=== PATIENT | male | born 1965 | race Caucasian/White ===

== ENCOUNTER 2019-03-25 10:58 | Emergency (ER) | payer OTHER, SELFPAY ==
[2019-03-25 10:59] VITALS: BP 132/91; PULSE 72; RESP 16; TEMP 36.3; O2SAT 97; BMI 28.3
--- NOTE | 2019-03-25 11:13 | EKG12_ITS ---
Test Reason : CP Blood Pressure : / mmHG Vent. Rate : 062 BPM Atrial Rate : 062 BPM P-R Int : 128 ms QRS Dur : 088 ms QT Int : 404 ms P-R-T Axes : 042 021 048 degrees QTc Int : 410 ms Normal sinus rhythm Normal ECG Confirmed by MICAELA MONTIEL ([id number]), department editor SANJUANITA PARK ([id number]) on 03/28/2019 11:18:20 AM Referred By: BB Confirmed By:MICAELA MONTIEL
--- NOTE | 2019-03-25 11:13 | RAD_ITS ---
STUDY: X-RAY CHEST REASON FOR EXAM: Male, 53 years old. Chest pain. TECHNIQUE: Single AP portable view of the chest. COMPARISON: Comparison is made with prior examination dated July 17, 2016. FINDINGS: EKG electrodes are seen. Hyperinflation. The lungs are clear. There is no demonstrated pleural abnormality. Normal size heart. Normal mediastinum and alka. Normal visualized pulmonary arteries. Normal visualized aortic arch and descending thoracic aorta. There are degenerative changes of the visualized thoracic spine. Normal visualized ribs, clavicles, and shoulders. There is no demonstrated abnormality of the visualized soft tissue structures of the upper abdomen. RAD/Chest 1 View (Portable) IMPRESSION: Hyperinflation. No acute abnormality is seen. Electronically Signed: Kota Ross, at 11:35 EST , Service support ,
--- NOTE | 2019-03-25 11:14 | ED.DCSUM_ITS ---
- ER Visit Summary Date of Service: 03/25/19 Chief Complaint: Chest pain History of Present Illness: The patient is a 53 M with chest pain. Symptoms started so rarely and intermittently for months but have been more consistent over the past 2 days and worse today. The pain radiates from his chest to his l eft arm. He says his pain is currently a 1 out of 10. History of a treadmill stress test years ago. Nothing recently. No history of coronary disease. He does not take blood thinners or aspirin. No history of aortic disease or PE. He has a family history of coronary disease. His mom at age 51. His sisters had coronary disease in their 50s. He is a former smoker. Physical Examination: Afebrile and vital signs are unremarkable. Alert and oriented. No acute distress. Heart regular. Lungs clear. Abdomen soft. Extremities nontender with no edema. Pulses strong and equal. Skin appears normal. Cranial nerves grossly intact. Normal strength and sensation. Test Results: EKG shows sinus rhythm at a rate of 62. No sign of ischemia or infarction pattern. Labs and chest x-ray pending. Emergency Department Course and Treatment: Patient was monitored. Treated with aspirin while awaiting results. On reevaluation, no further symptoms. Chest x-ray shows chronic findings. Nothing acute. Labs normal. Patient has a heart score of 3. He would like to try outpatient follow-up. I advised he will still need outpatient testing including a stress test. He does not want to be admitted. We will perform the delta troponin and he will follow- up with his doctor. Call today for an acute appointment and outpatient testing. He voiced understanding and agreement. I also advised him that if his pain worsens, if he has new symptoms, or if he is unable to follow-up, he should return to the ED. Treatment Plan: As above Disposition: Discharge pending normal delta troponin Impression: 1. Chest pain This note was generated with [employer] dictation software. It may contain incorrect words, spelling, and punctuation that were not noted in review of the chart prior to signing ED Disposition - Plan for ED Patient: Referrals: Ferny Swanson MD [STAFF PHYSICIAN] -
[2019-03-25] MEDS: Aspirin 81 MG TAB.CHEW 324 MG PO (11:19)
[2019-03-25 11:25] LABS: Absolute Lymphocyte Count 1.58 X10^3/uL (0.83-4.51); Absolute Neutrophil Count 4.1 X10^3/uL (2.0-7.7); Basophil# 0.03 X10^3/uL; Basophil% 0.5 % (0-1); Eosinophil# 0.27 X10^3/uL; Eosinophils% 4.2 % (0-5); Hematocrit 43.7 % (40-54); Hemoglobin 14.5 g/dL (13.0-16.5); Lymphocyte # 1.58 X10^3/ul (4.0); Lymphocyte % 24.7 % (19-41); Mean Corp Hgb Conc 33.2 g/dL (32-36); Mean Corpuscular Hgb 28.6 pg (27.0-32.0); Mean Corpuscular Volume 86.2 fL (80-94); Mean Platelet Vol. 9.9 fl (6.2-12.0); Monocyte# 0.45 X10^3/uL; NRBC Flagged by Analyzer 0 % (0-5); Neutrophil # 4.05 X10^3/uL (2.7-7.7); Neutrophil % 63.4 % (47-70); Platelet Count 316 K/mm3 (150-450); RBC Distribution Width SD 40.3 fl (35.1-43.9); Red Blood Count 5.07 M/mm3 (4.6-6.2); White Blood Count 6.4 K/mm3 (4.4-11.0)
[2019-03-25 11:38] LABS: Anion Gap 6 (5-15); BUN 13 mg/dL (7-18); Calcium,Total 9.1 mg/dL (8.5-10.1); Chloride 106 mmol/L (98-107); Creatinine, Serum 0.68 mg/dL (0.70-1.30); EST Glomerular Filtration Rate 128 mL/min (>60); Est Glom Filt Rate - Afr Amer 155 mL/min (>60); Estimated Creatinine Clearance 134.72 ml/min; Glucose 95 mg/dL (74-106); Potassium 3.9 mmol/L (3.5-5.1); Sodium Level 139 mmol/L (136-145)
--- NOTE | 2019-03-25 11:52 | ED.DEP ---
ED Disposition - Plan for ED Patient: Instructions: CHEST PAIN, Uncertain Cause Referrals: Deepak Davidson [Primary Care Provider] -
[2019-03-25 13:00] VITALS: BP 129/85; PULSE 64; RESP 20; O2SAT 95
[2019-03-25 15:08] VITALS: BP 116/82; PULSE 60; RESP 20; O2SAT 96
== END 2019-03-25 15:17 | disposition home or self-care (01) ==
LOC: ED 11:21
PROVIDERS: Emergency Provider Emergency Medicine; Family Provider Family Medicine
DX: R07.9 Chest pain, unspecified (principal); Z87.891 Personal history of nicotine dependence; Z82.49 Family history of ischemic heart disease and other diseases of the circulatory system
CPT/HCPCS: 36415; 71045; 80048; 84484; 85025; 93005; 99285; A4216

== ENCOUNTER → 2019-04-04 10:48 | Outpatient (CLI) | payer OTHER, SELFPAY ==
[2019-03-25 10:59] VITALS: BMI 28.3
--- NOTE | 2019-04-04 10:52 | ECHOD_ITS ---
Reason For Study: CHEST PAIN/CAD Procedure This was a 2D Doppler, Color Flow transthoracic echocardiogram. Exam performed in department. Left Ventricle Normal LV size. Left ventricular systolic function is normal. The estimated ejection fraction is 55 %. No regional wall motion abnormalities noted. Right Ventricle Normal RV size. Normal systolic function. Atria Normal left atrium. Normal right atrium. Mitral Valve Normal mitral valve. Tricuspid Valve Normal tricuspid valve. Mild tricuspid valve insufficiency. Aortic Valve Normal aortic valve. Trisinus/trileaflet aortic valve. Pulmonic Valve Normal pulmonic valve. Great Vessels Normal aortic root. The pulmonary artery is normal size. Normal inferior vena cava. Pericardium/Pleural No pericardial effusion. MMode/2D Measurements & Calculations LVIDd: 5.1 cm IVSd: 1.0 cm Ao root diam: 3.6 cm LVIDs: 3.7 cm LVPWd: 1.0 cm RVDd: 3.6 cm FS: 28.4 % LAV(MOD-bp): 46.1 ml LA A4 area: 16.1 cm2 LA dimension(2D): 3.3 cm LAV(MOD-bp) Indexed: 21.4 ml/m2 LAV(MOD-sp2): 47.8 ml LAV(MOD-sp4): 43.2 ml RA A4 area: 16.7 cm2 Time Measurements MV dec time: 0.28 sec Doppler Measurements & Calculations MV E max jan: 54.7 cm/sec Lat Peak E' Jan: 6.5 cm/sec Med Peak E' Jan: 6.0 cm/sec MV A max jan: 66.3 cm/sec E/E' lat: 8.4 E/E' med: 9.1 MV E/A: 0.82 Ao V2 max: 81.7 cm/sec LV V1 max: 68.6 cm/sec PA V2 max: 112.8 cm/sec Ao max P.7 mmHg LV V1 max P.9 mmHg TR max jan: 202.7 cm/sec TR max P.4 mmHg Interpretation Summary Normal LV size. Left ventricular systolic function is normal. The estimated ejection fraction is 55 %. Mild tricuspid valve insufficiency. Structurally normal valves. Ordering Physician: Catalino Farias Referring Physician: Deepak Davidson Performed By: Ya Mazariegos RDCS, RVT
--- NOTE | 2019-04-04 15:47 | STRESSREP ---
Stress Test Report Exercise stress test. 53-year-old male with a history of atypical chest pain. Stress protocol: Resting EKG demonstrates sinus rhythm with a rate of 63 bpm normal intervals are noted resting blood pressures 114/82 mmHg. The patient exercised according to regular [employer] protocol for total duration of 9 minutes. The maximum heart rate attained was 150 bpm which was 90% of maximum predicted heart rate the maximum workload was 10.1 metabolic equivalents. The patient maintained sinus rhythm throughout the recording. At rest there were no ST or T wave changes noted suggest ischemia peak exercise upsloping ST changes only were noted with no meet the criteria for ischemia. No clinical angina was noted. The resting blood pressure was 114/82 with a peak blood pressure 182/84 mmHg rate pressure product was 27,300. The test was terminated due to the target heart rate being achieved and dyspnea. Conclusion: Exercise stress test with no EKG criteria for ischemia at a high workload. Excellent functional capacity. No arrhythmias noted.
== END ==
PROVIDERS: Family Provider Family Medicine; Referring Provider Family Medicine; Visit Provider Family Medicine
DX: I25.10 Atherosclerotic heart disease of native coronary artery without angina pectoris (principal); R07.89 Other chest pain; Z87.891 Personal history of nicotine dependence; Z82.49 Family history of ischemic heart disease and other diseases of the circulatory system
CPT/HCPCS: 93017; 93306

== ENCOUNTER → 2019-11-06 18:00 | Outpatient (CLI) | payer OTHER, SELFPAY | PROVIDERS: Visit Provider Family Medicine | DX: Z03.818 Encounter for observation for suspected exposure to other biological agents ruled out (principal) | CPT/HCPCS: 87635; G2023; U0003 ==

== ENCOUNTER 2020-08-30 01:45 | Emergency (ER) | payer OTHER, SELFPAY ==
[2020-08-30 01:45] VITALS: BP 133/88; PULSE 60; RESP 16; TEMP 36.7; O2SAT 97; BMI 25.9
--- NOTE | 2020-08-30 02:21 | RAD_ITS ---
STUDY: X-RAY - RIGHT SHOULDER REASON FOR EXAM: Male, 54 years old. Injury/Pain TECHNIQUE: 4 view(s) of the shoulder. COMPARISON: None. FINDINGS: There is mild degenerative arthrosis of the glenohumeral articulation. Normal acromioclavicular joint. Normal acromion. Normal humeral head and visualized proximal humerus. The soft tissue structures are unremarkable. There is no demonstrated fracture. Normal visualized pulmonary apex. 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 Otherwise normal x-ray examination of the shoulder. Electronically Signed: Lisa Baker MD at 2:49 EDT , Service support ,
--- NOTE | 2020-08-30 02:22 | ED.VISSUMM ---
- ER Visit Summary Date of Service: 08/30/20 Chief Complaint: Right shoulder pain History of Present Illness: The patient is a 54 M who presents with right shoulder pain that has been off and on for the past year but became worse today. Patient states it suddenly became worse today. Patient describes the pain as throbbing and stabbing. Patient states pain is worse with movement. Patient states pain is somewhat better with rest. Patient states he was unable to sleep tonight due to the pain. Patient denies any paresthesias or weakness. Patient denies any specific trauma or injury. Patient states he uses his right shoulder a lot at work. Physical Examination: Vital signs are stable. Patient is afebrile. Patient is in no acute distress. Musculoskeletal exam reveals tenderness over the right shoulder. There is no edema or ecchymosis. There is no bony crepitance or step-off. Range of motion was limited in all motions of the right shoulder secondary to pain. Strength is 5/5 bilateral in the radial, median, and ulnar areas. Sensation was intact to light touch in the radial, median, ulnar, and axillary areas. There is no deformity noted. Radial pulses are equal bilaterally. Test Results: X-rays of the right shoulder were obtained. There are 5 views. On my interpretation, there is no acute fracture. There is no dislocation. There is no soft tissue swelling. There are some mild degenerative changes of the glenohumeral joint. Radiologist also interpreted the x-rays and agrees. Emergency Department Course and Treatment: Patient was given a dose of [place] here. Patient was advised of his findings. Patient was instructed to use ice to the area. Patient was given a prescription for Mobic. Patient was instructed to follow-up with his primary care physician in 5 to 7 days. Patient understood and was agreeable with the plan. All questions were answered. Disposition: Discharge home Impression: 1. Right shoulder strain This note was generated with [employer] dictation software. It may contain incorrect words, spelling, and punctuation that were not noted in review of the chart prior to signing ED Disposition - Plan for ED Patient: Disposition: Home or Assisted Living Diagnosis: Right shoulder strain Instructions: ED Shoulder Pain, Uncertain Cause Prescriptions: Meloxicam [Mobic] 15 mg PO DAILY #10 tablet Prescription Printed Referrals: Deepak Davidson [Primary Care Provider] - 5-7 Days
[2020-08-30] MEDS: HYDROcodone Bitartrate/Apap 5/325 Tablet PO (02:26)
[2020-08-30 03:44] VITALS: RESP 14
== END 2020-08-30 03:44 | disposition home or self-care (01) ==
PROVIDERS: Emergency Provider Emergency Medicine
DX: S46.911A Strain of unspecified muscle, fascia and tendon at shoulder and upper arm level, right arm, initial encounter (principal); X58.XXXA Exposure to other specified factors, initial encounter; Z87.891 Personal history of nicotine dependence
CPT/HCPCS: 73030; 99282

== ENCOUNTER 2023-12-25 10:33 | Emergency (ER) | payer OTHER, SELFPAY ==
[2023-12-25 10:33] VITALS: BP 130/74; PULSE 70; RESP 16; TEMP 36.7; O2SAT 97; BMI 25.7
[2023-12-25 10:35] VITALS: BP 130/74; PULSE 70; RESP 16; TEMP 36.7; O2SAT 98
[2023-12-25 11:09] LABS: Absolute Lymphocyte Count 1.65 X10^3/uL (0.83-4.51); Absolute Neutrophil Count 6.1 X10^3/uL (2.0-7.7); Basophil# 0.05 X10^3/uL; Basophil% 0.6 % (0-1); Eosinophil# 0.43 X10^3/uL; Eosinophils% 4.9 % (0-5); Hematocrit 43.1 % (40-54); Hemoglobin 14.3 g/dL (13.0-16.5); Lymphocyte # 1.65 X10^3/ul (0.83-4.51); Mean Corp Hgb Conc 33.2 g/dL (32-36); Mean Corpuscular Hgb 29.4 pg (27.0-32.0); Mean Corpuscular Volume 88.7 fL (80-94); Monocyte# 0.48 X10^3/uL; Monocyte% 5.5 % (0-10); NRBC Flagged by Analyzer 0 % (0-5); Neutrophil # 6.06 X10^3/uL (2.7-7.7); Neutrophil % 69.8 % (47-70); Platelet Count 296 K/mm3 (150-450); RBC Distribution Width CV 13.1 % (11.6-14.6); RBC Distribution Width SD 42.3 fl (35.1-43.9); Red Blood Count 4.86 M/mm3 (4.6-6.2); White Blood Count 8.7 K/mm3 (4.4-11.0)
--- NOTE | 2023-12-25 11:10 | CT_ITS ---
STUDY: CT ABDOMEN AND PELVIS WITH CONTRAST REASON FOR EXAM: Male, 58 years old. RLQ pain RADIATION DOSAGE (If Supplied By Facility): CTDIvol = ( 11.3 ) mGy, DLP = ( 775.23 ) mGycm TECHNIQUE: Transaxial images were obtained from the dome of the diaphragm to the symphysis pubis without oral contrast. IV 100mL Isovue-300 was administered. Sagittal and coronal images were reconstructed. Individualized dose optimization techniques were used for this CT. COMPARISON: Comparison is made with prior study dated December 24, 2013. FINDINGS: The visualized lung bases are unremarkable. The visualized portions of the heart are within normal limits. Normal liver. Normal gallbladder and extrahepatic biliary system. Normal spleen. Normal pancreas. Normal bilateral adrenal glands. Normal right kidney. Stable left renal cysts. Diffuse gastric wall thickening. Clinical correlation recommended. Normal small intestine. Normal colon. The appendix is visualized and appears normal. There is scattered atherosclerotic calcification of the abdominal aorta, without a demonstrated aneurysm. Normal inferior vena cava. Normal retroperitoneum. Normal urinary bladder. Moderate-sized left inguinal hernia containing nondilated bowel loops. There is thickening of the scrotum on the left side. Small right inguinal hernia containing fat. There are mild degenerative changes of the visualized lumbar spine. CT/Abdomen/Pelvis W IV Cont ONLY IMPRESSION: Bilateral inguinal hernias containing fat and small bowel loops more prominent on the left side. No ureteral obstruction is seen. Electronically Signed: Kota Ross MD at 12:11 EDT ,
--- NOTE | 2023-12-25 11:12 | ED.VIS.GI ---
HPI HPI - GI History of Present Illness Chief Complaint: Abd Pain Informant: patient Narrative Narrative: Waxing waning right lower quadrant abdominal pain for 2 weeks. No nausea or vomiting. Normal bowel movements. Bilateral inguinal hernia repair years ago. No fevers or chills. Intermittent sharp sensations side. 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 He went to express care he was sent here for evaluation. He ate a hamburger at 10 AM. Denies any urinary symptoms. Prior similar symptoms: No PFSH PFSH Home Medications ?Medication ?Instructions ?Recorded ?Last Taken ?Type meloxicam 15 mg tablet 15 mg PO DAILY #10 tabs 08/30/20 Unknown Rx Allergy/AdvReac Type Severity Reaction Status Date / Time No Known Allergies Allergy Verified 12/25/23 10:35 Social History Smoking Status: Former smoker ROS ROS ED Constitutional Constitutional ED: Denies chills, fever(s) or sweats Eyes Eyes: Denies change in vision ENT ENT ED: Denies dysphagia or sore throat Cardiovascular Cardiovascular: Denies chest pain, leg edema, palpitations or racing heartbeat Respiratory/Chest Respiratory/Chest: Denies cough, dyspnea or dyspnea on exertion Gastrointestinal Gastrointestinal: Reports abdominal pain; Denies diarrhea, nausea or vomiting Genitourinary Genitourinary ED: Denies dysuria, hematuria or urinary frequency Musculoskeletal Musculoskeletal: Denies back pain, extremity pain or neck pain Integumentary Denies rash or wounds Neurologic Neurologic: Denies headache(s), paresthesias or weakness EXAM Physical Exam Const Vital Signs: 12/25/23 10:33 12/25/23 10:35 12/25/23 12:00 Temperature 98.1 F 98.1 F 98 F Temperature Source Temporal Temporal Temporal Pulse Rate 70 70 66 Respiratory Rate 16 16 17 Blood Pressure 130/74 H 130/74 H 111/76 Blood Pressure Mean 92 92 87 Pulse Ox 97 98 98 Oxygen Delivery Method Room Air Room Air Room Air 12/25/23 12:30 12/25/23 13:22 Temperature 97.7 F L Temperature Source Pulse Rate 66 68 Respiratory Rate 17 18 Blood Pressure 111/74 125/76 H Blood Pressure Mean 85 92 Pulse Ox 98 98 Oxygen Delivery Method Positive well nourished and well developed General Appearance ED: well developed and NAD HEENT Reports moist mucous membranes normocephalic and atraumatic Eyes EOMs intact bilaterally and conjunctivae normal General Eye ED: Yes normal appearance of both eyes Neck no lymphadenopathy and supple General: Negative for tenderness Chest Wall Chest: Negative for tenderness Resp normal respiratory effort and normal air movement Effort and Inspection: symmetric chest movement; Negative for respiratory distress Cardio regular rate, regular rhythm and no murmurs Peripheral Pulses: pulses 2+ throughout GI normal to inspection, nondistended, normoactive bowel sounds GI Narrative: Tender deep palpation right lower quadrant there is no guarding or rebound. Negative Rovsing's. Negative Schmitz's. Palpation: Negative for guarding or rebound tenderness present Back/Spine no CVA tenderness and no thoracic nor lumbar tenderness Extremity normal to inspection General Extremety ED: Negative for edema or tenderness General Extremity: Negative for edema Neuro oriented x3 and no sensory deficits noted Sensorium / Orientation: awake and alert Skin no rashes or lesions noted and no wounds MDM MDM MDM Narrative Medical decision making narrative: Interventions / MDM: Differential diagnosis: Hernia Diagnosis considered but do not suspect: Appendicitis however normal CT, kidney stones however normal CT. My EKG interpretation: N/A Imaging independently reviewed and interpreted by myself: CT abdomen pelvis IV contrast: Normal appendix. Bilateral inguinal hernias. Right side fat-containing. Left side with bowels, no obstruction. External documents reviewed: N/A Test considered but not ordered:N/A ED course: Patient declines any pain medicines. Labs urine ordered. Will start fluids. Right lower quadrant pain on exam. CT abdomen pelvis IV contrast ordered for further evaluation. 1315: Symptoms stable no progression of symptoms. Labs are normal. CT fat-containing right inguinal hernia. Left inguinal hernia containing bowels in the scrotum. Nonobstructing. Discussed with patient likely the fact inguinal hernia is causing symptoms currently. He is in no distress. He states he had surgery by Dr. Hudson years ago on the left side. Discussed following up with him for surgical discussion. Discussed strict return precautions if severe pain specially left side with vomiting and abdominal distention. All questions were answered. Re-evaluation: stable Disposition discussed with patient/family/significant other: Patient Case discussed with consulting clinician: N/A This note was generated with [email or web address] dictation software. It may contain incorrect words, spelling, and punctuation that were not noted in checking the note before signing. Lab Data Attestation: I reviewed the patient's lab results. Labs: Laboratory Results - last 24 hr 12/25/23 12/25/23 11:04 11:16 WBC 8.7 RBC 4.86 Hgb 14.3 Hct 43.1 MCV 88.7 MCH 29.4 MCHC 33.2 RDW Std Deviation 42.3 RDW Coeff of [place] 13.1 Plt Count 296 MPV 10.0 Immature Gran % (Auto) 0.200 Neut % (Auto) 69.8 Lymph % (Auto) 19.0 [place] % (Auto) 5.5 Eos % (Auto) 4.9 Baso % (Auto) 0.6 Absolute Neuts (auto) 6.1 Absolute Lymphs (auto) 1.65 Nucleated RBC % 0 Sodium 139 Potassium 4.0 Chloride 107 Carbon Dioxide 28.0 Anion Gap 4 L BUN 12 Creatinine 0.75 Estim Creat Clear Calc 114.96 Est GFR (MDRD) Af Amer 136 Est GFR (MDRD) Non-Af 113 BUN/Creatinine Ratio 16.0 Glucose 104 Calcium 9.2 Total Bilirubin 0.30 AST 17 ALT 24 Alkaline Phosphatase 137 H Total Protein 7.2 Albumin 3.5 Globulin 3.7 Albumin/Globulin Ratio 0.9 Urine Color Yellow Urine Clarity Clear Urine pH 6.5 Ur Specific [place] 1.015 Urine Protein Negative Urine Glucose (UA) Normal Urine Ketones Negative Urine Occult Blood Negative Urine Nitrite Negative Urine Bilirubin Negative Urine Urobilinogen Normal Ur Leukocyte Esterase Negative Urine RBC 0-5 SEEN Urine WBC 0-5 SEEN Ur Squamous Epith Cells 0-5 SEEN Urine Bacteria 0 SEEN Urine Mucus 0 SEEN Radiography Diagnostic Testing: Clinical Impression(s) from Imaging Studies Abdomen/Pelvis CT 12/25/23 11:10 IMPRESSION: Bilateral inguinal hernias containing fat and small bowel loops more prominent on the left side. No ureteral obstruction is seen. Electronically Signed: Kota Ross MD at 12:11 EDT , Discharge Plan Triage Chief Complaint: Abd Pain ED Provider: Dominic Roche Dx/Rx/DC Orders Clinical Impression: Inguinal hernia recurrent bilateral, Abdominal pain Instructions: What Is a Hernia?, How a Hernia Develops Prescriptions: No Action meloxicam 15 MG tablet 15 mg PO DAILY Qty: 10 0RF Stand Alone Forms: ED Work / School Excuse Primary Care Provider: Deepak Davidson Referrals: Jfee Hudson MD [Non-Staff] - 1 Week Deepak Davidson [[facility]] - Activity Restrictions/Additional Instructions: CT scan with small right fat-containing inguinal hernia. Left side hernia with bowels in the scrotum there is no obstruction of this area. Your symptoms are from the right side hernia. Tylenol or Motrin as needed. Follow-up with Dr. Hudson for discussion of management plan. If you develop worsening pain symptoms with vomiting, return to the ED for reevaluation. Print Language: Belgian Disposition Disposition: Home, Self Care Discharge Date/Time: 12/25/23 13:26
[2023-12-25] MEDS: 0.9% Normal Saline (1000mL) 1,000 ML 125 ML IV (11:16)
[2023-12-25 11:20] LABS: Bacteria 0 SEEN /hpf (None Seen); Mucous, Urine 0 SEEN /hpf (<or=2+)
[2023-12-25 11:22] LABS: Color, Urine Yellow (Yellow); Glucose, Dipstick Normal (Normal); Ketone-Dipstick Negative (Negative); Leukocyte Esterase-Dipstick Negative /ul (Negative); Nitrite-Dipstick Negative (Negative); Occult Blood-Urine Negative /ul (Negative); Protein-Dipstick Negative (Negative); Specific Gravity, Urine 1.015 (1.002-1.030); Urine Bilirubin Dipstick Negative (Negative); Urine Clarity Clear (Clear); Urine Urobilinogen Normal (Normal); Urine pH 6.5 (5.0 - 8.0)
[2023-12-25 11:27] LABS: ALB/GLOB Ratio 0.9 RATIO (0.9-2.4); AST(SGOT) 17 U/L (15-37); Alanine Aminotransfer ALT/SGPT 24 U/L (16-61); Albumin, Serum 3.5 g/dL (3.2-5.0); Alkaline Phosphatase 137 U/L (45-117); Anion Gap 4 (5-15); BUN 12 mg/dL (7-18); Calcium,Total 9.2 mg/dL (8.5-10.1); Chloride 107 mmol/L (98-107); Creatinine, Serum 0.75 mg/dL (0.70-1.30); EST Glomerular Filtration Rate 113 mL/min (>60); Est Glom Filt Rate - Afr Amer 136 mL/min (>60); Estimated Creatinine Clearance 114.96 ml/min; Globulin 3.7 g/dL (2.2-4.2); Glucose 104 mg/dL (74-106); Protein, Total 7.2 g/dL (6.4-8.2); Sodium Level 139 mmol/L (136-145)
[2023-12-25 11:34] LABS: Red Blood Cells-Urine 0-5 SEEN /hpf (0-5); Squamous Epithelial Cells - UA 0-5 SEEN /hpf (0-5); White Blood Cells 0-5 SEEN /hpf (0-5)
[2023-12-25 12:00] VITALS: BP 111/76; PULSE 66; RESP 17; TEMP 36.6; O2SAT 98
[2023-12-25 12:30] VITALS: BP 111/74; PULSE 66; RESP 17; O2SAT 98
[2023-12-25 13:22] VITALS: BP 125/76; PULSE 68; RESP 18; TEMP 36.5; O2SAT 98
== END 2023-12-25 13:26 | disposition home or self-care (01) ==
PROVIDERS: Emergency Provider Emergency Medicine; PCP Family Medicine; Visit Provider Emergency Medicine
DX: K40.21 Bilateral inguinal hernia, without obstruction or gangrene, recurrent (principal); R10.31 Right lower quadrant pain; Z87.891 Personal history of nicotine dependence
CPT/HCPCS: 74177; 80053; 81001; 85025; 99282; J7030; Q9967

== ENCOUNTER 2025-01-26 00:50 | Emergency (ER) | payer OTHER, SELFPAY ==
[2025-01-26 00:52] VITALS: BP 119/70; PULSE 75; RESP 18; TEMP 36.6; O2SAT 96; BMI 17.2
--- NOTE | 2025-01-26 01:13 | CT_ITS ---
PROCEDURE: SPINE LUMBAR WITHOUT CONTRAST 01/26/2025 REASON FOR EXAM: LUMBAR RADICULOPATHY TECHNIQUE: Procedure Code: CTSPL Modality: CT Procedure: SPINE LUMBAR WITHOUT CONTRAST Coronal and Sagittal reconstruction series were provided. One or more dose reduction techniques were used (e.g., Automated exposure control, adjustment of the mA and/or kV according to patient size, use of iterative reconstruction technique COMPARISON: none RADIATION DOSE SUMMARY: CTDI Vol 14.69 mGy DLP :621.55 mGycm FINDINGS: Straightened lumbar lordosis denoting myospasm. 1st degree anterolisthesis of L4 over L5 with L4-L5 degenerative facet arthropathy Mild L5 over S1 retrolisthesis. Normal vertebral bodies height and alignment. Intact vertebral neural arches. No definite fractures could be detected. Multilevel small marginal lipping and sclerosis of the examined vertebral end plates. Multilevel reduced discs height with vacuum phenomenon. Multilevel degenerative facet arthropathy and hypertrophied ligamenta flava with calcifications. Multilevel variable degrees of diffuse disc bulges indenting the theca and inducing encroachment upon the neural exit foramina. Degenerative changes of the sacroiliac joints. No paraspinal soft tissue masses. Aortoiliac atheromatous calcifications. CT/Spine Lumbar without Contrast IMPRESSION: Straightened lumbar lordosis denoting myospasm. 1st degree anterolisthesis of L4 Mild L5 over S1 retrolisthesis. No acute fractures. Lumbar spondylosis with multilevel facet arthropathy and diffuse posterior disc bulges inducing encroachment upon the neural exit foramina. Degenerative changes of the sacroiliac joints. Reading [facility]
--- OUTSIDE RECORDS SUMMARY | 2025-01-26 01:22 | XMS RPT_ITS | CCD ---
Author Organization [facility] Care Team Providers Care Stud Sheep Farmer Name Role Phone Davidson JONES, Deepak Lr Primary Care Provider Deepak Cedeño MD Primary Care Provider Haagen FASHION BUYER.PAYAM Liliane Unavailable Suppan FASHION BUYER.RN CLINICAL APPEALS, Janel A Unavailable Suppan FASHION BUYER.RN CLINICAL APPEALS, Janel A Unavailable [phone] Suppan FASHION BUYER.PAYAM, Janel A Unavailable [phone] [facility] Primary Care Unavailable SUPPAN, JANEL A Referring Unavailable [place], Deepak Primary Care Unavailable Dominic Roche Attending Unavailable [facility] Primary Care Unavailable HIREN BAUMANN Attending Unavailable HIREN BAUMANN Admitting Unavailable [facility], DEEPAK Primary Care Unavailable SUPPAN, JANEL A Referring Unavailable [facility], DEEPAK Primary Care Unavailable MILE IZAGUIRRE Attending Unavailable SUPPAN, JANEL A Referring Unavailable [facility], DEEPAK Primary Care Unavailable ELEAZAR SILVER Attending Unavailable SUPPAN, JANEL A Referring Unavailable DIANE LINARES Attending Unavailable SUPPDHRUV, JANEL A Referring Unavailable [facility], DEEPAK Primary Care Unavailable HIREN BAUMANN Attending Unavailable [facility], DEEPAK Referring Unavailable [facility], [facility] Primary Care Unavailable [facility], DEEPAK Primary Care Unavailable SUPPAN, JANEL A Referring Unavailable DILEEP ERVIN Attending Unavailable SUPPAN, JANEL A Referring Unavailable [facility], DEEPAK Primary Care Unavailable DILEEP ERVIN Referring Unavailable [facility], DEEPAK Primary Care Unavailable SUPPDHRUV, JANEL A Attending Unavailable [facility], DEEPAK Primary Care Unavailable SUPPDHRUV, JANEL A Referring Unavailable [facility], DEE[facility]K Primary Care Unavailable HIREN BAUMANN Referring Unavailable DAVIDSONDEEPAK Cadena Primary Care Unavailable HIREN BAUMANN Attending Unavailable DEEPAK CEDEÑO Primary Care Unavailable DEEPAK CEDEÑO Referring Unavailable DEEPAK CEDEÑO Primary Care Unavailable DAVIDSON, DEEPAK Primary Care Unavailable JANEL MCGOVERN Attending Unavailable DEEPAK CEDEÑO Primary [facility] [place] Unavailable Allergies Allergy Classification Reported Allergen(s) Allergy Type Date of Onset Reaction(s) Facility (20 sources) Adhesive agent; Translations: [ADHESIVE] Propensity to adverse reactions to drug 12-09-2015 Rash [facility] Work Phone: Medications Current Medications Medication Drug Class(es) Dates Sig (Normalized) Sig (Original) mupirocin 20 mg/ml topical cream (6 sources) RNA Synthetase Inhibitor Antibacterial Start: 03-20-2024 End: 03-30-2024 mupirocin (BACTROBAN) 2 % ointment Indications: Wound cellulitis Apply to affected area three times a day for 10 days. 22 g 03/20/2024 03/30/2024 Active Start: 03-20-2024 End: 03-30-2024 mupirocin (BACTROBAN) 2 % cr eam Indications: Wound cellulitis Apply 1 application to affected area three times a day for 10 days. 15 g 03/20/2024 03/30/2024 Active predniSONE 20 mg oral tablet (1 source) Start: 01-16-2023 End: 01-21-2023 take 1 tablet by mouth once daily predniSONE (DELTASONE) 20 mg tablet Take 1 tablet by mouth once daily for 5 days. 5 tablet 0 01/16/2023 01/21/2023 Active Comment on above: Take 1 tablet by [facility] once daily for 5 days. Protein Supplement liqd (18 sources) Protein Suppleme nt liqd Take by mouth as needed. Suspended Protein Suppleme nt liqd Take by mouth as needed. Active sulfamethoxazole 800 mg / trimethoprim 160 mg oral tablet (4 sources) Dihydrofolate Reductase Inhibitor Antibacterial, Sulfonamide Antimicrobial Start: 03-20-2024 End: 03-30-2024 take 1 tablet by mouth twice daily sulfamethoxazole-trimethoprim (BACTRIM DS) 800-160 mg per tablet Indications: Wound cellulitis Take 1 tablet by mouth two times a day for 10 days. 20 tablet 03/20/2024 03/30/2024 Active terbinafine 250 mg oral tablet (9 sources) Allylamine Antifungal Start: 06-27-2024 End: 09-25-2024 take 1 tablet by mouth once daily terbinafine HCl (LAMISIL) 250 mg tablet Indications: Tinea pedis of both feet Take 1 tablet by mouth once daily. For 90 days only to treat fungal nails 90 tablet 06/27/2024 09/25/2024 Active Completed/Discontinued Medications Medication Drug Class(es) Dates Sig (Normalized) Sig (Original) acetaminophen 325 mg oral tablet (7 sources) End: 06-27-2024 take 2 tablets by mouth every six hours as needed acetaminophen (TYLENOL) 325 mg tablet Take 650 mg by mouth every 6 hours as needed. 06/27/2024 Discontinued (Discontinued by Patient) calcium chloride 0.0014 meq/ml / potassium chloride 0.004 meq/ml / sodium chloride 0.103 meq/ml / sodium lactate 0.028 meq/ml injectable solution (1 source) Start: 04-28-2024 End: 04-28-2024 take 30 mL intravenously every hour 30 mL/hr, INTRAVENOUS, CONTINUOUS, Starting on Sun04/28/24 at 1100, Until Sun04/28/24 at 1218, Preprocedure diclofenac sodium 0.01 mg/mg topical gel (3 sources) Nonsteroidal Anti-inflammatory Drug Start: 01-24-2023 End: 03-20-2024 diclofenac (VOLTAREN ARTHRITIS PAIN) 1 % topical gel Apply 2 g to affected area four times daily. 100 g 1 01/24/2023 03/20/2024 Discontinued (Course of therapy completed) Comment on above: Apply 2 g to affecte d area four times daily. diphenhydrAMINE (1 source) Histamine-1 Receptor Antagonist Start: 04-28-2024 End: 04-28-2024 12.5-50 mg, INTRAVENOUS, DIRECTED, Starting on Sun04/28/24 at 1200, Until Sun04/28/24 at 1559, DOSING DIRECTED BY PHYSICIAN FOR PROCEDURAL SEDATION ONLY, Intraprocedure 1 ml fentaNYL 0.05 mg/ml injection (1 source) Opioid Agonist Start: 04-28-2024 End: 04-28-2024 25-100 mcg, INTRAVENOUS, DIRECTED, Starting on Sun04/28/24 at 1200, Until Sun04/28/24 at 1559, DOSING DIRECTED BY PHYSICIAN FOR PROCEDURAL SEDATION ONLY, Intraprocedure ibuprofen 200 mg oral tablet (5 sources) Nonsteroidal Anti-inflammatory Drug End: 03-20-2024 take 2 tablets by mouth every six hours as needed ibuprofen (MOTRIN) 200 mg tablet Take 400 mg by mouth every 6 hours as needed for pain (for knee pain). 03/20/2024 Discontinued (Course of therapy completed) Comment on above: Take 400 mg by mouth every 6 hours as needed for pain (for knee pain). 1 ml meperidine hydrochloride 50 mg/ml injection (1 source) Opioid Agonist Start: 04-28-2024 End: 04-28-2024 12.5-100 mg, INTRAVENOUS, DIRECTED, Starting on Sun04/28/24 at 1200, Until Sun04/28/24 at 1559, DOSING DIRECTED BY PHYSICIAN FOR PROCEDURAL SEDATION ONLY, Intraprocedure 5 ml midazolam 1 mg/ml injection (1 source) Benzodiazepine Start: 04-28-2024 End: 04-28-2024 1-5 mg, INTRAVENOUS, DIRECTED, Starting on Sun04/28/24 at 1200, Until Sun04/28/24 at 1559, DOSING DIRECTED BY PHYSICIAN FOR PROCEDURAL SEDATION ONLY, Intraprocedure polyethylene glycol 3350 460138 mg / potassium chloride 2980 mg / sodium bicarbonate 6720 mg / sodium chloride 5840 mg / sodium sulfate 93858 mg powder for oral solution (9 sources) Osmotic Laxative Start: 04-21-2024 End: 06-27-2024 peg 3350-electrolytes (GAVILYTE-C) 240-22.72-6.72 -5.84 gram solution Take 4000 ml as directed. Follow written instructions from the doctor's office. 1 Each 04/21/2024 06/27/2024 Discontinued (Discontinued by Patient) Problems Active Problems Problem Classification Problem Date Documented Da te Episodic/Chronic Chronic obstructive pulmonary disease and bronchiectasis (17 sources) Centriacinar emphysema; Translations: [Centrilobular emphysema] Onset: 07-02-2024 06-27-2024 Chronic Coronary atherosclerosis and other heart disease (9 sources) Calcification of coronary artery; Translations: [Atherosclerotic heart disease of [place] coronary artery without angina pectoris] Onset: 08-20-2024 08-20-2024 Chronic Disorders of lipid metabolism (2 sources) Dyslipidemia; Translations: [Hyperlipidemia, unspecified] Onset: 03-25-2024 03-25-2024 Chronic Mycoses (1 source) Tinea pedis; Translations: [Tinea pedis] 06-27-2024 Episodic Osteoarthritis (2 sources) Osteoarthritis of joint of right wrist; Translations: [Primary osteoarthritis, right wrist] 01-24-2023 Chronic Other nervous system disorders (1 source) Numbness of hand; Translations: [Anesthesia of skin] 03-25-2024 Episodic Other nervous system disorders (1 source) Paresthesia of hand ; Translations: [Anesthesia of skin] 06-16-2024 Episodic Other non-traumatic joint disorders (2 sources) Pain of right wrist; Translations: [Pain in right wrist] 01-16-2023 Episodic Other non-traumatic joint disorders (3 sources) Swelling of upper limb; Translations: [Effusion, left wrist] 03-25-2024 Episodic Residual codes; unclassified (3 sources) Tobacco user; Translations: [Tobacco use] 06-02-2024 Episodic Skin and subcutaneous tissue infections (1 source) Wound cellulitis; Translations: [Cellulitis, unspecified] 03-20-2024 Episodic Substance-related disorders (9 sources) Nicotine dependence; Translations: [Nicotine dependence, unspecified, uncomplicated] Onset: 03-26-2019 08-20-2024 Chronic Unclassified (1 source) Post Op Onset: 10-02-2024 Past or Other Problems Problem Classification Problem Date Documented Date Episodic/Chronic Abdominal hernia (20 sources) Umbilical hernia; Translations: [Umbilical hernia without obstruction or gangrene] Onset: 09-13-2015 09-13-2015 Episodic Abdominal pain (2 sources) Right lower quadrant pain; Translations: [Right lower quadrant pain] Onset: 01-11-2024 12-25-2023 Episodic Calculus of urinary tract (20 sources) Kidney stone; Translations: [Calculus of kidney] Onset: 11-19-2015 11-19-2015 Episodic Other infections; including parasitic (20 sources) Lyme disease; Translations: [Lyme disease, unspecified] Onset: 02-03-2020 02-03-2020 Episodic Other nervous system disorders (1 source) Other acute postprocedural pain; Translations: [Acute postoperative pain] Onset: 09-03-2024 Episodic Other nervous system disorders (1 source) Anesthesia of skin; Translations: [Numbness in both hands] Onset: 03-25-2024 Episodic Other non-traumatic joint disorders (1 source) Effusion, left wrist; Translations: [Wrist swelling, left] Onset: 03-25-2024 Episodic Other screening for suspected conditions (not mental disorders or infectious disease) (20 sources) Patient encounter status; Translations: [Encounter for screening for malignant neoplasm of colon] Onset: 03-25-2024 03-25-2024 Episodic Residual codes; unclassified (20 sources) FH: premature coronary heart disease; Translations: [Family history of ischemic heart disease and other diseases of the circulatory system] Onset: 03-26-2019 03-26-2019 Episodic Residual codes; unclassified (1 source) Tobacco use; Translations: [Tobacco use current] Onset: 06-13-2024 Episodic Screening and history of mental health and substance abuse codes (20 sources) Ex-smoker; Translations: [Personal history of nicotine dependence] Onset: 03-26-2019 03-26-2019 Episodic Results Test Name Value Interpretation Reference Range Facility [facility] CECILIA MARTIN ([id number]) 1965 M Date Time Provider Department 12/11/24 RENU DILLON [facility] During your visit today, we recorded the following information about you: Renu Dillon, Research Coordinator 12/11/2024 1:54 PM Signed IRB# [id number]: Vascular events in patients undergoing same-day nonCardiac surgery - [facility]IANCE PI: Arlette Ocampo MD This is a research study note. Patient assessments recorded here should not guide either clinical care or clinical decision-making. I attempted to contact Cecilia Martin on 12/11/2024 regarding the 90 day follow-up for the VALIANCE study. I was not able reach the patient on listed number. I will NOT attempt to call the patient again. This patient is considered lost to follow up. The research period is complete. Renu Dillon Research fellow [facility] Anesthesia Research/ Emergency Medicine Research Allergies As of Date: 12/11/2024 Noted Allergy Reaction ADHESIVE 12/09/2015 2 - Rash Comments: Blistering of skin from adhesive Date Reviewed: 10/02/2024 Reviewed by: Bethany Flores OCCA - Fully Assessed Reason for Visit: Research F/U [[id number]] Prescriptions as of 12/11/2024 - Protein Supplement liqd Take by mouth as needed. Meds Comments as of 11/10/2015: No Routine Rx, otc or supplements Problem List As Of Date 12/11/2024 Noted Resolved Umbilical hernia without obstruction and withou*09/13/2015 Renal calculi [N20.0] 11/19/2015 Unilateral inguinal hernia without obstruction *11/19/2015 Nicotine dependence with current use [F17.200] 03/26/2019 Family history of premature CAD [Z82.49] 03/26/2019 Acute Lyme disease with largest skin lesion of *02/03/2020 Screening for colon cancer [Z12.11] 04/28/2024 Coronary artery calcification [I25.10] 08/20/2024 Centrilobular emphysema (HCC) [J43.2] 08/20/2024 Encounter Status:Closed by RENU DILLON on 12/11/24 [facility] 12-02-[address] [facility] Telephone ([facility]) CECILIA MARTIN ([id number]) 1965 M Date Time Provider Department 12/02/24 RENU DILLON [facility] During your visit today, we recorded the following information about you: Renu Dillon, Research Coordinator 12/02/2024 2:11 PM Signed IRB# [id number]: Vascular events in patients undergoing same-day nonCardiac surgery - [facility] PI: Arlette Ocampo MD This is a research study note. Patient assessments recorded here should not guide either clinical care or clinical decision-making. I attempted to contact Cecilia Martin on December 02, 2024 regarding the 90 day follow-up for the VALIANCE study. I was not able reach the patient on listed number. I will attempt to call the patient again at a later time. Renu Dillon, Research Fellow Outcomes Research Anesthesiology [place] Allergies As of Date: 12/02/2024 Noted Allergy Reaction ADHESIVE 12/09/2015 2 - Rash Comments: Blistering of skin from adhesive Date Reviewed: 10/02/2024 Reviewed by: Bethany Flores OCCA - Fully Assessed Reason for Visit: Research F/U [778] Prescriptions as of 12/02/2024 - Protein Supplement liqd Take by mouth as needed. Meds Comments as of 11/10/2015: No Routine Rx, otc or supplements Problem List As Of Date 12/02/2024 Noted Resolved Umbilical hernia without obstruction and withou*09/13/2015 Renal calculi [N20.0] 11/19/2015 Unilateral inguinal hernia without obstruction *11/19/2015 Nicotine dependence with current use [F17.200] 03/26/2019 Family history of premature CAD [Z82.49] 03/26/2019 Acute Lyme disease with largest skin lesion of *02/03/2020 Screening for colon cancer [Z12.11] 04/28/2024 Coronary artery calcification [I25.10] 08/20/2024 Centrilobular emphysema (HCC) [J43.2] 08/20/2024 Encounter Status:Closed by RENU DILLON on 12/02/24 [facility] CNOVon 10-02-2024 CNOV Office Visit ([facility] ) CECILIA MARTIN ([id number]) 1965 M Date Time Provider Department 10/02/24 3:20 PM HIREN BAUMANN [facility] During your visit today, we recorded the following information about you: Temperature Pulse Blood pressure Weight 97.7 degrees 78/minute 131/86 85.3 kg Height 1.829 m Hiren Baumann MD 11/17/2024 1:56 PM Signed [facility] - Follow Up Visit Assessment/Plan: Cecilia Martin is a 58 year old male s/p open left inguinal hernia repair with 7.5 x 13 cm mid-weight polypropylene Parietene mesh and robotic right inguinal hernia repair with 15 x 11 cm heavy-weight Polypropylene Prolene mesh on 09/03/2024. He presents today, 29 days postoperatively and is doing well. His pain has resolved, there is no bulging in the groin, he is having no issues with PO intake, his wounds are healing well, and he is recovering appropriately. - Follow up as needed Subjective: Feels an occasional poking pain in the left groin and only an occasional ache on the right. A little bit of numbness in the left groin. No issues with PO intake, or bowel function. Objective: AAOx3, NAD Non-labored respirations on RA Abdomen soft, non-distended, and mildly tender around the patient's lap sites. Skin glue flaking off. No erythema or induration at any of his lap incisions or left groin incision. No bulge in either groin. Hiren Baumann MD 11/17/24, 1:46 PM General Surgery [facility] Medical Decision Making: Problems: Minimal: Self-limited or minor problem Risk: Minimal: Minimal risk from testing/treatment Medical Decision Making Level: 2 - Straightforward Referring Provider: DEEPAK CEDEÑO [[id number]] Allergies As of Date: 10/02/2024 Noted Allergy Reaction ADHESIVE 12/09/2015 2 - Rash Comments: Blistering of skin from adhesive Date Reviewed: 10/02/2024 Reviewed by: Bethany Flores OCCA - Fully Assessed Reason for Visit: Post Op [174] Cmt: s/p open left inguinal hernia repair with 7.5 x 13 cm mid-weight polypropylene Parietene mesh and robotic right inguinal hernia repair with 15 x 11 cm heavy-weight Polypropylene Prolene mesh on 09/03/2024. Primary Visit Diagnosis:Status post bilateral inguinal hernia repair [Z98.890, Z87.19] Prescriptions as of 11/17/2024 - Protein Supplement liqd Take by mouth as needed. Meds Comments as of 11/10/2015: No Routine Rx, otc or supplements Problem List As Of Date 10/02/2024 Noted Resolved Umbilical hernia without obstruction and withou*09/13/2015 Renal calculi [N20.0] 11/19/2015 Unilateral inguinal hernia without obstruction *11/19/2015 Nicotine dependence with current use [F17.200] 03/26/2019 Family history of premature CAD [Z82.49] 03/26/2019 Acute Lyme disease with largest skin lesion of *02/03/2020 Screening for colon cancer [Z12.11] 04/28/2024 Coronary artery calcification [I25.10] 08/20/2024 Centrilobular emphysema (HCC) [J43.2] 08/20/2024 Encounter Status:Closed by HIREN BAUMANN on 11/17/24 [facility] 09-10-[address] [facility] Telephone ([facility]) CECILIA MARTIN ([id number]) 1965 M Date Time Provider Department 09/10/24 HIREN BAUMANN [facility] During your visit today, we recorded the following information about you: Johnathon Mondragon, RN 09/10/2024 1:52 PM Signed GENERAL SURGERY CARE COORDINATION POST-OP TELEPHONE CALL Patient called for post op follow up assessment. S/p open left inguinal hernia repair w/ mesh and robotic right inguinal hernia repair with mesh 09/03 Pain: Patient reports he is feeling well. He is intermittently sore but using PRN Motrin with good relief. Diet: Tolerating PO intake; denies any nausea or vomiting Voiding: without issue Bowel Movement: having BM's since surgery Incision: healing well; denies any redness, opened areas or drainage Ambulating: without issue Medication: Denies questions or concerns about medication. Post op restrictions reviewed with patient including - activity- no heavy lifting, pushing, or pulling >15lbs for 4weeks - keep incision clean and dry. Ok to use mild antibacterial soap. - reviewed signs and symptoms to notify office including signs of infection, fever, persistent nausea/vomiting, or worsening pain Follow up: Patient verbalized understanding and denies further questions at this time. Understands to call the office with further concerns/questions. 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 For 90 days only to treat fungal nails - Protein Supplement liqd Take by mouth as needed. Meds Comments as of 11/10/2015: No Routine Rx, otc or supplements Problem List As Of Date 09/10/2024 Noted Resolved Umbilical hernia without obstruction and withou*09/13/2015 Renal calculi [N20.0] 11/19/2015 Unilateral inguinal hernia without obstruction *11/19/2015 Nicotine dependence with current use [F17.200] 03/26/2019 Family history of premature CAD [Z82.49] 03/26/2019 Acute Lyme disease with largest skin lesion of *02/03/2020 Screening for colon cancer [Z12.11] 04/28/2024 Coronary artery calcification [I25.10] 08/20/2024 Centrilobular emphysema (HCC) [J43.2] 08/20/2024 Encounter Status:Closed by JOHNATHON MONDRAGON on 09/10/24 [facility] ANES POSTPROC EVALon 025 ANES POSTPROC EVAL HNO ID: [id number] Author: HANNAH MCRAE DO Service: Anesthesiology Author Type: Anesthesiologist Type: Anesthesia Postprocedure Evaluation Filed: 09/03/2024 20:41 Note Text: POST ANESTHESIA EVALUATION NOTE : 1965 Procedure Summary Date: 09/03/24 Room / Location: [place] [address] / OR Anesthesia Start: 1510 Anesthesia Stop: 1940 Procedures: ROBOTIC INGUINAL HERNIA REPAIR (Right: Groin) HERNIORRHAPHY INGUINAL ELECTIVE ADULT REDUCIBLE (Left: Groin) Diagnosis: Bilateral inguinal hernia without obstruction or gangrene, recurrence not specified (Bilateral inguinal hernia without obstruction or gangrene, recurrence not specified [K40.20]) Surgeons: Hiren Baumann MD Responsible Provider: Jacobo Crowley MD Anesthesia Type: general ASA Status: 3 Anesthesia Type: general Airway Type: ETT Last Vitals Vitals Value Taken Time BP 89/60 09/03/242029 Temp 36.4 ?C (97.5 ?F) 09/03/241936 Pulse 68 09/03/242039 Resp 13 09/03/242039 SpO2 100 % 09/03/242039 Vitals shown include unfiled device data. Post Anesthesia Patient Status Patient Evaluation: PACU. PACU/ICU Patient Condition: stable. Anticipated Disposition: phase 2 then home. Neurological Status: sleepy but arousable. Pulmonary Status: breathing comfortably on supplemental oxygen Airway Control: returned to baseline unsupported. Cardiovascular Status: stable. Pain Management: clinically adequate Postoperative Hydration: acceptable. Intraoperative Events: no significant anesthesia events Post Operative Nausea/Vomiting Status: no significant post operative nausea or vomiting Recommendation: continue current plan of care. Anesthesia Observations No Documentation SIGNATURE: Hannah Mcrae DO PATIENT NAME: Cecilia Martin DATE: September 03, 2024 TIME: 8:41 PM CSN: [id number] [facility] ANES PRE-OPon 09-03-2024 ANES PRE-OP HNO ID: [id number] Author: MILLER CHAND MD Service: Pain Management Author Type: Anesthesiologist Type: Anesthesia Preprocedure Evaluation Filed: 09/03/2024 14:15 Note Text: ANESTHESIOLOGY DAY OF SURGERY NOTE : 1965 Procedure Information Date/Time: 09/03/24 1245 Procedures: ROBOTIC INGUINAL HERNIA REPAIR (Right: Groin) - with mesh HERNIORRHAPHY INGUINAL ELECTIVE ADULT REDUCIBLE (Left: Groin) - with mesh Location: [facility] OR10 / [facility] Surgeons: Hiren Baumann MD Estimated body mass index is 25.5 kg/m? as calculated from the following: Height as of 08/13/24: 182.9 cm (6'). Weight as of 08/13/24: 85.3 kg (188 lb). Most recent hematocrit and potassium results: Hematocrit 45.2 03/25/2024 Potassium 4.6 03/25/2024 Relevant Problems CARDIO (+) Coronary artery calcification -RENAL (+) Renal calculi PULMONARY (+) Centrilobular emphysema (HCC) I - PHYSICAL EVALUATION AIRWAY Patient intubated: No. Tracheostomy tube not present Mallampati: I. TM distance: >3 FB. Neck ROM: full ROM without neurological symptoms. Mouth opening: adequate. Short neck: no. Thick neck: no DENTAL Dentures, upper: complete. Additional exam findings: no II - ANESTHESIA PLAN ASA Score: 3 Anesthetic Plan: general Airway type: ETT The patient is a current smoker. NPO Status: adequate Beta Rory Monitoring Plan Monitoring plan: standard ASA. Post Procedure Analgesic Plan Postoperative analgesic plan: multimodal analgesia and parenteral or oral opioids. Informed Consent Anesthetic risks, benefits, alternatives, personnel and consent discussed: yes. Patient / Responsible Constitution Party agrees to proceed: yes Patient / Surrogate agrees to blood products: Yes Vitals Value Taken Time BP 115/70 09/03/24 1201 Pulse Resp 18 09/03/24 1201 Temp 36.4 ?C (97.5 ?F) 09/03/24 1201 SpO2 97 % 09/03/24 1201 Facility-Administered Medications as of 09/03/2024 Medication Dose Route Frequency heparin 5,000 Units injection 5,000 Units SUBCUTANEOUS Pre-Op Once lidocaine (PF) 10 mg/mL (1 %) 1-2 mg injection (XYLOCAINE) 0.1-0.2 mL INTRADERMAL PRN lactated ringers iv infusion 5-30 mL/hr INTRAVENOUS CONTINUOUS NaCl 0.9% iv flush bag 20 mL INTRAVENOUS PRN ceFAZolin iv piggyback 2 g in D5W (iso-osmotic) 100 mL (ANCEF) 2 g INTRAVENOUS Pre-Op Once acetaminophen 1,000 mg tab(s) (TYLENOL) 1,000 mg ORAL Pre-Op Once promethazine 12.5 mg tab(s) (PHENERGAN) 12.5 mg ORAL Pre-Op Once lactated ringers iv infusion 30 mL/hr INTRAVENOUS CONTINUOUS Outpatient Medications as of 09/03/2024 Medication Sig Protein Supplement liqd Take by mouth as needed. I have interviewed and examined the patient. I have reviewed the medical record and/or the pre-anesthesia evaluation, pertinent labs, and test results. This contains updated information obtained within 48 hours of Surgery/Procedure. SIGNATURE: Miller Chand MD PATIENT NAME: Cecilia Martin DATE: September 03, 2024 TIME: 2:15 PM CSN: [id number] [facility] BRIEF OP NOTon 09-03-2024 BRIEF OP NOT HNO ID: [id number] Author: KENDRA BOWER MD Service: General Surgery Author Type: Resident Type: Brief Op Note Filed: 09/03/2024 19:25 Note Text: BRIEF OPERATIVE / PROCEDURE NOTE LOG ID: [id number] SURGERY/PROCEDURE DATE: 09/03/2024 INCISION/PROCEDURE START TIME: 3:48 PM INCISION CLOSE/PROCEDURE END TIME: 7:21 PM SURGEON(S)/PROCEDURALIST(S) AND ARTIFICIAL INSEMINATOR(S): Surgeons and Role: * Hiren Baumann MD - Primary * Kendra Bower MD - Resident - Assisting No Additional Staff SURGERY/PROCEDURE(S): 1) open left inguinal hernia repair with mesh 2) robotic assisted laparoscopic right inguinal hernia repair with mesh ANESTHESIA: General FINDINGS: large indirect left inguinal hernia, small indirect right inguinal hernia ESTIMATED BLOOD LOSS: 20 mls SPECIMENS: None COMPLICATIONS: None IMPLANTS: * No implants in log * CLOSURE TECHNIQUE: Primary PRE-OP/PRE-PROCEDURE DIAGNOSIS: bilateral recurrent inguinal hernias POST-OP/POST-PROCEDURE DIAGNOSIS: Same as Preop Patient was accompanied to the next level of care by a licensed practitioner from the surgical team pending completion of this brief op note (or operative note) SIGNATURE: Kendra Bower MD PATIENT NAME: Cecilia Martin DATE: September 03, 2024 TIME: 7:24 PM [facility] CNPNon 09-03-[address] [facility] Telephone ([facility]) CECILIA MARTIN ([id number]) 1965 M Date Time Provider Department 09/03/24 HIREN BAUMANN [facility] During your visit today, we recorded the following information about you: Laxmi Ballesteros 09/03/2024 3:06 PM Signed Received FMLA/STD paperwork on 09/03/24 Pending physician signature and completion. Surgeon: Dr. Baumann Date of Surgery (if known):09/03/24 Elvia Tena OCCA 09/03/2024 3:57 PM Signed Employer Forms for Patient/Caregiver Time Off of Work Completed, signed by provider, and returned to below contact. Completed copy scanned in Web Performance Date of Surgery: 09/03/24 Estimated RTW date: 10/15/24 Employer: sent to [employer] Date sent to employer: 09/03/24 Received fax confirmation: YES YURIDIA Corona Allergies As of Date: 09/03/2024 Noted Allergy Reaction ADHESIVE 12/09/2015 2 - Rash Comments: Blistering of skin from adhesive Date Reviewed: 09/03/2024 Reviewed by: Christine Nichols RN - Fully Assessed Reason for Visit: [place] Paperwork [[id number]] Prescriptions as of 09/03/2024 - terbinafine HCl (LAMISIL) 250 mg tablet Take 1 tablet by mouth once daily. For 90 days only to treat fungal nails - Protein Supplement liqd Take by mouth as needed. Facility-Administered Medications as of 09/03/2024 - lidocaine (PF) 10 mg/mL (1 %) 1-2 mg injection (XYLOCAINE) - lactated ringers iv infusion - NaCl 0.9% iv flush bag - acetaminophen 1,000 mg tab(s) (TYLENOL) - promethazine 12.5 mg tab(s) (PHENERGAN) - lactated ringers iv infusion - dexmedeTOMIDine 400 mcg in NaCl 0.9% 100 mL (PRECEDEX) - PHENYLephrine 10 mg in NaCl 0.9% 100 mL (TJ-SYNEPHRINE) - lactated ringers iv infusion - midazolam (PF) injection (VERSED) - lidocaine (PF) 20 mg/mL (2 %) injection (XYLOCAINE) - propofol infusion (DIPRIVAN) - rocuronium injection - fentaNYL 50 mcg/mL injection (SUBLIMAZE) - dexAMETHasone sodium phosphate injection (DECADRON) Meds Comments as of 11/10/2015: No Routine Rx, otc or supplements Problem List As Of Date 09/03/2024 Noted Resolved Umbilical hernia without obstruction and withou*09/13/2015 Renal calculi [N20.0] 11/19/2015 Unilateral inguinal hernia without obstruction *11/19/2015 Nicotine dependence with current use [F17.200] 03/26/2019 Family history of premature CAD [Z82.49] 03/26/2019 Acute Lyme disease with largest skin lesion of *02/03/2020 Screening for colon cancer [Z12.11] 04/28/2024 Coronary artery calcification [I25.10] 08/20/2024 Centrilobular emphysema (HCC) [J43.2] 08/20/2024 Encounter Status:Closed by ELVIA TENA on 09/03/24 [facility] OPERATIVE NOon 09-03-2024 OPERATIVE NO HNO ID: [id number] Author: HIREN BAUMANN MD Service: General Surgery Author Type: Physician Type: Operative Report Filed: 09/03/2024 20:04 Note Text: OPERATIVE/PROCEDURE REPORT LOG ID: [id number] Surgery/Procedure Date: 09/03/2024 Incision/Procedure Start Time: 3:48 PM Incision Close/Procedure End Time: 7:21 PM Surgeon(s)/Proceduralist(s) and Trust Vault Custodian(s): Surgeons and Role: * Hiren Baumann MD - Primary * Kendra Bower MD - Resident - Assisting No Additional Staff Procedure(s): 1. Open left inguinal hernia repair with mesh 2. Robotic right inguinal hernia repair with mesh Anesthesia: General Pre-Op/Pre-Procedure Diagnosis: Recurrent left inguinal hernia Recurrent right inguinal hernia Post-Op/Post-Procedure Diagnosis: Same Operative Findings: Large recurrent left inguinal hernia, 3 cm internal ring, sliding component involving the sigmoid with recurrence lateral to the prior preperitoneal mesh Small right recurrent inguinal hernia containing fat. EMMETT repair performed. No adhesions to prior umbilical IPOM mesh or to the anterior abdominal wall but intermittent areas of dense interloop adhesions Operative Indication: Cecilia Martin is a 58 year old male who presents with a symptomatic recurrent bilateral inguinal hernias. Current symptoms include pain and bulging. He has previously undergone an open right inguinal hernia repair with mesh and laparoscopic left inguinal hernia repair with mesh. The risks, benefits, and alternatives to open inguinal hernia repair with mesh were discussed with the patient including the risk of bleeding, infection, damage to the vas deferens or spermatic vessels, nerve injury, chronic groin pain, and recurrence. All patient questions were answered to their satisfaction. Written consent was obtained and can be found under the Consent tab in Epic. Procedure Details: A preoperative safety huddle was performed answering all patient and staff questions/concerns prior to transporting the patient to the operating room. Plans for appropriate VTE and antibiotic prophylaxis were confirmed. After general endotracheal anesthesia was administered and the patient was then appropriately positioned with arms out, a pillow under the knees, a safety strap across the thigh, and padding of all pressure points. Next, the abdomen was clipped and then prepped and draped in the usual sterile fashion with chlorhexidine. Finally, a time out was performed before incision. We started with a left groin incision, dissecting through the subcutaneous tissues with electrocautery, ligating the superficial epigastric with 3-0 Vicryl ties, and dissecting down to the external oblique. Local was infiltrated beneath the external oblique to create an ilioinguinal nerve block. Next, the external oblique was divided along its oblique fibers and extended laterally, then medially through the external ring to expose the inguinal canal. We then dissected the cord free from the shelving edge of the inguinal ligament and the conjoint tendon, encircling the cord at the level of the pubis, placing a phi around the cord. Next, we next the cord structures from the hernia sac which emanated from the indirect space. The was somewhat difficult as there was a significant sliding component involving the sigmoid colon working its way laterally around the prior preperitoneal mesh. The hernia sac and colon were gently reduced and the hernia defect measured 3 cm. The ilioinguinal, iliohypogastric, and genital branch of the gen fem coursed directly through the operative field so the decision was made to perform neurectomies in order to avoid any entrapment by the mesh or scar. The nerves were dissected free from the surrounding tissues proximally and distally to the edges of the operative field. They were then ligated with 3-0 Vicryl sutures under tension and divided, allowing the proximal and distal ends to retract into the surrounding tissue and away from the operative field. The proximal cremasteric fibers were used to make a scarf around the cord structures at the level of the internal ring utilizing an 0-Vicryl figure of eight and to help contain the reduced contents for our mesh placement. After confirming hemostasis, I then brought a 7.5 x 15 cm parietene medium weight mesh onto the field and trimmed it down to 7.5 x 13 cm, and created a slit in the mesh to accommodate the cord structures. We then anchored the mesh medially to the investing fascia over the pubic tubercle with an 0-Ethibond suture before running along the shelving edge laterally to 2 cm beyond the internal ring. We then secured the superior portion to the conjoined tendon with interrupted 0-Ethibond sutures and then fashioned tails around the cord structures to recreate the internal ring again with interrupted 0-Ethibond sutures, including a stitch laterally that anchored the cephalad t (more content not included)... Normal [facility] HISTORY PHYSICALon HISTORY PHYSICAL HNO ID: [id number] Author: TAMMI DELAROSA PA-C Service: ? Author Type: Physician Trust Vault Custodian Type: H&P Filed: 08/20/2024 18:28 Note Text: HISTORY AND PHYSICAL EXAMINATION SERVICE DATE: 08/13/2024 SERVICE TIME: 6:28 PM PRIMARY CARE PHYSICIAN: Deepak Cedeño MD REASON FOR VISIT: Cecilia Martin is a 58 year old male who is scheduled for Procedure(s) with comments: ROBOTIC INGUINAL HERNIA REPAIR (Right) - with mesh HERNIORRHAPHY INGUINAL ELECTIVE ADULT REDUCIBLE (Left) - with mesh at the request of Dr. Hiren Baumann for consultation. My final recommendation will be communicated back to the requesting physician by way of shared medical record or letter. Subjective The patient has the following: ACTIVE PROBLEM LIST Umbilical Hernia Without Obstruction and Without Gangrene Renal Calculi Unilateral Inguinal Hernia Without Obstruction Or Gangrene Nicotine Dependence With Current Use Family History of Premature Cad Acute Lyme Disease With Largest Skin Lesion of 2 Inches Or More Screening for Colon Cancer Coronary Artery Calcification Centrilobular Emphysema (Hcc) COVID-19 Immunization Status Upcoming Covid-19 Vaccine () Postponed until 03/25/2025 03/25/2024 Postponed until 03/25/2025 by Andra Leung MA (Declined at this time) CHIEF COMPLAINT: Pre-Op HPI: Cecilia Martin is a 58 year old male presenting for pre-anesthesia consultation. Pt has history of hernia. Above procedure recommended to manage symptoms. Procedure scheduled on 09/03/2024 at [facility]. REVIEW OF SYSTEMS: General: No weight loss, malaise or fevers. Neurological: Negative for: headaches, multiple sclerosis, Parkinson's disease, seizures and strokes. Respiratory: Positive for: tobacco use. Negative for: asthma, COPD, current cough, dyspnea, URI < 2 weeks and obstructive sleep apnea. Cardiovascular: Positive for: CAD Negative for: AICD/PPM, anticoagulation therapy, arrhythmia, chest pain, CHF, DVT/PE, hyperlipidemia, hypertension, recent CA, murmur/valvular heart disease, open heart surgery and valve surgery. GI: Negative for: abdominal pain, dysphagia, GERD, liver disease, nausea and vomiting. : Negative for: on dialysis, dysuria, hematuria and renal failure. Endocrine: Negative for: diabetes mellitus, hyperthyroidism and hypothyroidism. Hematology: Negative for: anemia, bruises/bleeds easily, factor V Leiden, hemophilia, thrombocytopenia, von Willebrand disease and chronic anti-coagulation/platelet meds. Oncology: No history of CA metastasis, chemo within 30 days, or radiotherapy within 90 days. No history of oncological symptoms or problems. Psych: Negative for: anxiety, bipolar disorder and depression. Musculoskeletal: Negative for joint pain or swelling, back pain or muscle pain. Skin: Negative for lesions, rash and itching. PAST MEDICAL HISTORY Diagnosis Date Inguinal hernia Right inguinal, , repaired Lyme disease, acute 11/2019 erythema migrans Renal calculi Umbilical hernia Unilateral inguinal hernia without obstruction or gangrene left PAST SURGICAL HISTORY Procedure Laterality Date LAPS REPAIR HERNIA EXCEPT INCAL/INGUN REDUCIBLE 11/30/15 LAPS SURG RPR RECURRENT INGUINAL HERNIA Left 11/30/15 RPR 1ST INGUN HRNA AGE 5 YRS/> REDUCIBLE [place]? - ?right RPR 1ST INGUN HRNA AGE 5 YRS/> REDUCIBLE as child pediatric type uncertain VASECTOMY UNI/BI SPX W/POSTOP SEMEN EXAMS FAMILY HISTORY Problem Relation Age of Onset Heart Attack Mother Cancer Father he is unsure of location but was in his 80's Coronary Artery Disease Sister in her 50's Coronary Artery Disease Sister No Known Problems Maternal Grandmother No Known Problems Maternal Grandfather No Known Problems Paternal Grandmother No Known Problems Paternal Grandfather other (other) Daughter Star's syndrome No Known Problems Daughter No Known Problems Son Anesthesia Problems No Family History Social History Tobacco Use Smoking status: Every Day Current packs/day: 1.00 Average packs/day: 1 pack/day for 30.3 years (30.3 ttl pk-yrs) Types: Cigarettes Start date: 05/14/1987 Last attempt to quit: 05/14/2016 Smokeless tobacco: Never Tobacco comments: 0.5 ppd Vaping Use Vaping status: Never Used Substance Use Topics Alcohol use: Yes Comment: 3-7 beers once a week Drug use: No Prior to Admission medications as of 08/13/24 1435 Medication Sig Last Dose Taking terbinafine HCl (LAMISIL) 250 mg tablet Take 1 tablet by mouth once daily. For 90 days only to treat fungal nails Yes Protein Supplement liqd Take by mouth as needed. Yes Medication Comments documented by Alfonso Frankel on 11/10/2015 at 1430. No Routine Rx, otc or supplements ALLERGIES Allergen Reactions Adhesive Rash Blistering of skin from adhesive Objective PHYSICAL EXAM: General: alert and oriented and healthy appearance. Pertinent negatives noted - not (more content not included)... Normal [facility] EXERCISE STRESS ECG (WITHOUT IMAGING)on 07-04-2024 Stress Return To Service Inspector Report: Exercise Stress ECG (without Imaging) [facility] Date of service: 07/04/2024 10:54:23 AM Supervising physician: Kirby Lynne MD PATIENT: Name: MR. CECILIA MARTIN Age: 58 years Gender: M The supervising physician was in the department and immediately available. Final Stress ECG Report: Exercise Stress ECG (without Imaging) [facility] Date of service: 07/04/2024 10:54:23 AM Ordering physician: JANEL MCGOVERN packaging specialist: Ana Sheth Trust Vault Custodian: Cydney Bryant Interpreting physician: Catalino Payne MD Patient name: MR. CECILIA MARTIN Age: 58 years Gender: M Indication: Encounter for screening for cardiovascular disorders Stress ECG Conclusion: Conclusion: Normal Stress ECG Summary: The patient's resting heart rate was 60 bpm and blood pressure was 130/82 mmHg. The patient exercised according to the Pantera protocol. The estimated end-exercise MET level achieved using the FRIEND equation was 8.7, which is within the 50th to 75th percentile for age and sex. The estimated end-exercise MET level achieved using the previous ACSM equation was 10.7. The test was terminated due to end of protocol and the total exercise time was 9 minutes and 30 seconds. Other symptoms during the test included SOB and leg fatigue. The maximum heart rate was 155 bpm, which is 97% of the predicted heart rate for age. Peak blood pressure was 166/84 mmHg. The double product achieved was [address]. Medications: Last Used LAMISIL Resting ECG: Normal Sinus Rhythm Symptoms at rest: No symptoms Exercise Protocol: Pantera Stress Exercise Table: +-----+ +-------- + +---+---+---+--- -+----+ Stage Speed (MPH) Grade(%) Time (min) HR SYS PANCHITO RPE METS +-----+ +-------- + +---+---+---+--- -+----+ 1 1.7 10.0 3.0 91 142 86 12.0 4.2 +-----+ +-------- + +---+---+---+--- -+----+ 2 2.5 12.0 6.0 113 150 82 13.0 6.1 +-----+ +-------- + +---+---+---+--- -+----+ 3 3.4 14.0 9.0 146 160 84 13.0 8.3 +-----+ +-------- + +---+---+---+--- -+----+ +-----+ +-------- -+ +---+---+---+-- --+----+ Speed (MPH) Grade (%) Time (min) HR SYS PANCHITO RPE METS +-----+ +-------- -+ +---+---+---+-- --+----+ Final 4.2 16.0 9.50 155 166 84 14.0 8.7 +-----+ +-------- -+ +---+---+---+-- --+----+ Recovery Table: +------+ +---+---+ ---+ Stage Time (min) HR SYS PANCHITO +------+ +---+---+ ---+ 1 1.0 130 168 80 +------+ +---+---+ ---+ 2 2.0 105 140 82 +------+ +---+---+ ---+ 3 3.0 103 138 78 +------+ +---+---+ ---+ 4 5.0 98 130 78 +------+ +---+---+ ---+ Stress Observations: Resting HR: 60 bpm Peak HR: 155 bpm (97% MPHR) Resting BP: 130 / 82 mmHg Peak BP: 166 / 84 mmHg Total exercise time: 9 minutes 30 seconds METS achieved: 8.7 Chronotropic response index (CRI): 0.96 Heart rate recovery (HRR): 25 bpm Rate Pressure Product (RPP): 22543 Cottrell Treadmill Score: 9.5 Stress Exercise Observations: Reason for test termination: end of protocol, Symptoms during test: Other symptoms during the test included SOB and leg fatigue, Heart rate response: Normal CRI (>0.8 Not on B Rory) and Normal HRR (>12 or >[address]/EC), Blood pressure response: Normal BP response, ST segment and T wave changes: No ST changes, Cottrell Treadmill Score: Normal Cottrell Treadmill Score (>=5) and Arrhythmias: Unifocal PVCs and PACs Metabolic Exercise Data Variable: Observed value [Expected Range] HGI: 2.3 [>1.06 bpm/mmHg] IMPORTANT NOTE REGARDING ESTIMATED MET VALUES: Effective 02/29/2020, the reference equation for determining estimated MET values for [facility] stress tests changed. Comparison of test results before and after that date may show a change in estimated MET values for peak/max exercise despite a test duration that is similar in length. The validity of the new FRIEND equation for exercise METS is endorsed by the [place] [employer]. Kokkinos P, Makenna LA, Nicole R, Lucas J, Celestine J. New Generalized Equation for Predicting Maximal Oxygen Uptake (from the Fitness Registry and the Importance of Exercise National Database). The [place] Journal of Cardiology. 2017;120(4):688-692). Final See Link below for Image [facility] EXERCISE STRESS ECG (WITHOUT IMAGING) Stress Return To Service Inspector Report: Exercise Stress ECG (without Imaging) [facility] Date of service: 07/04/2024 10:54:23 AM Supervising physician: Kirby Lynne MD PATIENT: Name: MR. CECILIA MARTIN Age: 58 years Gender: M The supervising physician was in the department and immediately available. Final Stress ECG Report: Exercise Stress ECG (without Imaging) [facility] Date of service: 07/04/2024 10:54:23 AM Ordering physician: JANEL MCGOVERN packaging specialist: Ana Sheth Trust Vault Custodian: Cydney Bryant Interpreting physician: Catalino Payne MD Patient name: MR. CECILIA MARTIN Age: 58 years Gender: M Indication: Encounter for screening for cardiovascular disorders Stress ECG Conclusion: Conclusion: Normal Stress ECG Summary: The patient's resting heart rate was 60 bpm and blood pressure was 130/82 mmHg. The patient exercised according to the Pantera protocol. The estimated end-exercise MET level achieved using the FRIEND equation was 8.7, which is within the 50th to 75th percentile for age and sex. The estimated end-exercise MET level achieved using the previous ACSM equation was 10.7. The test was terminated due to end of protocol and the total exercise time was 9 minutes and 30 seconds. Other symptoms during the test included SOB and leg fatigue. The maximum heart rate was 155 bpm, which is 97% of the predicted heart rate for age. Peak blood pressure was 166/84 mmHg. The double product achieved was 870[address]. Medications: Last Used LAMISIL Resting ECG: Normal Sinus Rhythm Symptoms at rest: No symptoms Exercise Protocol: Pantera Stress Exercise Table: +-----+ +-------- + +---+---+---+--- -+----+ Stage Speed (MPH) Grade(%) Time (min) HR SYS PANCHITO RPE METS +-----+ +-------- + +---+---+---+--- -+----+ 1 1.7 10.0 3.0 91 142 86 12.0 4.2 +-----+ +-------- + +---+---+---+--- -+----+ 2 2.5 12.0 6.0 113 150 82 13.0 6.1 +-----+ +-------- + +---+---+---+--- -+----+ 3 3.4 14.0 9.0 146 160 84 13.0 8.3 +-----+ +-------- + +---+---+---+--- -+----+ +-----+ +-------- -+ +---+---+---+-- --+----+ Speed (MPH) Grade (%) Time (min) HR SYS PANCHITO RPE METS +-----+ +-------- -+ +---+---+---+-- --+----+ Final 4.2 16.0 9.50 155 166 84 14.0 8.7 +-----+ +-------- -+ +---+---+---+-- --+----+ Recovery Table: +------+ +---+---+ ---+ Stage Time (min) HR SYS PANCHITO +------+ +---+---+ ---+ 1 1.0 130 168 80 +------+ +---+---+ ---+ 2 2.0 105 140 82 +------+ +---+---+ ---+ 3 3.0 103 138 78 +------+ +---+---+ ---+ 4 5.0 98 130 78 +------+ +---+---+ ---+ Stress Observations: Resting HR: 60 bpm Peak HR: 155 bpm (97% MPHR) Resting BP: 130 / 82 mmHg Peak BP: 166 / 84 mmHg Total exercise time: 9 minutes 30 seconds METS achieved: 8.7 Chronotropic response index (CRI): 0.96 Heart rate recovery (HRR): 25 bpm Rate Pressure Product (RPP): 66724 Cottrell Treadmill Score: 9.5 Stress Exercise Observations: Reason for test termination: end of protocol, Symptoms during test: Other symptoms during the test included SOB and leg fatigue, Heart rate response: Normal CRI (>0.8 Not on B Rroy) and Normal HRR (>12 or >[address]/EC), Blood pressure response: Normal BP response, ST segment and T wave changes: No ST changes, Cottrell Treadmill Score: Normal Cottrell Treadmill Score (>=5) and Arrhythmias: Unifocal PVCs and PACs Metabolic Exercise Data Variable: Observed value [Expected Range] HGI: 2.3 [>1.06 bpm/mmHg] IMPORTANT NOTE REGARDING ESTIMATED MET VALUES: Effective 02/29/2020, the reference equation for determining estimated MET values for [facility] stress tests changed. Comparison of test results before and after that date may show a change in estimated MET values for peak/max exercise despite a test duration that is similar in length. The validity of the new FRIEND equation for exercise METS is endorsed by the [place] [employer]. Tracy P, Mkaenna LA, Nicole R, Lucas J, Celestine J. New Generalized Equation for Predicting Maximal Oxygen Uptake (from the Fitness Registry and the Importance of Exercise National Database). The [place] Journal of Cardiology. 2017;120(4):688-692). Final CC [employer] Image : [id number] See Link below for Image Normal [facility] 07-03-[address] [facility] Telephone ([facility]) CECILIA MARTIN ([id number]) 1965 M Date Time Provider Department 07/03/24 CYDNEY BRYANT During your visit today, we recorded the following information about you: Cydney Bryant, RIAN 07/03/2024 11:00 AM Signed Spoke with patient regarding reminder for stress test tomorrow and given instructions. Allergies As of Date: 07/03/2024 Noted Allergy Reaction ADHESIVE 12/09/2015 2 - Rash Comments: Blistering of skin from adhesive Date Reviewed: 07/02/2024 Reviewed by: Carmen Carlson RPFT - Fully Assessed Reason for Visit: Reminder Call [[id number]] Prescriptions as of 07/03/2024 - terbinafine HCl (LAMISIL) 250 mg tablet Take 1 tablet by mouth once daily. For 90 days only to treat fungal nails - Protein Supplement liqd Take by mouth as needed. Meds Comments as of 11/10/2015: No Routine Rx, otc or supplements Problem List As Of Date 07/03/2024 Noted Resolved Umbilical hernia without obstruction and withou*09/13/2015 Renal calculi [N20.0] 11/19/2015 Unilateral inguinal hernia without obstruction *11/19/2015 Ex-smoker [Z87.891] 03/26/2019 Family history of premature CAD [Z82.49] 03/26/2019 Acute Lyme disease with largest skin lesion of *02/03/2020 Screening for colon cancer [Z12.11] 04/28/2024 Encounter Status:Closed by CYDNEY BRYANT on 07/03/24 [facility] SPIROMETRY - BASELINE AND PO ST DILATORon 07-02-2024 FEF25% POST (L/S) 7.06 L/S [facility] FEF25% PRE (L/S) 7.57 L/S [facility] INF80-48% LLN (L/S) 1.5 L/S [facility] OYL49-34% POST (L/S) 2.23 L/S [facility] FHU15-08% PRE (L/S) 2 L/S [facility] PRQ73-05% PREDICTED (L/S) 3.07 L/S [facility] FEF75% LLN (L/S) 0.38 L/S [facility] FEF75% POST (L/S) 0.48 L/S [facility] FEF75% PRE (L/S0 0.5 L/S [facility] FEF75% PREDICTED (L/S) 0.94 L/S [facility] FEF75% ULN (L/S) 2.21 L/S [facility] FET POST (S) 15.65 S [facility] FET PRE (S) 15.91 S [facility] FEV1 LLN (L) 2.64 L [facility] FEV1 PRE (L) 3.72 L [facility] FEV1 PREDICTED (L) 3.56 L [facility] FEV1 ULN (L) 4.43 L [facility] FEV1/FVC LLN (%) 65 % [facility] FEV1/FVC POST (%) 71 % [facility] FEV1/FVC PRE (%) 68 % [facility] FEV1/FVC PREDICTED (%) 77 % [facility] FEV1_POST (L) 3.82 L [facility] FVC LLN (L) 3.47 L [facility] FVC POST (L) 5.4 L [facility] FVC PRE (L) 5.45 L [facility] FVC PREDICTED (L) 4.62 L [facility] FVC ULN (L) 5.78 L [facility] PEF LLN (L/S) 7.12 L/S [facility] PEF POST (L/S) 8.45 L/S [facility] PEF PRE (L/S) 9.98 L/S [facility] PEF ULN (L/S) 11.98 L/S [facility] [address] [id number] Test Date: 2024-07-02 Pat Name: CECILIA MARTIN Department: Room: Gender: M Closing Coordinator: : 1965 Requested By: Order Number: [id number] Reading MD: Pilar Limon MD Interpretive Statements Medications and Allergies were reviewed for possible drug interactions per policy. No contraindications or sensitivities were noted. Meds taken: No inhaled respiratory medications taken before testing. 2 puffs Albuterol (180 mcg) delivered by MDI via holding chamber. HR pre = 82/min, HR post = 82/min. Current ATS/ERS acceptability and repeatability standards for spirometry met. Start of test and EOFE criteria met. IMPRESSION: Spirometry is normal. Negative bronchodilator response. Electronically Signed On 07-02-2024 16:29:01 EST by Pilar Limon MD Site: WO ID: [id number] Name: CECILIA MARTIN Visit Date: 07/02/2024 Doctor: Closing Coordinator: Carmen Carlson Age: 58 Date of : 1965 Gender: Male Race: White Height: 71.65 in Weight: 183.00 lbs BSA: 2.044 Diagnosis: Centrilobular emphysema Dyspnea: Cough: Wheeze: Tobacco Use: None Medications: Comments: Medications and Allergies were reviewed for possible drug interactions per policy. No contraindications or sensitivities were noted. Meds taken: No inhaled respiratory medications taken before testing. 2 puffs Albuterol (180 mcg) delivered by MDI via holding chamber. HR pre = 82/min, HR post = 82/min. Current ATS/ERS acceptability and repeatability standards for spirometry met. Start of test and EOFE criteria met. Review Status: Not Reviewed PRE-BRONCH POST-BRONCH Pred LLN ULN Actual %Pred Actual %Chng SPIROMETRY FVC (L) 4.62 3.47 5.78 5.45 117 5.40 0 FEV1 (L) 3.56 2.64 4.43 3.72 104 3.82 2 FEV1/FVC 0.77 0.65 0.87 0.68 88 0.71 3 FEF25 (L/sec) 7.57 7.06 -6 FEF50 (L/sec) 4.69 2.56 6.81 3.33 71 4.20 26 FEF75 (L/sec) 0.94 0.38 2.21 0.50 52 0.48 -2 KIM89-50 (L/sec) 3.07 1.50 5.20 2.00 65 2.23 11 FEF Max (L/sec) 9.55 7.12 11.98 9.98 104 8.45 -15 FIVC (L) 5.07 5.14 1 FIF50 (L/sec) 4.83 5.80 20 FIF Max (L/sec) 5.29 6.22 17 Time (sec) 15.91 15.65 -1 HAJA (L) 0.11 0.12 11 Time To FEF Max (sec) 0.07 0.08 8 PULMONARY FUNCTION LAB [facility] CNOVon 06-27-2024 CNOV Office Visit (FAMPWS ) CECILIA MARTIN ([id number]) 1965 M Date Time Provider Department 06/27/24 2:20 PM [facility] During your visit today, we recorded the following information about you: Temperature Pulse Blood pressure Weight 97.8 degrees 96/minute 122/76 83.9 kg Janel Mcgovern APRN.RN CLINICAL APPEALS 06/27/2024 3:29 PM Signed This is a 58 year old male who presents today with: Patient presents with: Follow Up: Review results HISTORY OF PRESENT ILLNESS: Cecilia Martin is a 58 year old male. Patient presents with: Follow Up: Review results Follow up on CT result PAST MEDICAL HISTORY: PAST MEDICAL HISTORY Diagnosis Date Inguinal hernia Right inguinal, , repaired Lyme disease, acute 11/2019 erythema migrans Renal calculi Umbilical hernia Unilateral inguinal hernia without obstruction or gangrene left PAST SURGICAL HISTORY Procedure Laterality Date LAPS REPAIR HERNIA EXCEPT INCAL/INGUN REDUCIBLE 11/30/15 LAPS SURG RPR RECURRENT INGUINAL HERNIA Left 11/30/15 RPR 1ST INGUN HRNA AGE 5 YRS/> REDUCIBLE [place]? - ?right RPR 1ST INGUN HRNA AGE 5 YRS/> REDUCIBLE as child pediatric type uncertain VASECTOMY UNI/BI SPX W/POSTOP SEMEN EXAMS ALLERGIES Adhesive MEDICATIONS Current Outpatient Medications Medication Sig acetaminophen (TYLENOL) 325 mg tablet Take 650 mg by mouth every 6 hours as needed. Protein Supplement liqd Take by mouth as needed. peg 3350-electrolytes (GAVILYTE-C) 240-22.72-6.72 -5.84 gram solution Take 4000 ml as directed. Follow written instructions from the doctor's office. No current facility-administered medications for this visit. FAMILY HISTORY Problem Relation Age of Onset Heart Attack Mother Cancer Father he is unsure of location but was in his 80's Coronary Artery Disease Sister in her 50's Coronary Artery Disease Sister No Known Problems Maternal Grandmother No Known Problems Maternal Grandfather No Known Problems Paternal Grandmother No Known Problems Paternal Grandfather No Known Problems Son other (other) Daughter Star's syndrome No Known Problems Daughter Social History Tobacco Use Smoking status: Every Day Current packs/day: 1.00 Average packs/day: 1 pack/day for 30.1 years (30.1 ttl pk-yrs) Types: Cigarettes Start date: 05/14/1987 Last attempt to quit: 05/14/2016 Smokeless tobacco: Never Vaping Use Vaping status: Never Used Substance Use Topics Alcohol use: Yes Comment: 3-7 beers once a week Drug use: No CT scan: Coronary calcifications Mild bullous emphysema Mild thick adrenal gland- stable Denies chest pain with exertion, no GOLD C/O toenail fungus - Both great toenail with thick patch, yellow with separation from nailbed EXAM: BP 122/76 Pulse 96 Temp 36.6 ?C (97.8 ?F) (Right Tympanic) Wt 83.9 kg (185 lb) SpO2 95% BMI 25.09 kg/m? PHYSICAL EXAM: Physical Exam Vitals reviewed. Constitutional: Appearance: Normal appearance. Cardiovascular: Rate and Rhythm: Normal rate and regular rhythm. Pulses: Normal pulses. Heart sounds: Normal heart sounds. Pulmonary: Effort: Pulmonary effort is normal. Comments: Poor air exchange throughout, chest rise AND fall symmetrical Abdominal: General: Bowel sounds are normal. Palpations: Abdomen is soft. Tenderness: There is no abdominal tenderness. There is no guarding or rebound. Musculoskeletal: General: Normal range of motion. Comments: Moves all ext. Without difficulty, walks w/o assistive device Skin: General: Skin is warm and dry. Neurological: Mental Status: He is alert and oriented to person, place, and time. LABS: ASSESSMENT/PLAN: 1. Centrilobular emphysema (HCC) - ICD9: 492.8, ICD10: J43.2 (primary diagnosis) Noted on CT scan - SPIROMETRY - BASELINE AND POST DILATOR - EXERCISE STRESS ECG (WITHOUT IMAGING) - PNEUMOCOCCAL VACCINE, 20 VALENT (PREVNAR 20) 2. Abnormal findings diagnostic imaging of heart and coronary circulation - ICD9: 794.39, ICD10: R93.[address] scan - SPIROMETRY - BASELINE AND POST DILATOR - EXERCISE STRESS ECG (WITHOUT IMAGING) 3. Tinea pedis of both feet - ICD9: 110.4, ICD10: B35.3 - Treat with terbinafine tablet daily until rash resolves and then another week - TERBINAFINE HCL 250 MG TABLET 4. Encounter for immunization - ICD9: V03.89, ICD10: Z23 - PNEUMOCOCCAL VACCINE, 20 VALENT (PREVNAR 20) - ZOSTER VACCINE, RECOMBINANT (SHINGRIX) Discussed treatment plan and patient voices understanding. Patient's questions answered appropriately. Medications and potential side effects were discussed and patient voices understanding. Return to the office as scheduled or as needed for worsening/no improvement. HERIBERTO Mejia Jacqueline A, APRN.CNP 06/27/2024 2:58 PM Addendum 1) Terbinafine 250 mg daily for 90 days for toenail fungu (more content not included)... 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 Patient states he is also having numbness and tingling in his 1-3 fingers. 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 He is right hand dominant. 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 Taking no med's for the pain. X-ray done on 03/25/24 Diane Linares PA-C 06/16/2024 10:50 AM Signed Diane Linares PA-C Department of Orthopaedics Orthopaedics [address] [facility] [address] Dept: [phone] Dept June 16, 2024 CHIEF COMPLAINT: New of the Left Wrist (Last seen 11/01/20 bilateral wrist pain) Mr. Cecilia Martin is a 58 year old male who presents with swelling in his left wrist, lack of motion and numbness and tingling in the left hand. Symptoms have been bothering him for the past several years. 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 He also enjoys working out and does push-ups on a regular basis. He tells me that he has known arthritis in his wrist. The numbness and tingling in the left hand started about 1 year ago and is in the radial 3 digits, the numbness and tingling is pretty consistent. Not worse at bedtime. The patient was previously provided with a wrist brace for his arthritis but does not wear it as he cannot work in the brace. 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 He is also able to do push-ups. We discussed trying a corticosteroid injection to help with wrist pain, advised that the injections would not improve his range of motion. It certainly sounds like he has some carpal tunnel as well. We will order an EMG. We discussed potentially pursuing carpal tunnel release, he will follow-up with EMG results. EMG order will be faxed to [facility]. Will continue to monitor patient for Wrist swelling, left Numbness and tingling in left hand (primary encounter diagnosis) Osteoarthritis of left wrist, unspecified osteoarthritis type, patient to schedule visit as per follow up discussed. Mr. Cecilia Martin was advised as to contrast therapies and/or to take analgesics/anti-inflammator ies as needed and all contraindications were reviewed. OBJECTIVE: Mr. Cecilia Martin is a pleasant 58 year old in no apparent distress. Gen:There were no vitals taken for this visit. nl development, non obese, no deformities ENT: Normocephalic, normal hearing, moist mucosa CV: Pulses:Radial= 2+ and symmetric, capillary refill < 2 secs, no peripheral edema/varicosities Skin: no rash, bruising or lesions. Good turgor. Psych: cooperative and appropriate, alert and oriented x 3, good mood and affect. Musculoskeletal: Left wrist with significant amount of swelling over the dorsum, near the radiocarpal joint. No thenar atrophy noted. Area is not tender to palpation. Wrist active extension of about 25 degrees with wrist flexion to about 20 degrees. Subjective numbness in the radial 3 digits on the left. Positive Tinel's at the left wrist. Strength testing was not performed. Sensation is intact in the ulnar digits on the left hand. Imaging: IMPRESSION: Degenerative changes as described. Diesel Mechanic: [facility] Transcribe Date/Time: Mar 30 2024 7:32A Dictated by : CHINA RIVAS MD This examination was interpreted and the report reviewed and electronically signed by: CHINA RIVAS MD on Mar 30 2024 7:33AM EST Results-Findings * * *Final Report* * * DATE OF EXAM: Mar 25 2024 10:37AM WOX [id number] - XR WRIST 3V PA/LAT/OBL LT / PROCEDURE REASON: Wrist swelling, left * * * * Physician Interpretation * * * * EXAMINATION / TECHNIQUE: XR WRIST 3V PA/LAT/OBL LT HISTORY: mult. cysts on posterior side of hand and wrist for 5 years getting bigger no inj Wrist swelling, left COMPARISON: 11/01/2020. RESULT: Acute fracture or dislocation. There is severe radial scaphoid triscaphe, and mild first CMC joint osteoarthritis is prominent (more content not included)... [facility] [facility] Telephone (PULWS) CECILIA MARTIN ([id number]) 1965 M Date Time Provider Department 06/16/24 DILEEP ERVIN During your visit today, we recorded the following information about you: Dileep Ervin APRN.CNP 06/16/2024 10:28 AM Signed Left message for pt to call back regarding results. Plan to discuss LDCT Lung Screen Results LungRADS category: 2s Incidentals: moderate coronary artery calcifications Recommendations: Continue annual screening with LDCT in 12 months. follow up with PCP/cardiology Dileep Ervin APRN.CNP June 16, 2024 10:27 AM Dileep Ervin APRN.CNP 06/16/2024 11:18 AM Signed Spoke with patient and discussed findings. He is not following with a clinical radiologist regularly. he had stress test in 2019, and it was okay. He denies any exertional chest pain or activity intolerance. Last PCP visit 03/2024. A message is sent to PCP team if pt needs to return sooner to discuss further testing for coronary artery calcifications they should reach out to him. HERIBERTO Resendez Tara, LPN 06/16/2024 1:23 PM Signed Scheduled. Allergies As of Date: 06/16/2024 Noted Allergy Reaction ADHESIVE 12/09/2015 2 - Rash Comments: Blistering of skin from adhesive Date Reviewed: 06/16/2024 Reviewed by: Mile Aldridge MA - Fully Assessed Reason for Visit: Results [95] Primary Visit Diagnosis:Encounter for screening for lung cancer [Z12.2] Other Visit Diagnosis:Tobacco use current [Z72.0] Order(s):CT LUNG SCREEN WO IVCON [[id number]] Order #: [id number] FUTURE Prescriptions as of 06/16/2024 - acetaminophen (TYLENOL) 325 mg tablet Take 650 mg by mouth every 6 hours as needed. - Protein Supplement liqd Take by mouth as needed. - peg 3350-electrolytes (GAVILYTE-C) 240-22.72-6.72 -5.84 gram solution Take 4000 ml as directed. Follow written instructions from the doctor's office. Meds Comments as of 11/10/2015: No Routine Rx, otc or supplements Problem List As Of Date 06/16/2024 Noted Resolved Umbilical hernia without obstruction and withou*09/13/2015 Renal calculi [N20.0] 11/19/2015 Unilateral inguinal hernia without obstruction *11/19/2015 Ex-smoker [Z87.891] 03/26/2019 Family history of premature CAD [Z82.49] 03/26/2019 Acute Lyme disease with largest skin lesion of *02/03/2020 Screening for colon cancer [Z12.11] 04/28/2024 Encounter Status:Closed by DILEEP ERVIN on 06/16/24 Normal [facility] CT Chest for screening WO co ntraston 06-13-2024 IMPRESSION: LungRADS category: 2 LungRADS modifier: Significant other (S), coronary artery calcification, moderate LungRADS 0 reason: n/a Recommendations: Continue annual screening with LDCT in 12 months. Other actionable findings: Reference: [employer]. Lung CT Screening Reporting and Data System (Lung-RADS). Available at: http://www.acr.org/Quality- Safety/Resources/LungRADS Diesel Mechanic: OZ Transcribe Date/Time: Jun 13 2024 3:07P Dictated by : MICHELLE SPEAR MD This examination was interpreted and the report reviewed and electronically signed by: MICHELLE SPEAR MD on Jun 13 2024 3:15PM [facility] DIVISION OF RADIOLOGY * * *Final Report* * * DATE OF EXAM: Jun 13 2024 2:12PM [facility] 0562 - CT LUNG SCREEN [facility] / PROCEDURE REASON: multiple diagnoses * * * * Physician Interpretation * * * * EXAMINATION: CHEST CT WITHOUT CONTRAST (LOW-DOSE CT LUNG CANCER SCREENING PROTOCOL) CLINICAL HISTORY: Lung cancer LDCT screening ? absence of signs or symptoms of lung cancer. Nicotine dependence (cigarettes). Baseline (initial) Technique: Spiral CT acquisition of the chest from the thoracic inlet to the upper abdomen without contrast. MQ: CTLCS_6 Patient characteristics: * Vmci-ec-Lxrov: 1965; Age at exam: 58 years * Gender: Male * Lung Disease: Asymptomatic (no signs or symptoms of lung disease) * Number of Pack Years: 30 * Current smoker (=0) or Number of Years since Quit: 0 * Ordering provider and NPI: DILEEP ERVIN [id number] * Interpreting radiologist and NPI: Magui [id number] Exam acquisition parameters: * Exam Date: 06/13/2024 2:12 PM * Site: [facility] * * CT System Canal Boat Operator: Siemens * CT System Model: Sensation * Tube Current-Time (mA-sec): 25 * Peak Voltage (kV): 120V * Scan Time (sec): 11.53 * Scan Volume (z-length, cm): -30.80 * Pitch: 0.75 * Slice Thickness (mm): 1.5 * CT Dose-Length Product: 86 mGy*cm * CT Dose Index: 1.94mGy * CT Dose Reduction Method: Automated exposure control(AEC) and iterative recon COMPARISON: None RESULT: Are nodules present? Yes, 1-5 nodules Lung nodule comments: Few small (< 6 mm) nodules (e.g., RML image 161, LLL image 226) Other findings: Mild upper paraseptal and centrilobular emphysema with mild bullous changes. Scattered moderate coronary calcification. - Mild left adrenal thickening, stable from prior abdominal CT. Small left renal cyst. Spine degenerative changes. Incidental coronary calcium as automatically processed and calculated using AI: Total Coronary Calcium Score = [100+] Agatston Units Percentile Rank (age and gender matched relative to reference population): [75th-100th] percentile* [* https://www.king-nhlbi.org/ calcium/input.aspx] Localizer images: No additional findings. DIVISION OF RADIOLOGY Provider, [facility] Erica [facility] - 06/13/2024 * * *Final Report* * * DATE OF EXAM: Jun 13 2024 2:12PM [facility] 0562 - CT LUNG SCREEN [facility] / PROCEDURE REASON: multiple diagnoses * * * * Physician Interpretation * * * * EXAMINATION: CHEST CT WITHOUT CONTRAST (LOW-DOSE CT LUNG CANCER SCREENING PROTOCOL) CLINICAL HISTORY: Lung cancer LDCT screening ? absence of signs or symptoms of lung cancer. Nicotine dependence (cigarettes). Baseline (initial) Technique: Spiral CT acquisition of the chest from the thoracic inlet to the upper abdomen without contrast. MQ: CTLCS_6 Patient characteristics: * Ivqw-ng-Wyqee: 1965; Age at exam: 58 years * Gender: Male * Lung Disease: Asymptomatic (no signs or symptoms of lung disease) * Number of Pack Years: 30 * Current smoker (=0) or Number of Years since Quit: 0 * Ordering provider and NPI: DILEEP ERVIN [id number] * Interpreting radiologist and NPI: Magui [id number] Exam acquisition parameters: * Exam Date: 06/13/2024 2:12 PM * Site: [facility] * * CT System Canal Boat Operator: Siemens * CT System Model: Sensation * Tube Current-Time (mA-sec): 25 * Peak Voltage (kV): 120V * Scan Time (sec): 11.53 * Scan Volume (z-length, cm): -30.80 * Pitch: 0.75 * Slice Thickness (mm): 1.5 * CT Dose-Length Product: 86 mGy*cm * CT Dose Index: 1.94mGy * CT Dose Reduction Method: Automated exposure control(AEC) and iterative recon COMPARISON: None RESULT: Are nodules present? Yes, 1-5 nodules Lung nodule comments: Few small (< 6 mm) nodules (e.g., RML image 161, LLL image 226) Other findings: Mild upper paraseptal and centrilobular emphysema with mild bullous changes. Scattered moderate coronary calcification. - Mild left adrenal thickening, stable from prior abdominal CT. Small left renal cyst. Spine degenerative changes. Incidental coronary calcium as automatically processed and calculated using AI: Total Coronary Calcium Score = [100+] Agatston Units Percentile Rank (age and gender matched relative to reference population): [75th-100th] percentile* [* https://www.king-nhlbi.org/ calcium/input.aspx] Localizer images: No additional findings. IMPRESSION IMPRESSION: LungRADS category: 2 LungRADS modifier: Significant other (S), coronary artery calcification, moderate LungRADS 0 reason: n/a Recommendations: Continue annual screening with LDCT in 12 months. Other actionable findings: Reference: [employer]. Lung CT Screening Reporting and Data System (Lung-RADS). Available at: http://www.acr.org/Quality- Safety/Resources/LungRADS Diesel Mechanic: OZ Transcribe Date/Time: Jun 13 2024 3:07P Dictated by : MICHELLE SPEAR MD This examination was interpreted and the report reviewed and electronically signed by: MICHELLE SPEAR MD on Jun 13 2024 3:15PM EST [facility] Radiology Study observation (narrative) [facility] CT Chest for screening WO co ntrastOrdered By: [facility] Provider on 06-13-[address] [facility] [address] LUNG SCREEN WO IVCONon CT LUNG SCREEN WO IVCON * * *Final Report* * * DATE OF EXAM: Jun 13 2024 2:12PM [facility] 0562 - CT LUNG SCREEN WO IVCON / PROCEDURE REASON: multiple diagnoses * * * * Physician Interpretation * * * * EXAMINATION: CHEST CT WITHOUT CONTRAST (LOW-DOSE CT LUNG CANCER SCREENING PROTOCOL) CLINICAL HISTORY: Lung cancer LDCT screening ? absence of signs or symptoms of lung cancer. Nicotine dependence (cigarettes). Baseline (initial) Technique: Spiral CT acquisition of the chest from the thoracic inlet to the upper abdomen without contrast. MQ: CTLCS_6 Patient characteristics: * Acrn-uj-Ihjlz: 1965; Age at exam: 58 years * Gender: Male * Lung Disease: Asymptomatic (no signs or symptoms of lung disease) * Number of Pack Years: 30 * Current smoker (=0) or Number of Years since Quit: 0 * Ordering provider and NPI: DILEEP ERVIN [id number] * Interpreting radiologist and NPI: Magui [id number] Exam acquisition parameters: * Exam Date: 06/13/2024 2:12 PM * Site: [facility] * * CT System Canal Boat Operator: Siemens * CT System Model: Sensation * Tube Current-Time (mA-sec): 25 * Peak Voltage (kV): 120V * Scan Time (sec): 11.53 * Scan Volume (z-length, cm): -30.80 * Pitch: 0.75 * Slice Thickness (mm): 1.5 * CT Dose-Length Product: 86 mGy*cm * CT Dose Index: 1.94mGy * CT Dose Reduction Method: Automated exposure control(AEC) and iterative recon COMPARISON: None RESULT: Are nodules present? Yes, 1-5 nodules Lung nodule comments: Few small (< 6 mm) nodules (e.g., RML image 161, LLL image 226) Other findings: Mild upper paraseptal and centrilobular emphysema with mild bullous changes. Scattered moderate coronary calcification. - Mild left adrenal thickening, stable from prior abdominal CT. Small left renal cyst. Spine degenerative changes. Incidental coronary calcium as automatically processed and calculated using AI: Total Coronary Calcium Score = [100+] Agatston Units Percentile Rank (age and gender matched relative to reference population): [75th-100th] percentile* [* https://www.king-nhlbi.org/ calcium/input.aspx] Localizer images: No additional findings. IMPRESSION: LungRADS category: 2 LungRADS modifier: Significant other (S), coronary artery calcification, moderate LungRADS 0 reason: n/a Recommendations: Continue annual screening with LDCT in 12 months. Other actionable findings: Reference: [employer]. Lung CT Screening Reporting and Data System (Lung-RADS). Available at: http://www.acr.org/Quality- Safety/Resources/LungRADS Diesel Mechanic: OZ Transcribe Date/Time: Jun 13 2024 3:07P Dictated by : MICHELLE SPEAR MD This examination was interpreted and the report reviewed and electronically signed by: MICHELLE SPEAR MD on Jun 13 2024 3:15PM EST [id number] Normal [facility] CNOVon 06-02-2024 CNOV Office Visit (PULMWS ) CECILIA MARTIN ([id number]) 1965 M Date Time Provider Department 06/02/24 9:30 AM DILEEP ERVIN During your visit today, we recorded the following information about you: Weight 83.9 kg Dileep Ervin APRN.RN CLINICAL APPEALS 06/02/2024 10:12 AM Signed LUNG SCREENING VISIT PRIMARY CARE PHYSICIAN: Deepak Cedeño MD PULMONARY PROVIDER: none Results will be communicated via letter or electronic record if applicable. Visit Delivery: In Person Patient Visit Type: New to Screening Current or Ex-smoker? [Current Exam Type: baseline LDCT Number of Pack Years: 30 Current smoker (=0) REQUESTER: The referring provider advised the patient to have screening. HISTORY OF PRESENT ILLNESS: Cecilia Martin is a 58 year old Active smoker who presents for lung screening. Quit for 7 years. Currently smoking 1 PPD. Respiratory symptoms include: SOB: No Chest tightness: No Coughing: No Hemoptysis: No Wheezing: No Fever/Chills: No Recent Respiratory Infection: No Unintentional weight loss: No Last 6 Encounter Wt Readings: Date: Wt: 06/02/2024 83.9 kg (185 lb) 05/06/2024 83.5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 0.4 cm. No stalk is noted. The line of resection is noted. The specimen is bisected and totally submitted in one cassette. April 29, 2024 12:56 AM [place] [address] Performed By: #### 2 132-9 #### [facility] [place] [id number] [address] [place] [address] [place] CNOVon 04-07-2024 CNOV Office Visit (GABYS ) CECILIA MARTIN ([id number]) 1965 M Date Time Provider Department 04/07/24 3:30 PM MILE IZAGUIRRE During your visit today, we recorded the following information about you: Temperature Pulse Blood pressure Weight 98 degrees 75/minute 126/82 83.5 kg Height 1.829 m Denise Moran, RIAN 04/07/2024 3:24 PM Signed REVIEW OF SYSTEMS: General: The patient denies fatigue, denies weight loss, denies weight gain, denies feeling hot, and denies feelings of cold. Eyes: The patient denies glaucoma, denies eye injury/surgery, wears glasses or contacts. Ear/Nose/Throat: The patient denies allergies, denies hayfever, denies ear infections, and denies bloody noses. Cardiovascular: The patient denies chest pain, denies heart disease, denies high blood pressure,denies cardiac stent, denies prior heart attack, denies irregular heart beat, denies high cholesterol, denies poor circulation, denies heart failure, other cardiac issues, denies claudication, denies cold feet, denies peripheral arterial stent. Respiratory: The patient denies tuberculosis, denies pneumonia, denies frequent cough, denies pulmonary embolism, denies shortness of breath, and denies coughing up blood. Gastrointestinal: The patient denies difficulty swallowing, denies acid reflux, denies ulcers, denies vomiting, denies jaundice/hepatitis, denies gallbladder problems, denies black or tarry stools, denies hemorrhoids, denies bleeding from rectum, denies diverticulitis, denies constipation, denies diarrhea, denies loss of stool control, and NOTES hernias. Kidney/Bladder: The patient denies kidney stones, denies urine infections, and denies bloody urine. Skin: The patient denies a history of skin cancer, denies bleeding/changing moles, and denies a history of skin rash. Neurologic: The patient denies a history of epilepsy/convulsions, denies headaches, denies head/spinal injuries, and denies stroke/TIA. Psychiatric: The patient denies psychiatric medications, denies depression, and denies voices, denies substance abuse. Endocrine: The patient denies thyroid disorders, denies diabetes, and denies hormonal problems. Hematologic: The patient denies a history of bruising, denies bleeding, and denies anemia, denies blood clots. Infections: The patient denies a history of measles and mumps, denies rheumatic fever, and denies sexually transmitted diseases. Musculoskeletal: The patient denies back pain/injury, denies back problems, denies sciatica, denies knee/foot trouble, denies arthritis, or denies gout. When was patient's last Mammogram screening? N/A Last Colonoscopy: none RIAN Kolb, Mile Smith MD 04/08/2024 1:36 PM Signed HISTORY AND PHYSICAL Cecilia Martin 1965 REFERRING PHYSICIAN: Janel Mcgovern A* CHIEF COMPLAINT: Consult (Bilateral inguinal hernia) HPI: The patient is a 58 year old male presents with bilateral inguinal hernias. The left sided hernia is larger than the right, however, he notes more pain on the right side. CT [facility] dated 12/25/2023 - diffuse gastric wall thickening, large left inguinal hernia with bowel loops, small right inguinal hernia containing fat He has had previous laparoscopic LIH and UHR with mesh in 11/30/2015. This will be his second recurrence on the left side. He states that he had a previous RIH as a child. PAST MEDICAL HISTORY Diagnosis Date Inguinal hernia Right inguinal, , repaired Lyme disease, acute 11/2019 erythema migrans Renal calculi Umbilical hernia Unilateral inguinal hernia without obstruction or gangrene left PAST SURGICAL HISTORY Procedure Laterality Date LAPS REPAIR HERNIA EXCEPT INCAL/INGUN REDUCIBLE 11/30/15 LAPS SURG RPR RECURRENT INGUINAL HERNIA Left 11/30/15 RPR 1ST INGUN HRNA AGE 3 YRS/> REDUCIBLE [place]? - ?right RPR 1ST INGUN HRNA AGE 3 YRS/> REDUCIBLE as child pediatric type uncertain VASECTOMY UNI/BI SPX W/POSTOP SEMEN EXAMS No current outpatient medications on file. No current facility-administered medications for this visit. ALLERGIES: Adhesive PERSONAL HISTORY: Social History Tobacco Use Smoking status: Every Day Current packs/day: 1.00 Average packs/day: 1 pack/day for 20.0 years (20.0 ttl pk-yrs) Types: Cigarettes Smokeless tobacco: Never Vaping Use Vaping status: Never Used Substance Use Topics Alcohol use: Yes Comment: 3-7 beers once a week Drug use: No FAMILY HISTORY Problem Relation Age of Onset Heart Attack Mother Cancer Father he is unsure of location but was in his 80's Coronary Artery Disease Sister in her 50's Coronary Artery Disease Sister No Known Problems Maternal Grandmother No Known Problems Maternal Grandfather No Known Problems Paternal Grandmother No Known Problems Paternal Grandfather No Known Problems (more content not included)... 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 Fracture or dislocation could not be ruled out. He has an orthopedic appointment and the surgeon will review his x-ray at his appointment. Janel Rouse LPN 04/01/2024 10:07 AM Signed Patient notified. Verbalized understanding. Allergies As of Date: 03/31/2024 Noted Allergy Reaction ADHESIVE 12/09/2015 2 - Rash Comments: Blistering of skin from adhesive Date Reviewed: 03/25/2024 Reviewed by: Janel Mcgovern APRN.[facility] - Fully Assessed Meds Comments as of 11/10/2015: No Routine Rx, otc or supplements Problem List As Of Date 03/31/2024 Noted Resolved Umbilical hernia without obstruction and withou*09/13/2015 Renal calculi [N20.0] 11/19/2015 Unilateral inguinal hernia without obstruction *11/19/2015 Ex-smoker [Z87.891] 03/26/2019 Family history of premature CAD [Z82.49] 03/26/2019 Acute Lyme disease with largest skin lesion of *02/03/2020 Encounter Status:Closed by JANEL ROUSE on 04/01/24 Normal [facility] CBC W Auto Differential pane l (Bld)on 03-25-2024 Basophils (Bld) [#/Vol] 0.03 10*3/uL NINF [facility] Basophils/100 WBC (Bld) 0.3 % [facility] Differential cell count method Nom (Bld) Auto [facility] Eosinophils (Bld) [#/Vol] 0.41 10*3/uL [facility] Eosinophils/100 WBC (Bld) 4.4 % [facility] Erythrocyte distribution width (RBC) [Ratio] 13.3 % 11.5 - 15.0 % [facility] Hematocrit (Bld) [Volume fraction] 45.2 % 39.0 - 51.0 % [facility] Hemoglobin (Bld) [Mass/Vol] 14.5 g/dL 13.0 - 17.0 g/dL [facility] Immature granulocytes (Bld) [#/Vol] [facility] Immature granulocytes/100 WBC (Bld) 0.2 % [facility] Lymphocytes (Bld) [#/Vol] 1.55 10*3/uL [facility] Lymphocytes/100 WBC (Bld) 16.7 % [facility] MCH (RBC) [Entitic mass] 29.5 pg 26.0 - 34.0 pg [facility] MCHC (RBC) [Mass/Vol] 32.1 g/dL 30.5 - 36.0 g/dL [facility] MCV (RBC) [Entitic vol] 91.9 fL 80.0 - 100.0 fL [facility] Monocytes (Bld) [#/Vol] 0.68 10*3/uL [facility] Monocytes/100 WBC (Bld) 7.3 % [facility] Neutrophils (Bld) [#/Vol] 6.57 10*3/uL [facility] Neutrophils/100 WBC (Bld) 71.1 % [facility] Nucleated RBC (Bld) [#/Vol] [facility] Nucleated RBC/100 WBC (Bld) [Ratio] 0.0 % /100 WBC [facility] Platelet mean volume (Bld) [Entitic vol] 10.8 fL 9.0 - 12.7 fL [facility] Platelets (Bld) [#/Vol] 357 10*3/uL [facility] RBC (Bld) [#/Vol] 4.92 10*6/uL 4.20 - 6.0 0 m/uL [facility] WBC (Bld) [#/Vol] 9.26 10*3/uL [facility] Basophils (Bld) [#/Vol] 0.03 10*3/uL Normal <0.11 [facility] Comment on above: Order Comment: Speci men Type: BLOOD SPECIMENOrdering Facility: [facility] Address: [address] [place] [address] Performed By: #### 5 7021-8 ####[facility] [id number] [place] [address] [place] Basophils/100 WBC (Bld) 0.3 % Normal [facility] Comment on above: Order Comment: Speci men Type: BLOOD SPECIMENOrdering Facility: [facility] Address: [address] [place] [address] Performed By: #### 5 7021-8 ####[facility] [id number] [place] [address] [place] Differential cell count method Nom (Bld) Auto Normal [facility] Comment on above: Order Comment: Speci men Type: BLOOD SPECIMENOrdering Facility: [facility] Address: [address] [place] [address] Performed By: #### 5 7021-8 ####[facility]IA [id number] [place] [address] [place] Eosinophils (Bld) [#/Vol] 0.41 10*3/uL Normal <0.46 [facility] Comment on above: Order Comment: Speci men Type: BLOOD SPECIMENOrdering Facility: [facility] Address: [address] [place] [address] Performed By: #### 5 7021-8 ####[facility] [id number] [place] [address] [place] Eosinophils/100 WBC (Bld) 4.4 % Normal [facility] Comment on above: Order Comment: Speci men Type: BLOOD SPECIMENOrdering Facility: [facility] Address: [address] [place] [address] Performed By: #### 5 7021-8 ####[facility] [id number] [place] [address] [place] Erythrocyte distribution width (RBC) [Ratio] 13.3 % Normal 11.5-15.0 [facility] Comment on above: Order Comment: Speci men Type: BLOOD SPECIMENOrdering Facility: [facility] Address: [address] [place] [address] Performed By: #### 5 7021-8 ####[facility] [id number] [place] [address] [place] Hematocrit (Bld) [Volume fraction] 45.2 % Normal 39.0-51.0 [facility] Comment on above: Order Comment: Speci men Type: BLOOD SPECIMENOrdering Facility: [facility] Address: [address] [place] [address] Performed By: #### 5 7021-8 ####[facility]IA [id number] [place] [address] [place] Hemoglobin (Bld) [Mass/Vol] 14.5 g/dL Normal 13.0-17.0 [facility] Comment on above: Order Comment: Speci men Type: BLOOD SPECIMENOrdering Facility: [facility] Address: [address] [place] [address] Performed By: #### 5 7021-8 ####[facility]IA [id number] [place] [address] [place] Immature granulocytes (Bld) [#/Vol] 10*3/uL Normal <0.10 [facility] Comment on above: Order Comment: Speci men Type: BLOOD SPECIMENOrdering Facility: [facility] Address: [address] [place] [address] Performed By: #### 5 7021-8 ####[facility]IA [id number] [place] [address] [place] Immature granulocytes/100 WBC (Bld) 0.2 % Normal [facility] Comment on above: Order Comment: Speci men Type: BLOOD SPECIMENOrdering Facility: [facility] Address: [address] [place] [address] Performed By: #### 5 7021-8 ####[facility] [id number] [place] [address] [place] Lymphocytes (Bld) [#/Vol] 1.55 10*3/uL Normal 1.00-4.00 [facility] Comment on above: Order Comment: Speci men Type: BLOOD SPECIMENOrdering Facility: [facility] Address: [address] [place] [address] Performed By: #### 5 7021-8 ####[facility]CLIA [id number] [place] [address] [place] Lymphocytes/100 WBC (Bld) 16.7 % Normal [facility] Comment on above: Order Comment: Speci men Type: BLOOD SPECIMENOrdering Facility: [facility] Address: [address] [place] [address] Performed By: #### 5 7021-8 ####[facility]CLIA [id number] [place] [address] [place] MCH (RBC) [Entitic mass] 29.5 pg Normal 26.0-34.0 [facility] Comment on above: Order Comment: Speci men Type: BLOOD SPECIMENOrdering Facility: [facility] Address: [address] [place] [address] Performed By: #### 5 7021-8 ####[facility]CLIA [id number] [place] [address] [place] MCHC (RBC) [Mass/Vol] 32.1 g/dL Normal 30.5-36.0 [facility] Comment on above: Order Comment: Speci men Type: BLOOD SPECIMENOrdering Facility: [facility] Address: [address] [place] [address] Performed By: #### 5 7021-8 ####[facility]CLIA [id number] [place] [address] [place] MCV (RBC) [Entitic vol] 91.9 fL Normal 80.0-100.0 [facility] Comment on above: Order Comment: Speci men Type: BLOOD SPECIMENOrdering Facility: [facility] Address: [address] [place] [address] Performed By: #### 5 7021-8 ####[facility]CLIA [id number] [place] [address] [place] Monocytes (Bld) [#/Vol] 0.68 10*3/uL Normal <0.87 [facility] Comment on above: Order Comment: Speci men Type: BLOOD SPECIMENOrdering Facility: [facility] Address: [address] [place] [address] Performed By: #### 5 7021-8 ####[facility]IA [id number] [place] [address] [place] Monocytes/100 WBC (Bld) 7.3 % Normal [facility] Comment on above: Order Comment: Speci men Type: BLOOD SPECIMENOrdering Facility: [facility] Address: [address] [place] [address] Performed By: #### 5 7021-8 ####[facility]CLIA [id number] [place] [address] [place] Neutrophils (Bld) [#/Vol] 6.57 10*3/uL Normal 1.45-7.50 [facility] Comment on above: Order Comment: Speci men Type: BLOOD SPECIMENOrdering Facility: [facility] Address: [address] [place] [address] Performed By: #### 5 7021-8 ####[facility]CLIA [id number] [place] [address] [place] Neutrophils/100 WBC (Bld) 71.1 % Normal [facility] Comment on above: Order Comment: Speci men Type: BLOOD SPECIMENOrdering Facility: [facility] Address: [address] [place] [address] Performed By: #### 5 7021-8 ####[facility]CLIA [id number] [place] [address] [place] Nucleated RBC (Bld) [#/Vol] 10*3/uL Normal <0.01 [facility] Comment on above: Order Comment: Speci men Type: BLOOD SPECIMENOrdering Facility: [facility] Address: [address] [place] [address] Performed By: #### 5 7021-8 ####[facility] LABCLIA [id number] [place] [address] [place] Nucleated RBC/100 WBC (Bld) [Ratio] 0.0 /100 WBC Normal [facility] Comment on above: Order Comment: Speci men Type: BLOOD SPECIMENOrdering Facility: [facility] Address: [address] [place] [address] Performed By: #### 5 7021-8 ####[facility]CLIA [id number] [place] [address] [place] Platelet mean volume (Bld) [Entitic vol] 10.8 fL Normal 9.0-12.7 [facility] Comment on above: Order Comment: Speci men Type: BLOOD SPECIMENOrdering Facility: [facility] Address: [address] [place] [address] Performed By: #### 5 7021-8 ####[facility]IA [id number] [place] [address] [place] Platelets (Bld) [#/Vol] 357 10*3/uL Normal 150-400 [facility] Comment on above: Order Comment: Speci men Type: BLOOD SPECIMENOrdering Facility: [facility] Address: [address] [place] [address] Performed By: #### 5 7021-8 ####[facility] LABCLIA [id number] [place] [id number] [place] RBC (Bld) [#/Vol] 4.92 10*6/uL Normal 4.20-6.00 [facility] Comment on above: Order Comment: Speci men Type: BLOOD SPECIMENOrdering Facility: [facility] Address: [address] [place] [address] Performed By: #### 5 7021-8 ####[facility] LABCLIA [id number] [place] [address] [place] WBC (Bld) [#/Vol] 9.26 10*3/uL Normal 3.70-11.00 [facility] Comment on above: Order Comment: Speci men Type: BLOOD SPECIMENOrdering Facility: [facility] Address: [address] [place] [address] Performed By: #### 5 7021-8 ####[facility] LABIA [id number] [address] [place] CNOVon 03-25-2024 [facility] CECILIA MARTIN ([id number]) 1965 M Date Time Provider Department 03/25/24 9:00 AM JAENL MCGOVERN [facility]WS During your visit today, we recorded the following information about you: Pulse Blood pressure Weight 81/minute 136/78 83.2 kg Janel Mcgovern, FASHION BUYER.RN CLINICAL APPEALS 03/25/2024 11:29 AM Addendum Chief Reason For Appointment Patient presents with: Yearly Exam Cecilia Martin is a 58 year old male who presents for annual exam. Last office visit date: 10/04/2020 Accompanied By self only Have you had any critical events, hospital stays, ER visits, surgeries or procedures since your last visit here in our office: No Specialists/Other Healthcare Providers Seen: Patient Care Team: Deepak Cedeño MD as PCP - General (Family Medicine) Concerns today: Eric. Hernia- right hernia seen in ER when he had inguinal pain. Also left side recurrent HPI Inguinal pain on right for a month- [facility] ER. Left side is not painful but bulges out and he has to push back in. Active Problems ACTIVE PROBLEM LIST Acute Lyme Disease With Largest Skin Lesion of 2 Inches Or More - 02/03/2020 Comment: 11/17/19 Lyme screen Ab positive with confirmatory Western Blot: positive Lyme IgM, Bands: p41,p39,p23 Igg Positive Lyme IgG,Bands: p66,p45,p41,p39,p28,p23,p18 S/p doxycycline 11/12/19 for 21 days Ex-Smoker - 03/26/2019 Comment: Started age 19 up to 1 PPD and quite at age 48 Family History of Premature Cad - 03/26/2019 Comment: Mother and sisters Renal Calculi - 11/19/2015 Unilateral Inguinal Hernia Without Obstruction Or Gangrene - 11/19/2015 Umbilical Hernia Without Obstruction and Without Gangrene - 09/13/2015 ROS: REVIEW OF SYSTEMS GENERAL: A little weight loss with dietary changes, no malaise, no fevers/chills HEENT: Negative for frequent or significant headaches, + changes in hearing, but not vision. NECK: Negative for lumps, goiter, pain and significant neck swelling RESPIRATORY: Occ cough, hemoptysis, wheezing, dyspnea or shortness of breath CARDIOVASCULAR: Left side reproducible chest pain, leg swelling, orthopnea, or palpitations GI: No nausea, vomiting, or diarrhea/constipation. No hematochezia/melena. No heartburn or reflux symptoms. : No history of dysuria, frequency or incontinence MUSCULOSKELETAL: Negative for joint pain or swelling. Hands tingle AND right wrist lump swelling SKIN: Negative for lesions, rash, and itching- birthmark purplish right lateral wrist ENDOCRINE: Negative for cold or heat intolerance, polyuria, polydipsia and goiter NEURO: No history of headaches, syncope, paralysis, seizures or tremors MOOD: Negative for depression, anxiety, or suicidal ideation. Smokes 1 ppd for 32 years total PAST MEDICAL HISTORY Diagnosis Date Inguinal hernia Right inguinal, , repaired Lyme disease, acute 11/2019 erythema migrans Renal calculi Umbilical hernia Unilateral inguinal hernia without obstruction or gangrene left PAST SURGICAL HISTORY Procedure Laterality Date LAPS REPAIR HERNIA EXCEPT INCAL/INGUN REDUCIBLE 11/30/15 LAPS SURG RPR RECURRENT INGUINAL HERNIA Left 11/30/15 RPR 1ST INGUN HRNA AGE 3 YRS/> REDUCIBLE [place]? - ?right RPR 1ST INGUN HRNA AGE 3 YRS/> REDUCIBLE as child pediatric type uncertain VASECTOMY UNI/BI SPX W/POSTOP SEMEN EXAMS Medication List Current Outpatient Medications Medication Sig Dispense Refill mupirocin (BACTROBAN) 2 % cream Apply 1 application to affected area three times a day for 10 days. 15 g 0 sulfamethoxazole-trimethopr im (BACTRIM DS) 800-160 mg per tablet Take 1 tablet by mouth two times a day for 10 days. 20 tablet 0 mupirocin (BACTROBAN) 2 % ointment Apply to affected area three times a day for 10 days. 22 g 0 No current facility-administered medications for this visit. Weight Summary: Weight Change: Body mass index is 24.87 kg/m?. Last Wt 03/25/24 : 83.2 kg (183 lb 6.4 oz) 03/20/24 : 83.9 kg (184 lb 15.5 oz) 01/16/23 : 83.9 kg (185 lb) 11/01/20 : 86.2 kg (190 lb) 10/04/20 : 91.6 kg (202 lb) Physical Exam: General Appearance: well appearing, alert and oriented. Skin: no suspicious lesion, no rash, no open sores- birthmark right lateral wrist Head: normocephalic, no obvious masses, lesions, tenderness or abnormalities. Eyes: Anicteric sclera. Pupils are equally round and reactive to light. Extraocular movements are intact. No nystagmus. Fundi benign. Ears: external ears normal, canals clear, TM's clear effusions. Hearing to conversational voice intact. Nose/Sinuses: nares normal, septum midline, mucosa normal, no drainage or sinus tenderness- left bridge of nose with a blueberry sized cyst- red and drains paste. Oropharynx: lips, mucosa, and tongue normal, oropharynx normal. Neck: trachea midline, thyroid without mass or nodularity, thyroid moves no (more content not included)... Normal [facility] Comprehensive metabolic 2000 panelon 03-25-2024 Albumin [Mass/Vol] 4.3 g/dL Normal 3.9-4.9 [facility] Comment on above: Order Comment: Speci men Type: BLOOD SPECIMENOrdering Facility: [facility] Address: [address] [place] [address] Performed By: #### L IPNF, 6-3, 50298-4, 82281-0 ####[facility] LABCLIA [id number] [place] [address] [place] ALP [Catalytic activity/Vol] 156 U/L High 38-113 [facility] Comment on above: Order Comment: Speci men Type: BLOOD SPECIMENOrdering Facility: [facility] Address: [address] [place] [address] Performed By: #### L IPNF, 6-3, 07232-6, 21736-5 ####[facility] LABCLIA [id number] [place] [address] [place] ALT [Catalytic activity/Vol] 17 U/L Normal 10-54 [facility] Comment on above: Order Comment: Speci men Type: BLOOD SPECIMENOrdering Facility: [facility] Address: [address] [place] [address] Performed By: #### L IPNF, 6-3, 84119-5, 56989-3 ####[facility] LABCLIA [id number] [place] [address] [place] Anion gap [Moles/Vol] 11 mmol/L Normal 8-15 [facility] Comment on above: Order Comment: Speci men Type: BLOOD SPECIMENOrdering Facility: [facility] Address: [address], [place] [address] Performed By: #### L IPNF, 3016-3, 63687-5, 20324-8 ####[facility] LABCLIA [id number] [address] [address] [place] AST [Catalytic activity/Vol] 20 U/L Normal 14-40 [facility] Comment on above: Order Comment: Speci men Type: BLOOD SPECIMENOrdering Facility: [facility] Address: [address] [place] [address] Performed By: #### L IPNF, 6-3, 73596-9, 85969-7 ####[facility] LABCLIA [id number] [place] [address] [place] Bilirubin [Mass/Vol] 0.2 mg/dL Normal 0.2-1.3 [facility] Comment on above: Order Comment: Speci men Type: BLOOD SPECIMENOrdering Facility: [facility] Address: [address] [place] [address] Performed By: #### L IPNF, 6-3, 76036-6, 81769-6 ####[facility] LABCLIA [id number] [place] [address] [place] Calcium [Mass/Vol] 9.4 mg/dL Normal 8.5-10.2 [facility] Comment on above: Order Comment: Speci men Type: BLOOD SPECIMENOrdering Facility: [facility] Address: [address] [place] [address] Performed By: #### L IPNF, 6-3, 97664-4, 39561-0 ####[facility] LABCLIA [id number] [place] [id number] [place] Chloride [Moles/Vol] 103 mmol/L Normal 98-107 [facility] Comment on above: Order Comment: Speci men Type: BLOOD SPECIMENOrdering Facility: [facility] Address: [address] [place] [address] Performed By: #### L IPNF, 6-3, , ####[facility] LABCLIA [id number] [place] [address] [place] CO2 [Moles/Vol] 24 mmol/L Normal 22-30 [facility] Comment on above: Order Comment: Speci men Type: BLOOD SPECIMENOrdering Facility: [facility] Address: [address] [place] [address] Performed By: #### L IPNF, 6-3, , ####[facility] LABCLIA [id number] [place] [address] [place] Creatinine [Mass/Vol] 0.77 mg/dL Normal 0.73-1.22 [facility] Comment on above: Order Comment: Speci men Type: BLOOD SPECIMENOrdering Facility: [facility] Address: [address] [place] [address] Performed By: #### L IPNF, 3015-3, , ####[facility] LABCLIA [id number] [place] [address] [place] Creatinine and Glomerular filtration rate.predicted panel (S/P/Bld) 102 mL/min/1.73m??? Normal >=60 [facility] Comment on above: Order Comment: Speci men Type: BLOOD SPECIMENOrdering Facility: [facility] Address: [address] [place] [address] Result Comment: Lubna mated Glomerular Filtration Rate (eGFR) is calculated using the 2020 CKD-EPI creatinine equation. This equation utilizes serum creatinine, sex, and age as parameters. The creatinine assay has traceable calibration to isotope dilution-mass spectrometry. Refer to KDIGO guidelines for clinical interpretation. In patients with unstable renal function, e.g. those with acute kidney injury, the eGFR may not accurately reflect actual GFR. Performed By: #### L IPNF, 6-3, , 50499-5 ####[facility] LABCLIA [id number] [place] [address] [place] Glucose [Mass/Vol] 81 mg/dL Normal 74-99 [facility] Comment on above: Order Comment: Speci men Type: BLOOD SPECIMENOrdering Facility: [facility] Address: [address] [place] [address] Result Comment: The [place] Diabetes Association (ADA) provides guidance for cutoff values for fasting glucose and random glucose. The ADA defines fasting as no caloric intake for at least 8 hours. Fasting plasma glucose results between 100 to 125 mg/dL indicate increased risk for diabetes (prediabetes). Fasting plasma glucose results greater than or equal to 126 mg/dL meet the criteria for diagnosis of diabetes. In the absence of unequivocal hyperglycemia, results should be confirmed by repeat testing. In a patient with classic symptoms of hyperglycemia or hyperglycemic crisis, random plasma glucose results greater than or equal to 200 mg/dL meet the criteria for diagnosis of diabetes.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 100.0100, L500.4050 #### [facility] [address] [place], [address] Emergency Department Summary on 12-25-[address] [facility] Medical Records Department [address] [place] [address] Emergency Department Summary 12/25/23 MR#: [id number] Acct: [id number] Name: CECILIA MARTIN Rep #: [id number] : 1965 58 From: Dominic Rawls PCP: Dr. Deepak Cedeño MD Status:DEP ER Location: ED HPI HPI - GI History of Present Illness Chief Complaint: Abd Pain Informant: patient Narrative Narrative: Waxing waning right lower quadrant abdominal pain for 2 weeks. No nausea or vomiting. Normal bowel movements. Bilateral inguinal hernia repair years ago. No fevers or chills. Intermittent sharp sensations side. 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 He went to express care he was sent here for evaluation. He ate a hamburger at 10 AM. Denies any urinary symptoms. Prior similar symptoms: No PFSH PFSH Home Medications ???Medication ???Instructions ???Recorded ???Last Taken ???Type meloxicam 15 mg tablet 15 mg PO DAILY #10 tabs 08/30/20 Unknown Rx Allergy/AdvReac Type Severity Reaction Status Date / Time No Known Allergies Allergy Verified 12/25/23 10:35 Social History Smoking Status: Former smoker ROS ROS ED Constitutional Constitutional ED: Denies chills, fever(s) or sweats Eyes Eyes: Denies change in vision ENT ENT ED: Denies dysphagia or sore throat Cardiovascular Cardiovascular: Denies chest pain, leg edema, palpitations or racing heartbeat Respiratory/Chest Respiratory/Chest: Denies cough, dyspnea or dyspnea on exertion Gastrointestinal Gastrointestinal: Reports abdominal pain; Denies diarrhea, nausea or vomiting Genitourinary Genitourinary ED: Denies dysuria, hematuria or urinary frequency Musculoskeletal Musculoskeletal: Denies back pain, extremity pain or neck pain Integumentary Denies rash or wounds Neurologic Neurologic: Denies headache(s), paresthesias or weakness EXAM Physical Exam Const Vital Signs: 12/25/23 10:33 12/25/23 10:35 12/25/23 12:00 Temperature 98.1 F 98.1 F 98 F Temperature Source Temporal Temporal Temporal Pulse Rate 70 70 66 Respiratory Rate 16 16 17 Blood Pressure 130/74 H 130/74 H 111/76 Blood Pressure Mean 92 92 87 Pulse Ox 97 98 98 Oxygen Delivery Method Room Air Room Air Room Air 12/25/23 12:30 12/25/23 13:22 Temperature 97.7 F L Temperature Source Pulse Rate 66 68 Respiratory Rate 17 18 Blood Pressure 111/74 125/76 H Blood Pressure Mean 85 92 Pulse Ox 98 98 Oxygen Delivery Method Positive well nourished and well developed General Appearance ED: well developed and NAD HEENT Reports moist mucous membranes normocephalic and atraumatic Eyes EOMs intact bilaterally and conjunctivae normal General Eye ED: Yes normal appearance of both eyes Neck no lymphadenopathy and supple General: Negative for tenderness Chest Wall Chest: Negative for tenderness Resp normal respiratory effort and normal air movement Effort and Inspection: symmetric chest movement; Negative for respiratory distress Cardio regular rate, regular rhythm and no murmurs Peripheral Pulses: pulses 2+ throughout GI normal to inspection, nondistended, normoactive bowel sounds GI Narrative: Tender deep palpation right lower quadrant there is no guarding or rebound. Negative Rovsing's. Negative Schmitz's. Palpation: Negative for guarding or rebound tenderness present Back/Spine no CVA tenderness and no thoracic nor lumbar tenderness Extremity normal to inspection General Extremety ED: Negative for edema or tenderness General Extremity: Negative for edema Neuro oriented x3 and no sensory deficits noted Sensorium / Orientation: awake and alert Skin no rashes or lesions noted and no wounds MDM MDM MDM Narrative Medical decision making narrative: Interventions / MDM: Differential diagnosis: Hernia Diagnosis considered but do not suspect: Appendicitis however normal CT, kidney stones however normal CT. My EKG interpretation: N/A Imaging independently reviewed and interpreted by myself: CT abdomen pelvis IV contrast: Normal appendix. Bilateral inguinal hernias. Right side fat-containing. Left side with bowels, no obstruction. External documents reviewed: N/A Test considered but not ordered:N/A ED course: Patient declines any pain medicines. Labs urine ordered. Will start fluids. Right lower quadrant pain on exam. CT abdomen pelvis IV contrast ordered for further evaluation. 1315: Symptoms stable no progression of symptoms. Labs are normal. CT fat-containing right inguinal hernia. Left inguinal hernia containing bowels in the scrotum. Nonobstructing. Discussed with patient likely the fact inguinal hernia is causing symptoms currently. He is in no distress. He states he had pichardo (more content not included)... Normal [facility] Urinalysis, Completeon 12-24 EPI,SQUAMOUS 0-5 SEEN Normal 0-5 [facility] Comment on above: Order Comment: NEETA CTOR TO SPECIFY Performed By: #### L 400.0001 #### [facility] [address] [place], [address] RBC 0-5 SEEN Normal 0-5 [facility] Comment on above: Order Comment: NEETA CTOR TO SPECIFY Performed By: #### L 400.0001 #### [facility] [address] [place], [address] WBC 0-5 SEEN Normal 0-5 [facility] Comment on above: Order Comment: COLLE CTOR TO SPECIFY Performed By: #### L 400.0001 #### [facility] [address] [place], [address] BACTERIA 0 SEEN Normal None Seen [facility] Comment on above: Order Comment: COLLE CTOR TO SPECIFY Performed By: #### L 400.0001 #### [facility] [address] [place], [address] Mucus Ql (Urine sed) 0 SEEN Normal [facility] Comment on above: Order Comment: COLLE CTOR TO SPECIFY Performed By: #### L 400.0001 #### [facility] [address] [place], [address] XR WRIST INJURY 4V PA/LAT/OB L/SCAPH RIGHTon 01-16-2023 [facility] XR Wrist - right 4 Viewson 0 01-16-2023 IMPRESSION: No radiographic evidence of acute osseous injury. Diesel Mechanic: [facility] Transcribe Date/Time: Jan 16 2023 1:49P Dictated by : ROSANNA HAWKINS MD This examination was interpreted and the report reviewed and electronically signed by: ROSANNA HAWKINS MD on Jan 16 2023 1:50PM [facility] DIVISION OF RADIOLOGY * * *Final Report* * * DATE OF EXAM: Jan 16 2023 1:32PM WOX [id number] - XR WRIST 4V PA/LAT/OBL/SCAPH RT / PROCEDURE REASON: Right wrist pain * * * * Physician Interpretation * * * * TITLE: XR WRIST 4V PA/LAT/OBL/SCAPH RT CLINICAL INDICATION: Wrist pain TECHNIQUE: 4 view radiographic study of the right wrist COMPARISON: Radiograph dated November 01, 2020 FINDINGS: No acute fracture or dislocation identified. Moderate radiocarpal joint space narrowing. Remote healed ununited fracture of the radial styloid. DIVISION OF RADIOLOGY Provider, [facility] Erica [facility] - 01/16/2023 * * *Final Report* * * DATE OF EXAM: Jan 16 2023 1:32PM WOX 5273 - XR WRIST 4V PA/LAT/OBL/SCAPH RT / PROCEDURE REASON: Right wrist pain * * * * Physician Interpretation * * * * TITLE: XR WRIST 4V PA/LAT/OBL/SCAPH RT CLINICAL INDICATION: Wrist pain TECHNIQUE: 4 view radiographic study of the right wrist COMPARISON: Radiograph dated November 01, 2020 FINDINGS: No acute fracture or dislocation identified. Moderate radiocarpal joint space narrowing. Remote healed ununited fracture of the radial styloid. IMPRESSION IMPRESSION: No radiographic evidence of acute osseous injury. Diesel Mechanic: P[facility] Transcribe Date/Time: Jan 16 2023 1:49P Dictated by : ROSANNA HAWKINS MD This examination was interpreted and the report reviewed and electronically signed by: ROSANNA HAWKINS MD on Jan 16 2023 1:50PM EST [facility] Radiology Study observation (narrative) [facility] XR Wrist - right 4 ViewsOrde red By: [facility] Provider on 01-16-2023 [facility] Vital Signs Date Time Vital Sign Value Performing Clinician Abbii latoya 10-02-2024 15:48-0400 Body height 182.9 cm Hiren Baumann MD Work Phone: [facility] 10-02-2024 15:48-0400 Body mass index (BMI) [Ratio] 25.5 kg/m2 Hiren Baumann MD Work Phone: [facility] 10-02-2024 15:48-0400 Body temperature 97.7 [degF] Hiren Baumann MD Work Phone: [facility] 10-02-2024 15:48-0400 Body weight 85.28 kg Hiren Baumann MD Work Phone: [facility] 10-02-2024 15:48-0400 Diastolic blood pressure 86 mm[Hg] Hiren Baumann MD Work Phone: [facility] 10-02-2024 15:48-0400 Heart rate 78 /min Hiren Baumann MD Work Phone: [facility] 10-02-2024 15:48-0400 Systolic blood pressure 131 mm[Hg] Hiren Baumann MD Work Phone: [facility] 08-13-2024 14:08-0400 Body height 182.9 cm Pacc 1 Work Phone: [facility] 08-13-2024 14:08-0400 Body mass index (BMI) [Ratio] 25.5 kg/m2 Pacc 1 Work Phone: [facility] 08-13-2024 14:08-0400 Body temperature 98.1 [degF] Pacc 1 Work Phone: [facility] 08-13-2024 14:08-0400 Body weight 85.28 kg Pacc 1 Work Phone: [facility] 08-13-2024 14:08-0400 Diastolic blood pressure 84 mm[Hg] Pacc 1 Work Phone: [facility] 08-13-2024 14:08-0400 Heart rate 76 /min Pacc 1 Work Phone: [facility] 08-13-2024 14:08-0400 Respiratory rate 14 /min Pacc 1 Work Phone: [facility] 08-13-2024 14:08-0400 SaO2% (BldA) [Mass fraction] 98 % Pacc 1 Work Phone: [facility] 08-13-2024 14:08-0400 Systolic blood pressure 132 mm[Hg] Pacc 1 Work Phone: [facility] 07-02-2024 12:39-0500 Body height 182 cm Pulm Wstr Work Phone: [facility] 07-02-2024 12:39-0500 Body mass index (BMI) [Ratio] 25.06 kg/m2 Pulm Wstr Work Phone: [facility] 07-02-2024 12:39-0500 Body weight 83.01 kg Pulm Wstr Work Phone: [facility] 07-02-2024 12:39-0500 Heart rate 82 /min Pulm Wstr Work Phone: [facility] 07-02-2024 12:39-0500 Respiratory rate 16 /min Pulm Wstr Work Phone: [facility] 07-02-2024 12:39-0500 SaO2% (BldA) [Mass fraction] 98 % Pulm Wstr Work Phone: [facility] 06-27-2024 14:21-0500 Body mass index (BMI) [Ratio] 25.09 kg/m2 Janel Suppan FASHION BUYER.RN CLINICAL APPEALS Work Phone: [facility] 06-27-2024 14:21-0500 Body temperature 97.81 [degF] Janel Suppan FASHION BUYER.RN CLINICAL APPEALS Work Phone: [facility] 06-27-2024 14:21-0500 Body weight 83.92 kg Janel Suppdhruv FASHION BUYER.RN CLINICAL APPEALS Work Phone: [facility] 06-27-2024 14:21-0500 Diastolic blood pressure 76 mm[Hg] Janel Suppan FASHION BUYER.RN CLINICAL APPEALS Work Phone: [facility] 06-27-2024 14:21-0500 Heart rate 96 /min Janel Suppan FASHION BUYER.RN CLINICAL APPEALS Work Phone: [facility] 06-27-2024 14:21-0500 SaO2% (BldA) [Mass fraction] 95 % Janel Suppan FASHION BUYER.RN CLINICAL APPEALS Work Phone: [facility] 06-27-2024 14:21-0500 Systolic blood pressure 122 mm[Hg] Janel Suppan FASHION BUYER.RN CLINICAL APPEALS Work Phone: [facility] 06-02-2024 09:22-0500 Body mass index (BMI) [Ratio] 25.09 kg/m2 Dileep Ervin FASHION BUYER.RN CLINICAL APPEALS Work Phone: [facility] 06-02-2024 09:22-0500 Body weight 83.92 kg Dileep Ervin APRN.RN CLINICAL APPEALS Work Phone: [facility] 05-06-2024 09:19-0500 Body height 182.9 cm Hiren Baumann MD Work Phone: [facility] 05-06-2024 09:19-0500 Body mass index (BMI) [Ratio] 24.95 kg/m2 Hiren Baumann MD Work Phone: [facility] 05-06-2024 09:19-0500 Body temperature 97.5 [degF] Hiren Baumann MD Work Phone: [facility] 05-06-2024 09:19-0500 Body weight 83.46 kg Hiren Baumann MD Work Phone: [facility] 05-06-2024 09:19-0500 Diastolic blood pressure 82 mm[Hg] Hiren Baumann MD Work Phone: [facility] 05-06-2024 09:19-0500 Heart rate 75 /min Hiren Baumann MD Work Phone: [facility] 05-06-2024 09:19-0500 SaO2% (BldA) [Mass fraction] 99 % Hiren Baumann MD Work Phone: [facility] 05-06-2024 09:19-0500 Systolic blood pressure 127 mm[Hg] Hiren Baumann MD Work Phone: [facility] 04-28-2024 12:45-0500 Respiratory rate 18 /min Eleazar Silver MD Work Phone: [facility] 04-28-2024 12:15-0500 Diastolic blood pressure 65 mm[Hg] Eleazar Silver MD Work Phone: [facility] 04-28-2024 12:15-0500 Heart rate 72 /min Eleazar Silver MD Work Phone: [facility] 04-28-2024 12:15-0500 SaO2% (BldA) [Mass fraction] 91 % Eleazar Silver MD Work Phone: [facility] 04-28-2024 12:15-0500 Systolic blood pressure 107 mm[Hg] Eleazar Silver MD Work Phone: [facility] 04-28-2024 11:03-0500 Body mass index (BMI) [Ratio] 24.97 kg/m2 Eleazar Sliver MD Work Phone: [facility] 04-28-2024 11:03-0500 Body temperature 98.1 [degF] Eleazar Silver MD Work Phone: [facility] 04-28-2024 11:03-0500 Body weight 83.5 kg Eleazar Silver MD Work Phone: [facility] 04-07-2024 15:24-0500 Body height 182.9 cm Mile Izaguirre MD Work Phone: [facility] 04-07-2024 15:24-0500 Body mass index (BMI) [Ratio] 24.95 kg/m2 Mile Izaguirre MD Work Phone: [facility] 04-07-2024 15:24-0500 Body temperature 98.01 [degF] Mile Izaguirre MD Work Phone: [facility] 04-07-2024 15:24-0500 Body weight 83.46 kg Mile Izaguirre MD Work Phone: [facility] 04-07-2024 15:24-0500 Diastolic blood pressure 82 mm[Hg] Mile Izaguirre MD Work Phone: [facility] 04-07-2024 15:24-0500 Heart rate 75 /min Mile Izaguirre MD Work Phone: [facility] 04-07-2024 15:24-0500 SaO2% (BldA) [Mass fraction] 97 % Mile Izaguirre MD Work Phone: [facility] 04-07-2024 15:24-0500 Systolic blood pressure 126 mm[Hg] Mile Izaguirre MD Work Phone: [facility] 03-25-2024 09:07-0500 Body mass index (BMI) [Ratio] 24.87 kg/m2 Janel Mcgovern FASHION BUYER.RN CLINICAL APPEALS Work Phone: [facility] 03-25-2024 09:07-0500 Body weight 83.19 kg Janel Suppan FASHION BUYER.RN CLINICAL APPEALS Work Phone: [facility] 03-25-2024 09:07-0500 Diastolic blood pressure 78 mm[Hg] Janel Suppan FASHION BUYER.RN CLINICAL APPEALS Work Phone: [facility] 03-25-2024 09:07-0500 Heart rate 81 /min Janel Suppan FASHION BUYER.RN CLINICAL APPEALS Work Phone: [facility] 03-25-2024 09:07-0500 SaO2% (BldA) [Mass fraction] 97 % Janel Suppan FASHION BUYER.RN CLINICAL APPEALS Work Phone: [facility] 03-25-2024 09:07-0500 Systolic blood pressure 136 mm[Hg] Janel Suppan FASHION BUYER.RN CLINICAL APPEALS Work Phone: [facility] 03-20-2024 12:52-0500 Body mass index (BMI) [Ratio] 25.09 kg/m2 Dontrell Clutter PA-C Work Phone: [facility] 03-20-2024 12:52-0500 Body temperature 97.81 [degF] Dontrell Clutter PA-C Work Phone: [facility] 03-20-2024 12:52-0500 Body weight 83.9 kg Dontrell Clutter PA-C Work Phone: [facility] 03-20-2024 12:52-0500 Diastolic blood pressure 78 mm[Hg] Dontrell Clutter PA-C Work Phone: [facility] 03-20-2024 12:52-0500 Heart rate 78 /min Dontrell Clutter PA-C Work Phone: [facility] 03-20-2024 12:52-0500 Respiratory rate 18 /min Dontrell Clutter PA-C Work Phone: [facility] 03-20-2024 12:52-0500 SaO2% (BldA) [Mass fraction] 98 % Dontrell Clutter PA-Sergey Work Phone: [facility] 03-20-2024 12:52-0500 Systolic blood pressure 121 mm[Hg] Dontrell Coni FIERRO-C Work Phone: [facility] 01-16-2023 13:03-0400 Body temperature 98.29 [degF] Yuni Isaacs APRN.RN CLINICAL APPEALS Work Phone: [facility] 01-16-2023 13:03-0400 Body weight 83.92 kg Yuni Isaacs APRN.RN CLINICAL APPEALS Work Phone: [facility] 01-16-2023 13:03-0400 Diastolic blood pressure 70 mm[Hg] Yuni Isaacs APRN.RN CLINICAL APPEALS Work Phone: [facility] 01-16-2023 13:03-0400 Heart rate 78 /min Yuni Isaacs APRN.RN CLINICAL APPEALS Work Phone: [facility] 01-16-2023 13:03-0400 Respiratory rate 16 /min Yuni Isaacs APRN.RN CLINICAL APPEALS Work Phone: [facility] 01-16-2023 13:03-0400 SaO2% (BldA) [Mass fraction] 97 % Yuni Isaacs APRN.RN CLINICAL APPEALS Work Phone: [facility] 01-16-2023 13:03-0400 Systolic blood pressure 122 mm[Hg] Yuni Isaacs APRN.RN CLINICAL APPEALS Work Phone: [facility] Encounters Encounter Date Encounter Type Care Provider Facility Start: 12-11-2024 End: 12-11-2024 Telephone encounter Renu Dillon Research Coordinator [facility] Provider Adult Comment on above: Research F/U Start: 12-02-2024 End: 12-02-2024 Telephone encounter Renu Dillon Research Coordinator [facility] Provider Adult Comment on above: Research F/U Start: 10-02-2024 End: 10-02-2024 Patient encounter procedure Hiren Baumann MD Work Phone: General Surgery Comment on above: Status post bilatera l inguinal hernia repair (Primary Dx) Start: 10-02-2024 End: 10-02-2024 ambulatory HIREN BAUMANN Facility:[facility] Start: 09-10-2024 End: 09-10-2024 Telephone encounter Hiren Baumann MD Work Phone: General Surgery Comment on above: Vehicle Check In Clerk - O ther (Post surgery follow up) Start: 09-03-2024 End: 09-03-2024 ambulatory Kaya Haq Work Phone: [facility] Start: 08-13-2024 End: 08-13-2024 Admission to establishment [facility] 1 Work Phone: Pre Anesthesia Start: 08-13-2024 End: 08-13-2024 Anesthesia consultation [facility] 1 Work Phone: Pre Anesthesia Comment on above: Pre-op examination ( Primary Dx); Nicotine dependence with current use; Coronary artery calcification; Centrilobular emphysema (HCC) Start: 08-13-2024 End: 08-13-2024 Preprocedural examination done [facility] 1 Work Phone: [facility] Work Phone: Start: 08-13-2024 End: 08-13-2024 ambulatory HIREN BAUMANN Facility:[facility] Start: 08-13-2024 Encounter for other preprocedural examination DEEPAK [facility] Start: 07-04-2024 End: 09-03-2024 Follow-up encounter Janel Mcgovern APRN.RN CLINICAL APPEALS Work Phone: [facility] Start: 07-04-2024 ambulatory DEEPAK Lr [facility] Facility :[facility] Start: 07-04-2024 End: 07-04-2024 Subsequent hospital visit by physician [facility] 2 [facility] Work Phone: Cardiology Lab Comment on above: Centrilobular emphys adilene (HCC) [J43.2] Start: 07-03-2024 End: 09-02-2024 Follow-up encounter Janel Mcgovern APRN.CNP Work Phone: [facility] Start: 07-03-2024 End: 07-03-2024 Telephone encounter Cydney Bryant RN Cardiology Lab Comment on above: Reminder Call Start: 07-02-2024 End: 07-02-2024 ambulatory Pulm Lab [facility] Work Phone: PULM LAB [facility] Comment on above: Spirometry Start: 07-02-2024 End: 07-02-2024 Patient encounter procedure Pulm Lab [facility] Work Phone: [facility] Start: 06-27-2024 End: 06-27-2024 ambulatory JANEL MCGOVERN Facility:[facility] Start: 06-27-2024 End: 06-27-2024 Office outpatient visit 15 minutes Janel Mcgovern FASHION BUYER.RN CLINICAL APPEALS Work Phone: [facility] [place] Comment on above: Centrilobular emphys adilene (HCC) (Primary Dx); Abnormal findings diagnostic imaging of heart and coronary circulation; Tinea pedis of both feet; Encounter for immunization Start: 06-16-2024 End: 06-16-2024 Telephone encounter Dileep Ervin APRN.RN CLINICAL APPEALS Work Phone: Pulmonary Medicine Comment on above: Results Start: 06-16-2024 End: 06-16-2024 ambulatory DIANE LINARES Facility:[facility] Start: 06-16-2024 End: 06-16-2024 Patient encounter procedure Diane Linares PA-C Work Phone: Orthopaedics Comment on above: Numbness and tinglin g in left hand (Primary Dx); Wrist swelling, left; Osteoarthritis of left wrist, unspecified osteoarthritis type Start: 06-13-2024 End: 06-13-2024 ambulatory DILEEP ERVIN Facility:[facility] Start: 06-13-2024 End: 06-13-2024 Subsequent hospital visit by physician [facility] ([facility]) Work Phone: Cat Scan Comment on above: Encounter for screen ing for lung cancer [Z12.2] Start: 06-02-2024 End: 06-02-2024 ambulatory DILEEP ERVIN Facility:[facility] Start: 06-02-2024 End: 06-02-2024 Patient encounter procedure Dileep Ervin APRN.RN CLINICAL APPEALS Work Phone: Pulmonary Medicine Comment on above: Encounter for screen ing for lung cancer (Primary Dx); Tobacco use current Start: 05-06-2024 End: 05-06-2024 Admission to same day surgery center Nilson Escalera RN General Surgery Comment on above: Patient Education Start: 05-06-2024 End: 05-06-2024 ambulatory Nlison Escalera RN General Surgery Start: 05-06-2024 End: 05-06-2024 Patient encounter procedure Hiren Baumann MD Work Phone: General Surgery Comment on above: Bilateral recurrent inguinal hernia without obstruction or gangrene (Primary Dx) Start: 04-28-2024 End: 04-28-2024 [facility] Facility:[facility] Start: 04-28-2024 End: 04-28-2024 Subsequent hospital visit by physician Eleazar Silver MD Work Phone: Ambulatory Surgery Comment on above: Screening for colon cancer [Z12.11] Start: 04-21-2024 End: 04-21-2024 Admission to same day surgery center Eleazar Silver MD Work Phone: Ambulatory Surgery Comment on above: bowel prep Miralax Start: 04-21-2024 End: 04-21-2024 E-mail encounter from caregiver Eleazar Silver MD Work Phone: Ambulatory Surgery Start: 04-07-2024 End: 04-07-2024 [facility] Facility:[facility] Start: 04-07-2024 End: 04-07-2024 Patient encounter procedure Mile Izaguirre MD Work Phone: General Surgery Comment on above: Bilateral recurrent inguinal hernia without obstruction or gangrene Start: 03-31-2024 End: 04-01-2024 Telephone encounter Janel Mcgovern APRN.RN CLINICAL APPEALS Work Phone: Family [facility] [place] Start: 03-25-2024 End: 03-25-2024 Subsequent hospital visit by physician Josephine [facility] Work Phone: Radiology Comment on above: Wrist swelling, left [M25.432] Start: 03-25-2024 End: 03-25-2024 [facility] Start: 03-25-2024 End: 03-25-2024 Periodic preventive med est patient 40-64yrs Janel Mcgovern APRN.RN CLINICAL APPEALS Work Phone: [facility] [place] Comment on above: Dyslipidemia (Primar y Dx); Screening for colon cancer; Bilateral inguinal hernia with obstruction and without gangrene, recurrence not specified; Screening for depression; Encounter for screening examination for other mental health and behavioral disorders; Encounter for screening for lung cancer; Screening for prostate cancer; Screening for diabetes mellitus (DM); Wrist swelling, left; Numbness in both hands Start: 03-20-2024 End: 03-20-2024 [facility] Start: 03-20-2024 End: 03-20-2024 Office outpatient new 30 minutes Dontrell Walker PA-C Work Phone: [facility] Comment on above: Wound cellulitis (Pr imary Dx) Start: 12-25-2023 End: 12-25-2023 Emergency department patient visit [facility] Start: 12-25-2023 End: 12-25-2023 Patient encounter procedure Malika Del Real APRN.RN CLINICAL APPEALS Work Phone: [facility] Comment on above: Right lower quadrant abdominal pain (Primary Dx) Start: 12-25-2023 End: 12-25-2023 [facility] Start: 01-24-2023 End: 01-24-2023 Patient encounter procedure Jomar Del Angel DO Work Phone: [facility] [place] Comment on above: Primary osteoarthrit is of right wrist (Primary Dx) Start: 01-16-2023 End: 01-16-2023 Subsequent hospital visit by physician Josephine [facility] [place] Work Phone: Radiology Comment on above: Right wrist pain [M2 5.531] Start: 01-16-2023 End: 01-16-2023 Patient encounter procedure Yuni Isaacs APRN.RN CLINICAL APPEALS Work Phone: [facility] Comment on above: Right wrist pain (Pr imary Dx) Procedures Date Procedure Procedure Detail Performing Clinician Start: 07-04-2024 Cv strs tst xers&/or rx cont ecg trcg only Janel Mcgovern FASHION BUYER.RN CLINICAL APPEALS Work Phone: Start: 07-02-2024 Brncdilat rspse spmt ry pre&post-brncdilat admn Janel Mcgovern FASHION BUYER.RN CLINICAL APPEALS Work Phone: Start: 06-13-2024 CT LUNG SCREEN WO IVCON Dileepkristian Ervin FASHION BUYER.RN CLINICAL APPEALS Work Phone: Start: 04-28-2024 Colonoscopy flx dx w/collj spec when pfrmd Janel Mcgovern FASHION BUYER.RN CLINICAL APPEALS Work Phone: Start: 04-28-2024 Colonoscopy Eleazar abbott MD Work Phone: Start: 03-25-2024 Adult depression screening assessment Janel Mcgovern FASHION BUYER.RN CLINICAL APPEALS Work Phone: Start: 03-25-2024 Lipid 1996 panel - S maye or Plasma Xr [place] Work Phone: Start: 01-16-2023 Radex wrist complete minimum 3 views Yuni Isaacs APRN.RN CLINICAL APPEALS Work Phone: Start: 07-02-2017 Lipid 1996 panel - S maye or Plasma Jomar Araiza DO Work Phone: History of repair of inguinal hernia Status post bilateral inguinal hernia repair Hiren Baumann MD Work Phone: Plan of Treatment Date Care Activity Detail Author Start: 10-25-2038 RSV Vaccine (1 - 1-d ose 75+ series) RSV Vaccine (1 - 1-dose 75+ series) [facility] Start: 03-20-2034 Urine microalbumin profile DTaP,Tdap,Td Vaccine (3 - Td or Tdap) [facility] Start: 03-25-2029 Lipid panel Lipid Screening [facility] Start: 11-12-2029 Prostate specific antigen measurement Prostate Cancer Screening Discussion [facility] Start: 03-25-2027 Diabetes Screening Diabetes Screenin g [facility] Start: 05-24-2026 Urine microalbumin profile [facility] Start: 06-27-2025 Annual PCP Team Analyst Programmer nayana Disease Visit Annual PCP Team Chronic Disease Visit [facility] Start: 06-13-2025 Screening for malign ant neoplasm of lung Lung Cancer Screening [facility] Start: 05-14-2025 End: 07-16-2025 CT Chest for screening WO contrast CT LUNG SCREEN WO IVCON Radiology Routine Encounter for screening for lung cancer Tobacco use current Expected: 05/14/2025 (Approximate), Expires: 07/16/2025 [facility] Work Phone: Comment on above: Expected: 05/14/2025 (Approximate), Expires: 07/16/2025 Start: 04-28-2025 Screening for malign ant neoplasm of colon [facility] Start: 03-25-2025 Anxiety Screening Anxiety Screening [facility] Start: 03-25-2025 Covid-19 Vaccine ( season) Covid-19 Vaccine () [facility] Comment on above: Postponed from 01/12 (Declined at this time) Start: 03-25-2025 Depression Screening Depression Scre ening [facility] Start: 03-25-2025 Hepatitis B surface antibody level LDL Cholesterol [facility] Start: 03-25-2025 Pneumococcal vaccination Pneumococcal Vaccine (1 of 2 - PCV) [facility] Comment on above: Postponed from 10/25 (Declined at this time) Start: 03-25-2025 Shingrix Vaccine (1 of 2) Shingrix Vaccine (1 of 2) [facility] Comment on above: Postponed from 10/25 (Declined at this time) Start: 01-12-2025 Influenza vaccination Influenza Vacc ine (#1) [facility] Start: 01-02-2025 End: 01-02-2025 Patient encounter procedure 01/02/2025 2:40 PM EDT Office Visit [facility] [address] [place], [place] [id number] Deepak Cedeño MD [address] [place], [place] [id number] 6 month exam [facility] Comment on above: 6 month exam Start: 11-10-2024 Influenza vaccination Influenza Vacc ine (#1) [facility] Comment on above: Postponed from 01/12 (Declined at this time) Start: 10-02-2024 End: 10-02-2024 Patient encounter procedure General Surgery Comment on above: 09/03 robotic inguina l hernia Post op, s/p open LI H w/ mesh/robotic RIH repair w/ mesh 09/03 Start: 09-03-2024 End: 09-03-2024 Admission to same day surgery center [facility] Comment on above: ROBOTIC INGUINAL HER JEAN PAUL REPAIR Start: 09-03-2024 End: 09-03-2024 Laparoscopy surg rpr initial inguinal hernia [facility] Start: 09-03-2024 End: 09-03-2024 Rpr 1st ingun hrna age 3 yrs/> reducible [facility] OR Start: 09-03-2024 Subsequent hospital visit by physician [facility] Comment on above: Bilateral inguinal h ernia without obstruction or gangrene, recurrence not specified [K40.20] Start: 08-22-2024 Shingrix Vaccine (2 of 2) Shingrix Vaccine (2 of 2) [facility] Start: 07-04-2024 End: 06-27-2025 EXERCISE STRESS ECG (WITHOUT IMAGING) EXERCISE STRESS ECG (WITHOUT IMAGING) Cardiology Routine Centrilobular emphysema (HCC) Abnormal findings diagnostic imaging of heart and coronary circulation Expected: 07/04/2024, Expires: 06/27/2025 [facility] Comment on above: Expected: 07/04/2024 , Expires: 06/27/2025 Start: 07-04-2024 End: 07-04-2024 Patient encounter procedure 07/04/2024 10:00 AM EST Appointment Cardiology Lab [facility] [place] [place] [address] Centrilobular emphysema (HCC) [J43.2]; Abnormal findings diagnostic imaging of heart and coronary circulation [R93.1] Cardiology Lab Comment on above: Centrilobular emphys adilene (HCC) [J43.2]; Abnormal findings diagnostic imaging of heart and coronary circulation [R93.1] Start: 07-04-2024 Subsequent hospital visit by physician 07/04/2024 10:00 AM EST Hospital Encounter Cardiology Lab [address] [place] [address] Centrilobular emphysema (HCC) [J43.2] Cardiology Lab Comment on above: Centrilobular emphys adilene (HCC) [J43.2] Start: 07-02-2024 End: 07-02-2024 ambulatory 07/02/2024 12:30 PM EST Procedure PULM LAB [facility] [address] [place] [address] Wstr, Pulm Lab [facility] [address] [place] [address] Centrilobular emphysema (HCC) [J43.2]; Abnormal findings diagnostic imaging of heart and coronary circulation [R PULM LAB [facility] Comment on above: Centrilobular emphys adilene (HCC) [J43.2]; Abnormal findings diagnostic imaging of heart and coronary circulation [R Start: 06-27-2024 End: 06-27-2024 Patient encounter procedure 06/27/2024 2:20 PM EST Office Visit [facility] [address] [place] [address] Janel Mcgovern APRN.RN CLINICAL APPEALS [address] [place] [address] lung cancer screen [facility] Comment on above: review CT lung cance r screen Start: 06-16-2024 End: 06-16-2024 Patient encounter procedure 06/16/2024 9:30 AM EST Office Visit Orthopaedics [address] [place] [address] Diane Linares PA-C [address] [place], [place] [id number] Wrist swelling, left [M25.432] Orthopaedics Comment on above: Wrist swelling, left [M25.432] Start: 06-13-2024 End: 06-13-2024 Patient encounter procedure 06/13/2024 1:40 PM EST Appointment Cat Scan [address] [place] [address] Encounter for screening for lung cancer [Z12.2]; Tobacco use current [Z72.0] Cat Scan Comment on above: Encounter for screen ing for lung cancer [Z12.2]; Tobacco use current [Z72.0] Start: 06-02-2024 End: 06-02-2024 Patient encounter procedure 06/02/2024 9:30 AM EST Office Visit Pulmonary Medicine [address] [place] [address] Dileep Ervin APRN.RN CLINICAL APPEALS [address] [place] [address] Encounter for screening for lung cancer [Z12.2] Pulmonary Medicine Comment on above: Encounter for screen ing for lung cancer [Z12.2] Start: 05-06-2024 End: 05-06-2024 Patient encounter procedure 05/06/2024 9:20 AM EST Office Visit General Surgery [address] [place] [address] [place] [address] [place] [address] new patient [facility] previously seen by [facility] General Surgery Comment on above: new patient [facility]IH prev iously seen by [facility] Start: 04-28-2024 End: 04-28-2024 Patient encounter procedure Ambulatory Surgery Comment on above: Screening for colon cancer [Z12.11] Start: 04-07-2024 End: 04-07-2024 Patient encounter procedure General Surgery Comment on above: Bilateral inguinal h ernia with obstruction and without gangrene, recurrence not specified [K40.00] Bilateral inguinal h ernia w/ obstruction, w/o gangrene Start: 04-01-2024 End: 03-25-2025 Screening colonoscopy COLONOSCOPY SCREENING Endoscopy Routine Screening for colon cancer Expected: 04/01/2024, Expires: 03/25/2025 [facility] Work Phone: Comment on above: Expected: 04/01/2024 , Expires: 03/25/2025 Start: 03-25-2024 End: 06-24-2024 Cobalamin (Vitamin B12) [Mass/volume] in Serum or Plasma [facility] Comment on above: Expected: 03/25/2024 , Expires: 06/24/2024 Start: 03-25-2024 End: 06-24-2024 Comprehensive metabolic 2000 panel - Serum or Plasma [facility] Comment on above: Expected: 03/25/2024 , Expires: 06/24/2024 Start: 03-25-2024 End: 06-24-2024 Hemoglobin A1c in Blood [facility] Comment on above: Expected: 03/25/2024 , Expires: 06/24/2024 Start: 03-25-2024 End: 06-24-2024 LIPID PANEL, NONFASTING [facility] Comment on above: Expected: 03/25/2024 , Expires: 06/24/2024 Start: 03-25-2024 End: 06-24-2024 Magnesium [Mass/volume] in Serum or Plasma [facility] Comment on above: Expected: 03/25/2024 , Expires: 06/24/2024 Start: 03-25-2024 End: 06-24-2024 PSA/PROSTATE SPECIFIC ANTIGEN SCREENING [facility] Comment on above: Expected: 03/25/2024 , Expires: 06/24/2024 Start: 03-25-2024 End: 06-24-2024 Thyrotropin [Units/volume] in Serum or Plasma [facility] Comment on above: Expected: 03/25/2024 , Expires: 06/24/2024 Start: 03-25-2024 End: 03-25-2024 Patient encounter procedure 03/25/2024 9:00 AM EST Office Visit [facility] [address] [facility] [place] [id number] physical [facility] [place] Comment on above: physical Start: 01-13-2024 Covid-19 Vaccine () Covid-19 Vaccine () [facility] Start: 01-13-2024 Covid-19 Vaccine () Covid-19 Vaccine () [facility] Start: 01-13-2024 Influenza vaccination Influenza Vacc ine (#1) [facility] Start: 2023 RSV Vaccine (1 - 1-d ose 60+ series) RSV Vaccine (1 - 1-dose 60+ series) [facility] Start: 2023 RSV Vaccine (1 - Ris k 60-74 years 1-dose series) RSV Vaccine (1 - Risk 60-74 years 1-dose series) [facility] Start: 01-12-2023 Covid-19 Vaccine ( season) Covid-19 Vaccine ( season) [facility] Start: 01-12-2023 Influenza vaccination C [facility] Start: 11-16-2022 DIABETES SCREEN DIABETES SCREEN [facility] Start: 11-16-2022 Diabetes Screening Diabetes Screenin g [facility] Start: 07-02-2022 Lipid 1996 panel - Serum or Plasma Lipid Screening [facility] Start: 07-02-2022 Lipid panel Lipid Screening [facility] Start: 07-02-2022 LIPID SCREEN LIPID SCREEN [facility] Start: 06-19-2022 PROSTATE CANCER SCREENING DISCUSSION PROSTATE CANCER SCREENING DISCUSSION [facility] Start: 06-19-2022 Prostate specific antigen measurement Prostate Cancer Screening Discussion [facility] Start: 05-14-2022 [facility] Start: 11-18-2020 COLORECTAL CANCER SCREENING COLORECTAL CANCER SCREENING [facility] Start: 11-18-2020 FECAL OCCULT BLOOD FECAL OCCULT BLOO D [facility] Start: 11-18-2020 Screening for malign ant neoplasm of colon [facility] Start: 10-25-2013 Influenza vaccination Lung Cancer Sc reening [facility] Start: 10-25-2013 Screening for malign ant neoplasm of lung Lung Cancer Screening [facility] Start: 10-25-2013 SHINGRIX VACCINE (1 of 2) SHINGRIX VACCINE (1 of 2) [facility] Start: 10-25-2008 COLOGUARD (FIT-DNA) COLOGUARD (FIT-D NA) [facility] Start: 10-25-2008 Colonoscopy COLONOSCOPY [facility] Start: 10-25-[address] COLONOGRAPHY [facility] Start: 10-25-2008 Screening for malign ant neoplasm of colon [facility] Start: 10-25-2008 SIGMOIDOSCOPY SIGMOIDOSCOPY [facility] Start: 10-25-1993 Zoledronic acid therapy Alpha- 1 Antitrypsin Deficiency Screening [facility] Start: 10-25-1982 Pneumococcal Vaccine : 50+ (1 of 2 - PCV) Pneumococcal Vaccine: 50+ (1 of 2 - PCV) [facility] Start: 10-25-1981 Anxiety Screening Anxiety Screening [facility] Start: 10-25-1981 Depression Screening Depression Scre ening [facility] Start: 10-25-1981 HIV SCREENING HIV SCREENING [facility] Start: 10-25-1981 HIV screening HIV Screening [facility] Start: 10-25-1969 Pneumococcal vaccination [facility] Start: 04-26-1964 COVID-19 VACCINE (#1) COVID-19 VACCI NE (#1) [facility] End: 07-02-2025 CT Chest for screening WO contrast CT LUNG SCREEN WO IVCON Radiology Routine Encounter for screening for lung cancer Tobacco use current 1 Occurrences starting 06/02/2024 until 07/02/2025 [facility] Work Phone: Comment on above: 1 Occurrences starti ng 06/02/2024 until 07/02/2025 End: 06-16-2025 EMG(NEURO/NI) EMG(NEURO/NI) EMG Routine Numbness and tingling in left hand 1 Occurrences starting 06/16/2024 until 06/16/2025 [facility] Work Phone: Comment on above: 1 Occurrences starti ng 06/16/2024 until 06/16/2025 End: 07-27-2025 SPIROMETRY - BASELINE AND POST DILATOR SPIROMETRY - BASELINE AND POST DILATOR PFT Routine Centrilobular emphysema (HCC) Abnormal findings diagnostic imaging of heart and coronary circulation 1 Occurrences starting 06/27/2024 until 07/27/2025 [facility] Work Phone: Comment on above: 1 Occurrences starti ng 06/27/2024 until 07/27/2025 SURGICAL PATHOLOGY [facility] Work Phone: Comment on above: Release Upon Eliza lazo for 1 Occurrences starting 04/28/2024, 1 completed End: 04-24-2025 XR Wrist - left PA and Lateral and Oblique XR WRIST GENERAL 3V PA/LAT/OBL LEFT Radiology Routine Wrist swelling, left 1 Occurrences starting 03/25/2024 until 04/24/2025 [facility] Comment on above: 1 Occurrences starti ng 03/25/2024 until 04/24/2025 XR Wrist - left PA a nd Lateral and Oblique XR WRIST GENERAL 3V PA/LAT/OBL LEFT Radiology Routine Wrist swelling, left 03/25/2024 10:37 AM EST [facility] Immunizations Immunization Date Immunization Notes Care Provider Mario santoyo 06-27-2024 pneumococcal Conjuga te, unspecified formulation Janel Suppan FASHION BUYER.RN [employer] Work Phone: [facility] 06-27-2024 pneumococcal conjuga te (PCV20) vaccine, 20 valent (PREVNAR 20) Janel Suppan FASHION BU[employer]ER[employer] Work Phone: [facility] 06-27-2024 zoster vaccine recombinant Janel Suppan FASHION BUYER.RN [employer] Work Phone: [facility] 03-20-2024 tetanus toxoid, redu tayla diphtheria toxoid, and acellular pertussis vaccine, adsorbed Dontrell DUKESC Work Phone: [facility] 06-19-2017 influenza virus vaccine, unspecified formulation Jomar Araiza DO Work Phone: [facility] 05-24-2016 tetanus toxoid, redu tayla diphtheria toxoid, and acellular pertussis vaccine, adsorbed Yuni Isaacs FASHION BUYER.RN [employer] Work Phone: [facility] Payers Date Payer Category Payer Self-pay 2018 Private Health Insurance MMO [employer] PPO [id number] 2018 Unknown MMO MMO [employer] PPO [id number] 2018-Present [phone] [address] [place] [address] PPO [id number] 2018 Unknown [id number] Unknown [id number] Social History Date Type Detail Facility Start: 01-16-2023 Tobacco smoking status NHIS Ex-smoker [facility] Work Phone: History of tobacco use Current smoker [facility] Work Phone: Start: 05-14-1987 End: 05-14-2016 History of tobacco use Cigarette Smoker [facility] Work Phone: Start: 01-16-2023 End: 01-24-2023 Cigarettes smoked current (pack per day) - Reported 1 [facility] Work Phone: Start: 01-16-2023 End: 08-13-2024 Tobacco use and exposure Smokeless tobacco non-user [facility] Work Phone: Start: 01-16-2023 End: 10-02-2024 Alcohol intake Current drinker of alcohol (finding) [facility] Start: 02-03-2020 End: 01-24-2023 Alcohol Use Disorder Identification Test - Consumption [AUDIT-C] [facility] Work Phone: How often to you hav e a drink containing alcohol? Monthly or less [facility] Work Phone: How many standard dr inks containing alcohol do you have on a typical day? 1 or 2 [facility] Work Phone: How often do you hav e 6 or more drinks on 1 occasion? Never [facility] Work Phone: National Score (1-10 0), lower number is lower risk Not on file [facility] Start: 01-16-2023 Tobacco Comment Quit 07/29/2015 [facility] Start: 11-01-2020 Alcohol Comment 1- 3 beers once a month [facility] Start: 1965 Sex Assigned At Male [facility] Start: 01-26-2020 Gender identity Identifies as male gender (finding) [facility] Start: 01-26-2020 Sexual orientation Heterosexual (finding) [facility] Start: 01-24-2023 End: 03-20-2024 Tobacco smoking status NHIS Occasional tobacco smoker [facility] Start: 05-14-1987 End: 08-13-2024 Tobacco smoking status NHIS Smokes tobacco daily [facility] Start: 03-25-2024 Alcohol Comment 3-7 beers once a week [facility] Has the [employer], or [employer] threatened to shut off services in your home in past 12Mo No [facility] Do you belong to any clubs or organizations such as mosque groups, unions, fraternal or athletic groups, or school groups? Yes [facility] Are you now , , , , never or living with a partner? [facility] How often to you hav e a drink containing alcohol? 2-4 times a month [facility] Do you feel stress - tense, restless, nervous, or anxious, or unable to sleep at night because your mind is troubled all the time - these days [OSQ] Only a little [facility] (I/We) worried wheth er (my/our) food would run out before (I/we) got money to buy more. Never true [facility] Start: 08-13-2024 Tobacco Comment 0.5 ppd [facility] Medical Equipment Procedure Code Equipment Code Equipment Origin al Text Equipment Identifier Dates Patch Ventralex St Sepra Sorbaflex 3.2in Large [place] Polypropylene - [id number] Start: 11-30-2015 Mesh 3dmax Large Polypropylene 6.2x4.1in Surgical Lightweight Large Pore - [id number] Start: 11-30-2015 Mesh Parietene Macroporous 15x7.5cm Surgical - [id number] Start: 09-03-2024 Mesh Prolene Fla t Square 6x6in Surgical Customizable Knit Nonabsorbable - [id number] Start: 09-03-2024 Functional Status Date Assessment Result Facility 06-27-2024 Total score [AUDIT-C] 2 06/27/19 12:09 PM EST User, Bonit [facility] 06-27-2024 Within the last year , have you been humiliated or emotionally abused in other ways by your partner or ex-partner? No 06/27/2024 12:09 PM EST User, [email or web address] No [facility] 06-27-2024 Within the last year , have you been afraid of your partner or ex-partner? No 06/27/2024 12:09 PM EST User, Bonit No [facility] 06-27-2024 Within the last year , have you been raped or forced to have any kind of sexual activity by your partner or ex-partner? No 06/27/2024 12:09 PM EST User, Bonit No [facility] 06-27-2024 Within the last year , have you been kicked, hit, slapped, or otherwise physically hurt by your partner or ex-partner? No 06/27/2024 12:09 PM EST User, Bonit No [facility] 06-27-2024 How often to you hav e a drink containing alcohol? 2-4 times a month 06/27/2024 12:09 PM EST User, [email or web address] 2-4 times a month [facility] 06-27-[address] inks containing alcohol do you have on a typical day? 1 or 2 06/27/2024 12:09 PM EST User, Bonit 1 or 2 [facility] 06-27-2024 How often do you hav e 6 or more drinks on 1 occasion? Never 06/27/2024 12:09 PM EST User, [email or web address] Never [facility] 08-01-2013 Are you deaf, or do you have serious difficulty hearing No 08/01/2013 8:50 AM Ya Hein RN No [facility] 08-01-2013 Are you blind, or do you have serious difficulty seeing, even when wearing glasses No 08/01/2013 8:50 AM Ya Hein RN No [facility] 08-01-2013 Do you have serious difficulty walking or climbing stairs No 08/01/2013 8:50 AM EDT Ya Donato RN No [facility] 08-01-2013 Do you have difficul ty dressing or bathing No 08/01/2013 8:50 AM EDT Ya Donato RN No [facility] 08-01-2013 Because of a physica l, mental, or emotional condition, do you have difficulty doing errands alone such as visiting a physician's office or shopping No 08/01/2013 8:50 AM EDT Ya Donato RN No [facility] Mental Status Date Assessment Result Facility 08-01-2013 Because of a physica l, mental, or emotional condition, do you have serious difficulty concentrating, remembering, or making decisions No 08/01/2013 8:50 AM EDT Ya Donato RN No [facility] Clinical Notes 01-16-2023 to 12-11-2024 Telephone Encounter - Renu Dillon Research Coordinator - 12/11/2024 1:54 PM EDTTelephone Encounter - Renu Dillon Research Coordinator - 12/11/2024 1:54 PM EDTPatient Instructions Note Date & Type Note Facility 12-11-2024 Miscellaneous Notes IRB# [id number]: Vascular events in patients undergoing same-day nonCardiac surgery - [facility] PI: Arlette Ocampo MD This is a research study note. Patient assessments recorded here should not guide either clinical care or clinical decision-making. I attempted to contact Cecilia Martin on 12/11/2024 regarding the 90 day follow-up for the [facility] study. I was not able reach the patient on listed number. I will NOT attempt to call the patient again. This patient is considered lost to follow up. The research period is complete. Renu Dillon Research fellow [facility] Anesthesia Research/ Emergency Medicine Research documented in this encounter [facility] 12-11-2024 Telephone encounter Note IRB# [id number]: Vascular events in patients undergoing same-day nonCardiac surgery - [facility] PI: Arlette Ocampo MD This is a research study note. Patient assessments recorded here should not guide either clinical care or clinical decision-making. I attempted to contact Cecilia Martin on 12/11/2024 regarding the 90 day follow-up for the [facility] study. I was not able reach the patient on listed number. I will NOT attempt to call the patient again. This patient is considered lost to follow up. The research period is complete. Renu Dillon Research fellow [facility] Anesthesia Research/ Emergency Medicine Research [facility] 12-02-2024 Telephone encounter Note IRB# [id number]: Vascular events in patients undergoing same-day nonCardiac surgery - [facility] PI: Arlette Ocampo MD This is a research study note. Patient assessments recorded here should not guide either clinical care or clinical decision-making. I attempted to contact Cecilia Martin on December 02, 2024 regarding the 90 day follow-up for the [facility] study. I was not able reach the patient on listed number. I will attempt to call the patient again at a later time. Renu Dillon, Research Fellow [facility] Anesthesiology [place] [facility] 12-02-2024 Miscellaneous Notes IRB# [id number]: Vascular events in patients undergoing same-day nonCardiac surgery - [facility] PI: Arlette Ocampo MD This is a research study note. Patient assessments recorded here should not guide either clinical care or clinical decision-making. I attempted to contact Cecilia Kylie Martin on December 02, 2024 regarding the 90 day follow-up for the [facility] study. I was not able reach the patient on listed number. I will attempt to call the patient again at a later time. Renu Dillon, Research Fellow [facility] Anesthesiology [place] documented in this encounter [facility] 10-02-2024 History of Presen t illness Narrative [facility] - Follow Up Visit Assessment/Plan: Cecilia Martin is a 58 year old male s/p open left inguinal hernia repair with 7.5 x 13 cm mid-weight polypropylene Parietene mesh and robotic right inguinal hernia repair with 15 x 11 cm heavy-weight Polypropylene Prolene mesh on 09/03/2024. He presents today, 29 days postoperatively and is doing well. His pain has resolved, there is no bulging in the groin, he is having no issues with PO intake, his wounds are healing well, and he is recovering appropriately. - Follow up as needed Subjective: Feels an occasional poking pain in the left groin and only an occasional ache on the right. A little bit of numbness in the left groin. No issues with PO intake, or bowel function. Objective: AAOx3, NAD Non-labored respirations on RA Abdomen soft, non-distended, and mildly tender around the patient's lap sites. Skin glue flaking off. No erythema or induration at any of his lap incisions or left groin incision. No bulge in either groin. Hiren Baumann MD 11/17/24, 1:46 PM General Surgery [facility] Medical Decision Making: Problems: Minimal: Self-limited or minor problem Risk: Minimal: Minimal risk from testing/treatment Medical Decision Making Level: 2 - Straightforward documented in this encounter [facility] 10-02-2024 Note HNO ID: [id number] Author: HIREN BAUMANN MD Service: ? Author Type: Physician Type: Progress Notes Filed: 11/17/2024 13:56 Note Text: [facility] - Follow Up Visit Assessment/Plan: Cecilia Martin is a 58 year old male s/p open left inguinal hernia repair with 7.5 x 13 cm mid-weight polypropylene Parietene mesh and robotic right inguinal hernia repair with 15 x 11 cm heavy-weight Polypropylene Prolene mesh on 09/03/2024. He presents today, 29 days postoperatively and is doing well. His pain has resolved, there is no bulging in the groin, he is having no issues with PO intake, his wounds are healing well, and he is recovering appropriately. - Follow up as needed Subjective: Feels an occasional poking pain in the left groin and only an occasional ache on the right. A little bit of numbness in the left groin. No issues with PO intake, or bowel function. Objective: AAOx3, NAD Non-labored respirations on RA Abdomen soft, non-distended, and mildly tender around the patient's lap sites. Skin glue flaking off. No erythema or induration at any of his lap incisions or left groin incision. No bulge in either groin. Hiren Baumann MD 11/17/24, 1:46 PM General Surgery [facility] Medical Decision Making: Problems: Minimal: Self-limited or minor problem Risk: Minimal: Minimal risk from testing/treatment Medical Decision Making Level: 2 - Straightforward [facility] 09-10-2024 Telephone encounter Note GENERAL SURGERY CARE COORDINATION POST-OP TELEPHONE CALL Patient called for post op follow up assessment. S/p open left inguinal hernia repair w/ mesh and robotic right inguinal hernia repair with mesh 09/03 Pain: Patient reports he is feeling well. He is intermittently sore but using PRN Motrin with good relief. Diet: Tolerating PO intake; denies any nausea or vomiting Voiding: without issue Bowel Movement: having BM's since surgery Incision: healing well; denies any redness, opened areas or drainage Ambulating: without issue Medication: Denies questions or concerns about medication. Post op restrictions reviewed with patient including - activity- no heavy lifting, pushing, or pulling >15lbs for 4weeks - keep incision clean and dry. Ok to use mild antibacterial soap. - reviewed signs and symptoms to notify office including signs of infection, fever, persistent nausea/vomiting, or worsening pain Follow up: Patient verbalized understanding and denies further questions at this time. Understands to call the office with further concerns/questions. Post op appt: 10/03 with KB [facility] 09-10-2024 Miscellaneous Notes GENERAL SURGERY CARE COORDINATION POST-OP TELEPHONE CALL Patient called for post op follow up assessment. S/p open left inguinal hernia repair w/ mesh and robotic right inguinal hernia repair with mesh 09/03 Pain: Patient reports he is feeling well. He is intermittently sore but using PRN Motrin with good relief. Diet: Tolerating PO intake; denies any nausea or vomiting Voiding: without issue Bowel Movement: having BM's since surgery Incision: healing well; denies any redness, opened areas or drainage Ambulating: without issue Medication: Denies questions or concerns about medication. Post op restrictions reviewed with patient including - activity- no heavy lifting, pushing, or pulling >15lbs for 4weeks - keep incision clean and dry. Ok to use mild antibacterial soap. - reviewed signs and symptoms to notify office including signs of infection, fever, persistent nausea/vomiting, or worsening pain Follow up: Patient verbalized understanding and denies further questions at this time. Understands to call the office with further concerns/questions. Post op appt: 10/03 with KB documented in this encounter [facility] 09-03-2024 Note HNO ID: [id number] Author: MERE ANDERSON APRN.CRNA Service: Anesthesiology Author Type: Nurse Waste Reclaimer Type: Anesthesia Procedure Notes Filed: 09/03/2024 15:39 Note Text: ANESTHESIOLOGY PROCEDURE NOTE Airway General Information Procedure Start Time/Medication Administration: 09/03/2024 3:18 PM Procedure End Time: 09/03/2024 3:18 PM Patient location during procedure: OR Patient identity confirmed: arm band, care team physician and patient Staffing LEGAL SPECIALIST: Mere Anderson APRN.LEGAL SPECIALIST Performed by: LEGAL SPECIALIST Indications and Patient Condition Indications for airway management: anesthesia Preoxygenated: yes anesthesia circuit Method: asleep Difficult Mask: No Final Airway Details Final airway type: endotracheal airway Final Endotracheal Airway: ETT Cuffed: yes Successful intubation technique: direct laryngoscopy Devices used: intubating stylet Endotracheal tube insertion site: oral Blade: Saunders Blade size: #2 ETT size (mm): 7.5 Measured from: lips Measurement (cm): 23 Placement verified by: capnometry Cormack-Lehane Classification: grade I - full view of glottis Number of attempts at approach: 1 Airway not difficult Comments Atraumatic insertion, baseline dentition intact SIGNATURE: Mere Anderson APRN.CRNA PATIENT NAME: Cecilia Martin DATE: September 03, 2024 TIME: 3:39 PM CSN: [id number] [facility] 09-03-2024 Note HNO ID: [id number] Author: MILLER CHAND MD Service: Pain Management Author Type: Anesthesiologist Type: Anesthesia Procedure Notes Filed: 09/03/2024 15:30 Note Text: ANESTHESIOLOGY PROCEDURE NOTE PIV General Information Procedure Start Time/Medication Administration: 09/03/2024 3:30 PM Procedure End Time: 09/03/2024 3:30 PM Patient Location: OR Staffing Anesthesiologist: Miller Chand MD Performed by: anesthesiologist Preparation Sterility Preparation: hand hygiene performed prior to procedure, surgical cap used, mask used, skin prep agent completely dried prior to procedure Site Prep: chlorhexidine Procedure Details Indication: need for IV access Needle Size/Type: 18 gauge angiocath Orientation: Right Location: Hand Imaging Guidance Used: No SIGNATURE: Miller Chand MD PATIENT NAME: Cecilia Martin DATE: September 03, 2024 TIME: 3:30 PM CSN: [id number] [facility] 09-03-2024 Note HNO ID: [id number] Author: ?, ?, ? Service: ? Author Type: ? Type: Progress Notes Filed: 09/03/2024 13:04 Note Text: IRB# [id number]: Vascular events in patients undergoing same-day nonCardiac surgery - [facility] PI: Arlette Ocampo MD, IMANI, FASA. Co-I: Julien Rivera MD This is a research study note. Patient assessments recorded here should not guide either clinical care or clinical decision-making. I spoke with Cecilia Martin in the clinic on September 03, 2024 regarding the study IRB [id number]. All risks, benefits, and alternatives of the study were explained and reviewed with the patient. Study-related procedures were discussed. The consent form was given to the patient to read and all of the patient's study-related questions and concerns were addressed. The patient expressed understanding of the study, and agreed to participate. The patient completed the study required questionnaires including: Baseline Functional Capacity, Cottrell Activity Status Index (DASI), Quality of life questionnaire (EQ-5D-5L) and the Adapted Brief Pain Inventory-Short Form (BPI). Kaya Haq [facility] Anesthesia [facility] 09-03-2024 History of Presen t illness Narrative IRB# [id number]: Vascular events in patients undergoing same-day nonCardiac surgery - [facility] PI: Arlette Ocampo MD, IMANI, JB. Co-I: Julien Rivera MD This is a research study note. Patient assessments recorded here should not guide either clinical care or clinical decision-making. I spoke with Cecilia Martin in the clinic on September 03, 2024 regarding the study IRB [id number]. All risks, benefits, and alternatives of the study were explained and reviewed with the patient. Study-related procedures were discussed. The consent form was given to the patient to read and all of the patient's study-related questions and concerns were addressed. The patient expressed understanding of the study, and agreed to participate. The patient completed the study required questionnaires including: Baseline Functional Capacity, Cottrell Activity Status Index (DASI), Quality of life questionnaire ([id number]) and the Adapted Brief Pain Inventory-Short Form (BPI). Kaya Haq [facility] Anesthesia documented in this encounter [facility] 08-13-2024 Instructions Tammi Delarosa PA-C - 08/13/2024 2:19 PM EDT Images from the original note were not included. [facility] Pre-Anesthesia Consultation Clinic PATIENT PREOPERATIVE INSTRUCTIONS Hiren Baumann MD has scheduled you for your procedure at this surgery center: [facility]: [phone] --[id number] [address]. Please check in on the 1st floor at registration desk 6. Please read below carefully for your personalized instructions. Arrival Time for Surgery: - The Surgery Center or hospital where you are having surgery will call the afternoon before surgery (or Sunday for Sunday surgery) with a scheduled arrival time. - If you have not heard by 4 pm, please contact the surgery center above. Please be aware that emergency situations arise, which may delay or change your surgical time. If this happens, we will notify you as soon as possible and regret any inconvenience. Dietary Restrictions: - No solid food after midnight. - You may have 12 ounces of clear liquids (water, clear juices such as apple juice or gatorade, carbonated beverages, clear tea, black coffee, jello) until 2 hours before scheduled arrival at facility. - Do not drink any alcohol after midnight the night before your surgery. Medications: Unless instructed differently below, stay on all of your medications until your surgery. If you start any new medications after today's visit, please contact your surgeon. Pre-Surgery Med Instructions Medication Instructions terbinafine HCl (LAMISIL) 250 mg tablet Do not take the day of surgery Protein Supplement liqd Do not take the day of surgery If you take any medications for erectile dysfunction-Cialis (Tadalafil), Levitra, Staxyn (Vardenafil) Viagra (Sildenenafil please do not take these for 48 hours before surgery. If you start any new medications after today's visit, please contact the surgeon's office. If you are currently using a [id number] injectable or oral medication for diabetes or weight loss such as Dulaglutide (Trulicity), Exenatide (Byetta, Bydureon), Liraglutide (Victoza, Saxenda), Semaglutide (Ozempic, Wegovy, Rybelsus), or Tirzepatide (Mounjaro), the medicine should be stopped at least 7 days before surgery. These medicines can cause food to remain in your stomach for a very long time and increase the risks from surgery and anesthesia. Not stopping the medication for a long enough time may result in your surgery being rescheduled. Blood Thinning Medications: - Stop NSAIDS (Ibuprofen, Advil, Aleve, Motrin, Celebrex, Mobic, etc.) 7 days before surgery, as directed by your surgeon. - Stop Aspirin 7 days before surgery, as directed by your surgeon. - Stop ALL herbal and dietary supplements 7 days before surgery. - You may take Tylenol (Acetaminophen) or any of your pain medications that do not contain aspirin or NSAIDS as needed. Important Reminders: - If you are prescribed inhalers for breathing, continue using them. - Candy, mints, and tobacco products are NOT permitted the morning of surgery. - Hearing aids, dentures and glasses may be worn the morning of surgery. - NO jewelry, body piercings, makeup, hairpins or contacts are to be worn the day of surgery. If you develop symptoms such as a fever, cold, or flu, or have other changes to your health within TWO DAYS of scheduled surgery or the morning of surgery, please contact the surgery center above. Personal Belongings: -Please have photo ID and insurance cards. -If you do not have a copy of advance directives on file with us, please bring a copy with you on the day of surgery. - Leave ALL valuables and money at home or with family members. - Please bring high-quality footwear, such as sneakers, to the hospital for ambulating post-surgery. For Outpatient Procedures: - YOU MUST HAVE A RESPONSIBLE CIGARETTE PAPER TESTER TAKE YOU HOME. A TRACK LAYING EQUIPMENT OPERATOR OR FORGING MACHINE HAND CANNOT BE MADE A RESPONSIBLE CIGARETTE PAPER TESTER. - We recommend that a responsible person stays with you overnight to take care of you. - You cannot stay in a hotel alone after outpatient surgery. You will not be permitted to have your surgery, if you do not have someone to take care of you. If you already have an Advance Directive, please fax a copy to [phone] or email to for it to be added to your chart. If you do not have an Advance Directive, you can find the appropriate form and more information at [email or web address]. We recommend that you complete the Advance Directive form found on the website and bring it with you the day of your surgery. It can be witnessed and scanned into your chart that day. Tammi Delarosa PA-C documented in this encounter [facility] 08-13-2024 History and physical note HISTORY AND PHYSICAL EXAMINATION SERVICE DATE: 08/13/2024 SERVICE TIME: 6:28 PM PRIMARY CARE PHYSICIAN: Deepak Cedeño MD REASON FOR VISIT: Cecilia Martin is a 58 year old male who is scheduled for Procedure(s) with comments: ROBOTIC INGUINAL HERNIA REPAIR (Right) - with mesh HERNIORRHAPHY INGUINAL ELECTIVE ADULT REDUCIBLE (Left) - with mesh at the request of Dr. Hiren Baumann for consultation. My final recommendation will be communicated back to the requesting physician by way of shared medical record or letter. Subjective The patient has the following: ACTIVE PROBLEM LIST Umbilical Hernia Without Obstruction and Without Gangrene Renal Calculi Unilateral Inguinal Hernia Without Obstruction Or Gangrene Nicotine Dependence With Current Use Family History of Premature Cad Acute Lyme Disease With Largest Skin Lesion of 2 Inches Or More Screening for Colon Cancer Coronary Artery Calcification Centrilobular Emphysema (Hcc) COVID-19 Immunization Status Upcoming Covid-19 Vaccine (2023-) Postponed until 03/25/2025 03/25/2024 Postponed until 03/25/2025 by Andra Leung MA (Declined at this time) CHIEF COMPLAINT: Pre-Op HPI: Cecilia Martin is a 58 year old male presenting for pre-anesthesia consultation. Pt has history of hernia. Above procedure recommended to manage symptoms. Procedure scheduled on 09/03/2024 at [facility]. REVIEW OF SYSTEMS: General: No weight loss, malaise or fevers. Neurological: Negative for: headaches, multiple sclerosis, Parkinson's disease, seizures and strokes. Respiratory: Positive for: tobacco use. Negative for: asthma, COPD, current cough, dyspnea, URI < 2 weeks and obstructive sleep apnea. Cardiovascular: Positive for: CAD Negative for: AICD/PPM, anticoagulation therapy, arrhythmia, chest pain, CHF, DVT/PE, hyperlipidemia, hypertension, recent CA, murmur/valvular heart disease, open heart surgery and valve surgery. GI: Negative for: abdominal pain, dysphagia, GERD, liver disease, nausea and vomiting. : Negative for: on dialysis, dysuria, hematuria and renal failure. Endocrine: Negative for: diabetes mellitus, hyperthyroidism and hypothyroidism. Hematology: Negative for: anemia, bruises/bleeds easily, factor V Leiden, hemophilia, thrombocytopenia, von Willebrand disease and chronic anti-coagulation/platelet meds. Oncology: No history of CA metastasis, chemo within 30 days, or radiotherapy within 90 days. No history of oncological symptoms or problems. Psych: Negative for: anxiety, bipolar disorder and depression. Musculoskeletal: Negative for joint pain or swelling, back pain or muscle pain. Skin: Negative for lesions, rash and itching. PAST MEDICAL HISTORY Diagnosis Date Inguinal hernia Right inguinal, , repaired Lyme disease, acute 11/2019 erythema migrans Renal calculi Umbilical hernia Unilateral inguinal hernia without obstruction or gangrene left PAST SURGICAL HISTORY Procedure Laterality Date LAPS REPAIR HERNIA EXCEPT INCAL/INGUN REDUCIBLE 11/30/15 LAPS SURG RPR RECURRENT INGUINAL HERNIA Left 11/30/15 RPR 1ST INGUN HRNA AGE 5 YRS/> REDUCIBLE [facility]? - ?right RPR 1ST INGUN HRNA AGE 5 YRS/> REDUCIBLE as child pediatric type uncertain VASECTOMY UNI/BI SPX W/POSTOP SEMEN EXAMS FAMILY HISTORY Problem Relation Age of Onset Heart Attack Mother Cancer Father he is unsure of location but was in his 80's Coronary Artery Disease Sister in her 50's Coronary Artery Disease Sister No Known Problems Maternal Grandmother No Known Problems Maternal Grandfather No Known Problems Paternal Grandmother No Known Problems Paternal Grandfather other (other) Daughter Star's syndrome No Known Problems Daughter No Known Problems Son Anesthesia Problems No Family History Social History Tobacco Use Smoking status: Every Day Current packs/day: 1.00 Average packs/day: 1 pack/day for 30.3 years (30.3 ttl pk-yrs) Types: Cigarettes Start date: 05/14/1987 Last attempt to quit: 05/14/2016 Smokeless tobacco: Never Tobacco comments: 0.5 ppd Vaping Use Vaping status: Never Used Substance Use Topics Alcohol use: Yes Comment: 3-7 beers once a week Drug use: No Prior to Admission medications as of 08/13/24 1435 Medication Sig Last Dose Taking terbinafine HCl (LAMISIL) 250 mg tablet Take 1 tablet by mouth once daily. For 90 days only to treat fungal nails Yes Protein Supplement liqd Take by mouth as needed. Yes Medication Comments documented by Alfonso Frankel on 11/10/2015 at 1430. No Routine Rx, otc or supplements ALLERGIES Allergen Reactions Adhesive Rash Blistering of skin from adhesive Objective PHYSICAL EXAM: General: alert and oriented and healthy appearance. Pertinent negatives noted - not distressed. Skin: normal color, no rash or lesions. HEENT: EOM intact, pupils equal round and pupils reactive to light. Pertinent negatives noted - no carotid bruit. Cardiovascular: regular rate and rhythm, normal S1 and S2, no rub, murmurs, or gallop. Respiratory: normal breath sounds, no wheezes or crackles. No chest wall deformity or tenderness. Abdomen: bowel sounds present and soft. Pertinent negatives noted - not tender. Extremities: no deformity, no edema or tenderness, no joint swelling or clubbing. Neurological: normal cognition and motor skills. Gait normal. No weakness or sensory deficit. PAIN ASSESSMENT: VITALS: BP 132/84 Pulse 76 Temp (Src) 98.1 (Temporal) Resp 14 Ht 6' 0 (1.83m) Wt 188 lb (85.3kg) SpO2 98% BMI 25.49 kg/(m^2). Diagnostic tests reviewed for today's visit: Lab Value Units Date High Low HB 14.5 g/dL 03/25/2024 17.0 13.0 HCT 45.2 % 03/25/2024 51.0 39.0 WBC 9.26 k/uL 03/25/2024 11.00 3.70 PLT 357 k/uL 03/25/2024 400 150 NA 138 mmol/L 03/25/2024 144 136 K 4.6 mmol/L 03/25/2024 5.1 3.7 GLUC 81 mg/dL 03/25/2024 99 74 BUN 15 mg/dL 03/25/2024 24 9 CREAT 0.77 mg/dL 03/25/2024 1.22 0.73 PTSEC No results within date range. INR No results within date range. APTT No results within date range. ALT 17 U/L 03/25/2024 54 10 AST 20 U/L 03/25/2024 40 14 TBILI 0.2 mg/dL 03/25/2024 1.3 0.2 TSH 3.630 mIU/L 03/25/2024 4.200 0.270 Lab Value Units Date High Low HCGQT No results within date range. UHCG No results within date range. HCG, BODY* No results within date range. Lab Value Units Date High Low ABORHD No results within date range. ABSCREEN No results within date range. Hemoglobin A1C (%) Date Value 03/25/2024 5.1 No results found for this or any previous visit (from the past 8760 hours). No results found for this or any previous visit (from the past 83475 hours). Assessment Patient has the following medical conditions which may affect kenna-operative course: Nicotine dependence with current use Assessment: Current everyday smoker, about 0.5 pack/day. Encouraged cessation. No smoking DOS. Coronary artery calcification Assessment: Noted on [facility] CT scan in May. Pt evaluated by cardiology and completed stress test in Jun 2024. Stress test normal. Pt denies chest pain, dyspnea. Centrilobular emphysema (HCC) Assessment: Mild emphysema on imaging, denies dyspnea. No inhalers at this time. Following with pulmonary lung cancer screening team. ANESTHESIA FINDINGS: Intubation History: No history of difficult intubation. No abnormal airway history Significant Anesthesia Considerations: none Airway History: No history of difficult airway No abnormal airway history Cottrell Activity Status Index: METS: Walk indoors, such as around the house (1.75 METs) Do light work around the house, such as dusting or washing dishes (2.70 METs) Take care of self; that is eating, dressing, bathing, using the toilet (2.75 METs) Walk a block or two on level ground (2.75 METs) Do moderate work around the house, such as vacuuming, sweeping floors, or carrying in groceries (3.50 METs) Do yardwork, such as raking leaves, weeding, or pushing a power mower (4.50 METs) Climb a flight of stairs or walk up a hill (5.50 METs) DASI Score: 23.45 Patient denies any chest pain or undue shortness of breath with the above physical activity. Clinical Frailty Scale: 3. Well, with treated comorbid disease STOP-Bang Score: Snores loudly Patient over 50 years old Male patient Denies feeling tired, fatigued, or sleepy during the daytime Has not been observed to stop breathing or choking/gasping during sleep Denies having high blood pressure BMI less than or equal to 35 kg/m^2 Does not have a large neck STOP-Bang Score: 3 I - PHYSICAL EVALUATION AIRWAY Patient intubated: No. Tracheostomy tube not present Mallampati: II. TM distance: >3 FB. Neck ROM: full ROM without neurological symptoms. Mouth opening: adequate. Short neck: no. Thick neck: no Microretrognathia/Micronagthia/R ecessed Chin: No DENTAL Dental findings: teeth intact. Dentures, upper: complete. II - ANESTHESIA PLAN Anesthetic Plan: other Anesthetic plan additional comments: *PACC/TCI - anesthesia choice. Beta Rory Monitoring Plan Post Procedure Analgesic Plan Prepared for Surgery: optimally prepared for surgery. CONSULTS: Patient does not require consults for optimization at this time Planned Anesthetic: other anesthesia choice The Following Tests/Procedures Have Been Initiated: No orders of the defined types were placed in this encounter. Instructions Given to Patient: Instructions located in the after visit summary. Patient given verbal and written preop instructions and voices comprehension and compliance. SIGNATURE: Tammi Delarosa PA-C PATIENT NAME: Cecilia Martin DATE: 08/13/2024 TIME: 6:28 PM PAGER/CONTACT #: T [facility] 08-13-2024 History and physical note HISTORY AND PHYSICAL EXAMINATION SERVICE DATE: 08/13/2024 SERVICE TIME: 6:28 PM PRIMARY CARE PHYSICIAN: Deepak Cedeño MD REASON FOR VISIT: Cecilia Martin is a 58 year old male who is scheduled for Procedure(s) with comments: ROBOTIC INGUINAL HERNIA REPAIR (Right) - with mesh HERNIORRHAPHY INGUINAL ELECTIVE ADULT REDUCIBLE (Left) - with mesh at the request of Dr. Hiren Baumann for consultation. My final recommendation will be communicated back to the requesting physician by way of shared medical record or letter. Subjective The patient has the following: ACTIVE PROBLEM LIST Umbilical Hernia Without Obstruction and Without Gangrene Renal Calculi Unilateral Inguinal Hernia Without Obstruction Or Gangrene Nicotine Dependence With Current Use Family History of Premature Cad Acute Lyme Disease With Largest Skin Lesion of 2 Inches Or More Screening for Colon Cancer Coronary Artery Calcification Centrilobular Emphysema (Hcc) COVID-19 Immunization Status Upcoming Covid-19 Vaccine () Postponed until 03/25/2025 03/25/2024 Postponed until 03/25/2025 by Andra Leung MA (Declined at this time) CHIEF COMPLAINT: Pre-Op HPI: Cecilia Martin is a 58 year old male presenting for pre-anesthesia consultation. Pt has history of hernia. Above procedure recommended to manage symptoms. Procedure scheduled on 09/03/2024 at [facility]. REVIEW OF SYSTEMS: General: No weight loss, malaise or fevers. Neurological: Negative for: headaches, multiple sclerosis, Parkinson's disease, seizures and strokes. Respiratory: Positive for: tobacco use. Negative for: asthma, COPD, current cough, dyspnea, URI < 2 weeks and obstructive sleep apnea. Cardiovascular: Positive for: CAD Negative for: AICD/PPM, anticoagulation therapy, arrhythmia, chest pain, CHF, DVT/PE, hyperlipidemia, hypertension, recent CA, murmur/valvular heart disease, open heart surgery and valve surgery. GI: Negative for: abdominal pain, dysphagia, GERD, liver disease, nausea and vomiting. : Negative for: on dialysis, dysuria, hematuria and renal failure. Endocrine: Negative for: diabetes mellitus, hyperthyroidism and hypothyroidism. Hematology: Negative for: anemia, bruises/bleeds easily, factor V Leiden, hemophilia, thrombocytopenia, von Willebrand disease and chronic anti-coagulation/platelet meds. Oncology: No history of CA metastasis, chemo within 30 days, or radiotherapy within 90 days. No history of oncological symptoms or problems. Psych: Negative for: anxiety, bipolar disorder and depression. Musculoskeletal: Negative for joint pain or swelling, back pain or muscle pain. Skin: Negative for lesions, rash and itching. PAST MEDICAL HISTORY Diagnosis Date Inguinal hernia Right inguinal, , repaired Lyme disease, acute 11/2019 erythema migrans Renal calculi Umbilical hernia Unilateral inguinal hernia without obstruction or gangrene left PAST SURGICAL HISTORY Procedure Laterality Date LAPS REPAIR HERNIA EXCEPT INCAL/INGUN REDUCIBLE 11/30/15 LAPS SURG RPR RECURRENT INGUINAL HERNIA Left 11/30/15 RPR 1ST INGUN HRNA AGE 5 YRS/> REDUCIBLE [place]? - ?right RPR 1ST INGUN HRNA AGE 5 YRS/> REDUCIBLE as child pediatric type uncertain VASECTOMY UNI/BI SPX W/POSTOP SEMEN EXAMS FAMILY HISTORY Problem Relation Age of Onset Heart Attack Mother Cancer Father he is unsure of location but was in his 80's Coronary Artery Disease Sister in her 50's Coronary Artery Disease Sister No Known Problems Maternal Grandmother No Known Problems Maternal Grandfather No Known Problems Paternal Grandmother No Known Problems Paternal Grandfather other (other) Daughter Star's syndrome No Known Problems Daughter No Known Problems Son Anesthesia Problems No Family History Social History Tobacco Use Smoking status: Every Day Current packs/day: 1.00 Average packs/day: 1 pack/day for 30.3 years (30.3 ttl pk-yrs) Types: Cigarettes Start date: 05/14/1987 Last attempt to quit: 05/14/2016 Smokeless tobacco: Never Tobacco comments: 0.5 ppd Vaping Use Vaping status: Never Used Substance Use Topics Alcohol use: Yes Comment: 3-7 beers once a week Drug use: No Prior to Admission medications as of 08/13/24 1435 Medication Sig Last Dose Taking terbinafine HCl (LAMISIL) 250 mg tablet Take 1 tablet by mouth once daily. For 90 days only to treat fungal nails Yes Protein Supplement liqd Take by mouth as needed. Yes Medication Comments documented by Alfonso Frankel on 11/10/2015 at 1430. No Routine Rx, otc or supplements ALLERGIES Allergen Reactions Adhesive Rash Blistering of skin from adhesive Objective PHYSICAL EXAM: General: alert and oriented and healthy appearance. Pertinent negatives noted - not distressed. Skin: normal color, no rash or lesions. HEENT: EOM intact, pupils equal round and pupils reactive to light. Pertinent negatives noted - no carotid bruit. Cardiovascular: regular rate and rhythm, normal S1 and S2, no rub, murmurs, or gallop. Respiratory: normal breath sounds, no wheezes or crackles. No chest wall deformity or tenderness. Abdomen: bowel sounds present and soft. Pertinent negatives noted - not tender. Extremities: no deformity, no edema or tenderness, no joint swelling or clubbing. Neurological: normal cognition and motor skills. Gait normal. No weakness or sensory deficit. PAIN ASSESSMENT: VITALS: BP 132/84 Pulse 76 Temp (Src) 98.1 (Temporal) Resp 14 Ht 6' 0 (1.83m) Wt 188 lb (85.3kg) SpO2 98% BMI 25.49 kg/(m^2). Diagnostic tests reviewed for today's visit: Lab Value Units Date High Low HB 14.5 g/dL 03/25/2024 17.0 13.0 HCT 45.2 % 03/25/2024 51.0 39.0 WBC 9.26 k/uL 03/25/2024 11.00 3.70 PLT 357 k/uL 03/25/2024 400 150 NA 138 mmol/L 03/25/2024 144 136 K 4.6 mmol/L 03/25/2024 5.1 3.7 GLUC 81 mg/dL 03/25/2024 99 74 BUN 15 mg/dL 03/25/2024 24 9 CREAT 0.77 mg/dL 03/25/2024 1.22 0.73 PTSEC No results within date range. INR No results within date range. APTT No results within date range. ALT 17 U/L 03/25/2024 54 10 AST 20 U/L 03/25/2024 40 14 TBILI 0.2 mg/dL 03/25/2024 1.3 0.2 TSH 3.630 mIU/L 03/25/2024 4.200 0.270 Lab Value Units Date High Low HCGQT No results within date range. UHCG No results within date range. HCG, BODY* No results within date range. Lab Value Units Date High Low ABORHD No results within date range. ABSCREEN No results within date range. Hemoglobin A1C (%) Date Value 03/25/2024 5.1 No results found for this or any previous visit (from the past 8760 hours). No results found for this or any previous visit (from the past 10798 hours). Assessment Patient has the following medical conditions which may affect kenna-operative course: Nicotine dependence with current use Assessment: Current everyday smoker, about 0.5 pack/day. Encouraged cessation. No smoking DOS. Coronary artery calcification Assessment: Noted on [facility] CT scan in May. Pt evaluated by cardiology and completed stress test in Jun 2024. Stress test normal. Pt denies chest pain, dyspnea. Centrilobular emphysema (HCC) Assessment: Mild emphysema on imaging, denies dyspnea. No inhalers at this time. Following with pulmonary lung cancer screening team. ANESTHESIA FINDINGS: Intubation History: No history of difficult intubation. No abnormal airway history Significant Anesthesia Considerations: none Airway History: No history of difficult airway No abnormal airway history Cottrell Activity Status Index: METS: Walk indoors, such as around the house (1.75 METs) Do light work around the house, such as dusting or washing dishes (2.70 METs) Take care of self; that is eating, dressing, bathing, using the toilet (2.75 METs) Walk a block or two on level ground (2.75 METs) Do moderate work around the house, such as vacuuming, sweeping floors, or carrying in groceries (3.50 METs) Do yardwork, such as raking leaves, weeding, or pushing a power mower (4.50 METs) Climb a flight of stairs or walk up a hill (5.50 METs) DASI Score: 23.45 Patient denies any chest pain or undue shortness of breath with the above physical activity. Clinical Frailty Scale: 3. Well, with treated comorbid disease STOP-Bang Score: Snores loudly Patient over 50 years old Male patient Denies feeling tired, fatigued, or sleepy during the daytime Has not been observed to stop breathing or choking/gasping during sleep Denies having high blood pressure BMI less than or equal to 35 kg/m^2 Does not have a large neck STOP-Bang Score: 3 I - PHYSICAL EVALUATION AIRWAY Patient intubated: No. Tracheostomy tube not present Mallampati: II. TM distance: >3 FB. Neck ROM: full ROM without neurological symptoms. Mouth opening: adequate. Short neck: no. Thick neck: no Microretrognathia/Micronagthia/R ecessed Chin: No DENTAL Dental findings: teeth intact. Dentures, upper: complete. II - ANESTHESIA PLAN Anesthetic Plan: other Anesthetic plan additional comments: *PACC/TCI - anesthesia choice. Beta Rory Monitoring Plan Post Procedure Analgesic Plan Prepared for Surgery: optimally prepared for surgery. CONSULTS: Patient does not require consults for optimization at this time Planned Anesthetic: other anesthesia choice The Following Tests/Procedures Have Been Initiated: No orders of the defined types were placed in this encounter. Instructions Given to Patient: Instructions located in the after visit summary. Patient given verbal and written preop instructions and voices comprehension and compliance. SIGNATURE: Tammi Delarosa PA-C PATIENT NAME: Cecilia Martin DATE: 08/13/2024 TIME: 6:28 PM PAGER/CONTACT #: documented in this encounter [facility] 07-04-2024 Progress note Formatting of t his note might be different from the original. Stress test was okay. No EKG changes. He did a really good job on the stress. Met his heart rate goals. Normal test. [facility] 07-04-2024 Miscellaneous Notes Stress test was okay. No EKG changes. He did a really good job on the stress. Met his heart rate goals. Normal test. documented in this encounter [facility] 07-03-2024 Telephone encounter Note Spoke with patient regarding reminder for stress test tomorrow and given instructions. [facility] 07-03-2024 Miscellaneous Notes Spoke with patient regarding reminder for stress test tomorrow and given instructions. documented in this encounter [facility] 07-03-2024 Progress note Formatting of t his note might be different from the original. Please let patient know that pulmonary function test looked good. Spirometry is normal. [facility] 07-03-2024 Miscellaneous Notes Please let patient know that pulmonary function test looked good. Spirometry is normal. documented in this encounter [facility] 07-02-2024 Note HNO ID: [id number] Author: CARMEN CARLSON RPFT Service: ? Author Type: Respiratory Therapist Type: Progress Notes Filed: 07/02/2024 13:03 Note Text: PULM FUNCTION: Provider: Janel Mcgovern APRN.CNP Assisting Tech: Petcelso, Carmen, RPFT Spirometry w/BD: 1 [facility] 07-02-2024 History of Presen t illness Narrative PULM FUNCTION: Provider: Janel Mcgovern APRN.RN CLINICAL APPEALS Assisting Tech: Petush, Carmen, RPFT Spirometry w/BD: 1 documented in this encounter [facility] 06-27-2024 Instructions Janel Mcgovern APRN.CNP - 06/27/2024 2:54 PM EST 1) Terbinafine 250 mg daily for 90 days for toenail fungus 2) Pulmonary function test ordered (test for emphysema) 3) Exercise stress test ordered 4) Pneumococcal and Shingles vaccine 5) Follow up in 6 months for routine care and Shingles part 2 documented in this encounter [facility] 06-27-2024 Note HNO ID: [id number] Author: JANEL MCGOVERN APRN.CNP Service: ? Author Type: Nurse Practitioner Type: Progress Notes Filed: 06/27/2024 15:29 Note Text: This is a 58 year old male who presents today with: Patient presents with: Follow Up: Review results HISTORY OF PRESENT ILLNESS: Cecilia Martin is a 58 year old male. Patient presents with: Follow Up: Review results Follow up on CT result PAST MEDICAL HISTORY: PAST MEDICAL HISTORY Diagnosis Date Inguinal hernia Right inguinal, , repaired Lyme disease, acute 11/2019 erythema migrans Renal calculi Umbilical hernia Unilateral inguinal hernia without obstruction or gangrene left PAST SURGICAL HISTORY Procedure Laterality Date LAPS REPAIR HERNIA EXCEPT INCAL/INGUN REDUCIBLE 11/30/15 LAPS SURG RPR RECURRENT INGUINAL HERNIA Left 11/30/15 RPR 1ST INGUN HRNA AGE 5 YRS/> REDUCIBLE [place]? - ?right RPR 1ST INGUN HRNA AGE 5 YRS/> REDUCIBLE as child pediatric type uncertain VASECTOMY UNI/BI SPX W/POSTOP SEMEN EXAMS ALLERGIES Adhesive MEDICATIONS Current Outpatient Medications Medication Sig acetaminophen (TYLENOL) 325 mg tablet Take 650 mg by mouth every 6 hours as needed. Protein Supplement liqd Take by mouth as needed. peg 3350-electrolytes (GAVILYTE-C) 240-22.72-6.72 -5.84 gram solution Take 4000 ml as directed. Follow written instructions from the doctor's office. No current facility-administered medications for this visit. FAMILY HISTORY Problem Relation Age of Onset Heart Attack Mother Cancer Father he is unsure of location but was in his 80's Coronary Artery Disease Sister in her 50's Coronary Artery Disease Sister No Known Problems Maternal Grandmother No Known Problems Maternal Grandfather No Known Problems Paternal Grandmother No Known Problems Paternal Grandfather No Known Problems Son other (other) Daughter Star's syndrome No Known Problems Daughter Social History Tobacco Use Smoking status: Every Day Current packs/day: 1.00 Average packs/day: 1 pack/day for 30.1 years (30.1 ttl pk-yrs) Types: Cigarettes Start date: 05/14/1987 Last attempt to quit: 05/14/2016 Smokeless tobacco: Never Vaping Use Vaping status: Never Used Substance Use Topics Alcohol use: Yes Comment: 3-7 beers once a week Drug use: No CT scan: Coronary calcifications Mild bullous emphysema Mild thick adrenal gland- stable Denies chest pain with exertion, no GOLD C/O toenail fungus - Both great toenail with thick patch, yellow with separation from nailbed EXAM: BP 122/76 Pulse 96 Temp 36.6 ?C (97.8 ?F) (Right Tympanic) Wt 83.9 kg (185 lb) SpO2 95% BMI 25.09 kg/m? PHYSICAL EXAM: Physical Exam Vitals reviewed. Constitutional: Appearance: Normal appearance. Cardiovascular: Rate and Rhythm: Normal rate and regular rhythm. Pulses: Normal pulses. Heart sounds: Normal heart sounds. Pulmonary: Effort: Pulmonary effort is normal. Comments: Poor air exchange throughout, chest rise AND fall symmetrical Abdominal: General: Bowel sounds are normal. Palpations: Abdomen is soft. Tenderness: There is no abdominal tenderness. There is no guarding or rebound. Musculoskeletal: General: Normal range of motion. Comments: Moves all ext. Without difficulty, walks w/o assistive device Skin: General: Skin is warm and dry. Neurological: Mental Status: He is alert and oriented to person, place, and time. LABS: ASSESSMENT/PLAN: 1. Centrilobular emphysema (HCC) - ICD9: 492.8, ICD10: J43.2 (primary diagnosis) Noted on CT scan - SPIROMETRY - BASELINE AND POST DILATOR - EXERCISE STRESS ECG (WITHOUT IMAGING) - PNEUMOCOCCAL VACCINE, 20 VALENT (PREVNAR 20) 2. Abnormal findings diagnostic imaging of heart and coronary circulation - ICD9: 794.39, ICD10: R93.[address] scan - SPIROMETRY - BASELINE AND POST DILATOR - EXERCISE STRESS ECG (WITHOUT IMAGING) 3. Tinea pedis of both feet - ICD9: 110.4, ICD10: B35.3 - Treat with terbinafine tablet daily until rash resolves and then another week - TERBINAFINE HCL 250 MG TABLET 4. Encounter for immunization - ICD9: V03.89, ICD10: Z23 - PNEUMOCOCCAL VACCINE, 20 VALENT (PREVNAR 20) - ZOSTER VACCINE, RECOMBINANT (SHINGRIX) Discussed treatment plan and patient voices understanding. Patient's questions answered appropriately. Medications and potential side effects were discussed and patient voices understanding. Return to the office as scheduled or as needed for worsening/no improvement. Janel Mcgovern, FASHION BUYER.[facility] 06-27-2024 History of Presen t illness Narrative This is a 58 year old male who presents today with: Patient presents with: Follow Up: Review results HISTORY OF PRESENT ILLNESS: Cecilia Martin is a 58 year old male. Patient presents with: Follow Up: Review results Follow up on CT result PAST MEDICAL HISTORY: PAST MEDICAL HISTORY Diagnosis Date Inguinal hernia Right inguinal, , repaired Lyme disease, acute 11/2019 erythema migrans Renal calculi Umbilical hernia Unilateral inguinal hernia without obstruction or gangrene left PAST SURGICAL HISTORY Procedure Laterality Date LAPS REPAIR HERNIA EXCEPT INCAL/INGUN REDUCIBLE 11/30/15 LAPS SURG RPR RECURRENT INGUINAL HERNIA Left 11/30/15 RPR 1ST INGUN HRNA AGE 5 YRS/> REDUCIBLE [place]? - ?right RPR 1ST INGUN HRNA AGE 5 YRS/> REDUCIBLE as child pediatric type uncertain VASECTOMY UNI/BI SPX W/POSTOP SEMEN EXAMS ALLERGIES Adhesive MEDICATIONS Current Outpatient Medications Medication Sig acetaminophen (TYLENOL) 325 mg tablet Take 650 mg by mouth every 6 hours as needed. Protein Supplement liqd Take by mouth as needed. peg 3350-electrolytes (GAVILYTE-C) 240-22.72-6.72 -5.84 gram solution Take 4000 ml as directed. Follow written instructions from the doctor's office. No current facility-administered medications for this visit. FAMILY HISTORY Problem Relation Age of Onset Heart Attack Mother Cancer Father he is unsure of location but was in his 80's Coronary Artery Disease Sister in her 50's Coronary Artery Disease Sister No Known Problems Maternal Grandmother No Known Problems Maternal Grandfather No Known Problems Paternal Grandmother No Known Problems Paternal Grandfather No Known Problems Son other (other) Daughter Star's syndrome No Known Problems Daughter Social History Tobacco Use Smoking status: Every Day Current packs/day: 1.00 Average packs/day: 1 pack/day for 30.1 years (30.1 ttl pk-yrs) Types: Cigarettes Start date: 05/14/1987 Last attempt to quit: 05/14/2016 Smokeless tobacco: Never Vaping Use Vaping status: Never Used Substance Use Topics Alcohol use: Yes Comment: 3-7 beers once a week Drug use: No CT scan: Coronary calcifications Mild bullous emphysema Mild thick adrenal gland- stable Denies chest pain with exertion, no GOLD C/O toenail fungus - Both great toenail with thick patch, yellow with separation from nailbed EXAM: BP 122/76 Pulse 96 Temp 36.6 C (97.8 F) (Right Tympanic) Wt 83.9 kg (185 lb) SpO2 95% BMI 25.09 kg/m PHYSICAL EXAM: Physical Exam Vitals reviewed. Constitutional: Appearance: Normal appearance. Cardiovascular: Rate and Rhythm: Normal rate and regular rhythm. Pulses: Normal pulses. Heart sounds: Normal heart sounds. Pulmonary: Effort: Pulmonary effort is normal. Comments: Poor air exchange throughout, chest rise & fall symmetrical Abdominal: General: Bowel sounds are normal. Palpations: Abdomen is soft. Tenderness: There is no abdominal tenderness. There is no guarding or rebound. Musculoskeletal: General: Normal range of motion. Comments: Moves all ext. Without difficulty, walks w/o assistive device Skin: General: Skin is warm and dry. Neurological: Mental Status: He is alert and oriented to person, place, and time. LABS: ASSESSMENT/PLAN: 1. Centrilobular emphysema (HCC) - ICD9: 492.8, ICD10: J43.2 (primary diagnosis) Noted on CT scan - SPIROMETRY - BASELINE AND POST DILATOR - EXERCISE STRESS ECG (WITHOUT IMAGING) - PNEUMOCOCCAL VACCINE, 20 VALENT (PREVNAR 20) 2. Abnormal findings diagnostic imaging of heart and coronary circulation - ICD9: 794.39, ICD10: R93.[address] scan - SPIROMETRY - BASELINE AND POST DILATOR - EXERCISE STRESS ECG (WITHOUT IMAGING) 3. Tinea pedis of both feet - ICD9: 110.4, ICD10: B35.3 - Treat with terbinafine tablet daily until rash resolves and then another week - TERBINAFINE HCL 250 MG TABLET 4. Encounter for immunization - ICD9: V03.89, ICD10: Z23 - PNEUMOCOCCAL VACCINE, 20 VALENT (PREVNAR 20) - ZOSTER VACCINE, RECOMBINANT (SHINGRIX) Discussed treatment plan and patient voices understanding. Patient's questions answered appropriately. Medications and potential side effects were discussed and patient voices understanding. Return to the office as scheduled or as needed for worsening/no improvement. Janel Mcgovern APRN.RN CLINICAL APPEALS documented in this encounter [facility] 06-16-2024 Telephone encounter Note Scheduled. [facility] 06-16-2024 Miscellaneous Notes Scheduled. Spoke with patient and discussed findings. He is not following with a clinical radiologist regularly. he had stress test in 2019, and it was okay. He denies any exertional chest pain or activity intolerance. Last PCP visit 03/2024. A message is sent to PCP team if pt needs to return sooner to discuss further testing for coronary artery calcifications they should reach out to him. Dileep Ervin APRN.CNP Left message for pt to call back regarding results. Plan to discuss LDCT Lung Screen Results LungRADS category: 2s Incidentals: moderate coronary artery calcifications Recommendations: Continue annual screening with LDCT in 12 months. follow up with PCP/cardiology Dileep Ervin APRN.CNP June 16, 2024 10:27 AM documented in this encounter [facility] 06-16-2024 Telephone encounter Note Spoke with patient and discussed findings. He is not following with a clinical radiologist regularly. he had stress test in 2019, and it was okay. He denies any exertional chest pain or activity intolerance. Last PCP visit 03/2024. A message is sent to PCP team if pt needs to return sooner to discuss further testing for coronary artery calcifications they should reach out to him. Dileep Ervin APRN.CNP [facility] 06-16-2024 Telephone encounter Note Left message for pt to call back regarding results. Plan to discuss LDCT Lung Screen Results LungRADS category: 2s Incidentals: moderate coronary artery calcifications Recommendations: Continue annual screening with LDCT in 12 months. follow up with PCP/cardiology Dileep Ervin APRN.CNP June 16, 2024 10:27 AM [facility] 06-16-2024 Note HNO ID: [id number] Author: DIANE LINARES PA-C Service: ? Author Type: Physician [employer] Custodian Type: Progress Notes Filed: 06/16/2024 10:50 Note Text: Diane Linares PA-C Department of Orthopaedics Orthopaedics [address] [facility] [address] Dept: [phone] Dept June 16, 2024 CHIEF COMPLAINT: New of the Left Wrist (Last seen 11/01/20 bilateral wrist pain) Mr. Cecilia Martin is a 58 year old male who presents with swelling in his left wrist, lack of motion and numbness and tingling in the left hand. Symptoms have been bothering him for the past several years. 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 He also enjoys working out and does push-ups on a regular basis. He tells me that he has known arthritis in his wrist. The numbness and tingling in the left hand started about 1 year ago and is in the radial 3 digits, the numbness and tingling is pretty consistent. Not worse at bedtime. The patient was previously provided with a wrist brace for his arthritis but does not wear it as he cannot work in the brace. 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 He is also able to do push-ups. We discussed trying a corticosteroid injection to help with wrist pain, advised that the injections would not improve his range of motion. It certainly sounds like he has some carpal tunnel as well. We will order an EMG. We discussed potentially pursuing carpal tunnel release, he will follow-up with EMG results. EMG order will be faxed to [facility]. Will continue to monitor patient for Wrist swelling, left Numbness and tingling in left hand (primary encounter diagnosis) Osteoarthritis of left wrist, unspecified osteoarthritis type, patient to schedule visit as per follow up discussed. Mr. Cecilia Martin was advised as to contrast therapies and/or to take analgesics/anti-inflammatories as needed and all contraindications were reviewed. OBJECTIVE: Mr. Cecilia Martin is a pleasant 58 year old in no apparent distress. Gen:There were no vitals taken for this visit. nl development, non obese, no deformities ENT: Normocephalic, normal hearing, moist mucosa CV: Pulses:Radial= 2+ and symmetric, capillary refill < 2 secs, no peripheral edema/varicosities Skin: no rash, bruising or lesions. Good turgor. Psych: cooperative and appropriate, alert and oriented x 3, good mood and affect. Musculoskeletal: Left wrist with significant amount of swelling over the dorsum, near the radiocarpal joint. No thenar atrophy noted. Area is not tender to palpation. Wrist active extension of about 25 degrees with wrist flexion to about 20 degrees. Subjective numbness in the radial 3 digits on the left. Positive Tinel's at the left wrist. Strength testing was not performed. Sensation is intact in the ulnar digits on the left hand. Imaging: IMPRESSION: Degenerative changes as described. Diesel Mechanic: [facility] Transcribe Date/Time: Mar 30 2024 7:32A Dictated by : CHINA RIVAS MD This examination was interpreted and the report reviewed and electronically signed by: CHINA RIVAS MD on Mar 30 2024 7:33AM EST Results-Findings * * *Final Report* * * DATE OF EXAM: Mar 25 2024 10:37AM WOX 5270 - XR WRIST 3V PA/LAT/OBL LT / PROCEDURE REASON: Wrist swelling, left * * * * Physician Interpretation * * * * EXAMINATION / TECHNIQUE: XR WRIST 3V PA/LAT/OBL LT HISTORY: mult. cysts on posterior side of hand and wrist for 5 years getting bigger no inj Wrist swelling, left COMPARISON: 11/01/2020. RESULT: Acute fracture or dislocation. There is severe radial scaphoid triscaphe, and mild first CMC joint osteoarthritis is prominent dorsal soft tissue swelling over the carpus. Supporting Subjective Information Below: Past Surgical History: PAST SURGICAL HISTORY Procedure Laterality Date LAPS REPAIR HERNIA EXCEPT INCAL/INGUN REDUCIBLE 11/30/15 LAPS SURG RPR RECURRENT INGUINAL HERNIA Left 11/30/15 RPR 1ST INGUN HRNA AGE 5 YRS/> REDUCIBLE [place]? - ?right RPR 1ST INGUN HRNA AGE 5 YRS/> REDUCIBLE as child pediatric type uncertain VASECTOMY UNI/BI SPX W/POSTOP SEMEN EXAMS Medications: Current Outpatient Medications Medication Sig Protein Supplement liqd Take by mouth as needed. acetaminophen (TYLENOL) 325 mg tablet Take 650 mg by mouth every 6 hours as needed. peg 3350-electrolytes (GAVILYTE-C) 240-22.72-6.72 -5.84 gram solution Take 4000 ml as directed. Follow written instructions from the doctor's office. No current facility-administered medications f (more content not included)... [facility] 06-16-2024 History of Presen t illness Narrative Diane Linares PA-C Department of Orthopaedics Orthopaedics [address] [facility] [address] Dept: [phone] Dept June 16, 2024 CHIEF COMPLAINT: New of the Left Wrist (Last seen 11/01/20 bilateral wrist pain) Mr. Cecilia Martin is a 58 year old male who presents with swelling in his left wrist, lack of motion and numbness and tingling in the left hand. Symptoms have been bothering him for the past several years. 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 He also enjoys working out and does push-ups on a regular basis. He tells me that he has known arthritis in his wrist. The numbness and tingling in the left hand started about 1 year ago and is in the radial 3 digits, the numbness and tingling is pretty consistent. Not worse at bedtime. The patient was previously provided with a wrist brace for his arthritis but does not wear it as he cannot work in the brace. 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 He is also able to do push-ups. We discussed trying a corticosteroid injection to help with wrist pain, advised that the injections would not improve his range of motion. It certainly sounds like he has some carpal tunnel as well. We will order an EMG. We discussed potentially pursuing carpal tunnel release, he will follow-up with EMG results. EMG order will be faxed to [facility]. Will continue to monitor patient for Wrist swelling, left Numbness and tingling in left hand (primary encounter diagnosis) Osteoarthritis of left wrist, unspecified osteoarthritis type, patient to schedule visit as per follow up discussed. Mr. Cecilia Martin was advised as to contrast therapies and/or to take analgesics/anti-inflammatories as needed and all contraindications were reviewed. OBJECTIVE: Mr. Cecilia Martin is a pleasant 58 year old in no apparent distress. Gen:There were no vitals taken for this visit. nl development, non obese, no deformities ENT: Normocephalic, normal hearing, moist mucosa CV: Pulses:Radial= 2+ and symmetric, capillary refill < 2 secs, no peripheral edema/varicosities Skin: no rash, bruising or lesions. Good turgor. Psych: cooperative and appropriate, alert and oriented x 3, good mood and affect. Musculoskeletal: Left wrist with significant amount of swelling over the dorsum, near the radiocarpal joint. No thenar atrophy noted. Area is not tender to palpation. Wrist active extension of about 25 degrees with wrist flexion to about 20 degrees. Subjective numbness in the radial 3 digits on the left. Positive Tinel's at the left wrist. Strength testing was not performed. Sensation is intact in the ulnar digits on the left hand. Imaging: IMPRESSION: Degenerative changes as described. Diesel Mechanic: [facility] Transcribe Date/Time: Mar 30 2024 7:32A Dictated by : CHINA RIVAS MD This examination was interpreted and the report reviewed and electronically signed by: CHINA RIVAS MD on Mar 30 2024 7:33AM EST Results-Findings * * *Final Report* * * DATE OF EXAM: Mar 25 2024 10:37AM WOX 5270 - XR WRIST 3V PA/LAT/OBL LT / PROCEDURE REASON: Wrist swelling, left * * * * Physician Interpretation * * * * EXAMINATION / TECHNIQUE: XR WRIST 3V PA/LAT/OBL LT HISTORY: mult. cysts on posterior side of hand and wrist for 5 years getting bigger no inj Wrist swelling, left COMPARISON: 11/01/2020. RESULT: Acute fracture or dislocation. There is severe radial scaphoid triscaphe, and mild first CMC joint osteoarthritis is prominent dorsal soft tissue swelling over the carpus. Supporting Subjective Information Below: Past Surgical History: PAST SURGICAL HISTORY Procedure Laterality Date LAPS REPAIR HERNIA EXCEPT INCAL/INGUN REDUCIBLE 11/30/15 LAPS SURG RPR RECURRENT INGUINAL HERNIA Left 11/30/15 RPR 1ST INGUN HRNA AGE 5 YRS/> REDUCIBLE [place]? - ?right RPR 1ST INGUN HRNA AGE 5 YRS/> REDUCIBLE as child pediatric type uncertain VASECTOMY UNI/BI SPX W/POSTOP SEMEN EXAMS Medications: Current Outpatient Medications Medication Sig Protein Supplement liqd Take by mouth as needed. acetaminophen (TYLENOL) 325 mg tablet Take 650 mg by mouth every 6 hours as needed. peg 3350-electrolytes (GAVILYTE-C) 240-22.72-6.72 -5.84 gram solution Take 4000 ml as directed. Follow written instructions from the doctor's office. No current facility-administered medications for this visit. Allergies: Adhesive ROS: General (negative for fatigue, malaise, weight loss/gain) HEENT (negative for headache, earache, recent vision changes, sinus pain, sore throat) Respiratory (no recent shortness of breath, hemoptysis) CV (negative for chest tightness, palpitations) Musculoskeletal (see HPI) Psych (no depression, anxiety) This note was partially generated using [employer] voice recognition system, and there may be some incorrect words, spellings, and punctuation that were not noted in checking the note before saving. Diane Linares PA-C Patient presents with: Left Wrist - New: Last seen 11/01/20 bilateral wrist pain AMB ROOMING INTAKE FLOWSHEET DATA Pain Pain Level: 3 Pain Location: Wrist-Left Description: Dull, Numbness, Tingling Duration Amount of Time: 1 Duration Units: Years Frequency: Continuous Intervention/Comfort measure: (None) Patient here for evaluation left wrist pain. Patient states he is also having numbness and tingling in his 1-3 fingers. 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 He is right hand dominant. 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 Taking no med's for the pain. X-ray done on 03/25/24 documented in this encounter [facility] 06-16-2024 Note HNO ID: [id number] Author: MILE ALDRIDGE MA Service: ? Author Type: Dress Cap Maker Type: Progress Notes Filed: 06/16/2024 10:50 Note Text: Patient presents with: Left Wrist - New: Last seen 11/01/20 bilateral wrist pain AMB ROOMING INTAKE FLOWSHEET DATA Pain Pain Level: 3 Pain Location: Wrist-Left Description: Dull, Numbness, Tingling Duration Amount of Time: 1 Duration Units: Years Frequency: Continuous Intervention/Comfort measure: (None) Patient here for evaluation left wrist pain. Patient states he is also having numbness and tingling in his 1-3 fingers. 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 He is right hand dominant. 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 Taking no med's for the pain. X-ray done on 03/25/24 [facility] 06-13-2024 History of Presen t illness Narrative Radiology Service Progress Note PATIENT NAME: Cecilia Martin DATE OF SERVICE: June 13, 2024 TIME: 3:29 PM PATIENT IDENTITY VERIFICATION COMPLETED USING TWO (2) IDENTIFIERS: Name and Date of confirmed by patient verbally. FALL SCREENING: Has the patient had 2 falls in the last year or 1 fall with injury or currently using an Ambulatory Assistive Device (Walker, Cane, Wheelchair, Crutches, etc.)? No PATIENT GENDER DATA: Assigned male at PATIENT RELEVANT IMPLANT DATA REVIEWED: Yes PATIENT PRESENTS WITH AN IMPLANTABLE OR ATTACHED HEALTH CARE TECHNICIAN: No RADIOLOGY DEPARTMENT: CT; Exam(s) Completed: Lung Screening PERIPHERAL IV DATA: Not applicable SIGNED BY: RT Donnell(R) June 13, 2024 3:29 PM documented in this encounter [facility] 06-13-2024 Note HNO ID: [id number] Author: RANDI YORK RT(R) Service: ? Author Type: Closing Coordinator Type: Progress Notes Filed: 06/13/2024 15:29 Note Text: Radiology Service Progress Note PATIENT NAME: Cecilia Martin DATE OF SERVICE: June 13, 2024 TIME: 3:29 PM PATIENT IDENTITY VERIFICATION COMPLETED USING TWO (2) IDENTIFIERS: Name and Date of confirmed by patient verbally. FALL SCREENING: Has the patient had 2 falls in the last year or 1 fall with injury or currently using an Ambulatory Assistive Device (Walker, Cane, Wheelchair, Crutches, etc.)? No PATIENT GENDER DATA: Assigned male at PATIENT RELEVANT IMPLANT DATA REVIEWED: Yes PATIENT PRESENTS WITH AN IMPLANTABLE OR ATTACHED HEALTH CARE TECHNICIAN: No RADIOLOGY DEPARTMENT: CT; Exam(s) Completed: Lung Screening PERIPHERAL IV DATA: Not applicable SIGNED BY: RT Donnell(Rob) June 13, 2024 3:29 PM [facility] 06-02-2024 Instructions Dileep Ervin APRN.CNP - 06/02/2024 9:[address] Lung Screen Results The CT scan that you will have done will show if you have any nodules (small spots) in your lungs that are suspicious for cancer. Around 90% of the patients who have this scan done are found to have at least one nodule. Most nodules are benign (not cancer) and of no harm to you at all. A specialist will make a scientific evaluation about whether or not a nodule is worrisome based on its size and shape. The radiologist who will read your scan will put it into one of four categories: LUNG-RADS Category Description Overall Probability of Malignancy Recommended Follow-Up 1 Negative No nodules and definitely benign (non-cancerous nodules) Essentially 0. 1 Year - Follow-up Low dose CT 2 Benign Appearance or Behavior Nodules with a very low likelihood of becoming cancer due to size or lack of growth Less than 1% 1 Year - Follow-up Low dose CT 3 Probably Benign Probably benign finding, short term follow-up recommended 1 to 2% 6 Months - Follow-up Low dose CT 4 Suspicious Findings for which additional diagnostic testing and/or biopsy is recommended Will be calculated based on nodule characteristics. Dependent on what is seen on the exam. (3 month follow-up CT, PET-CT, or biopsy) 0 Incomplete Findings suggestive of an inflammatory or infectious process AND/OR part of the lung cannot be evaluated Additional lung cancer screening CT imaging needed AND/OR comparison with prior chest CT imaging At times, we may see something outside of the lungs on the scan that could be a health concern. Below are some of the most common findings: S Clinically Significant or Potentially Clinically Significant Findings (non lung cancer) Referral or additional imaging/labs depending on result. Approximately 10% of people receive this result. Coronary Artery Calcifications (Moderate or Severe) - Referral to cardiology for further work-up and recommendations. Thyroid Nodule - TSH level and Thyroid Ultrasound dependent on size, referral to endocrinology. Adrenal Nodule - blood work and referral to endocrinology. Others Lung Cancer Screening hotline: [phone] Lung Cancer Screening [phone] Billing Questions: or [email or web address] Specialist Providers: (Danyell Lowe PA-C; Sheryl Randle CNP; Tammi Yun CNP, Shannon Sharpe CNP; Randi Gloria CNP; Hallie Dorado PA-C; Dileep Ervin CNP; Brianna Bowman CNP; Carin Hall CNP; Gloria Carbajal CNP; Aaliyah Araiza PA-C; Dawn Noe PA-C; Nasreen Manning CNP; Francoise Nichols CNP; Emmie Yu CNP): [phone] documented in this encounter [facility] 06-02-2024 Note HNO ID: [id number] Author: HARPSTER, DILEEP, FASHION BUYER.RN CLINICAL APPEALS Service: ? Author Type: Nurse Practitioner Type: Progress Notes Filed: 06/02/2024 10:12 Note Text: LUNG SCREENING VISIT PRIMARY CARE PHYSICIAN: Deepak Cedeño MD PULMONARY PROVIDER: none Results will be communicated via letter or electronic record if applicable. Visit Delivery: In Person Patient Visit Type: New to Screening Current or Ex-smoker? [Current Exam Type: baseline LDCT Number of Pack Years: 30 Current smoker (=0) REQUESTER: The referring provider advised the patient to have screening. HISTORY OF PRESENT ILLNESS: Cecilia Martin is a 58 year old Active smoker who presents for lung screening. Quit for 7 years. Currently smoking 1 PPD. Respiratory symptoms include: SOB: No Chest tightness: No Coughing: No Hemoptysis: No Wheezing: No Fever/Chills: No Recent Respiratory Infection: No Unintentional weight loss: No Last 6 Encounter Wt Readings: Date: Wt: 06/02/2024 83.9 kg (185 lb) 05/06/2024 83.5 kg (184 lb) 04/28/2024 83.5 kg (184 lb 1.4 oz) 04/07/2024 83.5 kg (184 lb) 03/25/2024 83.2 kg (183 lb 6.4 oz) 03/20/2024 83.9 kg (184 lb 15.5 oz) ECOG PERFORMANCE STATUS: 0- Fully active, able to carry on all pre-disease performance w/o restriction. Modified Medical Research Pala Dyspnea Scale (MMRC) I only get breathless with strenous exercise 0 PAST MEDICAL HISTORY Diagnosis Date Inguinal hernia Right inguinal, , repaired Lyme disease, acute 11/2019 erythema migrans Renal calculi Umbilical hernia Unilateral inguinal hernia without obstruction or gangrene left PAST SURGICAL HISTORY Procedure Laterality Date LAPS REPAIR HERNIA EXCEPT INCAL/INGUN REDUCIBLE 11/30/15 LAPS SURG RPR RECURRENT INGUINAL HERNIA Left 11/30/15 RPR 1ST INGUN HRNA AGE 5 YRS/> REDUCIBLE [place]on? - ?right RPR 1ST INGUN HRNA AGE 5 YRS/> REDUCIBLE as child pediatric type uncertain VASECTOMY UNI/BI SPX W/POSTOP SEMEN EXAMS FAMILY HISTORY Problem Relation Age of Onset Heart Attack Mother Cancer Father he is unsure of location but was in his 80's Coronary Artery Disease Sister in her 50's Coronary Artery Disease Sister No Known Problems Maternal Grandmother No Known Problems Maternal Grandfather No Known Problems Paternal Grandmother No Known Problems Paternal Grandfather No Known Problems Son other (other) Daughter Star's syndrome No Known Problems Daughter acetaminophen (TYLENOL) 325 mg tablet Take 650 mg by mouth every 6 hours as needed. Protein Supplement liqd Take by mouth as needed. peg 3350-electrolytes (GAVILYTE-C) 240-22.72-6.72 -5.84 gram solution Take 4000 ml as directed. Follow written instructions from the doctor's office. ALLERGIES Allergen Reactions Adhesive Rash Blistering of skin from adhesive The medications and allergies were reviewed and reconciled for this patient and deemed current. Lung Cancer Risk Factors: 1.Tobacco Use: Start Age 21, quit for 7 years Quit Age: N/A, Average packs per day 1, Pack Years 30 2. Passive Smoke Exposure: Yes, as a Child and as an Adult 3. Personal hx of malignancy: No, Type of Cancer: 4. Significant exposures (1 year or more of exposure): None, 5. Race: White 6. Education: Post-High School Training 7. BMI:Body mass index is 25.09 kg/m?. Patient-entered Height: 6'0 Patient-entered Weight: 187 pounds 8. COPD: No 9. Pneumonia in the past 5 years: No 10. Is there a history of lung cancer in a first degree relative? No 11. Is there a history of lung cancer in a non-first degree relative? No 12. Is there a history of any other cancer in a first degree relative? Yes Health Maintenance Immunization History Administered Date(s) Administered tetanus diphtheria pertussis (Tdap) vaccine, age 7+ yr (ADACEL, BOOSTRIX) 05/24/2016 03/20/2024 Colonoscopy: 04/28/2024 Mammogram: DATA REVIEW I have directly visualized the testing documented: none Prior Imaging: Last CT/CTA Chest/Lungs No resulted procedures found. Last CT Chest - Impression Only No resulted procedures found. Last XR Chest - Impression Only XR CHEST 2V FRONTAL/LAT Collected: 07/02/2017 10:39 AM (Final result) Impression: IMPRESSION: NO ACUTE RADIOGRAPHIC ABNORMALITY. 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 Pulmonary Function Testing: No textual results found for the specified procedure(s). PHYSICAL EXAM: Wt 83.9 kg (185 lb) BMI 25.09 kg/m? Deferred ASSESSMENT and RECOMMENDATIONS: 1. Screening for lung cancer: Six year risk for lung cancer: 2.07% [email or web address]/[email or web address] https://[email or web address]/[email or web address] I have determined that the patient is eligible for a low dose CT based on age, absence of signs or symptoms of lung cancer, and total pack years: Yes. The patient and I engaged in shared decis (more content not included)... [facility] 06-02-2024 History of Presen t illness Narrative Images from the original note were not included. LUNG SCREENING VISIT PRIMARY CARE PHYSICIAN: Deepak Cedeño MD PULMONARY PROVIDER: none Results will be communicated via letter or electronic record if applicable. Visit Delivery: In Person Patient Visit Type: New to Screening Current or Ex-smoker? [Current Exam Type: baseline LDCT Number of Pack Years: 30 Current smoker (=0) REQUESTER: The referring provider advised the patient to have screening. HISTORY OF PRESENT ILLNESS: Cecilia Martin is a 58 year old Active smoker who presents for lung screening. Quit for 7 years. Currently smoking 1 PPD. Respiratory symptoms include: SOB: No Chest tightness: No Coughing: No Hemoptysis: No Wheezing: No Fever/Chills: No Recent Respiratory Infection: No Unintentional weight loss: No Last 6 Encounter Wt Readings: Date: Wt: 06/02/2024 83.9 kg (185 lb) 05/06/2024 83.5 kg (184 lb) 04/28/2024 83.5 kg (184 lb 1.4 oz) 04/07/2024 83.5 kg (184 lb) 03/25/2024 83.2 kg (183 lb 6.4 oz) 03/20/2024 83.9 kg (184 lb 15.5 oz) ECOG PERFORMANCE STATUS: 0- Fully active, able to carry on all pre-disease performance w/o restriction. Modified Medical Research Pala Dyspnea Scale (MMRC) I only get breathless with strenous exercise 0 PAST MEDICAL HISTORY Diagnosis Date Inguinal hernia Right inguinal, , repaired Lyme disease, acute 11/2019 erythema migrans Renal calculi Umbilical hernia Unilateral inguinal hernia without obstruction or gangrene left PAST SURGICAL HISTORY Procedure Laterality Date LAPS REPAIR HERNIA EXCEPT INCAL/INGUN REDUCIBLE 11/30/15 LAPS SURG RPR RECURRENT INGUINAL HERNIA Left 11/30/15 RPR 1ST INGUN HRNA AGE 5 YRS/> REDUCIBLE [place]on? - ?right RPR 1ST INGUN HRNA AGE 5 YRS/> REDUCIBLE as child pediatric type uncertain VASECTOMY UNI/BI SPX W/POSTOP SEMEN EXAMS FAMILY HISTORY Problem Relation Age of Onset Heart Attack Mother Cancer Father he is unsure of location but was in his 80's Coronary Artery Disease Sister in her 50's Coronary Artery Disease Sister No Known Problems Maternal Grandmother No Known Problems Maternal Grandfather No Known Problems Paternal Grandmother No Known Problems Paternal Grandfather No Known Problems Son other (other) Daughter Star's syndrome No Known Problems Daughter acetaminophen (TYLENOL) 325 mg tablet Take 650 mg by mouth every 6 hours as needed. Protein Supplement liqd Take by mouth as needed. peg 3350-electrolytes (GAVILYTE-C) 240-22.72-6.72 -5.84 gram solution Take 4000 ml as directed. Follow written instructions from the doctor's office. ALLERGIES Allergen Reactions Adhesive Rash Blistering of skin from adhesive The medications and allergies were reviewed and reconciled for this patient and deemed current. Lung Cancer Risk Factors: 1.Tobacco Use: Start Age 21, quit for 7 years Quit Age: N/A, Average packs per day 1, Pack Years 30 2. Passive Smoke Exposure: Yes, as a Child and as an Adult 3. Personal hx of malignancy: No, Type of Cancer: 4. Significant exposures (1 year or more of exposure): None, 5. Race: White 6. Education: Post-High School Training 7. BMI:Body mass index is 25.09 kg/m . Patient-entered Height: 6'0 Patient-entered Weight: 187 pounds 8. COPD: No 9. Pneumonia in the past 5 years: No 10. Is there a history of lung cancer in a first degree relative? No 11. Is there a history of lung cancer in a non-first degree relative? No 12. Is there a history of any other cancer in a first degree relative? Yes Health Maintenance Immunization History Administered Date(s) Administered tetanus diphtheria pertussis (Tdap) vaccine, age 7+ yr (ADACEL, BOOSTRIX) 05/24/2016 03/20/2024 Colonoscopy: 04/28/2024 Mammogram: DATA REVIEW I have directly visualized the testing documented: none Prior Imaging: Last CT/CTA Chest/Lungs No resulted procedures found. Last CT Chest - Impression Only No resulted procedures found. Last XR Chest - Impression Only XR CHEST 2V FRONTAL/LAT Collected: 07/02/2017 10:39 AM (Final result) Impression: IMPRESSION: NO ACUTE RADIOGRAPHIC ABNORMALITY. 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 Pulmonary Function Testing: No textual results found for the specified procedure(s). PHYSICAL EXAM: Wt 83.9 kg (185 lb) BMI 25.09 kg/m Deferred ASSESSMENT and RECOMMENDATIONS: 1. Screening for lung cancer: Six year risk for lung cancer: 2.07% Https://[email or web address]/[email or web address] 4 https://youtu.be/[email or web address] I have determined that the patient is eligible for a low dose CT based on age, absence of signs or symptoms of lung cancer, and total pack years: Yes. The patient and I engaged in shared decision making, including the use of one or more decision aids, to include benefits, harms, follow-up diagnostic testing, over-diagnosis, false positive rate, and total radiation exposure. The patient understands and feels comfortable with it: Yes. The patient was counseled on the importance of adherence to annual LDCT lung cancer screening, impact of comorbidities and ability or willingness to undergo diagnosis and treatment. The patient understands and feels comfortable with it:Yes. 2. Nicotine dependence: The patient was counseled on the importance of smoking cessation if current smoker and, if appropriate, offered additional tobacco cessation counseling services - Smoking Cessation Counseling. SMOKING CESSATION COUNSELING Smoking cessation methods including Behavior Modification were discussed with the patient and assistance offered. Pt quit in the past cold turkey. Tried patches and medicine, but it caused mood swings. The medical conditions adversely affected by cigarette use include:COPD, Emphysema, and Lung Cancer. The patient is currently not ready to quit. I personally spent 2 minutes in counseling. The time spent in smoking cessation counseling is exclusive of any other counseling during this visit. Dileep Ervin APRN.CNP NPI #: June 02, [id number] 9:31 AM documented in this encounter [facility] 05-06-2024 Note HNO ID: [id number] Author: ?, ?, ? Service: ? Author Type: ? Type: Progress Notes Filed: 05/06/2024 14:55 Note Text: FMLA/STD needed: Pt to provide if needed AMBULATORY PATIENT EDUCATION NOTE PRE-OP TEACHING PROCEDURE: Bilateral Inguinal Hernia Repair w/ Mesh READINESS TO LEARN COGNITIVE ABILITY: Alert and oriented MOTIVATION TO LEARN: Eager Interested FAMILY SUPPORT: None - Unavailable/disinterested INSTRUCTION PROVIDED TO: Patient PATIENT LEARNS BEST BY: Individual Instruction Written Instruction - Hand-outs Verbal Instruction Multiple Methods FACTORS AFFECTING LEARNING: None PHYSICAL LIMITATIONS AFFECTING LEARNING: None METHOD OF INSTRUCTION: Individual instruction Written instruction - handouts Verbal instruction PATIENT / FAMILY RESPONSE: Verbalizes understanding of: PAIN MANAGEMENT-Effective strategies to manage pain in addition to pain medication PHYSICAL RESTRICTIONS-Physical restrictions and recommendations after discharge from the hospital POST-OPERATIVE INSTRUCTIONS-Correct actions to take to reduce postoperative complications PRE-OPERATIVE INSTRUCTIONS-Correct action to take to follow pre-operative instructions SYMPTOM MANAGEMENT-Correct actions to take to manage symptoms associated with his/her disease/illness WORSENING CONDITION-Signs and symptoms of a worsening condition that warrant a call to the physician WOUND CARE-Correct procedure to perform wound care DIET- Post op diet FOLLOW-UP PLAN: Complete - No need for follow-up Patient instructed to call with any further issues Contact information given. SUPPLEMENTAL MATERIAL: - Pre Op Instructions Handout - PACC Brochure - Overview Handout - Post Op Instructions Handout Electronically Signed By: Nilson Escalera In Department: GENERAL SURGERY [facility] 05-06-2024 History of Presen t illness Narrative FMLA/STD needed: Pt to provide if needed AMBULATORY PATIENT EDUCATION NOTE PRE-OP TEACHING PROCEDURE: Bilateral Inguinal Hernia Repair w/ Mesh READINESS TO LEARN COGNITIVE ABILITY: Alert and oriented MOTIVATION TO LEARN: Eager Interested FAMILY SUPPORT: None - Unavailable/disinterested INSTRUCTION PROVIDED TO: Patient PATIENT LEARNS BEST BY: Individual Instruction Written Instruction - Hand-outs Verbal Instruction Multiple Methods FACTORS AFFECTING LEARNING: None PHYSICAL LIMITATIONS AFFECTING LEARNING: None METHOD OF INSTRUCTION: Individual instruction Written instruction - handouts Verbal instruction PATIENT / FAMILY RESPONSE: Verbalizes understanding of: PAIN MANAGEMENT-Effective strategies to manage pain in addition to pain medication PHYSICAL RESTRICTIONS-Physical restrictions and recommendations after discharge from the hospital POST-OPERATIVE INSTRUCTIONS-Correct actions to take to reduce postoperative complications PRE-OPERATIVE INSTRUCTIONS-Correct action to take to follow pre-operative instructions SYMPTOM MANAGEMENT-Correct actions to take to manage symptoms associated with his/her disease/illness WORSENING CONDITION-Signs and symptoms of a worsening condition that warrant a call to the physician WOUND CARE-Correct procedure to perform wound care DIET- Post op diet FOLLOW-UP PLAN: Complete - No need for follow-up Patient instructed to call with any further issues Contact information given. SUPPLEMENTAL MATERIAL: - Pre Op Instructions Handout - PACC Brochure - Overview Handout - Post Op Instructions Handout Electronically Signed By: Nilson Escalera In Department: GENERAL SURGERY documented in this encounter [facility] 05-06-2024 History of Presen t illness Narrative HISTORY AND PHYSICAL [facility] Consultation requested by Mile Izaguirre MD for an opinion regarding bilateral inguinal hernias. My final recommendations will be communicated back to the requesting physician by way of shared Medical record or letter to requesting physician via US mail. Chief Complaint: bilateral inguinal hernias HPI: Cecilia Martin is a 58 year old male with a history of Lyme disease who presents for evaluation of bilateral inguinal hernias. He was seen by Dr. Izaguirre 04/07/2024 with concern of bilateral inguinal hernias. Per notes, the left side is larger than the right but he reports having more pain on the right side. On exam he is noted as having a large reducible left inguinal and a small reducible right inguinal hernia. As he has multiple recurrences, he was referred for further surgical evaluation. Cecilia started to notice bulging in his right groin a few months ago. He started to notice recurrent bulging on the left within a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 no icterus noted. Mouth with mucus membranes moist. Neck - supple with no jugular venous distention noted. Trachea is midline. Lungs - clear to auscultation. Normal breath sounds. No rales/rhonchi/wheezing noted. No labored breathing noted, such as retractions. No cough heard. Heart - normal S1 and S2 auscultated. No rubs/clicks/murmurs noted. Regular rate. Abdomen - soft and benign. . Genitalia - normal male phallus, testes in normal anatomical position and no masses noted, large reducible left inguinal hernia, small right inguinal hernia - reducible Extremities - no calf tenderness noted. No pitting edema noted. Skin - normal skin integrity. Neurological - gait normal, no focal deficits noted. Psych - calm and appropriate Assessment IMPRESSION: recurrent left and right inguinal hernias PLAN: I have discussed the above with the patient. Given that the patient has had multiple recurrences, I will refer patient to a hernia specialist. I will refer patient to Dr. Baumann at [place]. The patient acknowledges the above. I have answered all questions to the patient s satisfaction and the patient has no further questions. I have confirmed and edited as necessary, the PFSH and ROS obtained by others. Consultation requested by Janel Mcgovern for an opinion regarding patient's bilateral inguinal hernia. My final recommendations will be communicated back to the requesting physician by way of shared Medical record or letter to requesting physician via [place] mail. . Diagnoses: (K40.00) Bilateral inguinal hernia with obstruction and without gangrene, recurrence not specified I spent a total of 23 minutes on the date of the service which included preparing to see the patient with review of any pertinent laboratory studies/radiological imaging/medical records, [id number] patient care, obtaining oral medical history from the patient in this encounter, performing a medically appropriate examination, counseling and educating the patient/family/caregiver, and ordering and/or scheduling of medications/tests/procedures, and completing appropriate medical documentation. Mile Izaguirre MD UPDATED HISTORY AND PHYSICAL EXAMINATION SERVICE DATE: 04/28/2024 SERVICE TIME: 11:23 AM PHYSICAL EXAM MUST BE COMPLETED ON ADMISSION The History and Physical (completed in the past 30 days) has been reviewed and the patient has been examined. The contents accurately reflect the patient's condition with the following additions or revisions since the H&P was completed. Examination indicates no changes. This H&P can be found in the attached. SIGNATURE: Eleazar Silver III, MD PATIENT NAME: Cecilia Martin DATE: April 28, 2024 TIME: 11:23 AM documented in this encounter [facility] 04-21-2024 Telephone encounter Note The following approved medication requests have been transmitted electronically. Requested Prescriptions Pending Prescriptions Disp Refills peg 3350-electrolytes (GAVILYTE-C) 240-22.72-6.72 -5.84 gram solution 1 Each 0 Sig: Take 4000 ml as directed. Follow written instructions from the doctor's office. Janel Mcgovern APRN.CNP [facility] 04-21-2024 Miscellaneous Notes The following approved medication requests have been transmitted electronically. Requested Prescriptions Pending Prescriptions Disp Refills peg 3350-electrolytes (GAVILYTE-C) 240-22.72-6.72 -5.84 gram solution 1 Each 0 Sig: Take 4000 ml as directed. Follow written instructions from the doctor's office. Janel Mcgovern APRN.RN CLINICAL APPEALS Pt calling for a prescription for Golytely. Pt was sent prepping instructions from the surgery center. Please call pt when prescription has been sent. Anuradha Antonio LPN documented in this encounter [facility] 04-21-2024 Telephone encounter Note Pt calling for a prescription for Golytely. Pt was sent prepping instructions from the surgery center. Please call pt when prescription has been sent. Anuradha Antonio LPN [facility] 04-07-2024 History of Presen t illness Narrative HISTORY AND PHYSICAL Cecilia Espinal Mario 1965 REFERRING PHYSICIAN: Janel Mcgovern A* CHIEF COMPLAINT: Consult (Bilateral inguinal hernia) HPI: The patient is a 58 year old male presents with bilateral inguinal hernias. The left sided hernia is larger than the right, however, he notes more pain on the right side. CT scan from [facility] dated 12/25/2023 - diffuse gastric wall thickening, large left inguinal hernia with bowel loops, small right inguinal hernia containing fat He has had previous laparoscopic LIH and UHR with mesh in 11/30/2015. This will be his second recurrence on the left side. He states that he had a previous RIH as a child. PAST MEDICAL HISTORY Diagnosis Date Inguinal hernia Right inguinal, , repaired Lyme disease, acute 11/2019 erythema migrans Renal calculi Umbilical hernia Unilateral inguinal hernia without obstruction or gangrene left PAST SURGICAL HISTORY Procedure Laterality Date LAPS REPAIR HERNIA EXCEPT INCAL/INGUN REDUCIBLE 11/30/15 LAPS SURG RPR RECURRENT INGUINAL HERNIA Left 11/30/15 RPR 1ST INGUN HRNA AGE 5 YRS/> REDUCIBLE [place]on? - ?right RPR 1ST INGUN HRNA AGE 5 YRS/> REDUCIBLE as child pediatric type uncertain VASECTOMY UNI/BI SPX W/POSTOP SEMEN EXAMS No current outpatient medications on file. No current facility-administered medications for this visit. ALLERGIES: Adhesive PERSONAL HISTORY: Social History Tobacco Use Smoking status: Every Day Current packs/day: 1.00 Average packs/day: 1 pack/day for 20.0 years (20.0 ttl pk-yrs) Types: Cigarettes Smokeless tobacco: Never Vaping Use Vaping status: Never Used Substance Use Topics Alcohol use: Yes Comment: 3-7 beers once a week Drug use: No FAMILY HISTORY Problem Relation Age of Onset Heart Attack Mother Cancer Father he is unsure of location but was in his 80's Coronary Artery Disease Sister in her 50's Coronary Artery Disease Sister No Known Problems Maternal Grandmother No Known Problems Maternal Grandfather No Known Problems Paternal Grandmother No Known Problems Paternal Grandfather No Known Problems Son other (other) Daughter Star's syndrome No Known Problems Daughter The review of systems data was entered by the nurse and reviewed by mt Nursing Notes: Denise Moran RN 04/07/2024 3:24 PM Signed REVIEW OF SYSTEMS: General: The patient denies fatigue, denies weight loss, denies weight gain, denies feeling hot, and denies feelings of cold. Eyes: The patient denies glaucoma, denies eye injury/surgery, wears glasses or contacts. Ear/Nose/Throat: The patient denies allergies, denies hayfever, denies ear infections, and denies bloody noses. Cardiovascular: The patient denies chest pain, denies heart disease, denies high blood pressure,denies cardiac stent, denies prior heart attack, denies irregular heart beat, denies high cholesterol, denies poor circulation, denies heart failure, other cardiac issues, denies claudication, denies cold feet, denies peripheral arterial stent. Respiratory: The patient denies tuberculosis, denies pneumonia, denies frequent cough, denies pulmonary embolism, denies shortness of breath, and denies coughing up blood. Gastrointestinal: The patient denies difficulty swallowing, denies acid reflux, denies ulcers, denies vomiting, denies jaundice/hepatitis, denies gallbladder problems, denies black or tarry stools, denies hemorrhoids, denies bleeding from rectum, denies diverticulitis, denies constipation, denies diarrhea, denies loss of stool control, and NOTES hernias. Kidney/Bladder: The patient denies kidney stones, denies urine infections, and denies bloody urine. Skin: The patient denies a history of skin cancer, denies bleeding/changing moles, and denies a history of skin rash. Neurologic: The patient denies a history of epilepsy/convulsions, denies headaches, denies head/spinal injuries, and denies stroke/TIA. Psychiatric: The patient denies psychiatric medications, denies depression, and denies voices, denies substance abuse. Endocrine: The patient denies thyroid disorders, denies diabetes, and denies hormonal problems. Hematologic: The patient denies a history of bruising, denies bleeding, and denies anemia, denies blood clots. Infections: The patient denies a history of measles and mumps, denies rheumatic fever, and denies sexually transmitted diseases. Musculoskeletal: The patient denies back pain/injury, denies back problems, denies sciatica, denies knee/foot trouble, denies arthritis, or denies gout. When was patient's last Mammogram screening? N/A Last Colonoscopy: none Denise Moran RN PHYSICAL EXAMINATION: General: The patient is 58 year old male, well nourished, well hydrated in no acute distress. The patient is oriented to time, place, and person. VITALS: Blood pressure 126/82, pulse 75, temperature 36.7 C (98 F), height 182.9 cm (6'), weight 83.5 kg (184 lb), SpO2 97%. Body mass index is 24.95 kg/m . Head - Normocephalic. EOM intact with sclera clear and no icterus noted. Mouth with mucus membranes moist. Neck - supple with no jugular venous distention noted. Trachea is midline. Lungs - clear to auscultation. Normal breath sounds. No rales/rhonchi/wheezing noted. No labored breathing noted, such as retractions. No cough heard. Heart - normal S1 and S2 auscultated. No rubs/clicks/murmurs noted. Regular rate. Abdomen - soft and benign. . Genitalia - normal male phallus, testes in normal anatomical position and no masses noted, large reducible left inguinal hernia, small right inguinal hernia - reducible Extremities - no calf tenderness noted. No pitting edema noted. Skin - normal skin integrity. Neurological - gait normal, no focal deficits noted. Psych - calm and appropriate Assessment IMPRESSION: recurrent left and right inguinal hernias PLAN: I have discussed the above with the patient. Given that the patient has had multiple recurrences, I will refer patient to a hernia specialist. I will refer patient to Dr. Baumann at [place]. The patient acknowledges the above. I have answered all questions to the patient s satisfaction and the patient has no further questions. I have confirmed and edited as necessary, the PFSH and ROS obtained by others. Consultation requested by Janel Mcgovern for an opinion regarding patient's bilateral inguinal hernia. My final recommendations will be communicated back to the requesting physician by way of shared Medical record or letter to requesting physician via US mail. . Diagnoses: (K40.00) Bilateral inguinal hernia with obstruction and without gangrene, recurrence not specified I spent a total of 23 minutes on the date of the service which included preparing to see the patient with review of any pertinent laboratory studies/radiological imaging/medical records, [id number] patient care, obtaining oral medical history from the patient in this encounter, performing a medically appropriate examination, counseling and educating the patient/family/caregiver, and ordering and/or scheduling of medications/tests/procedures, and completing appropriate medical documentation. Mile Izaguirre MD documented in this encounter [facility] 04-07-2024 Note HNO ID: [id number] Author: MILE IZAGUIRRE MD Service: ? Author Type: Physician Type: Progress Notes Filed: 04/08/2024 13:36 Note Text: HISTORY AND PHYSICAL Cecilia Martin 1965 REFERRING PHYSICIAN: Janel Mcgovern A* CHIEF COMPLAINT: Consult (Bilateral inguinal hernia) HPI: The patient is a 58 year old male presents with bilateral inguinal hernias. The left sided hernia is larger than the right, however, he notes more pain on the right side. CT scan from [facility] dated 12/25/2023 - diffuse gastric wall thickening, large left inguinal hernia with bowel loops, small right inguinal hernia containing fat He has had previous laparoscopic LIH and UHR with mesh in 11/30/2015. This will be his second recurrence on the left side. He states that he had a previous RIH as a child. PAST MEDICAL HISTORY Diagnosis Date Inguinal hernia Right inguinal, , repaired Lyme disease, acute 11/2019 erythema migrans Renal calculi Umbilical hernia Unilateral inguinal hernia without obstruction or gangrene left PAST SURGICAL HISTORY Procedure Laterality Date LAPS REPAIR HERNIA EXCEPT INCAL/INGUN REDUCIBLE 11/30/15 LAPS SURG RPR RECURRENT INGUINAL HERNIA Left 11/30/15 RPR 1ST INGUN HRNA AGE 5 YRS/> REDUCIBLE [place]? - ?right RPR 1ST INGUN HRNA AGE 5 YRS/> REDUCIBLE as child pediatric type uncertain VASECTOMY UNI/BI SPX W/POSTOP SEMEN EXAMS No current outpatient medications on file. No current facility-administered medications for this visit. ALLERGIES: Adhesive PERSONAL HISTORY: Social History Tobacco Use Smoking status: Every Day Current packs/day: 1.00 Average packs/day: 1 pack/day for 20.0 years (20.0 ttl pk-yrs) Types: Cigarettes Smokeless tobacco: Never Vaping Use Vaping status: Never Used Substance Use Topics Alcohol use: Yes Comment: 3-7 beers once a week Drug use: No FAMILY HISTORY Problem Relation Age of Onset Heart Attack Mother Cancer Father he is unsure of location but was in his 80's Coronary Artery Disease Sister in her 50's Coronary Artery Disease Sister No Known Problems Maternal Grandmother No Known Problems Maternal Grandfather No Known Problems Paternal Grandmother No Known Problems Paternal Grandfather No Known Problems Son other (other) Daughter Star's syndrome No Known Problems Daughter The review of systems data was entered by the nurse and reviewed by mt Nursing Notes: Denise Moran RN 04/07/2024 3:24 PM Signed REVIEW OF SYSTEMS: General: The patient denies fatigue, denies weight loss, denies weight gain, denies feeling hot, and denies feelings of cold. Eyes: The patient denies glaucoma, denies eye injury/surgery, wears glasses or contacts. Ear/Nose/Throat: The patient denies allergies, denies hayfever, denies ear infections, and denies bloody noses. Cardiovascular: The patient denies chest pain, denies heart disease, denies high blood pressure,denies cardiac stent, denies prior heart attack, denies irregular heart beat, denies high cholesterol, denies poor circulation, denies heart failure, other cardiac issues, denies claudication, denies cold feet, denies peripheral arterial stent. Respiratory: The patient denies tuberculosis, denies pneumonia, denies frequent cough, denies pulmonary embolism, denies shortness of breath, and denies coughing up blood. Gastrointestinal: The patient denies difficulty swallowing, denies acid reflux, denies ulcers, denies vomiting, denies jaundice/hepatitis, denies gallbladder problems, denies black or tarry stools, denies hemorrhoids, denies bleeding from rectum, denies diverticulitis, denies constipation, denies diarrhea, denies loss of stool control, and NOTES hernias. Kidney/Bladder: The patient denies kidney stones, denies urine infections, and denies bloody urine. Skin: The patient denies a history of skin cancer, denies bleeding/changing moles, and denies a history of skin rash. Neurologic: The patient denies a history of epilepsy/convulsions, denies headaches, denies head/spinal injuries, and denies stroke/TIA. Psychiatric: The patient denies psychiatric medications, denies depression, and denies voices, denies substance abuse. Endocrine: The patient denies thyroid disorders, denies diabetes, and denies hormonal problems. Hematologic: The patient denies a history of bruising, denies bleeding, and denies anemia, denies blood clots. Infections: The patient denies a history of measles and mumps, denies rheumatic fever, and denies sexually transmitted diseases. Musculoskeletal: The patient denies back pain/injury, denies back problems, denies sciatica, denies knee/foot trouble, denies arthritis, or denies gout. When was patient's last Mammogram screening? N/A Last Colonoscopy: none Denise Moran RN PHYSICAL EXAMINATION: General: The patient is 58 year old male, well nourished, well hydrated in no acute distress. The patient i (more content not included)... [facility] 04-07-2024 Nurse Note REVIEW OF SYSTEMS: General: The patient denies fatigue, denies weight loss, denies weight gain, denies feeling hot, and denies feelings of cold. Eyes: The patient denies glaucoma, denies eye injury/surgery, wears glasses or contacts. Ear/Nose/Throat: The patient denies allergies, denies hayfever, denies ear infections, and denies bloody noses. Cardiovascular: The patient denies chest pain, denies heart disease, denies high blood pressure,denies cardiac stent, denies prior heart attack, denies irregular heart beat, denies high cholesterol, denies poor circulation, denies heart failure, other cardiac issues, denies claudication, denies cold feet, denies peripheral arterial stent. Respiratory: The patient denies tuberculosis, denies pneumonia, denies frequent cough, denies pulmonary embolism, denies shortness of breath, and denies coughing up blood. Gastrointestinal: The patient denies difficulty swallowing, denies acid reflux, denies ulcers, denies vomiting, denies jaundice/hepatitis, denies gallbladder problems, denies black or tarry stools, denies hemorrhoids, denies bleeding from rectum, denies diverticulitis, denies constipation, denies diarrhea, denies loss of stool control, and NOTES hernias. Kidney/Bladder: The patient denies kidney stones, denies urine infections, and denies bloody urine. Skin: The patient denies a history of skin cancer, denies bleeding/changing moles, and denies a history of skin rash. Neurologic: The patient denies a history of epilepsy/convulsions, denies headaches, denies head/spinal injuries, and denies stroke/TIA. Psychiatric: The patient denies psychiatric medications, denies depression, and denies voices, denies substance abuse. Endocrine: The patient denies thyroid disorders, denies diabetes, and denies hormonal problems. Hematologic: The patient denies a history of bruising, denies bleeding, and denies anemia, denies blood clots. Infections: The patient denies a history of measles and mumps, denies rheumatic fever, and denies sexually transmitted diseases. Musculoskeletal: The patient denies back pain/injury, denies back problems, denies sciatica, denies knee/foot trouble, denies arthritis, or denies gout. When was patient's last Mammogram screening? N/A Last Colonoscopy: none Denise Moran RN [facility] 04-07-2024 Nurse Note REVIEW OF SYSTEMS: General: The patient denies fatigue, denies weight loss, denies weight gain, denies feeling hot, and denies feelings of cold. Eyes: The patient denies glaucoma, denies eye injury/surgery, wears glasses or contacts. Ear/Nose/Throat: The patient denies allergies, denies hayfever, denies ear infections, and denies bloody noses. Cardiovascular: The patient denies chest pain, denies heart disease, denies high blood pressure,denies cardiac stent, denies prior heart attack, denies irregular heart beat, denies high cholesterol, denies poor circulation, denies heart failure, other cardiac issues, denies claudication, denies cold feet, denies peripheral arterial stent. Respiratory: The patient denies tuberculosis, denies pneumonia, denies frequent cough, denies pulmonary embolism, denies shortness of breath, and denies coughing up blood. Gastrointestinal: The patient denies difficulty swallowing, denies acid reflux, denies ulcers, denies vomiting, denies jaundice/hepatitis, denies gallbladder problems, denies black or tarry stools, denies hemorrhoids, denies bleeding from rectum, denies diverticulitis, denies constipation, denies diarrhea, denies loss of stool control, and NOTES hernias. Kidney/Bladder: The patient denies kidney stones, denies urine infections, and denies bloody urine. Skin: The patient denies a history of skin cancer, denies bleeding/changing moles, and denies a history of skin rash. Neurologic: The patient denies a history of epilepsy/convulsions, denies headaches, denies head/spinal injuries, and denies stroke/TIA. Psychiatric: The patient denies psychiatric medications, denies depression, and denies voices, denies substance abuse. Endocrine: The patient denies thyroid disorders, denies diabetes, and denies hormonal problems. Hematologic: The patient denies a history of bruising, denies bleeding, and denies anemia, denies blood clots. Infections: The patient denies a history of measles and mumps, denies rheumatic fever, and denies sexually transmitted diseases. Musculoskeletal: The patient denies back pain/injury, denies back problems, denies sciatica, denies knee/foot trouble, denies arthritis, or denies gout. When was patient's last Mammogram screening? N/A Last Colonoscopy: none Denise Moran RN documented in this encounter [facility] 04-01-2024 Telephone encounter Note Patient notified. Verbalized understanding. [facility] 04-01-2024 Miscellaneous Notes Patient notified. Verbalized understanding. 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 Fracture or dislocation could not be ruled out. He has an orthopedic appointment and the surgeon will review his x-ray at his appointment. 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 Fracture or dislocation could not be ruled out. He has an orthopedic appointment and the surgeon will review his x-ray at his appointment. [facility] 03-25-2024 History of Presen t illness Narrative Radiology Service Progress Note PATIENT NAME: Cecilia Martin DATE OF SERVICE: March 25, 2024 TIME: 10:32 AM PATIENT IDENTITY VERIFICATION COMPLETED USING TWO (2) IDENTIFIERS: Name and Date of confirmed by patient verbally. FALL SCREENING: Has the patient had 2 falls in the last year or 1 fall with injury or currently using an Ambulatory Assistive Device (Walker, Cane, Wheelchair, Crutches, etc.)? No PATIENT GENDER DATA: Male PATIENT RELEVANT IMPLANT DATA REVIEWED: Not Applicable PATIENT PRESENTS WITH AN IMPLANTABLE OR ATTACHED HEALTH CARE TECHNICIAN: No RADIOLOGY DEPARTMENT: General X-ray: Exam(s) Completed: Upper Extremity X-Ray(s): Wrist, left PERIPHERAL IV DATA: Not applicable SIGNED BY: RT Zeenat(R) March 25, 2024 10:32 AM documented in this encounter [facility] 03-25-2024 Note HNO ID: [id number] Author: BARRERA LOPEZ RT(R) Service: Radiology Author Type: Technologist Type: Progress Notes Filed: 03/25/2024 10:37 Note Text: Radiology Service Progress Note PATIENT NAME: Cecilia Martin DATE OF SERVICE: March 25, 2024 TIME: 10:32 AM PATIENT IDENTITY VERIFICATION COMPLETED USING TWO (2) IDENTIFIERS: Name and Date of confirmed by patient verbally. FALL SCREENING: Has the patient had 2 falls in the last year or 1 fall with injury or currently using an Ambulatory Assistive Device (Walker, Cane, Wheelchair, Crutches, etc.)? No PATIENT GENDER DATA: Male PATIENT RELEVANT IMPLANT DATA REVIEWED: Not Applicable PATIENT PRESENTS WITH AN IMPLANTABLE OR ATTACHED HEALTH CARE TECHNICIAN: No RADIOLOGY DEPARTMENT: General X-ray: Exam(s) Completed: Upper Extremity X-Ray(s): Wrist, left PERIPHERAL IV DATA: Not applicable SIGNED BY: RT Zeenat(R) March 25, 2024 10:32 AM [facility] 03-25-2024 Instructions Janel Mcgovern APRN.RN CLINICAL APPEALS - 03/25/2024 9:32 AM EST 1) Fluticasone nasal spray or triamcinolone nasal spray over the counter- 2 sprays each nare daily 2) Consult orthopedics about left wrist 3) Xray left wrist today 4) Consult GEN SURGERY about hernias and left nose cyst 5) Colonoscopy consult 6) Consult lung cancer screening team- for CT scan 7) Get labs 8) Follow up in 1 year documented in this encounter [facility] 03-25-2024 Note HNO ID: [id number] Author: JANEL MCGOVERN APRN.CNP Service: ? Author Type: Clinical Nurse Specialist Type: Progress Notes Filed: 03/25/2024 11:29 Note Text: Chief Reason For Appointment Patient presents with: Yearly Exam Cecilia Martin is a 58 year old male who presents for annual exam. Last office visit date: 10/04/2020 Accompanied By self only Have you had any critical events, hospital stays, ER visits, surgeries or procedures since your last visit here in our office: No Specialists/Other Healthcare Providers Seen: Patient Care Team: Deepak Cedeño MD as PCP - General (Family Medicine) Concerns today: Eric. Hernia- right hernia seen in ER when he had inguinal pain. Also left side recurrent HPI Inguinal pain on right for a month- took him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 Social History Tobacco Use Smoking status: Former Packs/day: 1.00 Years: 20.00 Additional pack years: 0.00 Total pack years: 20.00 Types: Cigarettes Smokeless tobacco: Never Tobacco comments: Quit 07/29/2015 Vaping Use Vaping Use: Never used Substance Use Topics Alcohol use: Yes Comment: 1- 3 beers once a month Drug use: No ASSESSMENT/PLAN: 1. Right wrist pain - ICD9: 719.43, ICD10: M25.531 - XR WRIST INJURY 4V PA/LAT/OBL/SCAPH RIGHT * * * * Physician Interpretation * * * * TITLE: XR WRIST 4V PA/LAT/OBL/SCAPH RT CLINICAL INDICATION: Wrist pain TECHNIQUE: 4 view radiographic study of the right wrist COMPARISON: Radiograph dated November 01, 2020 FINDINGS: No acute fracture or dislocation identified. Moderate radiocarpal joint space narrowing. Remote healed ununited fracture of the radial styloid. IMPRESSION IMPRESSION: No radiographic evidence of acute osseous injury. 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 Patient will follow-up with orthopedics for further testing. Patient was okay with this care plan. Yuni Isaacs APRN.PAYAM documented in this encounter [facility] Evaluation note Diagnosis Right wrist pain- Primary Pain in joint, forearm [facility] Diagnosis Primary osteoarthritis of right wrist- Primary Primary localized osteoarthrosis, forearm [facility] Diagnosis Right lower quadrant abdominal pain- Primary Abdominal pain, right lower quadrant [facility] Diagnosis Right wrist pain Pain in joint, forearm [facility] Diagnosis Wound cellulitis- Primary Cellulitis and abscess of unspecified site [facility]* Diagnosis Dyslipidemia- Primary Other and unspecified hyperlipidemia Screening for colon cancer Special screening for malignant neoplasms, colon Bilateral inguinal hernia with obstruction and without gangrene, recurrence not specified Screening for depression Encounter for screening examination for other mental health and behavioral disorders Encounter for screening for lung cancer Screening for prostate cancer Special screening for malignant neoplasm of prostate Screening for diabetes mellitus (DM) Screening for diabetes mellitus Wrist swelling, left Numbness in both hands Disturbance of skin sensation [facility]* Diagnosis Wrist swelling, left [facility]* Diagnosis Bilateral recurrent inguinal hernia without obstruction or gangrene Inguinal hernia without mention of obstruction or gangrene, recurrent bilateral [facility] Diagnosis Encounter for screening for malignant neoplasm of colon- Primary Special screening for malignant neoplasms, colon Screening for colon cancer Special screening for malignant neoplasms, colon [facility]* Diagnosis Bilateral recurrent inguinal hernia without obstruction or gangrene- Primary Inguinal hernia without mention of obstruction or gangrene, recurrent bilateral Bilateral inguinal hernia without obstruction or gangrene, recurrence not specified [facility]* Diagnosis Encounter for screening for lung cancer- Primary Tobacco use current Bilateral inguinal hernia without obstruction or gangrene, recurrence not specified [facility] Diagnosis Encounter for screening for lung cancer Tobacco use current Bilateral inguinal hernia without obstruction or gangrene, recurrence not specified documented in this encounter [facility] note* Diagnosis Numbness and tingling in left hand- Primary Disturbance of skin sensation Wrist swelling, left Osteoarthritis of left wrist, unspecified osteoarthritis type Bilateral inguinal hernia without obstruction or gangrene, recurrence not specified documented in this encounter [facility] note* Diagnosis Encounter for screening for lung cancer- Primary Tobacco use current Bilateral inguinal hernia without obstruction or gangrene, recurrence not specified [facility] Diagnosis Centrilobular emphysema (HCC)- Primary Other emphysema Abnormal findings diagnostic imaging of heart and coronary circulation Other nonspecific abnormal cardiovascular system function study Tinea pedis of both feet Encounter for immunization Need for other specified prophylactic vaccination against single bacterial disease Bilateral inguinal hernia without obstruction or gangrene, recurrence not specified [facility] Diagnosis Centrilobular emphysema (HCC) Other emphysema Abnormal findings diagnostic imaging of heart and coronary circulation Other nonspecific abnormal cardiovascular system function study Bilateral inguinal hernia without obstruction or gangrene, recurrence not specified [facility] Diagnosis Centrilobular emphysema (HCC) Other emphysema Abnormal findings diagnostic imaging of heart and coronary circulation Other nonspecific abnormal cardiovascular system function study Bilateral inguinal hernia without obstruction or gangrene, recurrence not specified [facility] Diagnosis Pre-op examination- Primary Preoperative examination, unspecified Nicotine dependence with current use Coronary artery calcification Coronary atherosclerosis of unspecified type of vessel, iroquois or graft Centrilobular emphysema (HCC) Other emphysema Bilateral inguinal hernia without obstruction or gangrene, recurrence not specified * Assessment & Plan Note - Tammi Delarosa PA-C - 08/20/2024 6:27 PM EDT Associated Problem(s): Centrilobular emphysema (HCC) Assessment: Mild emphysema on imaging, denies dyspnea. No inhalers at this time. Following with pulmonary lung cancer screening team. * Assessment & Plan Note - Tammi Delarosa PA-C - 08/20/2024 6:26 PM EDT Associated Problem(s): Coronary artery calcification Assessment: Noted on LCS CT scan in May. Pt evaluated by cardiology and completed stress test in Jun 2024. Stress test normal. Pt denies chest pain, dyspnea. * Assessment & Plan Note - Tammi Delarosa PA-C - 08/20/2024 6:24 PM EDT Associated Problem(s): Nicotine dependence with current use Assessment: Current everyday smoker, about 0.5 pack/day. Encouraged cessation. No smoking DOS. [facility] Diagnosis Pre-op examination- Primary Preoperative examination, unspecified Nicotine dependence with current use Coronary artery calcification Coronary atherosclerosis of unspecified type of vessel, iroquois or graft Centrilobular emphysema (HCC) Other emphysema Status post bilateral inguinal hernia repair- Primary Other postprocedural status documented in this encounter [facility] for referral (narrative)* Diagnostic Procedure Only (Urgent) - Closed Specialty Diagnoses / Procedures Referred By Caitlyn riojas Referred To Contact XR IMAGING Diagnoses Right wrist pain Procedures XR WRIST INJURY 4V PA/LAT/OBL/SCAPH RIGHT RADEX WRIST COMPLETE MINIMUM 3 VIEWS Yuni Isaacs APRN.RN [facility] [address] [place] [address] Xr Imaging [place] [address] Referral ID Status Reason Start Date Expiration Date V isits Requested Visits Authorized [id number] Closed Auto-Generate d Referral 01/16/2023 02/15/2024 1 1 [facility] for referral (narrative)* Outpatient Procedure (Routine) - New Request Specialty Diagnoses / Procedures Referred By Caitlyn riojas Referred To Contact [facility] Diagnoses Numbness and tingling in left hand Procedures EMG(NEURO/NI) NERVE CONDUCTION STUDIES 9-10 STUDIES Diane Linares PA-C [address] [place] [address] Neu[facility] [place] [address] [place] [id number] Referral ID Status Reason Start Date Expiration Date Visits Requested Visits Authorized [id number] New Request Auto-Generat ed Referral 06/16/2024 06/16/2025 1 1 [facility] for visit Narrative* Diagnostic Procedure Only (Urgent) - Closed Specialty Diagnoses / Procedures Referred By Contac t Referred To Contact XR IMAGING Diagnoses Right wrist pain Procedures XR WRIST INJURY 4V PA/LAT/OBL/SCAPH RIGHT RADEX WRIST COMPLETE MINIMUM 3 VIEWS Yuni Isaacs APRN.RN [facility] [address] [place] [address] [place] [address] Referral ID Status Reason Start Date Expiration Date V isits Requested Visits Authorized [id number] Closed Auto-Generate d Referral 01/16/2023 02/15/2024 1 1 [facility] for visit Narrative* Diagnostic Procedure Only (Routine) - Closed Specialty Diagnoses / Procedures Referred By Contac t Referred To Contact XR IMAGING Diagnoses Wrist swelling, left Procedures XR WRIST GENERAL 3V PA/LAT/OBL LEFT RADEX WRIST COMPLETE MINIMUM 3 VIEWS Janel Mcgovern APRN.RN [facility] [address] [place] [address] [place] [address] Referral ID Status Reason Start Date Expiration Date V isits Requested Visits Authorized [id number] Closed Auto-Generate d Referral 03/25/2024 04/24/2025 1 1 [facility] for visit Narrative* Outpatient Procedure (Routine) - Closed Specialty Diagnoses / Procedures Referred By Contac t Referred To Contact [facility] Diagnoses Screening for colon cancer Procedures COLONOSCOPY SCREENING COLONOSCOPY FLX DX W/COLLJ SPEC WHEN PFRMD Janel Mcgovern APRN.RN [facility] [address] [place] [address] [facility] [place] [address] [place] [address] Referral ID Status Reason Start Date Expiration Date V isits Requested Visits Authorized [id number] Closed Auto-Generate d Referral 04/01/2024 03/25/2025 1 1 [facility] for visit Narrative* Outpatient Procedure (Routine) - Closed Specialty Diagnoses / Procedures [facility] Diagnoses Centrilobular emphysema (HCC) Abnormal findings diagnostic imaging of heart and coronary circulation Procedures EXERCISE STRESS ECG (WITHOUT IMAGING) CV STRS TST XERS&/OR RX CONT ECG TRCG ONLY Janel Mcgovern APRN.RN [facility] [address] [place] [address] Phone: tel: fax: [facility] [place] [address] [place] [address] Referral ID Status Reason Start Date Expiration Date V isits Requested Visits Authorized [id number] Closed Auto-Generate d Referral 07/04/2024 06/27/2025 1 1 [facility] Reason for Referral Specialty Diagnoses / Procedures Referred By Contac t Referred To Contact Orthopedics Diagnoses Right wrist pain Procedures CONSULT TO ORTHOPAEDICS OFFICE/OUTPATIENT [facility] 60-74 MINUTES Yuni Isaacs APRN.RN [facility] [address] [place] [address] Referral ID Status Reason Start Date Expiration Date Visits Requested Visits Authorized [id number] Authorized PCP Requested Referral 01/16/2023 01/16/2024 1 1 Specialty Diagnoses / Procedures Referred By Contac t Referred To Contact XR IMAGING Diagnoses Right wrist pain Procedures XR WRIST INJURY 4V PA/LAT/OBL/SCAPH RIGHT RADEX WRIST COMPLETE MINIMUM 3 VIEWS Yuni Isaacs APRN.RN [facility] [address] [place] [address] [place] [address] Referral ID Status Reason Start Date Expiration Date V isits Requested Visits Authorized [id number] Closed Auto-Generate d Referral 01/16/2023 02/15/2024 1 1 Specialty Diagnoses / Procedures Referred By Contac t Referred To Contact General Surgery Diagnoses Bilateral inguinal hernia with obstruction and without gangrene, recurrence not specified Procedures CONSULT TO GENERAL SURGERY CONSULT TO GENERAL SURGERY OFFICE/OUTPATIENT [facility] 60 MINUTES Janel Mcgovern APRN.RN [facility] [address] [place] [address] Referral ID Status Reason Start Date Expiration Date Visits Requested Visits Authorized [id number] Authorized PCP Requested Referral 03/25/2025 1 1 Specialty Diagnoses / Procedures Referred By Contac t Referred To Contact Orthopedics Diagnoses Wrist swelling, left Procedures CONSULT PANEL TO ORTHOPAEDICS OFFICE/OUTPATIENT [facility] MDM 60 MINUTES Janel Mcgovern FASHION BUYER.RN [facility] [address] [place] [address] Referral ID Status Reason Start Date Expiration Date Visits Requested Visits Authorized [id number] Authorized PCP Requested Referral 4 03/25/2025 1 1 Specialty Diagnoses / Procedures Referred By Contac t Referred To Contact XR IMAGING Diagnoses Wrist swelling, left Procedures XR WRIST GENERAL 3V PA/LAT/OBL LEFT RADEX WRIST COMPLETE MINIMUM 3 VIEWS Janel Mcgovern, FASHION BUYER.RN [facility] [address] [place] [address] X[facility] Referral ID Status Reason Start Date Expiration Date V isits Requested Visits Authorized [id number] Closed Auto-Generate d Referral 03/25/2024 04/24/2025 1 1 Specialty Diagnoses / Procedures Referred By Contac t Referred To Contact [facility] Diagnoses Screening for colon cancer Procedures COLONOSCOPY SCREENING COLONOSCOPY FLX DX W/COLLJ SPEC WHEN PFRMD Janel Mcgovern FASHION BUYER.RN [facility] [address] [place] [address] [facility] [place] [facility] [place] [address] Referral ID Status Reason Start Date Expiration Date Visits Requested Visits Authorized [id number] Authorized Auto-Generat ed Referral 4 03/25/2025 1 1 Specialty Diagnoses / Procedures Referred By Contac t Referred To Contact Colon and Rectal Surgery Diagnoses Encounter for screening for malignant neoplasm of colon Procedures CONSULT TO COLO-RECTAL SURGERY OFFICE/OUTPATIENT [facility] MDM 60 MINUTES Eleazar Silver MD [address] [place] [address] Radha Deras MD [address] [place] [address] Referral ID Status Reason Start Date Expiration Date Visits Requested Visits Authorized [id number] Authorized PCP Requested Referral 4 04/28/2025 1 1 Referral ID Status Reason Start Date Expiration Date V isits Requested Visits Authorized [id number] Closed Auto-Generate d Referral 04/01/2024 03/25/2025 1 1 Specialty Diagnoses / Procedures Referred By Caitlyn riojas Referred To Contact CT IMAGING Diagnoses Encounter for screening for lung cancer Tobacco use current Procedures CT LUNG SCREEN WO IVCON COMPUTED TOMOGRAPHY THORAX LW DOSE LNG CA SCR C- Dileep Ervin, FASHION BUYER.RN CL[facility] [address] [place] [id number] Ct Imaging [place] [address] Referral ID Status Reason Start Date Expiration Date Visits Requested Visits Authorized [id number] Authorized Auto-Generat ed Referral 06/02/2024 07/02/2025 1 1 Referral ID Status Reason Start Date Expiration Date V isits Requested Visits Authorized [id number] Closed Auto-Generate d Referral 06/02/2024 07/02/2025 1 1 Referral ID Status Reason Start Date Expiration Date Visits Requested Visits Authorized [id number] New Request Auto-Generat ed Referral 05/14/2025 07/16/2025 1 1 Summary Purpose Family History No Family History Records FoundNo Family History Records FoundNo Family History Records FoundNo Family History Records Found Advance Directives No Advanced Directives Records FoundNo Advanced Directives Records FoundNo Advanced Directives Records FoundNo Advanced Directives Records Found Additional Source Comments Source Comments (unrecognize d section and content) In the event this informatio n is protected by the Federal Confidentiality of Alcohol and Drug Abuse Patient Records regulations: The Federal rules restrict any use of the information to criminally investigate or prosecute any alcohol or drug abuse patient.[facility] the event this information is protected by the Federal Confidentiality of Alcohol and Drug Abuse Patient Records regulations: The Federal rules restrict any use of the information to criminally investigate or prosecute any alcohol or drug abuse patient.[facility] the event this information is protected by the Federal Confidentiality of Alcohol and Drug Abuse Patient Records regulations: The Federal rules restrict any use of the information to criminally investigate or prosecute any alcohol or drug abuse patient.[facility] the event this information is protected by the Federal Confidentiality of Alcohol and Drug Abuse Patient Records regulations: The Federal rules restrict any use of the information to criminally investigate or prosecute any alcohol or drug abuse patient.[facility] the event this information is protected by the Federal Confidentiality of Alcohol and Drug Abuse Patient Records regulations: The Federal rules restrict any use of the information to criminally investigate or prosecute any alcohol or drug abuse patient.[facility] the event this information is protected by the Federal Confidentiality of Alcohol and Drug Abuse Patient Records regulations: The Federal rules restrict any use of the information to criminally investigate or prosecute any alcohol or drug abuse patient.[facility] the event this information is protected by the Federal Confidentiality of Alcohol and Drug Abuse Patient Records regulations: The Federal rules restrict any use of the information to criminally investigate or prosecute any alcohol or drug abuse patient.[facility] the event this information is protected by the Federal Confidentiality of Alcohol and Drug Abuse Patient Records regulations: The Federal rules restrict any use of the information to criminally investigate or prosecute any alcohol or drug abuse patient.[facility] the event this information is protected by the Federal Confidentiality of Alcohol and Drug Abuse Patient Records regulations: The Federal rules restrict any use of the information to criminally investigate or prosecute any alcohol or drug abuse patient.[facility] the event this information is protected by the Federal Confidentiality of Alcohol and Drug Abuse Patient Records regulations: The Federal rules restrict any use of the information to criminally investigate or prosecute any alcohol or drug abuse patient.[facility] the event this information is protected by the Federal Confidentiality of Alcohol and Drug Abuse Patient Records regulations: The Federal rules restrict any use of the information to criminally investigate or prosecute any alcohol or drug abuse patient.[facility] the event this information is protected by the Federal Confidentiality of Alcohol and Drug Abuse Patient Records regulations: The Federal rules restrict any use of the information to criminally investigate or prosecute any alcohol or drug abuse patient.[facility] the event this information is protected by the Federal Confidentiality of Alcohol and Drug Abuse Patient Records regulations: The Federal rules restrict any use of the information to criminally investigate or prosecute any alcohol or drug abuse patient.[facility] the event this information is protected by the Federal Confidentiality of Alcohol and Drug Abuse Patient Records regulations: The Federal rules restrict any use of the information to criminally investigate or prosecute any alcohol or drug abuse patient.[facility] the event this information is protected by the Federal Confidentiality of Alcohol and Drug Abuse Patient Records regulations: The Federal rules restrict any use of the information to criminally investigate or prosecute any alcohol or drug abuse patient.[facility] the event this information is protected by the Federal Confidentiality of Alcohol and Drug Abuse Patient Records regulations: The Federal rules restrict any use of the information to criminally investigate or prosecute any alcohol or drug abuse patient.[facility] the event this information is protected by the Federal Confidentiality of Alcohol and Drug Abuse Patient Records regulations: The Federal rules restrict any use of the information to criminally investigate or prosecute any alcohol or drug abuse patient.[facility] the event this information is protected by the Federal Confidentiality of Alcohol and Drug Abuse Patient Records regulations: The Federal rules restrict any use of the information to criminally investigate or prosecute any alcohol or drug abuse patient.[facility] the event this information is protected by the Federal Confidentiality of Alcohol and Drug Abuse Patient Records regulations: The Federal rules restrict any use of the information to criminally investigate or prosecute any alcohol or drug abuse patient.[facility] the event this information is protected by the Federal Confidentiality of Alcohol and Drug Abuse Patient Records regulations: The Federal rules restrict any use of the information to criminally investigate or prosecute any alcohol or drug abuse patient.[facility] the event this information is protected by the Federal Confidentiality of Alcohol and Drug Abuse Patient Records regulations: The Federal rules restrict any use of the information to criminally investigate or prosecute any alcohol or drug abuse patient.[facility] the event this information is protected by the Federal Confidentiality of Alcohol and Drug Abuse Patient Records regulations: The Federal rules restrict any use of the information to criminally investigate or prosecute any alcohol or drug abuse patient.[facility] the event this information is protected by the Federal Confidentiality of Alcohol and Drug Abuse Patient Records regulations: The Federal rules restrict any use of the information to criminally investigate or prosecute any alcohol or drug abuse patient.[facility] the event this information is protected by the Federal Confidentiality of Alcohol and Drug Abuse Patient Records regulations: The Federal rules restrict any use of the information to criminally investigate or prosecute any alcohol or drug abuse patient.[facility] the event this information is protected by the Federal Confidentiality of Alcohol and Drug Abuse Patient Records regulations: The Federal rules restrict any use of the information to criminally investigate or prosecute any alcohol or drug abuse patient.[facility] the event this information is protected by the Federal Confidentiality of Alcohol and Drug Abuse Patient Records regulations: The Federal rules restrict any use of the information to criminally investigate or prosecute any alcohol or drug abuse patient.[facility] the event this information is protected by the Federal Confidentiality of Alcohol and Drug Abuse Patient Records regulations: The Federal rules restrict any use of the information to criminally investigate or prosecute any alcohol or drug abuse patient.[facility] the event this information is protected by the Federal Confidentiality of Alcohol and Drug Abuse Patient Records regulations: The Federal rules restrict any use of the information to criminally investigate or prosecute any alcohol or drug abuse patient.[facility] the event this information is protected by the Federal Confidentiality of Alcohol and Drug Abuse Patient Records regulations: The Federal rules restrict any use of the information to criminally investigate or prosecute any alcohol or drug abuse patient.[facility] the event this information is protected by the Federal Confidentiality of Alcohol and Drug Abuse Patient Records regulations: The Federal rules restrict any use of the information to criminally investigate or prosecute any alcohol or drug abuse patient.[facility] Reason for Visit (unrecogniz ed section and content) Reason Comments Wrist Pain right x 2 days, pablo es injury Reason Comments right wrist pain Reason Comments Abdominal Pain Reason Comments Trauma Laceration of LLE, s welling, pain, redness around wounds, no drainage hit owen with log x 1 week ago Reason Comments Yearly Exam Reason Comments Consult Bilateral inguinal h ernia Specialty Diagnoses / Procedures Referred By Caitlyn riojas Referred To Contact General Surgery Diagnoses Bilateral inguinal hernia with obstruction and without gangrene, recurrence not specified Procedures CONSULT TO GENERAL SURGERY CONSULT TO GENERAL SURGERY OFFICE/OUTPATIENT NEW HIGH MDM 60 MINUTES Janel Mcgovern, FASHION BUYER.RN CL[facility] [address] [place] [address] Referral ID Status Reason Start Date Expiration Date V isits Requested Visits Authorized [id number] Closed PCP Requested Referral 04/01/2024 03/25/2025 1 1 Reason Comments Patient Education Reason Comments New Patient Bilateral inguinal h ernia. Reason Comments New Patient LCS Reason Comments Radiology CT Specialty Diagnoses / Procedures Referred By Caitlyn riojas Referred To Contact CT IMAGING Diagnoses Encounter for screening for lung cancer Tobacco use current Procedures CT LUNG SCREEN WO IVCON COMPUTED TOMOGRAPHY THORAX LW DOSE LNG CA SCR Sergey- Dileep Ervin, FASHION BUYER.RN CLINICAL APPEALS [address] [place] [address] Ct Imaging [place] [address] Referral ID Status Reason Start Date Expiration Date V isits Requested Visits Authorized [id number] Closed Auto-Generate d Referral 06/02/2024 07/02/2025 1 1 Reason Comments New Last seen 11/01/20 bi lateral wrist pain Specialty Diagnoses / Procedures Referred By Contac t Referred To Contact Orthopedics Diagnoses Wrist swelling, left Procedures CONSULT PANEL TO ORTHOPAEDICS OFFICE/OUTPATIENT NEW HIGH MDM 60 MINUTES Janel Mcgovern FASHION BUYER.RN CLINICAL APPEALS [address] [place] [address] Referral ID Status Reason Start Date Expiration Date V isits Requested Visits Authorized [id number] Closed PCP Requested Referral 03/25/2024 03/25/2025 1 1 Reason Comments Results Reason Comments Follow Up Review results Reason Comments Spirometry Specialty Diagnoses / Procedures Referred By Contac t Referred To Contact [facility] Diagnoses Centrilobular emphysema (HCC) Abnormal findings diagnostic imaging of heart and coronary circulation Procedures SPIROMETRY - BASELINE AND POST DILATOR BRNCDILAT RSPSE SPMTRY PRE&POST-BRNCDILAT ADMN Janel Mcgovern FASHION BUYER.RN CLINICAL APPEALS [address] [place] [address] Phone: tel: fax: Respiratory [place] [address] [place] [address] Referral ID Status Reason Start Date Expiration Date V isits Requested Visits Authorized [id number] Closed Auto-Generate d Referral 06/27/2024 07/27/2025 1 1 Reason Comments Reminder Call Reason Comments Consult Reason Comments Vehicle Check In Clerk - Other Post surgery fo llow up Reason Comments Post Op s/p open left inguin al hernia repair with 7.5 x 13 cm mid-weight polypropylene Parietene mesh and robotic right inguinal hernia repair with 15 x 11 cm heavy-weight Polypropylene Prolene mesh on 09/03/2024. Reason Onset Date Comments Research F/U 12/02/2024 Reason Onset Date Comments Research F/U 12/11/2024 Care Teams (unrecognized sec tion and content) Stud Sheep Farmer Relationship Specialty Start Date End Date Deepak Cedeño MD [address] [place] [address] PCP - General Family Medicine 06/19/17 Stud Sheep Farmer Relationship Specialty Start Date End Date Deepak Cedeño MD [address] [place] [address] PCP - General Family Medicine 06/19/17 Stud Sheep Farmer Relationship Specialty Start Date End Date Deepak Cedeño MD [address] [place] [address] PCP - General Family Medicine 06/19/17 Stud Sheep Farmer Relationship Specialty Start Date End Date Deepak Cedeño MD [address] [place] [address] PCP - General Family Medicine 06/19/17 Stud Sheep Farmer Relationship Specialty Start Date End Date Deepak Cedeño MD [address] [place] [address] PCP - General Family Medicine 06/19/17 Stud Sheep Farmer Relationship Specialty Start Date End Date Deepak Cedeño MD [address] [place] [address] PCP - General Family Medicine 06/19/17 Stud Sheep Farmer Relationship Specialty Start Date End Date Deepak Cedeño MD [address] [place] [address] PCP - General Family Medicine 06/19/17 Stud Sheep Farmer Relationship Specialty Start Date End Date Deepak Cedeño MD [address] [place] [address] PCP - General Family Medicine 06/19/17 Stud Sheep Farmer Relationship Specialty Start Date End Date Deepak Cedeño MD [address] [facility] [place] [address] PCP - General Family Medicine 06/19/17 Stud Sheep Farmer Relationship Specialty Start Date End Date Deepak Cedeño MD [address] [facility] [place] [address] PCP - General Family Medicine 06/19/17 Liliane Coe APRN.RN CLINICAL APPEALS [address] [place] [address] Mail Order Clerk Family Medicine 04/21/24 Janel Mcgovern APRN.RN CLINICAL APPEALS [address] [facility] [place] [address] Mail Order Clerk Family Medicine 04/21/24 Stud Sheep Farmer Relationship Specialty Start Date End Date Deepak Cedeño MD [address] [facility] [place] [address] PCP - General Family Medicine 06/19/17 Liliane Coe APRN.RN CLINICAL APPEALS [address] [place] [address] Mail Order Clerk Family Medicine 04/21/24 Janel Mcgovern FASHION BUYER.RN CLINICAL APPEALS [address] [facility] [place] [address] Mail Order Clerk Family Medicine 04/21/24 Stud Sheep Farmer Relationship Specialty Start Date End Date Deepak Cedeño MD [address] [facility] [place] [address] PCP - General Family Medicine 06/19/17 Liliane Coe APRN.RN CLINICAL APPEALS [address] [place] [address] Mail Order Clerk Family Medicine 04/21/24 Janel Mcgovern APRN.RN CLINICAL APPEALS [address] [facility] [place] [address] Mail Order Clerk Family Medicine 04/21/24 Stud Sheep Farmer Relationship Specialty Start Date End Date Deepak Cedeño MD [address] [facility] [place] [address] PCP - General Family Medicine 06/19/17 Liliane Coe APRN.RN CLINICAL APPEALS [address] [place] [address] [facility] 04/21/24 Janel Mcgovern FASHION BUYER.RN CLINICAL APPEALS [address] [place] [address] [facility] 04/[facility]/24 Stud Sheep Farmer Relationship Specialty Start Date End Date Deepak Cedeño MD [address] [facility] [place] [address] PCP - General Family Medicine 06/19/17 Liliane Coe FASHION BUYER.RN CLINICAL APPEALS [address] [facility] [place] [address] [facility] 04/21/24 Janel Mcgovern FASHION BUYER.RN CLINICAL APPEALS [address] [place] [address] [facility] 04/21/24 Stud Sheep Farmer Relationship Specialty Start Date End Date Deepak Cedeño MD [address] [place] [address] PCP - General Family Medicine 06/19/17 Liliane Coe, FASHION BUYER.RN CLINICAL APPEALS [address] [place] [address] Mail Order Clerk Family Medicine 04/21/24 Janel Mcgovern FASHION BUYER.RN CLINICAL APPEALS [address] [place] [address] Mail Order Clerk Family [facility] 04/21/24 Stud Sheep Farmer Relationship Specialty Start Date End Date Deepak Cedeño MD [address] [place] [address] PCP - General Family Medicine 06/19/17 Liliane Coe, FASHION BUYER.RN CLINICAL APPEALS [address] [place] [address] Mail Order Clerk Family Medicine 04/21/24 Janel Mcgovern FASHION BUYER.RN CLINICAL APPEALS [address] [place] [address] [facility] 04/21/24 Stud Sheep Farmer Relationship Specialty Start Date End Date Deepak Cedeño MD [address] [place] [address] PCP - General Family Medicine 06/19/17 Liliane Coe, FASHION BUYER.RN CLINICAL APPEALS [address] [place] [address] [facility] 04/21/24 Janel Mcgovern FASHION BUYER.RN CLINICAL APPEALS [address] [place] [address] [facility] 04/21/24 Stud Sheep Farmer Relationship Specialty Start Date End Date Deepak Cedeño MD [address] [facility] [place] [address] PCP - General Family Medicine 06/19/17 Liliane Coe APRN.RN CLINICAL APPEALS [address] [place] [address] Mail Order Clerk Family Medicine 04/21/24 Janel Mcgovern FASHION BUYER.RN CLINICAL APPEALS [address] [facility] [place] [address] Mail Order Clerk Family Medicine 04/21/24 Stud Sheep Farmer Relationship Specialty Start Date End Date Deepak Cedeño MD [address] [facility] [place] [address] PCP - General Family Medicine 06/19/17 Liliane Coe FASHION BUYER.RN CLINICAL APPEALS [address] [place] [address] Mail Order Clerk Family Medicine 04/21/24 Janel Mcgovern FASHION BUYER.RN CLINICAL APPEALS [address] [facility] [place] [address] Mail Order Clerk Family Medicine 04/21/24 Stud Sheep Farmer Relationship Specialty Start Date End Date Deepak Cedeño MD [address] [place] [address] PCP - General Family Medicine 06/19/17 Liliane Coe APRN.RN CLINICAL APPEALS [address] [place] [address] Mail Order Clerk Family Medicine 04/21/24 Janel Mcgovern FASHION BUYER.RN CLINICAL APPEALS [address] [place] [address] Mail Order Clerk Family Medicine 04/21/24 Stud Sheep Farmer Relationship Specialty Start Date End Date Deepak Cedeño MD [address] [place] [address] PCP - General Family Medicine 06/19/17 Liliane Coe, FASHION BUYER.RN CLINICAL APPEALS [address] [place] [address] Mail Order Clerk Family Medicine 04/21/24 Janel Mcgovern FASHION BUYER.RN CLINICAL APPEALS [address] [place] [address] [facility] 04/21/24 Stud Sheep Farmer Relationship Specialty Start Date End Date Deepak Cedeño MD [address] [place] [address] PCP - General Family Medicine 06/19/17 Liliane Coe, FASHION BUYER.RN CLINICAL APPEALS [address] [place] [address] Mail Order Clerk Family Medicine 04/21/24 Janel Mcgovern FASHION BUYER.RN CLINICAL APPEALS [address] [place] [address] Mail Order Clerk Family Medicine 04/21/24 Stud Sheep Farmer Relationship Specialty Start Date End Date Deepak Cedeño MD [address] [place] [address] PCP - General Family Medicine 06/19/17 Liliane Coe, FASHION BUYER.RN CLINICAL APPEALS [address] [place] [address] [facility] 04/21/24 Janel Mcgovern FASHION BUYER.RN CLINICAL APPEALS [address] [facility] [address] [facility] 04/21/24 Stud Sheep Farmer Relationship Specialty Start Date End Date Deepak Cedeño MD [address] [facility] [address] PCP - General Family Medicine 06/19/17 Liliane Coe, FASHION BUYER.RN CLINICAL APPEALS [address] [place], [place] [address] [facility] 04/21/24 Janel Mcgovern, FASHION BUYER.RN CLINICAL APPEALS [address] [place], [place] [address] [facility] 04/21/24 Stud Sheep Farmer Relationship Specialty Start Date End Date Deepak Cedeño MD [address] [facility] [place] [address] PCP - General Family Medicine 06/19/17 Liliane Coe, FASHION BUYER.RN CLINICAL APPEALS [address] [place], [place] [address] [facility] 04/21/24 Janel Mcgovern, FASHION BUYER.RN CLINICAL APPEALS [address] [place], [place] [address] [facility] 04/21/24 (unrecognized sect ion and content) No Status Records FoundNo Status Records FoundNo Status Records FoundNo Status Records Found INFORMATION SOURCE (unrecogn ized section and content) DATE CREATED AUTHOR 07/05/2024 [facility] DATE CREATED AUTHOR AUTHOR'S ORGANIZ ATION 07/18/2024 [facility] DATE CREATED AUTHOR AUTHOR'S ORGANIZ ATION 12/13/2024 [facility] DATE CREATED AUTHOR AUTHOR'S ORGANIZ ATION 12/14/2024 [facility] FOR RECORDS PERTAINING TO PATIENTS WHO ARE OR HAVE BEEN ENROLLED IN A CHEMICAL DEPENDENCY/SUBSTANCEABUSE PROGRAM, SOME INFORMATION MAY BE OMITTED. This clinical summary was aggregated from multiple sources. Caution should be exercised in using it in the provision of clinical care. This summary normalizes information from multiple sources, and as a consequence, information in this document may materially change the coding, format and clinical context of patient data. In addition, data may be omitted in some cases. CLINICAL DECISIONS SHOULD BE BASED ON THE PRIMARY CLINICAL RECORDS. [employer] provides no warranty or guarantee of the accuracy or completeness of information in this document.
--- NOTE | 2025-01-26 02:45 | EDS_ITS ---
HPI History of Present Illness Chief Complaint: Lower Extremity Injury Informant: patient and spouse/S.O. Narrative Narrative: Patient is a 59-year-old male who reports no significant past medical history. He states that he has noticed weakness lifting his right foot. He states that he is unsure of the exact timing but believes it has been ongoing for the past few weeks. However now he cannot lift it at all. He states that he does feel an abnormal sensation up the leg as well. He reports that there has been no recent trauma. He denies any previous back surgeries. He denies any loss of bowel or bladder control or IV drug use. He states that now he cannot lift the foot at all he is concerned that there may be some type of neurologic issue and therefore he comes in for evaluation [facility] Medical History no medical history Home Medications ?Medication ?Instructions ?Recorded ?Last Taken ?Type prednisone 10 mg tablet 10 mg PO UD #33 tabs 5 Unknown Rx Allergy/AdvReac Type Severity Reaction Status Date / Time No Known Allergies Allergy Verified 01/26/25 00:51 Social History Smoking Status: Heavy Smoker (>10/day) ROS [facility] ED Constitutional Constitutional ED: Denies chills or fever(s) ENT ENT ED: Denies sore throat Cardiovascular Cardiovascular: Denies chest pain Respiratory/Chest Respiratory/Chest: Denies cough or dyspnea Gastrointestinal Gastrointestinal: Denies abdominal pain, diarrhea, nausea or vomiting Musculoskeletal Musculoskeletal: Reports other Details: Positive right foot drop ; Denies back pain Integumentary Denies rash Neurologic Neurologic: Reports weakness; Denies headache(s) or paresthesias Hematologic/Lymphatic Hematologic/Lymphatic: Denies easy bleeding or easy bruising EXAM Physical Exam Const Vital Signs: 01/26/25 00:52 01/26/25 02:49 Temperature 97.8 F 98.1 F Temperature Source Oral Pulse Rate 75 96 Respiratory Rate 18 16 Blood Pressure 119/70 116/78 Blood Pressure Mean 86 90 Pulse Ox 96 99 Oxygen Delivery Method Room Air Positive well nourished and well developed General Appearance ED: well developed; Negative for pallor HEENT HEENT Narrative: Normocephalic atraumatic Eyes PERRL and EOMs intact bilaterally General Eye ED: Negative for scleral icterus Neck supple Resp normal respiratory effort and clear to auscultation bilaterally Cardio regular rate and regular rhythm GI normal to inspection, nondistended, normoactive bowel sounds, non-tender, non- distended and no masses Auscultation: normoactive bowel sounds Palpation: soft Back/Spine Back/Spine Narrative: No bony deformity or step-off of the thoracic or lumbar spine; no midline pain with palpation No saddle anesthesia. Negative straight leg raise. No clonus or Babinski. Patellar reflexes are +2-4 bilaterally Extremity normal to inspection Extremity Narrative: No asymmetric edema no pitting edema negative Homans' sign bilaterally Ankle ligaments are stable and Achilles tendon is intact No signs of long bone injury such as bony deformity or joint effusion No asymmetric erythema or warmth to suggest cellulitis or abscess Neuro oriented x3, CN's II-XII intact bilaterally and no sensory deficits noted Neuro Narrative: GCS of 15 Cranial nerves II through XII are grossly intact without focal neurologic deficit NIH stroke scale score of 0 Patient is unable to dorsiflex his right foot but otherwise strength is normal Sensorium / Orientation: alert Psych mental status grossly normal Skin no rashes or lesions noted Skin Narrative: Capillary refill is less than 3 seconds General Skin Exam: Negative for jaundice or pallor MDM MDM MDM Narrative Medical decision making narrative: Patient arrived to the ER with stable vitals. He reported difficulty lifting his right foot but is unsure of how long it has been actually going on for. He states that he does not have any recent injections or surgeries going against discitis. He denies loss of bowel or bladder control going against cauda equina or epidural abscess. Without history or signs of trauma there is low concern for entrapment of the peroneal nerve or injury to the ankle. History and exam indicate foot drop most likely due to nerve impingement in the low back. In order to assess for this a CT scan of the lumbar spine was obtained as it is typically the L4-L5 nerve root that will lead to foot drop. Based on the prolonged symptoms and the fact there are no other deficits I do not feel the need for an emergent MRI. The CT scan displayed anterolisthesis of L4 accompanied with diffuse disc bulges with encroachment on the neuroforamina which could potentially indicate compression leading to his symptoms. At this time there are no signs of infection or compartment; he does not have changes to suggest arterial occlusion or DVT. Therefore I do not feel there is need for further workup or emergent consultation with spine surgery. Patient will be placed on a prednisone taper to see if reducing the inflammatory process will lead to resolution of symptoms. However he will need to follow-up with orthopedic spine to discuss need for MRI to assess if there is true nerve impingement and then they can discuss treatment options once the more detailed images obtained. At this time without signs of infection or arterial occlusion or bony injury there is no need for further ER intervention and is otherwise safe for discharge History & Record Review Discussion w/independent historian: Patient and Significant other Radiography Diagnostic Testing: Clinical Impression(s) from Imaging Studies Lumbar Spine CT 01/26/25 01:13 IMPRESSION: Straightened lumbar lordosis denoting myospasm. 1st degree anterolisthesis of L4 Mild L5 over S1 retrolisthesis. No acute fractures. Lumbar spondylosis with multilevel facet arthropathy and diffuse posterior disc bulges inducing encroachment upon the neural exit foramina. Degenerative changes of the sacroiliac joints. [facility] Discharge Plan Triage Chief Complaint: Lower Extremity Injury ED Provider: Jefry Kilgore Dx/Rx/DC Orders Clinical Impression: Foot drop, right, Bulging lumbar disc Instructions: Anatomy of a Normal Spine, ED Foot Drop Prescriptions: New prednisone 10 mg tablet 10 mg PO UD Qty: 33 0RF Rx Instructions: Take 4 tablets daily for 3 days, then 3 daily for 3 days, then 2 daily for 3 days, then 1 a day for 3 days then 1 QOD for 3 doses. Stand Alone Forms: ED Work / School Excuse Primary Care Provider: Deepak Davidson Referrals: Yvan Lopez MD [Med Staff - Active Staff] - (Lumbar bulging disc with foot drop) Deepak Davidson MD [Primary Care Provider] - Activity Restrictions/Additional Instructions: Please take the steroid as directed to reduce any inflammatory component which may be worsening your symptoms. Follow-up with Dr. Lopez/spine surgery to discuss need for MRI based on your symptoms and abnormal CT. return to the ER should you have any further concerns or worsening of symptoms Print Language: Romansh Disposition Disposition: Home, Self Care Discharge Date/Time: 01/26/25 02:51
[2025-01-26 02:49] VITALS: BP 116/78; PULSE 96; RESP 16; TEMP 36.7; O2SAT 99
== END 2025-01-26 02:51 | disposition home or self-care (01) ==
PROVIDERS: Emergency Provider Emergency Medicine; PCP Family Medicine; Visit Provider Emergency Medicine
DX: M21.371 Foot drop, right foot (principal); M51.369 Other intervertebral disc degeneration, lumbar region without mention of lumbar back pain or lower extremity pain; F17.200 Nicotine dependence, unspecified, uncomplicated
CPT/HCPCS: 72131; 99282

== ENCOUNTER → 2025-02-03 | Outpatient (CLI) | payer OTHER, SELFPAY ==
--- NOTE | 2025-02-03 09:37 | MRI_ITS ---
PROCEDURE: SPINE LUMBAR (ROUTINE) 02/03/2025 REASON FOR EXAM: RIGHT FULL FOOT DROP TECHNIQUE: Procedure Code: MRISPL Modality: MR Procedure: SPINE LUMBAR (ROUTINE) COMPARISON: January 30, 2025 x-ray FINDINGS: There is grade 1 spondylolisthesis at L4-5, 0.4 cm. The vertebral body height is maintained. A 2.5 cm hemangioma is noted at L3. A 1 cm hemangioma is noted at L4. Vertebral body marrow signal is otherwise normal. Intervertebral disc signal shows desiccation. The facets are aligned. The L1-L2 level: There is no significant disk protrusion. There is no lateral recess stenosis or foraminal stenosis. There is no critical central canal stenosis. The L2-L3 level: There is minimal central disk protrusion. There is no lateral recess stenosis or foraminal stenosis. There is no critical central canal stenosis. The L3-L4 level: There is moderate central, mild right and moderate left paracentral disc protrusion. There is mild left lateral recess stenosis. There is mild left foraminal narrowing secondary to disc protrusion and facet hypertrophy. There is mild central canal stenosis. The L4-L5 level: There is moderate central and right and left paracentral disc protrusion. There is moderate bilateral lateral recess stenosis. There is mild bilateral foraminal narrowing secondary to disc protrusion and facet hypertrophy. There is moderate central canal stenosis. The L5-S1 level: There is no significant disk protrusion. There is no lateral recess stenosis or foraminal stenosis. There is no critical central canal stenosis. The visualized conus shows normal signal characteristics. Adjacent soft tissues are unremarkable. MRI/Spine Lumbar (Routine) IMPRESSION: There is grade 1 spondylolisthesis at L4-5, 0.4 cm. There is mild central canal stenosis at L3-4, moderate central canal stenosis a t L4-5, with lateral recess and foraminal narrowing. Reading Location: [facility]
== END | disposition home or self-care (01) ==
LOC: MRI 09:34
PROVIDERS: PCP Family Medicine; Referring Provider Student in an Organized Health Care Education/Training Program; Visit Provider Student in an Organized Health Care Education/Training Program
DX: M54.16 Radiculopathy, lumbar region (principal); M21.371 Foot drop, right foot
CPT/HCPCS: 72148

== ENCOUNTER → 2025-02-18 | Outpatient (CLI) | payer OTHER, SELFPAY | END | disposition home or self-care (01) | LOC: PSN 12:36 | PROVIDERS: PCP Family Medicine; Referring Provider Student in an Organized Health Care Education/Training Program; Visit Provider Student in an Organized Health Care Education/Training Program | DX: M21.371 Foot drop, right foot (principal) | CPT/HCPCS: 95886; 95909 ==

== ENCOUNTER 2025-02-26 13:00 | Outpatient (RCR) | payer OTHER, SELFPAY ==
--- NOTE | 2025-02-10 16:33 | HP.PTEVAL_ITS ---
Patient's Visit Information Visit Information Visit Information: CECLIIA MARTIN is a 59 year old M referred to Physical Therapy by VADIM Riuz with a diagnosis of FOOT DROP ,RIGHT ,RADICULOPATHY LUMBAR. Date of Evaluation: 02/10/25 Physical Therapist: Ferny Cam PT, Cert MDT, OCS
--- NOTE | 2025-02-10 16:33 | HP.PTEVAL ---
Patient's Visit Information Visit Information Visit Information: CECILIA MARTIN is a 59 year old M referred to Physical Therapy by VADIM Ruiz with a diagnosis of FOOT DROP ,RIGHT ,RADICULOPATHY LUMBAR. Date of Evaluation: 02/10/25 Physical Therapist: Ferny Cam, PT, Cert MDT, OCS Visit Plan Frequency: 2x /Week Duration: 4 Weeks Plan: Patient has right foot drop See MD spine to review MRI PT INTERVENTIONS FLEXABILITY RLE ,RIGHT ANKLE AND LEG STRENGTHENING ,CORE STRENGTHENING ,PROPRIOCEPTION ,MAY RECOMMNEND AFO IF NO IMPROVEMENT Subjective Subjective: This 59 y/o male presents to physical therapy with lumbar radiculopathy right foot drop. Patient developed right leg weakness and foot ~ 2 weeks. Patient sudden right foot drop went to ER . Recommend to see Ortho spine DR. Did Lumbar x-rays show a retrolisthesis of L5 on S1 and a spondylolisthesis of L4 on L5. There is facet arthrosis mildly in the lumbar spine, no acute fractures. There is also some mild disc height loss seen at L5-S1 . Prednisone which has ran out. MRI There is grade 1 spondylolisthesis at L4-5, 0.4 cm.There is mild central canal stenosis at L3-4, moderate central canal stenosis at L4-5, with lateral recess and foraminal narrowing. The L3-L4 level: There is moderate central, mild right and moderate left paracentral disc protrusion. There is mild left lateral recess stenosis. There is mild left foraminal narrowing secondary to disc protrusion and facet hypertrophy. There is mild central canal stenosis.The L4-L5 level: There is moderate central and right and left paracentral disc protrusion. There is moderate bilateral lateral recess stenosis. There is mild bilateral foraminal narrowing secondary to disc protrusion and facet hypertrophy. There is moderate central canal stenosis. C/O right paresthesia/tingling right foot. No pain. Coughing/sneezing-. Bowel.bladder-, Aggravating factors inconclusive .Alleviating factors inconclusive.Patient not sleeping good. Patient has no falls but ankle gives way. Patient will follow up with spine DR 02/13 SOC[employer]: VOCATION: [employer] Objective Objective: POSTURE:mild forward posture GAIT: reciprocal pattern with steppage gait due to right foot drop NEURO: c/o paresthesia/tingling right foot ,light touch intact ,reflexes L3-4,L4-5,L5--S1 2/3 FLEXABILITY: hamstrings min tight MMT: right quads/hams/hip 4/5 ,( peak force) dorsiflexion 0 ,eversion 0 ,plantarflexion 10.1 ,eversion 9.7 LUMBAR ROM: flexion WFL ,extension mod loss ,side glides min loss Special Tests L/S Slump test left side: Negative L/S Slump test right side: Negative L/S Left Straight Leg Raise: Negative L/S Right Straight Leg Raise: Negative Lumbar Standing: Flexion - Mechanical Response: No effect Lumbar Standing: Flexion - Symptoms During Testing: No effect Lumbar Standing: Flexion - Symptoms After Testing: No effect Lumbar Standing: Extension - Mechanical Response: No effect Lumbar Standing: Extension - Symptoms During Testing: No effect Lumbar Standing: Extension - Symptoms After Testing: No effect Lumbar Standing: Right Side Glides - Mechanical Response: No effect Lumbar Standing: Right Side [place] - Symptoms After Testing: No effect Lumbar Standing: Left Side [place] - Mechanical Response: No effect Lumbar Standing: Left Side [place] - Symptoms After Testing: No effect Balance/Special Test Scores Lower Extremity Functional Score: 38 Goals Goal 1:: Patient to be I with strength to improve foot drop Goal Time Frame: 4-6 Weeks Goal 2:: Patient to improve peak force anterior tibialis and peroneus by 3-5# to improve gait pattern with less foot drop Goal Time Frame: 4-6 Weeks Goal 3:: Patient to demonstrate 50% improve with increase gait Goal Time Frame: 4-6 Weeks Goal 4:: Patient to LFES score by 5 points to improve QOL and gait. Goal Time Frame: 4-6 Weeks Rehabilitation Potential Physical Therapy Diagnosis: This patient had spontaneous episode foot drop 2 weeks ago no pain some minor back pain. Patient has steppage gait due to weakness anterior tibialis ,and peroneus with no activation ,patient could benefit from AFO thus benefit from skilled PT Rehabilitation Potential: Good Anticipated Interventions Patient/Client Instruction: Educate patient on: Condition and Plan of Care For the Purpose of:: To decrease pain, To increase ROM, To improve muscle performance and motor function, To improve ability to perform ADL's, To increase tolerance to activity/condition/position, To improve ability of physical actions for home/community/work/leisure, To improve health of tissue, To decrease soft tissue restriction, To increase flexibility/ROM and To improve balance Therapeutic Exercise to Include: Strength training, Endurance training, Balance training, Postural training, Flexibilty training, Gait and locomotor training and Dynamic Lumbar Stabilization Comment: ANKLE For the Purpose of:: To improve muscle performance and motor function, To improve ability to perform ADL's, To increase tolerance to activity/condition/position, To improve ability of physical actions for home/community/work/leisure, To improve gait and locomotor functions, To improve health of tissue, To decrease soft tissue restriction, To increase flexibility/ROM, To improve endurance and To improve balance Text: Thank you for the opportunity to evaluate your patient. For Medicare and Medicare HMO plans, please review the plan of care and approve it. It will need to be FAXED BACK to us at [phone] for Medicare purposes. For Medicare only, by signing this I certify the plan of care. Please let me know if there are questions or concerns regarding this plan of care. Physician Signature: Date:
--- NOTE | 2025-04-15 10:23 | HP.PT.NRP ---
Patient Information Patient Information: CECILIA MARTIN was seen in my office for initial evaluation on 02/10/25. The following Plan of Care was established for this patient: POC Established Initial Frequency: 2x /Week Initial Duration: 4 Weeks Anticipated Interventions Patient/Client Instruction: Educate patient on: Condition and Plan of Care For the Purpose of:: To decrease pain, To increase ROM, To improve muscle performance and motor function, To improve ability to perform ADL's, To increase tolerance to activity/condition/position, To improve ability of physical actions for home/community/work/leisure, To improve health of tissue, To decrease soft tissue restriction, To increase flexibility/ROM and To improve balance Therapeutic Exercise to Include: Strength training, Endurance training, Balance training, Postural training, Flexibilty training, Gait and locomotor training and Dynamic Lumbar Stabilization For the Purpose of:: To improve muscle performance and motor function, To improve ability to perform ADL's, To increase tolerance to activity/condition/position, To improve ability of physical actions for home/community/work/leisure, To improve gait and locomotor functions, To improve health of tissue, To decrease soft tissue restriction, To increase flexibility/ROM, To improve endurance and To improve balance Last Seen Last Seen: This patient was last seen in our office . Pertinent comments regarding their Physical therapy will appear below: Patient is d/c due to having lumbar fusion . At this point I will be discontinuing this patient from physical therapy. I would be happy to see this patient again in the future if found appropriate by the physician. Thank you! Ferny Cam, PT, Cert MDT, OCS Balance/Gait/Functional tests Balance/Special Test Scores Lower Extremity Functional Score: 38
== END 2025-02-26 19:00 | disposition home or self-care (01) ==
LOC: PT 13:00
PROVIDERS: PCP Family Medicine; Referring Provider Student in an Organized Health Care Education/Training Program; Visit Provider Student in an Organized Health Care Education/Training Program
DX: M21.371 Foot drop, right foot (principal); M54.16 Radiculopathy, lumbar region
CPT/HCPCS: 97110; 97162

== ENCOUNTER 2025-03-04 10:56 | Observation (INO) | payer OTHER, SELFPAY ==
--- NOTE | 2025-02-18 14:38 | NEURO ---
NCS and/or EMG Patient Report Ordering Doctor: Ellen Montez DATE OF SERVICE: 02/18/25 Duran presents with complaints of a right foot drop. Electrodiagnostic findings: Right peroneal motor nerve demonstrates borderline prolonged distal latency with normal amplitude and reduced conduction velocity. There is slowing of slightly greater than 10 m/s across the fibular head. Right tibial motor response is within normal limits. Prolonged right sural and superficial peroneal latencies are noted. Needle EMG testing was performed in the right lower limb. 1+ fibrillations noted in the tibialis anterior, peroneus longus and semitendinosis. 1+ fibrillations were noted in the right lower lumbar paraspinals. Motor unit action potentials decreased amplitude with a diminished recruitment pattern noted in the right tibialis anterior. Electrodiagnostic impression: This is an abnormal study. 1. Electrodiagnostic findings are suggestive of an acute right L5 radiculopathy. Recommend correlation with lumbar spine imaging. Multi Select Codes Neurology Neurology Interp Codes: 25932-33 Musc test done w/n test comp (interp) and 55810-30 Nrv cndj tst 5-6 studies (interp)
[2025-02-27 12:30] LABS: Magnesium 2.2 mg/dL (1.5-2.2)
[2025-03-04] VITALS (13 sets, daily range): BP systolic 100–135; BP diastolic 69–89; PULSE 70–96; RESP 14–18; TEMP 36.2–37; O2SAT 93–100; BMI 25.4
--- OUTSIDE RECORDS SUMMARY | 2025-03-04 05:24 | XMS RPT_ITS | CCD ---
Author Organization [facility] Care Team Providers Care Repair Coil Winder Name Role Phone Deepak Cedeño MD Primary Care Provider Deepak Cedeño MD Primary Care Provider Haagen CREATIVE WRITING TEACHER.ALLIANCE CONSULTANT Liliane Unavailable Suppan CREATIVE WRITING TEACHER.ALLIANCE CONSULTANT, Janel A Unavailable [phone] Suppan CREATIVE WRITING TEACHER.ALLIANCE CONSULTANT, Janel A Unavailable Suppan CREATIVE WRITING TEACHER.ALLIANCE CONSULTANT, Janel A Unavailable DEEPAK CEDEÑO Primary Care Unavailable SHANIQUA, JANEL A Referring Unavailable DEEPAK CEDEÑO Primary Care Unavailable HIREN BAUMANN Attending Unavailable HIREN BAUMANN Admitting Unavailable Dr. Deepak Cedeño MD Primary Care Provider Dr. Jefry Kilgore DO Emergency Provider Dr. Deepak Cedeño MD Primary Care Physician Dr. Jefry Kilgore DO Attending Physician Dr. Jefry Kilgore DO Emergency Department Physic ginny Dr. Deepak Cedeño MD Referring Provider Ellen Parra Attending Physician Jericho JONES, Dr. Stuart Attending Physician Ellen Parra Referring Provider DIANE LINARES Attending Unavailable SHANIQUA, JANEL A Referring Unavailable DEEPAK CEDEÑO Primary Care Unavailable SHANIQUA, JANEL A Attending Unavailable DAVIDSON, DEEPAK J Primary Care Unavailable SUPPAN, JANEL A Referring Unavailable DAVIDSON, DEEPAK J Primary Care Unavailable HIREN BAUMANN Referring Unavailable DAVIDSON, DEEPAK J Primary Care Unavailable HIREN BAUMANN Attending Unavailable DAVIDSON, DEEPAK J Primary Care Unavailable DAVIDSON, DEEPAK J Referring Unavailable SUPPAN, JANEL A Attending Unavailable DAVIDSON, DEEPAK J Primary Care Unavailable DAVIDSON, DEEPAK J Primary Care Unavailable SUPPAN, JANEL A Attending Unavailable DAVIDSON, DEEPAK J Primary Care Unavailable SUPPAN, JAENL A Referring Unavailable DAVIDSON, DEEPAK J Primary Care Unavailable MILE IZAGUIRRE Attending Unavailable SUPPAN, JANEL A Referring Unavailable DAVIDSON, DEEPAK J Primary Care Unavailable HIREN BAUMANN Attending Unavailable DAVIDSON, DEEPAK J Referring Unavailable DAVIDSON, DEEPAK J Primary Care Unavailable DILEEP ERVIN Attending Unavailable SUPPAN, JANEL A Referring Unavailable DAVIDSON, DEEPAK J Primary Care Unavailable DILEEP ERVIN Referring Unavailable DAVIDSON, DEEPAK J Primary Care Unavailable ELEAZAR SILVER Attending Unavailable SUPPAN, JANEL A Referring Unavailable DAVIDSON, DEEPAK J Primary Care Unavailable DAVIDSON, DEEPAK J Primary Care Unavailable SUPPAN, JANEL A Attending Unavailable SUPPAN, JANEL A Referring Unavailable DAVIDSON, DEEPAK J Primary Care Unavailable SUPPAN, JANEL A Referring Unavailable DAVIDSON, DEEPAK J Primary Care Unavailable Narciso Echavarria Attending Unavailable [place], Deepak Primary Care Unavailable Jordan Owen Attending Unavailable Davidson, Deepak Primary Care Unavailable Lopez, Yvan Admitting Unavailable Dago Lopezag Consulting Unavailable [place], Deepak Primary Care Unavailable [place], Deepak Referring Unavailable Giles Montezyn Attending Unavailable Davidson, Deepak Referring Unavailable Davidson, Deepak Primary Care Unavailable Yvan Lopez Attending Unavailable Melida, Ellen Attending Unavailable Davidson, Deepak Primary Care Unavailable [place], Deepak Referring Unavailable Davidson, Deepak Primary Care Unavailable Lopez, Yvan Admitting Unavailable Lopez, Yvan Attending Unavailable Lopez, Yvan Referring Unavailable Melida, Ellen Attending Unavailable Mel[place], Ellen Referring Unavailable Davidson, Deepak Primary Care Unavailable Jefry Kilgore Attending Unavailable [place], Deepak Primary Care Unavailable [place], Ellen Referring Unavailable [place], Deepak Primary Care Unavailable Mel[place], Ellen Attending Unavailable [place], Deepak Primary Care Unavailable Melida, Ellen Referring Unavailable Melida, Ellen Attending Unavailable Allergies Allergy Classification Reported Allergen(s) Allergy Type Date of Onset Reaction(s) Facility (20 sources) Adhesive agent; Translations: [ADHESIVE] Propensity to adverse reactions to drug 12-09-2015 Rash [facility] Work Phone: Medications Current Medications Medication Drug Class(es) Dates Sig (Normalized) Sig (Original) acetaminophen 500 mg oral tablet (8 sources) Start: 02-13-2025 take 1 tablet by mouth every six hours as needed Acetaminophen (Tylenol Extra Strength) 500 mg tablet Active 500 mg PO EVERY 6 HOURS as needed February 13, 2025 12:00am Complies with drug therapy End: 06-27-2024 take 2 tablets by mouth every six hours as needed acetaminophen (TYLENOL) 325 mg tablet Take 650 mg by mouth every 6 hours as needed. 06/27/2024 Discontinued (Discontinued by Patient) ibuprofen 200 mg oral tablet (6 sources) Nonsteroidal Anti-inflammatory Drug Start: 02-13-2025 take 1 tablet by mouth every six hours as needed Ibuprofen 200 mg tablet Active 200 mg PO EVERY 6 HOURS as needed February 13, 2025 12:00am Complies with drug therapy End: 03-20-2024 take 2 tablets by mouth every six hours as needed ibuprofen (MOTRIN) 200 mg tablet Take 400 mg by mouth every 6 hours as needed for pain (for knee pain). 03/20/2024 Discontinued (Course of therapy completed) Comment on above: Take 400 mg by mouth every 6 hours as needed for pain (for knee pain). mupirocin 20 mg/ml topical cream (6 sources) [...] 10 days. 15 g 03/20/2024 03/30/2024 Active Protein Supplement liqd (18 sources) Protein Suppleme nt liqd Take by mouth as needed. Suspended Protein Suppleme nt liqd Take by mouth as needed. Active Soy Protein powder (1 source) Start: 02-13-2025 Soy Protein powder Active NMA PO February 13, 2025 12:00am Complies with drug therapy sulfamethoxazole 800 mg / trimethoprim 160 mg oral tablet (4 sources) Dihydrofolate Reductase Inhibitor Antibacterial, Sulfonamide Antimicrobial Start: 03-20-2024 End: 03-30-2024 take 1 tablet by mouth twice daily sulfamethoxazole -trimethoprim (BACTRIM DS) 800-160 mg per tablet Indications: [...] Drug Class(es) Dates Sig (Normalized) Sig (Original) calcium chloride 0.0014 meq/ml / potassium chloride [...] BY PHYSICIAN FOR PROCEDURAL SEDATION ONLY, Intraprocedure meloxicam 15 mg oral tablet (4 sources) Nonsteroidal Anti-inflammatory Drug Start: 08-30-2020 End: 01-26-2025 take 1 tablet by mouth once daily Meloxicam 15 MG tablet Discontinued 15 mg PO DAILY 10 August 30, 2020 12:00am January 26, 2025 12:52am 1 ml meperidine hydrochloride 50 mg/ml injection [...] PROCEDURAL SEDATION ONLY, Intraprocedure polyethylene glycol 3350 720962 mg / potassium chloride 2980 mg / sodium bicarbonate 6720 mg / sodium chloride 5840 mg / sodium sulfate 35971 mg powder for oral solution (9 sources) Osmotic Laxative Start: 04-21-2024 End: 06-27-2024 peg 3350-electrolytes (GAVILYTE-C) 240-22.72-6.72 -5.84 gram solution Take 4000 ml as directed. Follow written instructions from the doctor's office. 1 Each 04/21/2024 06/27/2024 Discontinued (Discontinued by Patient) predniSONE 10 mg oral tablet (5 sources) Start: 01-26-2025 End: 02-13-2025 take 4 tablets by mouth once daily, then take 3 tablets by mouth once daily, then take 2 tablets by mouth once daily, then take 1 tablet by mouth once daily, then take 1 tablet by mouth every other day Prednisone 10 mg tablet Discontinued 10 mg PO DIRECTED 33 0 January 26, 2025 12:00am February 13, 2025 11:39am Take 4 tablets daily for 3 days, then 3 daily for 3 days, then 2 daily for 3 days, then 1 a day for 3 days then 1 QOD for 3 doses. Start: 01-16-2023 End: 01-21-2023 take 1 tablet by mouth once daily predniSONE (DELTASONE) 20 mg tablet Take 1 tablet by mouth once daily for 5 days. 5 tablet 0 01/16/2023 01/21/2023 Active Comment on above: Take 1 tablet by megan th once daily for 5 days. Problems Active Problems Problem Classification Problem Date Documented Da te Episodic/Chronic Abdominal pain (5 sources) Right lower quadrant pain; Translations: [Right lower quadrant pain] 12-25-2023 Episodic Acquired foot deformities (12 sources) Foot-drop; Translations: [Foot drop, right foot] Onset: 02-06-2025 01-26-2025 Episodic Calculus of urinary tract (20 sources) Kidney stone; Translations: [Calculus of kidney] Onset: 11-19-2015 11-19-2015 Episodic Chronic obstructive pulmonary disease and bronchiectasis (17 sources) Centriacinar emphysema; Translations: [Centrilobular emphysema] Onset: 07-02-2024 06-27-2024 Chronic Coronary atherosclerosis and other heart disease (9 sources) Calcification of coronary artery; Translations: [Atherosclerotic heart disease of [place] coronary artery without angina pectoris] Onset: 08-20-2024 08-20-2024 Chronic Disorders of lipid metabolism (2 sources) Dyslipidemia; Translations: [Hyperlipidemia, unspecified] Onset: 03-25-2024 03-25-2024 Chronic Immunizations and screening for infectious disease (1 source) Encounter for immunization; Translations: [Encounter for immunization] Onset: 02-26-2025 Episodic Mycoses (1 source) Tinea pedis; Translations: [Tinea pedis] 06-27-2024 Episodic Osteoarthritis (2 sources) Osteoarthritis of joint of right wrist; Translations: [Primary osteoarthritis, right wrist] 01-24-2023 Chronic Other male genital disorders (1 source) Male erectile dysfunction, unspecified; Translations: [ED (erectile dysfunction) of organic origin] Onset: 02-26-2025 Chronic Other nervous system disorders (1 source) [...] limb; Translations: [Effusion, left wrist] 03-25-2024 Episodic Other screening for suspected conditions (not mental disorders or infectious disease) (20 sources) Patient encounter status; Translations: [Encounter for screening for malignant neoplasm of colon] Onset: 03-25-2024 03-25-2024 Episodic Other skin disorders (1 source) Sebaceous cyst; Translations: [Sebaceous cyst] Onset: 02-26-2025 Episodic Other upper respiratory disease (1 source) Other seasonal allergic rhinitis; Translations: [Seasonal allergic rhinitis, unspecified trigger] Onset: 02-26-2025 Chronic Residual codes; unclassified (3 sources) Tobacco user; Translations: [Tobacco use] 06-02-2024 Episodic Skin and subcutaneous tissue infections (1 source) Wound cellulitis; Translations: [Cellulitis, unspecified] 03-20-2024 Episodic Spondylosis; intervertebral disc disorders; other back problems (4 sources) Disorder of lumbar disc; Translations: [Bulging of lumbar intervertebral disc] 01-26-2025 Chronic Spondylosis; intervertebral disc disorders; other back problems (11 sources) Lumbar radiculopathy; Translations: [Radiculopathy, lumbar region] Onset: 01-30-2025 Episodic Spondylosis; intervertebral disc disorders; other back problems (4 sources) Spondylosis; intervertebral disc disorders; other back problems Sprains and strains (4 sources) Shoulder strain; Translations: [Strain of unspecified muscle, fascia and tendon at shoulder and upper arm level, right arm, initial encounter] 08-31-2020 Episodic Substance-related disorders (9 sources) Nicotine dependence; Translations: [Nicotine dependence, unspecified, uncomplicated] Onset: 03-26-2019 08-20-2024 Chronic Unclassified (3 sources) M21.371 - Foot drop, right foot,M54.16 - Radiculopathy, lumbar region Unclassified (1 source) Degeneration of intervertebral disc of lumbar region, unspecified whether pain present; Translations: [Degeneration of intervertebral disc of lumbar region, unspecified whether pain present] Onset: 02-26-2025 Unclassified (1 source) Post Op Onset: 10-02-2024 Unclassified (1 source) Low back pain, unspecified; Translations: [Low back pain, unspecified] Onset: 01-29-2025 Past or Other Problems Problem Classification Problem Date Documented Date Episodic/Chronic Abdominal hernia (20 sources) Umbilical hernia; Translations: [Umbilical hernia without obstruction or gangrene] Onset: 09-13-2015 09-13-2015 Episodic Other infections; including parasitic (20 sources) [...] left wrist; Translations: [Wrist swelling, left] Onset: 06-16-2024 Episodic Residual codes; unclassified (20 sources) FH: [...] Test Name Value Interpretation Reference Range Facility MRSA/SAID NASAL SCREENon MRSA+SAID SCRN Reason for Exam: Adam peewee MRSA MRSA Negative S. AUREUS S. aureus Negative Normal [facility] Comment on above: Performed By: #### M 100.651, BTSPAT ####[facility] [id number] [place], [address] Magnesiumon 02-27-2025 Magnesium [Mass/Vol] 2.2 mg/dL Normal 1.5-2.2 [facility] Comment on above: Performed By: #### L 501.5200 #### [facility] Laboratory [address] [place], [place], [address] Type AND Screen - PAT ONLYon 02-27-2025 Ab SCREEN GEL Negative Normal [facility] Comment on above: Order Comment: Surge ry Date: 03/04/25Reason for Laboratory Test [id number] LUMBAR FUSION Performed By: #### M 100.651, BTSPAT ####[facility] [id number] [place], [place], [address] ABO and Rh group Nom (Bld) Blood group B Rh(D) negative Normal [facility] Comment on above: Order Comment: Surge ry Date: 03/04/25Reason for Laboratory Test [id number] LUMBAR FUSION Performed By: #### M 100.651, BTSPAT ####[facility] [id number] [place], [place], [address] CBC W Auto Differential pane l (Bld)on 02-26-2025 Basophils (Bld) [#/Vol] 0.04 10*3/uL Normal <0.11 [facility] Comment on above: Order Comment: Speci men Type: BLOOD SPECIMENOrdering Facility: [facility] Address: [address] [place] [address] Performed By: #### 5 7021-8 ####[facility] LABCLIA [id number] [place] [address] [place] Basophils/100 WBC (Bld) 0.4 % Normal [facility] Comment on above: Order Comment: Speci men Type: BLOOD SPECIMENOrdering Facility: [facility] Address: [address] [place] [address] Performed By: #### 5 7021-8 ####[facility] LABCLIA [id number] [place] [address] [place] Differential cell count method Nom (Bld) Auto Normal [facility] Comment on above: Order Comment: Speci men Type: BLOOD SPECIMENOrdering Facility: [facility] Address: [address] [place] [address] Performed By: #### 5 7021-8 ####[facility] LABCLIA [id number] [place] [address] [place] Eosinophils (Bld) [#/Vol] 0.40 10*3/uL Normal <0.46 [facility] Comment on above: Order Comment: Speci men Type: BLOOD SPECIMENOrdering Facility: [facility] Address: [address] [place] [address] Performed By: #### 5 7021-8 ####[facility] LABCLIA [id number] [address] [place] Eosinophils/100 WBC (Bld) 4.0 % Normal [facility] Comment on above: Order Comment: Speci men Type: BLOOD SPECIMENOrdering Facility: [facility] Address: [address] [place] [address] Performed By: #### 5 7021-8 ####[facility] LABCLIA [id number] [place] [address] [place] Erythrocyte distribution width (RBC) [Ratio] 13.6 % Normal 11.5-15.0 [facility] Comment on above: Order Comment: Speci men Type: BLOOD SPECIMENOrdering Facility: [facility] Address: [address] [place] [address] Performed By: #### 5 7021-8 ####[facility] LABCLIA [id number] [address] [place] Hematocrit (Bld) [Volume fraction] 47.3 % Normal 39.0-51.0 [facility] Comment on above: Order Comment: Speci men Type: BLOOD SPECIMENOrdering Facility: [facility] Address: [address] [place] [address] Performed By: #### 5 7021-8 ####[facility] LABCLIA [id number] [place] [address] [place] Hemoglobin (Bld) [Mass/Vol] 15.9 g/dL Normal 13.0-17.0 [facility] Comment on above: Order Comment: Speci men Type: BLOOD SPECIMENOrdering Facility: [facility] Address: [address] [place] [address] Performed By: #### 5 7021-8 ####[facility] LABCLIA [id number] [place] [address] [place] Immature granulocytes (Bld) [#/Vol] 0.04 10*3/uL Normal <0.10 [facility] Comment on above: Order Comment: Speci men Type: BLOOD SPECIMENOrdering Facility: [facility] Address: [address] [place] [address] Performed By: #### 5 7021-8 ####[facility] LABCLIA [id number] [place] [address] [place] Immature granulocytes/100 WBC (Bld) 0.4 % Normal [facility] Comment on above: Order Comment: Speci men Type: BLOOD SPECIMENOrdering Facility: [facility] Address: [address] [place] [address] Performed By: #### 5 7021-8 ####[facility] LABCLIA [id number] [place] [address] [place] Lymphocytes (Bld) [#/Vol] 1.95 10*3/uL Normal 1.00-4.00 [facility] Comment on above: Order Comment: Speci men Type: BLOOD SPECIMENOrdering Facility: [facility] Address: [address] [place] [address] Performed By: #### 5 7021-8 ####[facility] LABCLIA [id number] [place] [address] [place] Lymphocytes/100 WBC (Bld) 19.4 % Normal [facility] Comment on above: Order Comment: Speci men Type: BLOOD SPECIMENOrdering Facility: [facility] Address: [address] [place] [address] Performed By: #### 5 7021-8 ####[facility] LABIA [id number] MCH (RBC) [Entitic mass] 29.8 pg Normal 26.0-34.0 [facility] Comment on above: Order Comment: Speci men Type: BLOOD SPECIMENOrdering Facility: [facility] Address: [address] [place] [address] Performed By: #### 5 7021-8 ####[facility] LABIA [id number] [address] [place] MCHC (RBC) [Mass/Vol] 33.6 g/dL Normal 30.5-36.0 [facility] Comment on above: Order Comment: Speci men Type: BLOOD SPECIMENOrdering Facility: [facility] Address: [address] [place] [address] Performed By: #### 5 7021-8 ####[facility] LABIA [id number] [address] [place] MCV (RBC) [Entitic vol] 88.7 fL Normal 80.0-100.0 [facility] Comment on above: Order Comment: Speci men Type: BLOOD SPECIMENOrdering Facility: [facility] Address: [address] [place] [address] Performed By: #### 5 7021-8 ####[facility] LABCLIA [id number] [place] [address] [place] Monocytes (Bld) [#/Vol] 0.79 10*3/uL Normal <0.87 [facility] Comment on above: Order Comment: Speci men Type: BLOOD SPECIMENOrdering Facility: [facility] Address: [address] [place] [address] Performed By: #### 5 7021-8 ####[facility] LABCLIA [id number] [place] [address] [place] Monocytes/100 WBC (Bld) 7.9 % Normal [facility] Comment on above: Order Comment: Speci men Type: BLOOD SPECIMENOrdering Facility: [facility] Address: [address] [place] [address] Performed By: #### 5 7021-8 ####[facility] LABCLIA [id number] [place] [address] [place] Neutrophils (Bld) [#/Vol] 6.84 10*3/uL Normal 1.45-7.50 [facility] Comment on above: Order Comment: Speci men Type: BLOOD SPECIMENOrdering Facility: [facility] Address: [address] [place] [address] Performed By: #### 5 7021-8 ####[facility] LABCLIA [id number] [place] [address] [place] Neutrophils/100 WBC (Bld) 67.9 % Normal [facility] Comment on above: Order Comment: Speci men Type: BLOOD SPECIMENOrdering Facility: [facility] Address: [address] [place] [address] Performed By: #### 5 7021-8 ####[facility] LABCLIA [id number] [place] [address] [place] Nucleated RBC (Bld) [#/Vol] 10*3/uL Normal <0.01 [facility] Comment on above: Order Comment: Speci men Type: BLOOD SPECIMENOrdering Facility: [facility] Address: [address] [place] [address] Performed By: #### 5 7021-8 ####[facility] LABCLIA [id number] [place] [address] [place] Nucleated RBC/100 WBC (Bld) [Ratio] 0.0 /100 WBC Normal [facility] Comment on above: Order Comment: Speci men Type: BLOOD SPECIMENOrdering Facility: [facility] Address: [address] [place] [address] Performed By: #### 5 7021-8 ####[facility] LABCLIA [id number] [place] [address] [place] Platelet mean volume (Bld) [Entitic vol] 10.9 fL Normal 9.0-12.7 [facility] Comment on above: Order Comment: Speci men Type: BLOOD SPECIMENOrdering Facility: [facility] Address: [address] [place] [address] Performed By: #### 5 7021-8 ####[facility] LABCLIA [id number] [place] [address] [place] Platelets (Bld) [#/Vol] 306 10*3/uL Normal 150-400 [facility] Comment on above: Order Comment: Speci men Type: BLOOD SPECIMENOrdering Facility: [facility] Address: [address] [place] [address] Performed By: #### 5 7021-8 ####[facility] LABCLIA [id number] [place] [address] [place] RBC (Bld) [#/Vol] 5.33 10*6/uL Normal 4.20-6.00 [facility] Comment on above: Order Comment: Speci men Type: BLOOD SPECIMENOrdering Facility: [facility] Address: [address] [place] [address] Performed By: #### 5 7021-8 ####[facility] LABCLIA [id number] [place] [address] [place] WBC (Bld) [#/Vol] 10.06 10*3/uL Normal 3.70-11.00 [facility] Comment on above: Order Comment: Speci men Type: BLOOD SPECIMENOrdering Facility: [facility] Address: [address] [place] [address] Performed By: #### 5 7021-8 ####[facility] LABCLIA [id number] [place] [address] [place] CNOVon 02-26-2025 [facility] CECILIA MARTIN ([id number]) 1965 M Date Time Provider Department 02/26/25 8:00 AM JANEL MCGOVERN During your visit today, we recorded the following information about you: Pulse Blood pressure Weight 74/minute 128/78 84.4 kg Janel Mcgovern, CREATIVE WRITING TEACHER.ALLIANCE CONSULTANT 02/27/2025 7:55 AM Addendum PRE-OPERATIVE ASSESSMENT _ Surgeon: Dr. Lopez Type of surgery: 360 lumbar fusion L 4-5 Patient scheduled for surgery on 03/04/25. Diagnosis:L5 Consultation requested by Dr. Lopez for an opinion regarding pre-op exam. My final recommendations will be communicated back to the requesting physician by way of shared Medical record or letter to requesting physician via US mail. Patient presents with: Pre-Op Exam: 360 Lumbar Fusion L4-5 on 03/04/25 HISTORY: Pt. Was camping about 2 months ago and awoke with right foot drop. Occasional back ache. Allergies: Adhesive Rash Comment:Blistering of skin from adhesive Current Outpatient Medications Medication Sig Protein Supplement liqd Take by mouth as needed. No current facility-administered medications for this visit. MEDICATIONS AND ALLERGIES REVIEWED. 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 RESP: Denies dyspnea, chronic cough, asthma, bronchitis, COPD, emphysema, and URI < 2 weeks ago. CARD: Patient denies any dyspnea, recent [place], angina, arrhythmias, or valvular disease,, Denies h/o DVT or PE., + HTN, and + hyperlipidemia GI: Patient denies any history of GERD, PUD, liver problems or ETOH abuse., Patient denies any history of IBD, IBS, colitis, colorectal cancer, or diarrheal states. : No history of disease. ED+ RENAL: Denies history of renal insufficiency. ENDO: no history of diabetes, no history of thyroid problems, finished short- term steroid for foot drop HEME: patient denies bleeding, bruising easily, no history of anemia and no history of prior transfusion PSYCHIATRIC: denies history of psychiatric illness and denies eating disorders, denies a history of abuse ANESTHESIA COMPLICATIONS: no reported complications Past Surgical History PAST SURGICAL HISTORY Procedure Laterality Date LAPS REPAIR HERNIA EXCEPT INCAL/INGUN REDUCIBLE 11/30/2015 LAPS SURG RPR RECURRENT INGUINAL HERNIA Left 11/30/2015 REPAIR INGUINAL HERNIA Bilateral 09/03/2024 open repair of left side with mesh AND robotic repair of right side with mesh RPR 1ST INGUN HRNA AGE 3 YRS/> REDUCIBLE 01/12/1990 [place]? - ?right RPR 1ST INGUN HRNA AGE 3 YRS/> REDUCIBLE as child pediatric type uncertain VASECTOMY UNI/BI SPX W/POSTOP SEMEN EXAMS PHYSICAL EXAM: Wt 84.4 kg (186 lb) BMI 25.23 kg/m? Physical Exam GENERAL: Healthy, alert, no distress, cooperative, Smiling SKIN: Skin color, texture, turgor normal. No rashes or lesions. HEENT: PERRL, EOMI, and normal dentition JVD: No jugulovenous distention, No carotid bruits, Carotid pulse normal contour, Supple CARDIAC: Normal S1 and S2; no rubs, murmurs, or gallops LUNGS: Lungs clear to auscultation, Good diaphragmatic excursion ABDOMEN: Abdomen soft, non-tender, BS normal, No masses or organomegaly EXTREMITIES: Extremities normal, no deformities, edema, clubbing or skin discoloration. Good capillary refill., No ulcers NEURO: Cranial nerves II-XII intact, right foot drop PULSES: 2+ radial, 2+ carotid : not examined/not indicated. EKG: Date: 02/26/25 Results: NSR IMPRESSION: ASSESSMENT/PLAN: 1. Pre-op exam - ICD9: V72.84, ICD10: Z01.818 Optimized for surgery pending lab results - ECG COMPLETE - Complete labs panel checked Cecilia Martin is a 59 year old male. functional class of IV History: There is no known pertinent medical condition which may affect kenna-operative course Patient has no clinical predictors of increased perioperative cardiovascular risk. Patient is scheduled for a intermediate/high-risk procedure. RECOMMENDATIONS: Take the following medications the morning of surgery with a small sip of water: none To Stop NSAID's (e.g. Motrin,Aleve,Arthrotec etc) 7 days before surgery. To Stop Aspirin 7 days before surgery. This patient is optimally prepared for surgery 2. Sebaceous cyst - ICD9: 706.2, ICD10: L72.3 Chronic- non-inflamed - CEPHALEXIN 500 MG CAPSULE 2 x day for 5 days to eliminate any possible infection- will ask derm to see pt. For removal eventually - CONSULT TO DERMATOLOGY - COMPLETE BLOOD COUNT AND DIFFERENTIAL 3. Degeneration of intervertebral disc of lumbar region, u (more content not included)... Normal [facility] CECILIA MARTIN ([id number]) 1965 M Date Time Provider Department 02/26/25 JANEL MCGOVERN [facility] During your visit today, we recorded the following information about you: Aicha Aleman LPN 02/26/2025 4:03 PM Signed Mónica from [facility] calling asking for copy of EKG and labs to be faxed to [phone]. Labs in process, printed EKG and faxed as requested. Allergies As of Date: 02/26/2025 Noted Allergy Reaction ADHESIVE 12/09/2015 2 - Rash Comments: Blistering of skin from adhesive Date Reviewed: 02/26/2025 Reviewed by: Andra Leung MA - Fully Assessed Reason for Visit: [facility] requesting records [Other] Prescriptions as of 02/26/2025 - Tadalafil (CIALIS) 20 mg tablet Take 1 tablet by mouth once daily as needed. Take 1-2 hours before sexual activity. - cephALEXin (KEFLEX) 500 mg capsule Take 1 capsule by mouth two times a day for 5 days. - fluticasone (FLONASE) 50 mcg/actuation nasal spray Use 2 sprays in each nostril once daily as needed for cold/allergy symptoms. Rinse mouth after use. - Protein Supplement liqd Take by mouth as needed. Meds Comments as of 11/10/2015: No Routine Rx, otc or supplements Problem List As Of Date 02/26/2025 Noted Resolved Umbilical hernia without obstruction and withou*09/13/2015 Renal calculi [N20.0] 11/19/2015 Unilateral inguinal hernia without obstruction *11/19/2015 Nicotine dependence with current use [F17.200] 03/26/2019 Family history of premature CAD [Z82.49] 03/26/2019 Acute Lyme disease with largest skin lesion of *02/03/2020 Screening for colon cancer [Z12.11] 04/28/2024 Coronary artery calcification [I25.10] 08/20/2024 Centrilobular emphysema (HCC) [J43.2] 08/20/2024 Encounter Status:Closed by AICHA ALEMAN on 02/26/25 Normal [facility] Comprehensive metabolic 2000 panelon 02-26-2025 Albumin [Mass/Vol] 4.3 g/dL Normal 3.9-4.9 [facility] Comment on above: Order Comment: Speci men Type: BLOOD SPECIMENOrdering Facility: [facility] Address: [address] [place] [address] Performed By: #### 2 4323-8, WEN, 3016-3 ####[facility] LABCLIA [id number] [place] [address] [place] ALP [Catalytic activity/Vol] 122 U/L High 38-113 [facility] Comment on above: Order Comment: Speci men Type: BLOOD SPECIMENOrdering Facility: [facility] Address: [address] [place] [address] Performed By: #### 2 4323-8, LIPNF, 3016-3 ####[facility] LABCLIA [id number] [place] [address] [place] ALT [Catalytic activity/Vol] 29 U/L Normal 10-54 [facility] Comment on above: Order Comment: Speci men Type: BLOOD SPECIMENOrdering Facility: [facility] Address: [address] [place] [address] Performed By: #### 2 4323-8, LIPNF, 6-3 ####[facility] LABCLIA [id number] [place] [address] [place] Anion gap [Moles/Vol] 11 mmol/L Normal 8-15 [facility] Comment on above: Order Comment: Speci men Type: BLOOD SPECIMENOrdering Facility: [facility] Address: [address] [place] [address] Performed By: #### 2 4323-8, LIPNF, 3016-3 ####[facility] LABCLIA [id number] [place] [address] [place] AST [Catalytic activity/Vol] 24 U/L Normal 14-40 [facility] Comment on above: Order Comment: Speci men Type: BLOOD SPECIMENOrdering Facility: [facility] Address: [address] [place] [address] Performed By: #### 2 4323-8, LIPNF, 3016-3 ####[facility] LABCLIA [id number] [place] [id number] [place] Bilirubin [Mass/Vol] 0.2 mg/dL Normal 0.2-1.3 [facility] Comment on above: Order Comment: Speci men Type: BLOOD SPECIMENOrdering Facility: [facility] Address: [address] [place] [address] Performed By: #### 2 4323-8, LIPNF, 6-3 ####[facility] LABCLIA [id number] [place] [address] [place] Calcium [Mass/Vol] 9.8 mg/dL Normal 8.5-10.2 [facility] Comment on above: Order Comment: Speci men Type: BLOOD SPECIMENOrdering Facility: [facility] Address: [address] [place] [address] Performed By: #### 2 4323-8, LIPNF, 3015-3 ####[facility] LABCLIA [id number] [place] [address] [place] Chloride [Moles/Vol] 102 mmol/L Normal 98-107 [facility] Comment on above: Order Comment: Speci men Type: BLOOD SPECIMENOrdering Facility: [facility] Address: [address] [place] [address] Performed By: #### 2 4323-8, LIPNF, 3015-3 ####[facility] LABCLIA [id number] [place] [address] [place] CO2 [Moles/Vol] 25 mmol/L Normal 22-30 [facility] Comment on above: Order Comment: Speci men Type: BLOOD SPECIMENOrdering Facility: [facility] Address: [address] [place] [address] Performed By: #### 2 4323-8, LIPNF, 6-3 ####[facility] LABCLIA [id number] [place] [id number] [place] Creatinine [Mass/Vol] 0.67 mg/dL Low 0.73-1.22 [facility] Comment on above: Order Comment: Speci men Type: BLOOD SPECIMENOrdering Facility: [facility] Address: [address] [place] [address] Performed By: #### 2 4323-8, LIPNF, 6-3 ####[facility] LABCLIA [id number] [place] [address] [place] eGFRcr SerPlBld CKD-EPI 2020 106 mL/min/1.73m??? Normal >=60 [facility] Comment on above: Order Comment: Rufus brewer Type: BLOOD SPECIMENOrdering Facility: [facility] Address: [address] [place] [address] Result Comment: Lubna mated Glomerular Filtration Rate [...] accurately reflect actual GFR. Performed By: #### 2 4323-8, WEN, 3016-3 ####[facility] LABIA [id number] [place] [address] [place] Glucose [Mass/Vol] 84 mg/dL Normal 74-99 [facility] Comment on above: Order Comment: Rufus brewer Type: BLOOD SPECIMENOrdering Facility: [facility] Address: [address] [place] [address] Result Comment: The [place] Diabetes Association (ADA) provides guidance for cutoff [...] Standards of Medical Care in Diabetes 2016, [place] Diabetes Association. Diabetes Care. 2016.39(Suppl 1). Performed By: #### 2 4323-8, LIPNF, 3016-3 ####[facility] LABCLIA [id number] [place] [id number] [place] Potassium [Moles/Vol] 4.3 mmol/L Normal 3.7-5.1 [facility] Comment on above: Order Comment: Speci men Type: BLOOD SPECIMENOrdering Facility: [facility] Address: [address] [place] [address] Performed By: #### 2 4323-8, LIPNF, 6-3 ####[facility] LABCLIA [id number] [place] [address] [place] Protein [Mass/Vol] 7.1 g/dL Normal 6.3-8.0 [facility] Comment on above: Order Comment: Speci men Type: BLOOD SPECIMENOrdering Facility: [facility] Address: [address] [place] [address] Performed By: #### 2 4323-8, LIPNF, 3015-3 ####[facility] LABCLIA [id number] [place] [address] [place] Sodium [Moles/Vol] 138 mmol/L Normal 136-144 [facility] Comment on above: Order Comment: Speci men Type: BLOOD SPECIMENOrdering Facility: [facility] Address: [address] [place] [address] Performed By: #### 2 4323-8, LIPNF, 3015-3 ####[facility] LABCLIA [id number] [place] [address] [place] Urea nitrogen [Mass/Vol] 22 mg/dL Normal 9-24 [facility] Comment on above: Order Comment: Speci men Type: BLOOD SPECIMENOrdering Facility: [facility] Address: [address] [place] [address] Performed By: #### 2 4323-8, LIPNF, 6-3 ####[facility] LABCLIA [id number] [place] [id number] [place] ECG COMPLETEon 02-26-2025 ECG COMPLETE Ventricular Rate : 7 3 BPM Atrial Rate : 73 BPM P-R Interval : 144 ms QRS Duration : 88 ms Q-T Interval : 368 ms QTC Calculation(Bazett) : 405 ms Calculated P [place] : 44 degrees Calculated R [place] : 22 degrees Calculated T [place] : 44 degrees NORMAL SINUS RHYTHM NORMAL ECG Confirmed by MD HUFF QARAB ([id number]) on 02/27/2025 11:01:03 AM NAME : CECILIA MARTIN PID : [id number] : 1965 Gender : Male Race : ORD : [id number] Procedure Date : Feb 26 2025 07:50:34 Edit Date : Feb 27 2025 11:01:05 Diagnosis: NORMAL SINUS RHYTHM NORMAL ECG Confirmed by MD HUFF QARAB ([id number]) on 02/27/2025 11:01:03 AM Test Reason : Z01.818 Pre-op exam Location : 185 : [facility] Overread By : MD HUFF QARAB Edited By : MD HUFF QARAB Referred By : , Acquired by : [id number], Normal [facility] HbA1c (Bld)on 02-26-2025 Average glucose Estimated from glycated hemoglobin (Bld) [Mass/Vol] 108 mg/dL Normal [facility] Comment on above: Order Comment: Rufus brewer Type: BLOOD SPECIMENOrdering Facility: [facility] Address: [address] [place] [address] Result Comment: eAG: (Estimated average glucose) is a calculated value from HgbA1c and is advertising sales representative of the average blood glucose level in the last 2-3 month period. Performed By: #### 5 5454-3 ####[facility] LABCLIA [id number] [place] [address] [place] HbA1c (Bld) [Mass fraction] 5.4 % Normal 4.3-5.6 [facility] Comment on above: Order Comment: Rufus brewer Type: BLOOD SPECIMENOrdering Facility: [facility] Address: [address] [place] [address] Result Comment: Amer [place] Diabetes Association guidelines indicate that patients with HgbA1c in the range 5.7-6.4% are at increased risk for development of diabetes, and intervention by lifestyle modification may be beneficial. HgbA1c greater or equal to 6.5% is considered diagnostic of diabetes. Performed By: #### 5 5454-3 ####[facility] LABCLIA [id number] [address] OF [place] LIPID PANEL, NONFASTINGon Cholesterol [Mass/Vol] 182 mg/dL Normal <200 [facility] Comment on above: Order Comment: Speci men Type: BLOOD SPECIMENOrdering Facility: [facility] Address: [address] [place] [address] Result Comment: <200 mg/dL, Desirable 200-239 mg/dL, Borderline high >239 mg/dL, High Performed By: #### 2 4323-8, LIPNF, 6-3 ####[facility] LABCLIA [id number] [address] OF [facility] HDL CHOLESTEROL, NF 43 mg/dL Normal >39 [facility] Comment on above: Order Comment: Speci men Type: BLOOD SPECIMENOrdering Facility: [facility] Address: [address] [place] [address] Result Comment: 40-5 9 mg/dL, Acceptable >59 mg/dL, High: Negative risk factor for coronary heart disease <40 mg/dL, Low: Positive risk factor for coronary heart disease Performed By: #### 2 4323-8, LIPNF, 6-3 ####[facility] LABCLIA [id number] [address] STATES [facility] LDL CHOLESTEROL CALCULATED, NF 112 mg/dL High <100 [facility] Comment on above: Order Comment: Speci men Type: BLOOD SPECIMENOrdering Facility: [facility] Address: [address] [place] [address] Result Comment: <100 mg/dL, Optimal 100-129 mg/dL, Near optimal/above optimal 130-159 mg/dL, Borderline high 160-189 mg/dL, High >189 mg/dL, Very high Secondary prevention optimal LDL Cholesterol levels are recommended to be <70 mg/dL LDL cholesterol is calculated using the Thompson-NIH equation. Performed By: #### 2 4323-8, LIPNF, 3016-3 ####[facility] LABCLIA [id number] [address] [place] LDL/HDL RATIO, NF 2.60 mg/dL High <2.54 [facility] Comment on above: Order Comment: Jossei daniella Type: BLOOD SPECIMENOrdering Facility: [facility] Address: [address] [place] [address] Result Comment: Refe bipince: 1. National Cholesterol Education Program ATP III Guideline At-A-Glance Quick Desk Reference: National Heart, Lung, and Blood [place]. National Institutes of Health. 2001: NIH Publication No. 01-3305. 2. An International Atherosclerosis Society position paper: global recommendations for the management of dyslipidemia: executive summary, Atherosclerosis. 2014: 232(2):410-413. Performed By: #### 2 4323-8, LIPNF, 6-3 ####[facility] LABCLIA [id number] [address] [place] NON HDL CHOL, NF 139 mg/dL High <130 [facility] Comment on above: Order Comment: Rufus brewer Type: BLOOD SPECIMENOrdering Facility: [facility] Address: [address] [place] [address] Result Comment: <130 mg/dL, Optimal 130-159 mg/dL, Near optimal/above optimal 160-189 mg/dL, Borderline high 190-219 mg/dL, High >219 mg/dL, Very high Secondary prevention optimal non HDL Cholesterol levels are recommended to be <100 mg/dL Performed By: #### 2 4323-8, LIPNF, 6-3 ####[facility] LABCLIA [id number] [address] [place] T CHOL/HDL RATIO NF 4.23 mg/dL Normal <5.10 [facility] Comment on above: Order Comment: Jossei daniella Type: BLOOD SPECIMENOrdering Facility: [facility] Address: [address] [place] [address] Performed By: #### 2 4323-8, LIPNF, 6-3 ####[facility] LABCLIA [id number] [place] [address] [place] TRIGLYCERIDES, NF 152 mg/dL High <150 [facility] Comment on above: Order Comment: Speci men Type: BLOOD SPECIMENOrdering Facility: [facility] Address: [address] [place] [address] Result Comment: <150 mg/dL, Normal 150-199 mg/dL, Borderline high 200-499 mg/dL, High >499 mg/dL, Very high Performed By: #### 2 4323-8, LIPNF, 3016-3 ####[facility] LABCLIA [id number] [place] [address] [place] VLDL CHOLESTEROL, NF 26 mg/dL Normal <30 [facility] Comment on above: Order Comment: Speci men Type: BLOOD SPECIMENOrdering Facility: [facility] Address: [address] [place] [address] Performed By: #### 2 4323-8, LIPNF, 3015-3 ####[facility] LABCLIA [id number] [place] [address] [place] PSA/PROSTATE SPECIFIC ANTIGE N SCREENINGon 02-26-2025 Prostate specific Ag [Mass/Vol] 1.52 ng/mL Normal <2.60 [facility] Comment on above: Order Comment: Speci men Type: BLOOD SPECIMENOrdering Facility: [facility] Address: [address] [place] [address] Result Comment: Tota l PSA test methodology used is the Electrochemiluminescence Immunoassay by [employer]. Total PSA values by differing methodologies cannot be interchanged. Performed By: #### P SAS1 ####[facility] LABCLIA [id number] [place] [address] [place] TSH SerPl-aCncon 02-26-2025 TSH Qn 3.380 m[IU]/L Normal 0.270-4.200 [facility] Comment on above: Order Comment: Speci men Type: BLOOD SPECIMENOrdering Facility: [facility] Address: [address] [place] [address] Performed By: #### 2 4323-8, LIPNF, 6-3 ####[facility] LABCLIA [id number] [place] [id number] [place] aPTT PPPon 02-26-2025 aPTT Coag (PPP) [Time] 23.6 s Normal 23.0-32.4 [facility] Comment on above: Order Comment: Speci men Type: BLOOD SPECIMENOrdering Facility: [facility] Address: [address] [place] [address] Result Comment: Froz en Plasma Aliquot Performed By: #### 1 4979-9 ####[facility] LABCLIA [id number] [place] [id number] [place] Orthopedic Visit Reporton Orthopedic Visit Report [facility] [address] [place] [address] OFFICE VISIT Date of Service: 02/23/25 MR#: [id number] Acct: [id number] Name: CECILIA MARTIN Rep #: [id number] : 1965 Provider: Dr. Yvan Lopez MD Age/Sex: 59/M Location: [facility] Status: Signed Intake Vital Signs 01/30/25 10:36 02/23/25 14:32 Height 6 ft 6 ft Weight: 189 lb BMI 25.6 Intake Visit Reasons: lumbar spine Chief Complaint: Lumbar spine pre op Accompanied by: Is patient in pain?: Yes Pain scale (1-10): 1 Allergies No Known Allergies Allergy (Verified 02/23/25 14:33) Medications ???Medication ???Instructions ???Recorded ???Confirmed ???Type acetaminophen 500 mg tablet 500 mg PO Q6H PRN 02/13/25 5 History (Tylenol Extra Strength) ibuprofen 200 mg tablet 200 mg PO Q6H PRN 02/13/25 5 History soy protein ea PO 02/13/25 02/23/25 History Have you fallen in the past year?: No PFSH Medical History Hernia Family History Mother No problems noted. Father No problems noted. Social History Smoking Status: Heavy Smoker (>10/day) HPI lumbar spine Details: This documentation accurately reflects the service provided and the decisions made by me, Dr. Yvan Lopez MD 02/23/25 [id number]. Part of today???s visit was documented by Krystle Fairbanks MA, acting as scribe. CECILIA MARTIN is a 59 year old M here today for lumbar spine pre op. Patient states that his pain is a 1 today. He states that he hasn't had any injections in his lower back. Patient has done physical therapy at [facility]. He states that he has done 3 sessions of physical therapy. Patient thinks it's helping a little bit. He would like to know how long he should wait when he can drive again. The patient is a 59-year-old male presenting with right foot drop. The foot drop was first noticed after a late-night incident where the patient experienced a sensation of his legs being asleep, followed by an inability to move his right foot properly. He reports no prior significant back problems, only occasional back pain from lifting at work, and denies any history of sciatica or leg pain. The patient has not experienced any falls but reports frequent stumbling due to the foot drop, particularly on rugs or steps. He has been advised to use a foot drop brace, but has not yet been f itted for one. The patient denies any pain in the right leg but mentions occasional hip discomfort, which has since resolved. He reports tingling in the right leg but denies any diabetes or neuropathy. The patient has a history of tobacco use, smoking approximately a pack a day, and is attempting to quit using nicotine gum. - Neurological: Reports right foot drop and tingling in the right leg. Denies any falls, headaches, or dizziness. - Musculoskeletal: Reports occasional hip discomfort, now resolved. Denies any leg pain or sciatica. - Endocrine: Denies diabetes. Attestation: Documentation on this patient encounter was supported using ambient scribe technology/ voice AI technology. The patient consented to recording for the purpose of documenting the encounter. Provider reviewed content of the generated note prior to signature. 02/13/25: CECILIA MARTIN is a 59 year old M here today for MRI lumbar spine DOS: 02/03/25 results. Intermittent low back achiness. Denies right leg pain. Continues right drop foot unchanged. No new injuries. Right foot numbness and tingling continues unchanged. Tylenol and Advil taken as needed with positive effect. He also has right lateral lower leg numbness which has continued. HPI 01/30/25 lumbar spine. Patient states that his pain is a 1 today. He states that he is having pain in his right leg. Patient states that he isn't having any pain in his lower back. He states that there isn't really pain, it just feels odd. Patient states that this has been going on for a couple days. He states that there is no injury. Patient states that he went to the ER Sunday night 01/25/2025. He states that he went to [place] er for his drop foot. The er did a cat scan. The Cat scan showed some degenerative changes. The er doctor sent a referral to us to get an MRI done. Patient states that he hasn't had any surgeries on his lower back. He states that he hasn't had any injuries. Patient states that he doesn't have any back pain. There is nothing that makes it worse. Patient states that he hasn't had any injections in he lower back. He hasn't tried any physical therapy. Patient states that he doesn't have any diabetes, or blood thinners. No heart or lung issues. Patien (more content not included)... Normal [facility] NCS and/or EMG Patienton NCS and/or EMG Patient [facility] Services/Neurology [address] [place] [address] MR#: [id number] Acct: [id number] Name: CECILIA MARTIN Rep #: [id number] : 1965 59 From: Jordan Owen MD Referring Dr: Status: PRE IN Location: [facility] Date: Sex: M C NCS and/or EMG Patient Report Ordering Doctor: Ellen Montez DATE OF SERVICE: 02/18/25 Cecilia presents with complaints of a right foot drop. Electrodiagnostic findings: Right peroneal motor nerve demonstrates borderline prolonged distal latency with normal amplitude and reduced conduction velocity. There is slowing of slightly greater than 10 m/s across the fibular head. Right tibial motor response is within normal limits. Prolonged right sural and superficial peroneal latencies are noted. Needle EMG testing was performed in the right lower limb. 1+ fibrillations noted in the tibialis anterior, peroneus longus and semitendinosis. 1+ fibrillations were noted in the right lower lumbar paraspinals. Motor unit action potentials decreased amplitude with a diminished recruitment pattern noted in the right tibialis anterior. Electrodiagnostic impression: This is an abnormal study. 1. Electrodiagnostic findings are suggestive of an acute right L5 radiculopathy. Recommend correlation with lumbar spine imaging. Multi Select Codes Neurology Neurology Interp Codes: 63305-54 Musc test done w/n test comp (interp) and 65906-88 Nrv cndj tst 5-6 studies (interp) 02/18/25 1443 Date Jordan Owen MD CC: Dr. Jordan Owen MD; Dr. Yvan Lopez MD; Dr. Deepak Cedeño MD Date Dictated: 02/18/251437 Date Transcribed: 02/18/251437 Funding Specialist: [place] Signed Normal [facility] Orthopedic Visit Reporton Orthopedic Visit Report [facility] [address] [place] [address] OFFICE VISIT Date of Service: 02/13/25 MR#: [id number] Acct: [id number] Name: CECILIA MARTIN Rep #: [id number] : 1965 Provider: VADIM Ruiz Age/Sex: 59/M Location: [facility] Status: Signed Intake Vital Signs 01/30/25 10:36 Height 6 ft Weight: 188 lb 4 oz BMI 25.5 Intake Visit Reasons: LUMBAR SPINE Chief Complaint: Lumbar spine pain Flight Attendant Inflight Services Required: No Accompanied by: Is patient in pain?: No Allergies No Known Allergies Allergy (Verified 02/13/25 11:38) Medications ???Medication ???Instructions ???Recorded ???Confirmed ???Type acetaminophen 500 mg tablet 500 mg PO Q6H PRN 02/13/25 5 History (Tylenol Extra Strength) ibuprofen 200 mg tablet 200 mg PO Q6H PRN 02/13/25 5 History soy protein ea PO 02/13/25 02/13/25 History PFSH Medical History Hernia Family History Mother No problems noted. Father No problems noted. Social History Smoking Status: Heavy Smoker (>10/day) HPI LUMBAR SPINE Details: This documentation accurately reflects the service provided and the decisions made by me, VADIM Ruiz 02/13/25 3377. Part of today???s visit was documented by [ ], acting as scribe. CECILIA MARTIN is a 59 year old M here today for MRI lumbar spine DOS: 02/03/25 results. Intermittent low back achiness. Denies right leg pain. Continues right drop foot unchanged. No new injuries. Right foot numbness and tingling continues unchanged. Tylenol and Advil taken as needed with positive effect. He also has right lateral lower leg numbness which has continued. HPI 01/30/25 lumbar spine. Patient states that his pain is a 1 today. He states that he is having pain in his right leg. Patient states that he isn't having any pain in his lower back. He states that there isn't really pain, it just feels odd. Patient states that this has been going on for a couple days. He states that there is no injury. Patient states that he went to the ER Sunday night 01/25/2025. He states that he went to [place] er for his drop foot. The er did a cat scan. The Cat scan showed some degenerative changes. The er doctor sent a referral to us to get an MRI done. Patient states that he hasn't had any surgeries on his lower back. He states that he hasn't had any injuries. Patient states that he doesn't have any back pain. There is nothing that makes it worse. Patient states that he hasn't had any injections in he lower back. He hasn't tried any physical therapy. Patient states that he doesn't have any diabetes, or blood thinners. No heart or lung issues. Patient does smoke, but doesn't do any drugs. Patient states that he has noticed some balance problems. He states that he doesn't use a walker or a cane to help him balance. Says that he noticed some issues with trip and turning his right ankle due to the foot drop. No falls. Numbness on the side of the calf. Hx of inguinal hernia repair, left sided groin incision. Reviewed ER documentation from 01/25/2025 which showed right sided foot drop which is an acute issue for the patient. At first it appeared that the foot drop was partial however when he was seen in the ER it was a complete foot drop. Unfortunately the ER did not do a lumbar MRI. Plan Obtained and reviewed lumbar x-rays today in the clinic. Independent interpretation of the x-rays was performed. Lumbar x-rays show a retrolisthesis of L5 on S1 and a spondylolisthesis of L4 on L5. There is facet arthrosis mildly in the lumbar spine, no acute fractures. There is also some mild disc height loss seen at L5-S1. Reviewed lumbar CT scan from the ER on 01/26/2025 which also showed these findings. Explained imaging findings in detail. At this time due to the patient's 5-day history of an acute foot drop on the right side, an MRI is needed at this time to further assess. The MRI is necessary due to the neurological deficit which was evidenced by the physical exam findings today which showed the grade 0 right sided foot drop. This is consistent with a complete foot drop. The patient also has a right lateral calf numbness and tingling. He denies any other back pain or any other radicular symptoms. Also recommended physical therapy to increase extensor and core strength and stretching and to do some strengthening in the right foot for the foot drop. The patient has been taken the steroid given from the ER as prescribed over the last 5 days without any significant improvement as of yet. He will follow back up with me after the MRI to review the results. Ortho Exam General Genera (more content not included)... Normal [facility] Inital Evaluation (1) - PTon 02-10-2025 Inital Evaluation (1) - PT [facility] Physical Therapy [facility] [address] [place] [address] / REHABILITATION SERVICES INITIAL EVALUATION MR#: [id number] Acct: [id number] Name: CECILIA MARTIN Rep #: [id number] : 1965 59 From: Ferny Cam PT, Cert. MD Riojas, OCS Referring Dr.: VADIM Ruiz Status: REG RCR Insurance: [facility] SELF PAY INSURANCE Patient's Visit Information Visit Information Visit Information: CECILIA MARTIN is a 59 year old M referred to Physical Therapy by VADIM Ruiz with a diagnosis of FOOT DROP ,RIGHT ,RADICULOPATHY LUMBAR. Date of Evaluation: 02/10/25 Physical Therapist: Ferny Cam PT, Cert LEV, OCS Visit Plan Frequency: 2x /Week Duration: 4 Weeks Plan: Patient has right foot drop See MD spine to review MRI PT INTERVENTIONS FLEXABILITY RLE ,RIGHT ANKLE AND LEG STRENGTHENING ,CORE STRENGTHENING ,PROPRIOCEPTION ,MAY RECOMMNEND AFO IF NO IMPROVEMENT Subjective Subjective: This 59 y/o male presents to physical therapy with lumbar radiculopathy right foot drop. Patient developed right leg weakness and foot 2 weeks. Patient sudden right foot drop went to ER . Recommend to see Ortho spine DRPadmini Did Lumbar x-rays show a retrolisthesis of L5 on S1 and a spondylolisthesis of L4 on L5. There is facet arthrosis mildly in the lumbar spine, no acute fractures. There is also some mild disc height loss seen at L5-S1 . Prednisone which has ran out. MRI There is grade 1 spondylolisthesis at L4-5, 0.4 cm.There is mild central canal stenosis at L3-4, moderate central canal stenosis at L4-5, with lateral recess and foraminal narrowing. The L3-L4 level: There is moderate central, mild right and moderate left paracentral disc protrusion. There is mild left lateral recess stenosis. There is mild left foraminal narrowing secondary to disc protrusion and facet hypertrophy. There is mild central canal stenosis.The L4-L5 level: There is moderate central and right and left paracentral disc protrusion. There is moderate bilateral lateral recess stenosis. There is mild bilateral foraminal narrowing secondary to disc protrusion and facet hypertrophy. There is moderate central canal stenosis. C/O right paresthesia/tingling right foot. No pain. Coughing/sneezing-. Bowel.bladder-, Aggravating factors inconclusive .Alleviating factors inconclusive.Patient not sleeping good. Patient has no falls but ankle gives way. 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 Objective Objective: POSTURE:mild forward posture GAIT: reciprocal pattern with steppage gait due to right foot drop NEURO: c/o paresthesia/tingling right foot ,light touch intact ,reflexes L3-4,L4-5,L5--S1 2/3 FLEXABILITY: hamstrings min tight MMT: right quads/hams/hip 4/5 ,( peak force) dorsiflexion 0 ,eversion 0 ,plantarflexion 10.1 ,eversion 9.7 LUMBAR ROM: flexion WFL ,extension mod loss ,side glides min loss Special Tests L/S Slump test left side: Negative L/S Slump test right side: Negative L/S Left Straight Leg Raise: Negative L/S Right Straight Leg Raise: Negative Lumbar Standing: Flexion - Mechanical Response: No effect Lumbar Standing: Flexion - Symptoms During Testing: No effect Lumbar Standing: Flexion - Symptoms After Testing: No effect Lumbar Standing: Extension - Mechanical Response: No effect Lumbar Standing: Extension - Symptoms During Testing: No effect Lumbar Standing: Extension - Symptoms After Testing: No effect Lumbar Standing: Right Side Glides - Mechanical Response: No effect Lumbar Standing: Right Side [place] - Symptoms After Testing: No effect Lumbar Standing: Left Side [place] - Mechanical Response: No effect Lumbar Standing: Left Side [place] - Symptoms After Testing: No effect Balance/Special Test Scores Lower Extremity Functional Score: 38 Goals Goal 1:: Patient to be I with strength to improve foot drop Goal Time Frame: 4-6 Weeks Goal 2:: Patient to improve peak force anterior tibialis and peroneus by 3-5# to improve gait pattern with less foot drop Goal Time Frame: 4-6 Weeks Goal 3:: Patient to demonstrate 50% improve with increase gait Goal Time Frame: 4-6 Weeks Goal 4:: Patient to LFES score by 5 points to improve QOL and gait. Goal Time Frame: 4-6 Weeks Rehabilitation Potential Physical Therapy Diagnosis: This patient had spontaneous episode foot drop 2 weeks ago no pain some minor back pain. Patient has steppage gait due to weakness anterior tibialis ,and peroneus with no activation ,patient could benefit from AFO thus benefit from skilled PT Rehabilitation Potential: Good Anticipated Interventions Patient/Client Instruction: Educate patient on: Condition and Plan of Care For the Purpose of:: To decrease pain, To increase ROM, To improve muscle performance and motor function, To improve ability to perform ADL's, To increase t (more content not included)... Normal [facility] 02-06-2025 [facility] CECILIA MARTIN ([id number]) 1965 M Date Time Provider Department 02/06/25 8:40 AM JANEL MCGOVERN [facility] During your visit today, we recorded the following information about you: Pulse Blood pressure Weight 81/minute 128/80 84.8 kg Janel Mcgovern APRN.[facility] 02/06/2025 9:15 AM Addendum This is a 59 year old male who presents today with: No chief complaint on file. HISTORY OF PRESENT ILLNESS: Cecilia Martin is a 59 year old male. No chief complaint on file. Was seen in ER for lower ext.instability due to sudden onset of right foot drop. Completed 12 day course of prednisone. No improvement. The patient is a 59-year-old male with degenerative disc disease and spondylolisthesis, presenting for evaluation of acute right foot drop and gait instability. Right Foot Drop: - Cecilia Martin experienced onset approximately two weeks ago, with sudden inability to dorsiflex the right foot. - Cecilia reports numbness in the right foot, leading to frequent tripping and falls. - Cecilia is unable to dorsiflex or invert the right foot; can plantarflex and blaise. - Cecilia has a foot drop brace but has not picked it up yet. - Cecilia denies loss of bowel or bladder function. - No significant leg pain, but Cecilia reports aching in the lateral right thigh, attributed to altered gait. Back Pain: - Intermittent back pain for an unspecified duration, with increased severity two days ago. - Pain is not constant; currently Cecilia denies any back pain. - No specific injury reported; Cecilia believes it may be due to cumulative effects of physical activities over time. - Recent CT scan showed nerve impingement and degenerative changes of the sacroiliac joint. - MRI performed recently; Cecilia is awaiting follow-up with a surgeon on the . 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 - Cecilia has been off work since the onset of foot drop due to instability and safety concerns. - Cecilia expresses frustration with inability to drive and perform daily activities safely. PAST MEDICAL HISTORY: PAST MEDICAL HISTORY Diagnosis Date Inguinal hernia Right inguinal, , repaired Lyme disease, acute 11/2019 erythema migrans Renal calculi Umbilical hernia Unilateral inguinal hernia without obstruction or gangrene left PAST SURGICAL HISTORY Procedure Laterality Date LAPS REPAIR HERNIA EXCEPT INCAL/INGUN REDUCIBLE 11/30/2015 LAPS SURG RPR RECURRENT INGUINAL HERNIA Left 11/30/2015 REPAIR INGUINAL HERNIA Bilateral 09/03/2024 open repair of left side with mesh AND robotic repair of right side with mesh RPR 1ST INGUN HRNA AGE 5 YRS/> REDUCIBLE 01/12/1990 [place]? - ?right RPR 1ST INGUN HRNA AGE 5 YRS/> REDUCIBLE as child pediatric type uncertain VASECTOMY UNI/BI SPX W/POSTOP SEMEN EXAMS ALLERGIES Adhesive MEDICATIONS Current Outpatient Medications Medication Sig Protein Supplement liqd Take by mouth as needed. No current facility-administered medications for this visit. [...] Problems Son Anesthesia Problems No Family History SOCIAL HISTORY[1] REVIEW OF SYSTEMS Gastrointestinal: (-) bowel incontinence Genitourinary: (-) urinary incontinence Musculoskeletal: (+) right shoulder pain, (-) back pain, (-) leg pain Neurological: (+) right foot drop, (+) right foot numbness, (+) gait instability, (+) falls EXAM: BP 128/80 (BP Site: Left Arm, BP Position: Sitting) Pulse 81 Wt 84.8 kg (187 lb) SpO2 97% BMI 25.36 kg/m? PHYSICAL EXAM: GENERAL: NAD, alert and oriented. SKIN: Unremarkable, no rash or skin lesions. HEAD: Normocephalic. EYES: PERRLA, EOMI, conjunctiva clear. EXTREMITIES: Right foot drop noted. No deformities, no skin discoloration, no edema. No dorsoflexion or right lateral movement in right foot. Sensation intact except some numbness along right lateral leg. D.P 2+ eric. P.T. 1+ eric. Foot warm and pink. Negative Clonus eric. Sub-patellar 3/5 reflex, Achilles 2/5 eric. NEURO: Awake, alert and oriented x3, cranial nerves III-XII intact, normal gait- no finger to nose ataxia, no involuntary motions. Sensation intact bilaterally, though slightly diminished on the right lateral lower leg. LABS: ASSESSMENT/PLAN: 1. Right foot drop (M21.371) - Acute onset of right foot drop with minimal back pain and no signifi (more content not included)... Normal [facility] Spine Lumbar (Routine)on Spine Lumbar (Routine) [facility] Imaging Services [address] [place] [address] [phone] Spine Lumbar (Routine) MR#: [id number] Acct: [id number] Name: CECILIA MARTIN Rep #: [id number] : 1965 M 59 From: Sabino Brown MD PCP: Dr. Deepak Cedeño MD Status: REG CLI Study: Spine Lumbar (Routine) Date of Exam: 02/03/25 Exam# [id number] Ordering Dr: Ellen Montez PROCEDURE: SPINE LUMBAR (ROUTINE) 02/03/2025 REASON FOR EXAM: RIGHT FULL FOOT DROP TECHNIQUE: Procedure Code: MRISPL Modality: MR Procedure: SPINE LUMBAR (ROUTINE) COMPARISON: January 30, 2025 x-ray FINDINGS: There is grade 1 spondylolisthesis at L4-5, 0.4 cm. The vertebral body height is maintained. A 2.5 cm hemangioma is noted at L3. A 1 cm hemangioma is noted at L4. Vertebral body marrow signal is otherwise normal. Intervertebral disc signal shows desiccation. The facets are aligned. The L1-L2 level: There is no significant disk protrusion. There is no lateral recess stenosis or foraminal stenosis. There is no critical central canal stenosis. The L2-L3 level: There is minimal central disk protrusion. There is no lateral recess stenosis or foraminal stenosis. There is no critical central canal stenosis. The L3-L4 level: There is moderate central, mild right and moderate left paracentral disc protrusion. There is mild left lateral recess stenosis. There is mild left foraminal narrowing secondary to disc protrusion and facet hypertrophy. There is mild central canal stenosis. The L4-L5 level: There is moderate central and right and left paracentral disc protrusion. There is moderate bilateral lateral recess stenosis. There is mild bilateral foraminal narrowing secondary to disc protrusion and facet hypertrophy. There is moderate central canal stenosis. The L5-S1 level: There is no significant disk protrusion. There is no lateral recess stenosis or foraminal stenosis. There is no critical central canal stenosis. The visualized conus shows normal signal characteristics. Adjacent soft tissues are unremarkable. MRI/Spine Lumbar (Routine) IMPRESSION: There is grade 1 spondylolisthesis at L4-5, 0.4 cm. There is mild central canal stenosis at L3-4, moderate central canal stenosis at L4-5, with lateral recess and foraminal narrowing. Reading Location: [facility] CC: VADIM Ruiz; Dr. Deepak Cedeño MD Funding Specialist: Signed Normal [facility] L/S Spine Min 4 Viewson 01-12 L/S Spine Min 4 Views [facility] Imaging Services [address] [place], [place] [id number] L/S Spine Min 4 Views MR#: [id number] Acct: [id number] Name: CECILIA MARTIN Rep #: [id number] : 1965 M 59 From: Anna Livingston MD PCP: Dr. Deepak Cedeño MD Status: DEP AMB Study: L/S Spine Min 4 Views Date of Exam: 01/30/25 Exam# [id number] Ordering Dr: Ellen Montez PROCEDURE: L/S SPINE MIN 4 VIEWS 01/30/2025 REASON FOR EXAM: BACK PAIN TECHNIQUE: Procedure Code: RADSPLS Modality: DX Procedure: L/S SPINE MIN 4 VIEWS COMPARISON: CT lumbar spine 01/26/2025. FINDINGS: Anterolisthesis L4 on L5 by 2 mm. No acute bony abnormalities. L4-L5 and L5-S1 facet joint arthropathy, sclerotic endplates and disc space narrowing. Atherosclerotic calcifications of the aorta. The sacroiliac joints and hip joints are unremarkable. RAD/L/S Spine Min 4 Views IMPRESSION: Anterolisthesis L4 on L5 by 2 mm. Degenerate changes at L4-L5 and L5-S1. Reading Location: [facility] CC: VADIM Ruiz; Dr. Deepak Cedeño MD Funding Specialist: Signed Normal [facility] Orthopedic Visit Reporton Orthopedic Visit Report [facility] [address] [place] [address] OFFICE VISIT Date of Service: 01/30/25 MR#: [id number] Acct: [id number] Name: CECILIA MARTIN Rep #: [id number] : 1965 Provider: VADIM Ruiz Age/Sex: 59/M Location: [facility] Status: Signed Intake Vital Signs 01/26/25 00:52 01/30/25 10:36 Height 6 ft 6 ft Weight: 188 lb 4 oz BMI 25.5 Intake Visit Reasons: LUMBAR SPINE Chief Complaint: Lumbar spine pain Accompanied by: Is patient in pain?: Yes Pain scale (1-10): 1 Allergies No Known Allergies Allergy (Verified 01/30/25 10:39) Medications ???Medication ???Instructions ???Recorded ???Confirmed ???Type prednisone 10 mg tablet 10 mg PO UD #33 tabs 01/26/2501/12 Rx Have you fallen in the past year?: No PFSH Medical History Hernia Family History Mother No problems noted. Father No problems noted. Social History Smoking Status: Heavy Smoker (>10/day) HPI LUMBAR SPINE Details: This documentation accurately reflects the service provided and the decisions made by me, VADIM Ruiz 01/30/25 1036. Part of today???s visit was documented by Krystle Fairbanks MA, acting as scribe. CECILIA MARTIN is a 59 year old M here today for lumbar spine. Patient states that his pain is a 1 today. He states that he is having pain in his right leg. Patient states that he isn't having any pain in his lower back. He states that there isn't really pain, it just feels odd. Patient states that this has been going on for a couple days. He states that there is no injury. Patient states that he went to the ER Sunday01/25/2025. He states that he went to [place] er for his drop foot. The er did a cat scan. The Cat scan showed some degenerative changes. The er doctor sent a referral to us to get an MRI done. Patient states that he hasn't had any surgeries on his lower back. He states that he hasn't had any injuries. Patient states that he doesn't have any back pain. There is nothing that makes it worse. Patient states that he hasn't had any injections in he lower back. He hasn't tried any physical therapy. Patient states that he doesn't have any diabetes, or blood thinners. No heart or lung issues. Patient does smoke, but doesn't do any drugs. Patient states that he has noticed some balance problems. He states that he doesn't use a walker or a cane to help him balance. Says that he noticed some issues with trip and turning his right ankle due to the foot drop. No falls. Numbness on the side of the calf. Hx of inguinal hernia repair, left sided groin incision. Reviewed ER documentation from 01/25/2025 which showed right sided foot drop which is an acute issue for the patient. At first it appeared that the foot drop was partial however when he was seen in the ER it was a complete foot drop. Unfortunately the ER did not do a lumbar MRI. Ortho Exam General General: Yes no acute distress Neurologic: Yes alert and Yes oriented x3 Psychologic: Yes reasonable and appropriate Spine SPINE TESTING CERVICAL THORACIC LUMBAR Musculoskeletal Strength 0=absent - 5=normal Details: Neurological exam of the lower extremities shows grade 0 right dorsiflexion, all other muscle groups show 5 power. Normal sensations across all dermatomes. No hyperreflexia. No midline or paraspinal tenderness. Coding Level of Care Code Off vis,new,level 4 Diagnoses Foot drop, right M21.371 Lumbar radiculopathy, right M54.16 Assessment and Plan Assessment and Plan (1) Foot drop, right: Status: Acute (2) Lumbar radiculopathy, right: Status: Acute Orders: Orders L/S Spine Min 4 Views Today M54.9 - Dorsalgia, unspecified Spine Lumbar (Routine) Today M21.371 - Foot drop, right foot, M54.16 - Radiculopathy, lumbar region Referrals Physical Therapy Referral M21.371 - Foot drop, right foot, M54.16 - Radiculopathy, lumbar region Plan Obtained and reviewed lumbar x-rays today in the clinic. Independent interpretation of the x-rays was performed. Lumbar x-rays show a retrolisthesis of L5 on S1 and a spondylolisthesis of L4 on L5. There is facet arthrosis mildly in the lumbar spine, no acute fractures. There is also some mild disc height loss seen at L5-S1. Reviewed lumbar CT scan from the ER on 01/26/2025 which also showed these findings. Explained imaging findings in detail. At this time due to the patient's 5-day history of an acute foot drop on the right side, an MRI is needed at this time to further assess. The MRI is necessary due to the neurological deficit which was evidenced by the physi (more content not included)... Normal [facility] Emergency Department Summary on 01-26-2025 Emergency Department Summary [facility] Medical Records Department [address] [place] [address] Emergency Department Summary 01/26/25 MR#: [id number] Acct: [id number] Name: CECILIA MARTIN Rep #: [id number] : 1965 59 From: Jefry Kilgore DO PCP: Dr. Deepak Cedeño MD Status:DEP ER Location: ED HPI History of Present Illness Chief Complaint: Lower Extremity Injury Informant: patient and spouse/S.O. Narrative Narrative: Patient is a 59-year-old male who reports no significant past medical history. He states that he has noticed weakness lifting his right foot. He states that he is unsure of the exact timing but believes it has been ongoing for the past few weeks. However now he cannot lift it at all. He states that he does feel an abnormal sensation up the leg as well. He reports that there has been no recent trauma. He denies any previous back surgeries. He denies any loss of bowel or bladder control or IV drug use. He states that now he cannot lift the foot at all he is concerned that there may be some type of neurologic issue and therefore he comes in for evaluation [facility] [facility] Medical History no medical history Home Medications ???Medication ???Instructions ???Recorded ???Last Taken ???Type prednisone 10 mg tablet 10 mg PO UD #33 tabs 01/26/25 Unkn own Rx Allergy/AdvReac Type Severity Reaction Status Date / Time No Known Allergies Allergy Verified 01/26/25 00:51 Social History Smoking Status: Heavy Smoker (>10/day) ROS [facility] ED Constitutional Constitutional ED: Denies chills or fever(s) ENT ENT ED: Denies sore throat Cardiovascular Cardiovascular: Denies chest pain Respiratory/Chest Respiratory/Chest: Denies cough or dyspnea Gastrointestinal Gastrointestinal: Denies abdominal pain, diarrhea, nausea or vomiting Musculoskeletal Musculoskeletal: Reports other Details: Positive right foot drop ; Denies back pain Integumentary Denies rash Neurologic Neurologic: Reports weakness; Denies headache(s) or paresthesias Hematologic/Lymphatic Hematologic/Lymphatic: Denies easy bleeding or easy bruising EXAM Physical Exam Const Vital Signs: 01/26/25 00:52 01/26/25 02:49 Temperature 97.8 F 98.1 F Temperature Source Oral Pulse Rate 75 96 Respiratory Rate 18 16 Blood Pressure 119/70 116/78 Blood Pressure Mean 86 90 Pulse Ox 96 99 Oxygen Delivery Method Room Air Positive well nourished and well developed General Appearance ED: well developed; Negative for pallor HEENT HEENT Narrative: Normocephalic atraumatic Eyes PERRL and EOMs intact bilaterally General Eye ED: Negative for scleral icterus Neck supple Resp normal respiratory effort and clear to auscultation bilaterally Cardio regular rate and regular rhythm GI normal to inspection, nondistended, normoactive bowel sounds, non-tender, non-distended and no masses Auscultation: normoactive bowel sounds Palpation: soft Back/Spine Back/Spine Narrative: No bony deformity or step-off of the thoracic or lumbar spine; no midline pain with palpation No saddle anesthesia. Negative straight leg raise. No clonus or Babinski. Patellar reflexes are +2-4 bilaterally Extremity normal to inspection Extremity Narrative: No asymmetric edema no pitting edema negative Homans' sign bilaterally Ankle ligaments are stable and Achilles tendon is intact No signs of long bone injury such as bony deformity or joint effusion No asymmetric erythema or warmth to suggest cellulitis or abscess Neuro oriented x3, CN's II-XII intact bilaterally and no sensory deficits noted Neuro Narrative: GCS of 15 Cranial nerves II through XII are grossly intact without focal neurologic deficit NIH stroke scale score of 0 Patient is unable to dorsiflex his right foot but otherwise strength is normal Sensorium / Orientation: alert Psych mental status grossly normal Skin no rashes or lesions noted Skin Narrative: Capillary refill is less than 3 seconds General Skin Exam: Negative for jaundice or pallor MDM MDM MDM Narrative Medical decision making narrative: Patient arrived to the ER with stable vitals. He reported difficulty lifting his right foot but is unsure of how long it has been actually going on for. He states that he does not have any recent injections or surgeries going against discitis. He denies loss of bowel or bladder control going against cauda equina or epidural abscess. Without history or signs of trauma there is low concern for entrapment of the peroneal nerve or injury to the ankle. History and exam indicate foot drop most likely due to nerve impingement in the low back. In order to assess for this a CT scan of the lumbar spine was obtained as it is typically the L4-L5 nerve root that will le (more content not included)... Normal [facility] Spine Lumbar without Contras ton 01-26-2025 Spine Lumbar without Contrast [facility] Imaging Services [address] [place], [place] [id number] Spine Lumbar without Contrast MR#: [id number] Acct: [id number] Name: CECILIA MARTIN Rep #: [id number] : 1965 M 59 From: Kaila coto MD PCP: Dr. Deepak Cedeño MD Status: REG ER Study: Spine Lumbar without Contrast Date of Exam: Exam# [id number] Ordering Dr: Jefry Kilgore DO PROCEDURE: SPINE LUMBAR WITHOUT CONTRAST 01/26/2025 REASON FOR EXAM: LUMBAR RADICULOPATHY TECHNIQUE: Procedure Code: CTSPL Modality: CT Procedure: SPINE LUMBAR WITHOUT CONTRAST Coronal and Sagittal reconstruction series were provided. One or more dose reduction techniques were used (e.g., Automated exposure control, adjustment of the mA and/or kV according to patient size, use of iterative reconstruction technique COMPARISON: none RADIATION DOSE SUMMARY: CTDI Vol 14.69 mGy DLP :621.55 mGycm FINDINGS: Straightened lumbar lordosis denoting myospasm. 1st degree anterolisthesis of L4 over L5 with L4-L5 degenerative facet arthropathy Mild L5 over S1 retrolisthesis. Normal vertebral bodies height and alignment. Intact vertebral neural arches. No definite fractures could be detected. Multilevel small marginal lipping and sclerosis of the examined vertebral end plates. Multilevel reduced discs height with vacuum phenomenon. Multilevel degenerative facet arthropathy and hypertrophied ligamenta flava with calcifications. Multilevel variable degrees of diffuse disc bulges indenting the theca and inducing encroachment upon the neural exit foramina. Degenerative changes of the sacroiliac joints. No paraspinal soft tissue masses. Aortoiliac atheromatous calcifications. CT/Spine Lumbar without Contrast IMPRESSION: Straightened lumbar lordosis denoting myospasm. 1st degree anterolisthesis of L4 Mild L5 over S1 retrolisthesis. No acute fractures. Lumbar spondylosis with multilevel facet arthropathy and diffuse posterior disc bulges inducing encroachment upon the neural exit foramina. Degenerative changes of the sacroiliac joints. [facility] CC: Dr. Deepak Cedeño MD; Jefry Kilgore DO Funding Specialist: Signed [facility] 12-11-2024 CNPN Telephone (FVPRAD) CECILIA MARTIN ([id number]) 1965 M Date Time Provider Department 12/11/24 RENU DILLON FVPRALita During your visit today, we recorded the [...] period is complete. Renu Dillon Research fellow [facility] Anesthesia Research/ Emergency Medicine Research Allergies As [...] Encounter Status:Closed by RENU DILLON on 12/11/24 [facility] 12-02-2024 CNPN Telephone (FVPRAD) CECILIA MARTIN ([id number]) 1965 M Date Time Provider Department 12/02/24 RENU DILLON PRAD During your visit today, we recorded the [...] Renu Dillon, Research Fellow [employer] Research Anesthesiology [place] Allergies As of Date: 12/02/2024 Noted Allergy [...] Encounter Status:Closed by [facility] ) CECILIA MARTIN ([id number]) 1965 M Date Time Provider Department 10/02/24 3:20 PM HIREN BAUMANN [facility] During your visit today, we recorded the following information about you: Temperature Pulse Blood pressure Weight 97.7 degrees 78/minute 131/86 85.3 kg Height 1.829 m Hiren Baumann MD 11/17/2024 1:56 PM Signed [facility] Abdominal Core Health - Follow Up Visit [...] Baumann MD 11/17/24, 1:46 PM General Surgery [facility] Medical Decision Making: Problems: Minimal: Self-limited or minor problem Risk: Minimal: Minimal risk from testing/treatment Medical Decision Making Level: 2 - Straightforward Referring Provider: DEEPAK CEDEÑO [[id number]] Allergies As of Date: 10/02/2024 Noted Allergy [...] Encounter Status:Closed by HIREN BAUMANN on 11/17/24 [facility] 09-10-2024 CNPN Telephone ([facility]) CECILIA MARTIN ([id number]) 1965 M Date Time Provider Department 09/10/24 HIREN BAUMANN [facility] During your visit today, we recorded the following information about you: Johnathon Mondragon RN 09/10/2024 1:52 PM Signed GENERAL SURGERY [...] RN - Fully Assessed 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 - Other [3602] Cmt: Post surgery follow [...] Encounter Status:Closed by JOHNATHON MONDRAGON on 09/10/24 [facility] ANES POSTPROC EVALon 025 ANES POSTPROC EVAL HNO ID: [id number] Author: HANNAH MCRAE DO Service: Anesthesiology Author Type: Anesthesiologist Type: Anesthesia Postprocedure Evaluation Filed: 09/03/2024 20:41 Note Text: POST ANESTHESIA EVALUATION NOTE : 1965 Procedure Summary Date: 09/03/24 Room / Location: OR10 / [facility] OR Anesthesia Start: 1510 Anesthesia Stop: 1940 [...] 89/60 09/03/242029 Temp 36.4 ?C (97.5 ?F) 09/03/24 193 Pulse 68 09/03/242039 Resp 13 09/03/242039 SpO2 [...] September 03, 2024 TIME: 8:41 PM CSN: [id number] [facility] ANES PRE-OPon 09-03-2024 ANES PRE-OP HNO ID: [id number] Author: MILLER CHAND MD Service: Pain Management [...] and consent discussed: yes. Patient / Responsible Democrat agrees to proceed: yes Patient / Surrogate [...] September 03, 2024 TIME: 2:15 PM CSN: [id number] [facility] BRIEF OP NOTon 09-03-2024 BRIEF OP NOT HNO ID: [id number] Author: KENDRA BOWER MD Service: General Surgery Author Type: Resident Type: Brief Op Note Filed: 09/03/2024 19:25 Note Text: BRIEF OPERATIVE / PROCEDURE NOTE LOG ID: [id number] SURGERY/PROCEDURE DATE: 09/03/2024 INCISION/PROCEDURE START TIME: 3:48 PM INCISION CLOSE/PROCEDURE END TIME: 7:21 PM SURGEON(S)/PROCEDURALIST(S) AND EQUITY DIRECTOR(S): Surgeons and Role: * Hiren Baumann MD [...] DATE: September 03, 2024 TIME: 7:24 PM [facility] 09-03-2024 [facility] Telephone ([facility]) MARIOCECILIA ([id number]) 1965 M Date Time Provider Department 09/03/24 HIREN BAUMANN [facility] During your visit today, we recorded the following information about you: Laxmi Ballesteros 09/03/2024 3:06 PM Signed Received FMLA/STD paperwork on 09/03/24 Pending physician signature and completion. Surgeon: Dr. Baumann Date of Surgery (if known):09/03/24 Elvia Tena, OCCA 09/03/2024 3:57 PM Signed Employer Forms for Patient/Caregiver Time Off of Work Completed, signed by provider, and returned to below contact. Completed copy scanned in [facility] Date of Surgery: 09/03/24 Estimated RTW date: 10/15/24 Employer: sent to [employer] / [employer] Date sent to employer: 09/03/24 Received fax confirmation: YES YURIDIA Corona Allergies As of Date: 09/03/2024 Noted Allergy Reaction ADHESIVE 12/09/2015 2 - Rash Comments: Blistering of skin from adhesive Date Reviewed: 09/03/2024 Reviewed by: Christine Nichols RN - Fully Assessed Reason for Visit: [place] Paperwork [6710] Prescriptions as of 09/03/2024 - terbinafine HCl [...] Encounter Status:Closed by ELVIA TENA on 09/03/24 [facility] OPERATIVE NOon 09-03-2024 OPERATIVE NO HNO ID: [id number] Author: HIREN BAUMANN MD Service: General Surgery Author Type: Physician Type: Operative Report Filed: 09/03/2024 20:04 Note Text: OPERATIVE/PROCEDURE REPORT LOG ID: [id number] Surgery/Procedure Date: 09/03/2024 Incision/Procedure Start Time: 3:48 PM Incision Close/Procedure End Time: 7:21 PM Surgeon(s)/Proceduralist(s) and Head Of Marketing(s): Surgeons and Role: * Hiren Baumann MD [...] cephalad t (more content not included)... Normal [facility] HISTORY PHYSICALon HISTORY PHYSICAL HNO ID: [id number] Author: TAMMI DELAROSA PA-C Service: ? Author Type: Physician Head Of Marketing Type: H&P Filed: 08/20/2024 18:28 Note Text: [...] 03/25/2025 03/25/2024 Postponed until 03/25/2025 by Andra Lenug MA (Declined at this time) CHIEF COMPLAINT: Pre-Op HPI: Cecilia Martin is a 58 year old male presenting for pre-anesthesia consultation. Pt has history of hernia. Above procedure recommended to manage symptoms. Procedure scheduled on 09/03/2024 at [facility]. REVIEW OF SYSTEMS: General: No weight loss, malaise or fevers. Neurological: Negative for: headaches, multiple sclerosis, Parkinson's disease, seizures and strokes. Respiratory: Positive for: tobacco use. Negative for: asthma, COPD, current cough, dyspnea, URI < 2 weeks and obstructive sleep apnea. Cardiovascular: Positive for: CAD Negative for: AICD/PPM, anticoagulation therapy, arrhythmia, chest pain, CHF, DVT/PE, hyperlipidemia, hypertension, recent [place], murmur/valvular heart disease, open heart surgery and [...] - not (more content not included)... Normal [facility] EXERCISE STRESS ECG (WITHOUT IMAGING)on 07-04-2024 Stress Tool And Die Maker Level Five Report: Exercise Stress ECG (without Imaging) [facility] Date of service: 07/04/2024 10:54:23 AM Supervising physician: Kirby Huff MD PATIENT: Name: MR. CECILIA MARTIN Age: 58 years Gender: M The supervising physician was in the department and immediately available. Final Stress ECG Report: Exercise Stress ECG (without Imaging) [facility] Date of service: 07/04/2024 10:54:23 AM Ordering physician: JANEL MCGOVERN operations staff specialist security: Ana Sheth Head Of Marketing: Cydney Bryant Interpreting physician: Catalino Payne MD Patient name: MR. CECILIA LAKEN: [id number] Age: 58 years Gender: M Indication: Encounter [...] 166/84 mmHg. The double product achieved was 10307. Medications: Last Used LAMISIL Resting ECG: Normal [...] (HRR): 25 bpm Rate Pressure Product (RPP): 44850 Cottrell Treadmill Score: 9.5 Stress Exercise Observations: [...] equation for determining estimated MET values for [facility] stress tests changed. Comparison of test results before and after that date may show a change in estimated MET values for peak/max exercise despite a test duration that is similar in length. The validity of the new FRIEND equation for exercise METS is endorsed by the [place] [employer]. Tracy P, Makenna LA, Nicole R, Lucas J, Celestine J. New Generalized Equation for Predicting Maximal Oxygen Uptake (from the Fitness Registry and the Importance of Exercise National Database). The [place] Journal of Cardiology. 2017;120(4):688-692). Final See Link below for Image [facility] EXERCISE STRESS ECG (WITHOUT IMAGING) Stress Tool And Die Maker Level Five Report: Exercise Stress ECG (without Imaging) [facility] Date of service: 07/04/2024 10:54:23 AM Supervising physician: Kirby Huff MD PATIENT: Name: MR. CECILIA MARTIN Age: 58 years Gender: M The supervising physician was in the department and immediately available. Final Stress ECG Report: Exercise Stress ECG (without Imaging) [facility] Date of service: 07/04/2024 10:54:23 AM Ordering physician: JANEL MCGOVERN operations staff specialist security: Ana Sheth Head Of Marketing: Cydney Bryant Interpreting physician: Catalino Payne MD [...] 166/84 mmHg. The double product achieved was 26691. Medications: Last Used LAMISIL Resting ECG: Normal [...] (HRR): 25 bpm Rate Pressure Product (RPP): 25331 Cottrell Treadmill Score: 9.5 Stress Exercise Observations: [...] equation for determining estimated MET values for [facility] stress tests changed. Comparison of test results before and after that date may show a change in estimated MET values for peak/max exercise despite a test duration that is similar in length. The validity of the new FRIEND equation for exercise METS is endorsed by the [employer]. Tracy P, Makenna LA, Nicole R, Lucas J, Celestine J. New Generalized Equation for Predicting Maximal Oxygen Uptake (from the Fitness Registry and the Importance of Exercise National Database). The [place] Journal of Cardiology. 2017;120(4):688-692). Final CC Recordant Medical Image : [id number] See Link below for Image [facility] C[facility]IL[facility] ([id number]) 1965 M Date Time Provider Department 07/03/24 CYDNEY BRYANT CDLBME During your visit today, we recorded the following information about you: Cydney Bryant RN 07/03/2024 11:00 AM Signed Spoke with patient regarding reminder for stress test tomorrow and given instructions. Allergies As of Date: 07/03/2024 Noted Allergy Reaction ADHESIVE 12/09/2015 2 - Rash Comments: Blistering of skin from adhesive Date Reviewed: 07/02/2024 Reviewed by: Carmen Carlson RPFT - Fully Assessed Reason for Visit: Reminder Call [[id number]] Prescriptions as of 07/03/2024 - terbinafine HCl [...] Encounter Status:Closed by CYDNEY BRYANT on 07/03/24 [facility] SPIROMETRY - BASELINE AND PO [facility] 07-02-2024 FEF25% POST (L/S) 7.06 L[facility]S [facility] FEF25% PRE (L/S) 7.57 [facility] RZY09-20% LLN (L/S) 1.5 L/S [facility] JUF80-49% POST (L/S) 2.23 L/S [facility] COG30-31% PRE (L/S) 2 L/S [facility] OAU10-33% PREDICTED (L/S) 3.07 L/S [facility] FEF75% LLN (L/S) 0.38 L/S [facility] FEF75% POST (L/S) 0.48 L[facility]S [facility] FEF75% PRE (L/S0 0.5 L/S [facility] FEF75% PREDICTED (L/S) 0.94 L/S [facility] FEF75% ULN (L/S) 2.21 L/S [facility] FET POST (S) 15.65 S [facility] FET PRE (S) 15.91 S [facility] FEV1 LLN (L) 2.64 L [facility] FEV1 PRE (L) 3.72 L [facility] FEV1 PREDICTED (L) 3.56 L [facility] FEV1 ULN (L) 4.43 L [facility] FEV1/FVC LLN (%) 65 % [facility] FEV1/FVC POST (%) 71 % [facility] FEV1/FVC PRE (%) 68 % [facility] FEV1/FVC PREDICTED (%) 77 % [facility] FEV1_POST (L) 3.82 L [facility] FVC LLN (L) 3.47 L [facility] FVC POST (L) 5.4 L [facility] FVC PRE (L) 5.45 L [facility] FVC PREDICTED (L) 4.62 L [facility] FVC ULN (L) 5.78 L [facility] PEF LLN (L/S) 7.12 L/S [facility] PEF POST (L/S) 8.45 L/S [facility] PEF PRE (L/S) 9.98 L/S [facility] PEF ULN (L/S) 11.98 L/S [facility] [address] [place] [address] Test Date: 2024-07-02 Pat Name: CECILIA MARTIN Department: Room: Gender: Seaman Officer: : 1965 Requested By: Order Number: [id number] Reading MD: Pilar Limon MD Interpretive Statements [...] by Pilar Limon MD Site: WO ID: [id number] Name: CECILIA MARTIN Visit Date: 07/02/2024 Doctor: Seaman Officer: Carmen Carlson Age: 58 Date of : [...] 0.94 0.38 2.21 0.50 52 0.48 -2 RZC12-00 (L/sec) 3.07 1.50 5.20 2.00 65 2.23 11 FEF Max (L/sec) 9.55 7.12 11.98 9.98 104 8.45 -15 FIVC (L) 5.07 5.14 1 FIF50 (L/sec) 4.83 5.80 20 FIF Max (L/sec) 5.29 6.22 17 Time (sec) 15.91 15.65 -1 HAJA (L) 0.11 0.12 11 Time To FEF Max (sec) 0.07 0.08 8 [facility] CECILIA MARTIN ([id number]) 1965 M Date Time Provider Department 06/27/24 2:20 PM JANEL MCGOVERN [facility] During your visit today, we recorded the following information about you: Temperature Pulse Blood pressure Weight 97.8 degrees 96/minute 122/76 83.9 kg Janel Mcgovern APRN.CNP 06/27/2024 3:29 PM Signed This is a [...] toenail fungu (more content not included)... Normal [facility] CNOVon 06-16-2024 CNOV Office Visit (ORTHWS ) CECILIA MARTIN ([id number]) 1965 M Date Time Provider Department 06/16/24 [...] his 1-3 fingers. 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 He is right hand dominant. 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 Taking no med's for the pain. X-ray done on 03/25/24 Diane Linares PA-C 06/16/2024 10:50 AM Signed Diane Linares PA-C Department of Orthopaedics Orthopaedics [address] [facility] [address] Dept: [phone] Dept June 16, 2024 CHIEF COMPLAINT: New [...] results. EMG order will be faxed to [facility]. Will continue to monitor patient for Wrist [...] hand. Imaging: IMPRESSION: Degenerative changes as described. Funding Specialist: PSCB Transcribe Date/Time: Mar 30 2024 7:32A [...] is prominent (more content not included)... [facility] CECILIA MARTIN ([id number]) 1965 M Date Time Provider Department 06/16/24 [...] findings. He is not following with a molding sander regularly. he had stress test in 2019, [...] use current [Z72.0] Order(s):CT LUNG SCREEN WO VYON [[id number]] Order #: [id number] FUTURE Prescriptions as of 06/16/2024 - acetaminophen [...] Status:Closed by DILEEP ERVIN on 06/16/24 Normal [facility] CT Chest for screening WO co ntraston 06-13-2024 IMPRESSION: LungRADS category: 2 LungRADS modifier: Significant other (S), coronary artery calcification, moderate LungRADS 0 reason: n/a Recommendations: Continue annual screening with LDCT in 12 months. Other actionable findings: Reference: [employer]. Lung CT Screening Reporting and Data System (Lung-RADS). Available at: http://www.acr.org/Quality- Safety/Resources/LungRADS Funding Specialist: OZ Transcribe Date/Time: Jun 13 2024 3:07P Dictated by : MICHELLE SPEAR MD This examination was interpreted and the report reviewed and electronically signed by: MICHELLE SPEAR MD on Jun 13 2024 3:15PM [facility] DIVISION OF RADIOLOGY * * *Final Report* * * DATE OF EXAM: Jun 13 2024 2:12PM [facility] 0562 - CT LUNG SCREEN WO IVCON [...] without contrast. MQ: CTLCS_6 Patient characteristics: * Vksc-mz-Hdhhh: 1965; Age at exam: 58 years * Gender: Male * Lung Disease: Asymptomatic (no signs or symptoms of lung disease) * Number of Pack Years: 30 * Current smoker (=0) or Number of Years since Quit: 0 * Ordering provider and NPI: DILEEP ERVIN [id number] * Interpreting radiologist and NPI: Magui [id number] Exam acquisition parameters: * Exam Date: 06/13/2024 2:12 PM * Site: [facility] * * CT System Edge Trimming Machine Operator: Siemens * CT System Model: Sensation [...] No additional findings. DIVISION OF RADIOLOGY Provider, [facility] - 06/13/2024 * * *Final Report* * * DATE OF EXAM: Jun 13 2024 2:12PM [facility] 0562 - CT LUNG SCREEN [facility] / PROCEDURE REASON: multiple diagnoses * [...] without contrast. MQ: CTLCS_6 Patient characteristics: * Lgme-im-Xvjco: 1965; Age at exam: 58 years * Gender: Male * Lung Disease: Asymptomatic (no signs or symptoms of lung disease) * Number of Pack Years: 30 * Current smoker (=0) or Number of Years since Quit: 0 * Ordering provider and NPI: DILEEP ERVIN [id number] * Interpreting radiologist and NPI: Magui [id number] Exam acquisition parameters: * Exam Date: 06/13/2024 2:12 PM * Site: [facility] * * CT System Edge Trimming Machine Operator: Siemens * CT System Model: Sensation [...] in 12 months. Other actionable findings: Reference: [employer]. Lung CT Screening Reporting and Data System (Lung-RADS). Available at: http://www.acr.org/Quality- Safety/Resources/LungRADS Funding Specialist: OZ Transcribe Date/Time: Jun 13 2024 3:07P Dictated by : MICHELLE SPEAR MD This examination was interpreted and the report reviewed and electronically signed by: MICHELLE SPEAR MD on Jun 13 2024 3:15PM EST [facility] Radiology Study observation (narrative) [facility] CT Chest for screening WO co ntrastOrdered By: Ccf Provider on 06-13-[address] [facility] [address] LUNG SCREEN WO IVCONon CT LUNG SCREEN WO IVCON * * *Final Report* * * DATE OF EXAM: Jun 13 2024 2:12PM [facility] 0562 - CT LUNG SCREEN WO IVCON [...] without contrast. MQ: CTLCS_6 Patient characteristics: * Ophw-vu-Vypfz: 1965; Age at exam: 58 years * Gender: Male * Lung Disease: Asymptomatic (no signs or symptoms of lung disease) * Number of Pack Years: 30 * Current smoker (=0) or Number of Years since Quit: 0 * Ordering provider and NPI: DILEEP ERVIN [id number] * Interpreting radiologist and NPI: Magui [id number] Exam acquisition parameters: * Exam Date: 06/13/2024 2:12 PM * Site: [facility] * * CT System Edge Trimming Machine Operator: FIGMD * CT System Model: Sensation * Tube [...] in 12 months. Other actionable findings: Reference: [employer]. Lung CT Screening Reporting and Data System (Lung-RADS). Available at: http://www.acr.org/Quality- Safety/Resources/LungRADS Funding Specialist: OZ Transcribe Date/Time: Jun 13 2024 3:07P Dictated by : MICHELLE SPEAR MD This examination was interpreted and the report reviewed and electronically signed by: MICHELLE SPEAR MD on Jun 13 2024 3:15PM EST [id number] Normal [facility] CNOVon 06-02-2024 CNOV Office Visit (PULMWS ) CECILIA MARTIN ([id number]) 1965 M Date Time Provider Department 06/02/24 9:30 AM DILEEP ERVIN During your visit today, we recorded the following information about you: Weight 83.9 kg Dileep Ervin, CREATIVE WRITING TEACHER.ALLIANCE CONSULTANT 06/02/2024 10:12 AM Signed LUNG SCREENING VISIT [...] pre-disease performance w/o restriction. Modified [employer] Martin Dyspnea Scale (MMRC) I only get breathless [...] mass index is 25.09 kg/m?. Patient-entered Height: 6'0" Patient-entered Weight: 187 pounds 8. COPD: No [...] RADIOGRAPHIC ABNORMALITY. STABLE APPEARANCE OF THE CHEST Funding Specialist: OZ Transcribe Date/Time: Jul 02 2017 12:25P... Pulmonary Function Testing: No textual results found for the specified procedure(s). PHYSICAL EXAM: Wt 83.9 kg (185 lb) BMI 25.09 kg/m? Deferred ASSESSMENT and RECOMMENDATIONS: 1. Screening for lung cancer: Six year risk for lung cancer: 2.07% Https://AppSpotr/E aralish/result/male_2.1_yes_ unknown http://www.Viva la Vita/tiny /01sk4 https://Lexdir.be/xFaVbG (more content not included)... Normal [facility] CNOVon 05-06-2024 CNOV Office Visit ([facility] ) CECILIA MARTIN ([id number]) 1965 M Date Time Provider Department 05/06/24 9:20 AM HIREN BAUMANN [facility] During your visit today, we recorded the following information about you: Temperature Pulse Blood pressure Weight 97.5 degrees 75/minute 127/82 83.5 kg Height 1.829 m Hiren Baumann MD 05/19/2024 4:35 PM Signed HISTORY AND PHYSICAL [facility] Consultation requested [...] RA. Abdominal: (more content not included)... Normal [facility] [id number] 04-28-2024 [id number] HNO ID: [id number] Author: YOSELYN BULLARD RN Service: ? Author Type: Registered Nurse Type: [id number] Filed: 04/28/2024 12:46 Note Text: The patient received a copy of Colonoscopy discharge instructions that contain information for how to contact the physician who performed the procedure and when to seek medical care. Normal [facility] Colonoscopyon 04-28-2024 Colonoscopy Jacklyn [facility] Gastrointestinal Endoscopy Patient Name: Cecilia Martin Procedure [...] be scheduled. Procedure Code(s): --- Professional --- 98562, Colonoscopy, flexible; with removal of tumor(s), polyp(s), or other lesion(s) by snare technique 16989, 59, Colonoscopy, flexible; with biopsy, single or multiple 23621, Colonoscopy, flexible; with directed submucosal injection(s), any substance G0500, Moderate sedation services provided by the same physician or other qualified health patient care manager performing a gastrointestinal endoscopic service that sedation supports, requiring the presence of an independent trained observer to assist in the monitoring of the patient's level of consciousness and physiological status; initial 15 minutes of intra-service time; patient age 5 years or older (additional time may be reported with 11820, as appropriate) 86184, Moderate sedation; each additional 15 minutes intraservice time Diagnosis Code(s): --- Professional --- Z12.11, Encounter for screening for malignant neoplasm of colon D12.5, Benign neoplasm of sigmoid colon D12.2, Benign neoplasm of ascending colon CP (more content not included)... Normal [facility] Colonoscopy Study observatio non 04-28-2024 Jacklyn [facility] Gastrointestinal Endoscopy Patient Name: Cecilia Martin Procedure [...] - Return (more content not included)... PROVATION [facility] Radiology Study observation (narrative) [facility] HISTORY PHYSICALon HISTORY PHYSICAL HNO ID: [id number] Author: ELEAZAR SILVER MD Service: General Surgery [...] on the right side. CT scan from [facility] dated 12/25/2023 - diffuse gastric wall thickening, [...] entered by the nurse and reviewed by fl Nursing Notes: Denise Moran RN 04/07/2024 3:24 [...] PHYSICAL EXAMINATION: (more content not included)... Normal [facility] SURGICAL PATHOLOGYon 024 CASE REPORT Normal [facility] Comment on above: Order Comment: Speci men Type: TISSUE SPECIMENOrdering Facility: [facility] Address: [address] [place] [address] Result Comment: Surg [facility] Pathology Report Case: [id number] Authorizing Provider: Eleazar Silver MD Collected: 04/28/2024 11:59 AM Ordering Location: Ambulatory Surgery Received: 04/28/2024 01:36 PM Pathologist: Ferny Conway MD Specimens: A) - Colon, Ascending, Biopsy B) - Colon, Sigmoid, Polyp Performed By: #### S ####[facility] LABORATORYCLIA [id number] [address] FINAL DIAGNOSIS Normal [facility] Comment on above: Order Comment: Speci men Type: TISSUE SPECIMENOrdering Facility: [facility] Address: [address] [place] [address] Result Comment: A. A scending colon polyp, biopsy: - Fragments of tubular adenoma. B. Sigmoid colon polyp, biopsy: - Tubular adenoma. JEL 04/30/2024 Performed By: #### S ####[facility] GREEN LABORATORYCLIA [id number] [address] FINAL PERFORMING LAB Normal [facility] Comment on above: Order Comment: Speci men Type: TISSUE SPECIMENOrdering Facility: [facility] Address: [address] [place] [address] Result Comment: Diag nostic interpretation performed at [facility], [address] [place] [address] CLIA# [id number] Gore Inserter: Dontrell Smith M.D. Performed By: #### S ####[facility] GREEN LABORATORYCLIA [id number] [address] [facility] GROSS DESCRIPTION Normal [facility] Comment on above: Order Comment: Speci men Type: TISSUE SPECIMENOrdering Facility: [facility] Address: [address] [place] [address] Result Comment: A. C olon, Ascending, Biopsy Received in formalin are multiple pieces of lynne, soft tissue aggregating to 0.8 x 0.5 x 0.1 cm. Totally submitted in one cassette. [facility] April 28, 2024 10:59 PM Gross examination performed at [facility], [address] [place] [address] B. Colon, Sigmoid, Polyp Received in formalin is a segment of lynne-brown polypoid tissue measuring 1.4 x 0.4 x 0.4 cm. No stalk is noted. The line of resection is noted. The specimen is bisected and totally submitted in one cassette. SS April 29, 2024 12:56 AM Gross examination performed at [facility], [facility] [place] [address] Performed By: #### S ####JANY LABORATORYCLIA [id number] [address] CNOVon 04-07-2024 CNOV Office Visit (GENSWS ) CECILIA MARTIN ([id number]) 1965 M Date Time Provider Department 04/07/24 3:30 PM MILE IZAGUIRRE During your visit today, we recorded the following information about you: Temperature Pulse Blood pressure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 Study observation (narrative) [facility] XR Wrist - right 4 ViewsOrde red By: Ccf Provider on 01-16-2023 [facility] Vital Signs Date Time Vital Sign Value Performing Clinician Facility 01-30-2025 10:36-0400 Body height 182.[address] Deepak Cedeño MD Work Phone: [facility] 01-30-2025 10:36-0400 Body mass index (BMI) [Ratio] 25.5 kg/m2 Dr. Deepak Cedeño MD Work Phone: [facility] 01-30-2025 10:36-0400 Body weight 85.[address] Deepak Cedeño MD Work Phone: [facility] 01-26-2025 02:49-0400 Body temperature 98.1 [degF] Dr. Deepak Cedeño MD Work Phone: [facility] 01-26-2025 02:49-0400 Diastolic blood pressure 78 mm[Hg] Dr. Deepak Cedeño MD Work Phone: [facility] 01-26-2025 02:49-0400 Heart rate 96 /min Dr. Deepak Cedeño MD Work Phone: [facility] 01-26-2025 02:49-0400 Respiratory rate 16 /min Dr. Deepak Cedeño MD Work Phone: [facility] 01-26-2025 02:49-0400 SaO2% (BldA) [Mass fraction] 99 % Dr. Deepak Cedeño MD Work Phone: [facility] 01-26-2025 02:49-0400 Systolic blood pressure 116 mm[Hg] Dr. Deepak Cedeño MD Work Phone: [facility] 01-26-2025 00:52-0400 Body height 182.[address] Deepak Cedeño MD Work Phone: [facility] 01-26-2025 00:52-0400 Body mass index (BMI) [Ratio] 17.2 kg/m2 Dr. Deepak Cedeño MD Work Phone: [facility] 01-26-2025 00:52-0400 Body weight 57.[address] Deepak Cedeño MD Work Phone: [facility] 10-02-2024 15:48-0400 Body height 182.9 cm Hiren Baumann MD Work Phone: [facility] 10-02-2024 15:48-0400 Body mass index (BMI) [Ratio] 25.5 kg/m2 Hiren Baumann MD Work Phone: [facility] 10-02-2024 15:48-0400 Body temperature 97.7 [degF] Hiren Baumann MD Work Phone: [facility] 10-02-2024 15:48-0400 Body weight 85.28 kg Hiren Baumann MD Work Phone: [facility] 10-02-2024 15:48-0400 Diastolic blood pressure 86 mm[Hg] Hiren Baumann MD Work Phone: [facility] 10-02-2024 15:48-0400 Heart rate 78 /min Hiren Baumann MD Work Phone: [facility] 10-02-2024 15:48-0400 Systolic blood pressure 131 mm[Hg] Hiren Baumann MD Work Phone: [facility] 08-13-2024 14:08-0400 Body height 182.9 cm Pacc 1 Work Phone: [facility] 08-13-2024 14:08-0400 Body mass index (BMI) [Ratio] 25.5 kg/m2 Pacc 1 Work Phone: [facility] 08-13-2024 14:08-0400 Body temperature 98.1 [degF] Pacc 1 Work Phone: [facility] 08-13-2024 14:08-0400 Body weight 85.28 kg Pacc 1 Work Phone: [facility] 08-13-2024 14:08-0400 Diastolic blood pressure 84 mm[Hg] Pacc 1 Work Phone: [facility] 08-13-2024 14:08-0400 Heart rate 76 /min Pacc 1 Work Phone: [facility] 08-13-2024 14:08-0400 Respiratory rate 14 /min Pacc 1 Work Phone: [facility] 08-13-2024 14:08-0400 SaO2% (BldA) [Mass fraction] 98 % Pacc 1 Work Phone: [facility] 08-13-2024 14:08-0400 Systolic blood pressure 132 mm[Hg] Pacc 1 Work Phone: [facility] 07-02-2024 12:39-0500 Body height 182 cm Pulm Wstr Work Phone: [facility] 07-02-2024 12:39-0500 Body mass index (BMI) [Ratio] 25.06 kg/m2 Pulm Wstr Work Phone: [facility] 07-02-2024 12:39-0500 Body weight 83.01 kg Pulm Wstr Work Phone: [facility] 07-02-2024 12:39-0500 Heart rate 82 /min Pulm Wstr Work Phone: [facility] 07-02-2024 12:39-0500 Respiratory rate 16 /min Pulm Wstr Work Phone: [facility] 07-02-2024 12:39-0500 SaO2% (BldA) [Mass fraction] 98 % Pulm Wstr Work Phone: [facility] 06-27-2024 14:21-0500 Body mass index (BMI) [Ratio] 25.09 kg/m2 Janel Suppan CREATIVE WRITING TEACHER.ALLIANCE CONSULTANT Work Phone: [facility] 06-27-2024 14:21-0500 Body temperature 97.81 [degF] Janel Suppan CREATIVE WRITING TEACHER.ALLIANCE CONSULTANT Work Phone: [facility] 06-27-2024 14:21-0500 Body weight 83.92 kg Janel Suppan CREATIVE WRITING TEACHER.ALLIANCE CONSULTANT Work Phone: [facility] 06-27-2024 14:21-0500 Diastolic blood pressure 76 mm[Hg] Janel Suppan CREATIVE WRITING TEACHER.ALLIANCE CONSULTANT Work Phone: [facility] 06-27-2024 14:21-0500 Heart rate 96 /min Janel Suppan CREATIVE WRITING TEACHER.ALLIANCE CONSULTANT Work Phone: [facility] 06-27-2024 14:21-0500 SaO2% (BldA) [Mass fraction] 95 % Janel Suppan CREATIVE WRITING TEACHER.ALLIANCE CONSULTANT Work Phone: [facility] 06-27-2024 14:21-0500 Systolic blood pressure 122 mm[Hg] Janel Suppan CREATIVE WRITING TEACHER.ALLIANCE CONSULTANT Work Phone: [facility] 06-02-2024 09:22-0500 Body mass index (BMI) [Ratio] 25.09 kg/m2 Dileep Ervin CREATIVE WRITING TEACHER.ALLIANCE CONSULTANT Work Phone: [facility] 06-02-2024 09:22-0500 Body weight 83.92 kg Dileep Ervin ALLIANCE CONSULTANT Work Phone: [facility] 05-06-2024 09:19-0500 Body height 182.9 cm Hiren Baumann MD Work Phone: [facility] 05-06-2024 09:19-0500 Body mass index (BMI) [Ratio] 24.95 kg/m2 Hiren Baumann MD Work Phone: [facility] 05-06-2024 09:19-0500 Body temperature 97.5 [degF] Hiren Baumann MD Work Phone: [facility] 05-06-2024 09:19-0500 Body weight 83.46 kg Hiren Baumann MD Work Phone: [facility] 05-06-2024 09:19-0500 Diastolic blood pressure 82 mm[Hg] Hiren Baumann MD Work Phone: [facility] 05-06-2024 09:19-0500 Heart rate 75 /min Hiren Baumann MD Work Phone: [facility] 05-06-2024 09:19-0500 SaO2% (BldA) [Mass fraction] 99 % Hiren Baumann MD Work Phone: [facility] 05-06-2024 09:19-0500 Systolic blood pressure 127 mm[Hg] Hiren Baumann MD Work Phone: [facility] 04-28-2024 12:45-0500 Respiratory rate 18 /min Eleazar Silver MD Work Phone: [facility] 04-28-2024 12:15-0500 Diastolic blood pressure 65 mm[Hg] Eleazar Silver MD Work Phone: [facility] 04-28-2024 12:15-0500 Heart rate 72 /min Eleazar Silver MD Work Phone: [facility] 04-28-2024 12:15-0500 SaO2% (BldA) [Mass fraction] 91 % Eleazar Silver MD Work Phone: [facility] 04-28-2024 12:15-0500 Systolic blood pressure 107 mm[Hg] Eleazar Silver MD Work Phone: [facility] 04-28-2024 11:03-0500 Body mass index (BMI) [Ratio] 24.97 kg/m2 Eleazar Silver MD Work Phone: [facility] 04-28-2024 11:03-0500 Body temperature 98.1 [degF] Eleazar Silver MD Work Phone: [facility] 04-28-2024 11:03-0500 Body weight 83.5 kg Eleazar Silver MD Work Phone: [facility] 04-07-2024 15:24-0500 Body height 182.9 cm Mile Izaguirre MD Work Phone: [facility] 04-07-2024 15:24-0500 Body mass index (BMI) [Ratio] 24.95 kg/m2 Mile Izaguirre MD Work Phone: [facility] 04-07-2024 15:24-0500 Body temperature 98.01 [degF] Mile Izaguirre MD Work Phone: [facility] 04-07-2024 15:24-0500 Body weight 83.46 kg Mile Izaguirre MD Work Phone: [facility] 04-07-2024 15:24-0500 Diastolic blood pressure 82 mm[Hg] Mile Izaguirre MD Work Phone: [facility] 04-07-2024 15:24-0500 Heart rate 75 /min Mile Izaguirre MD Work Phone: [facility] 04-07-2024 15:24-0500 SaO2% (BldA) [Mass fraction] 97 % Mile Izaguirre MD Work Phone: [facility] 04-07-2024 15:24-0500 Systolic blood pressure 126 mm[Hg] Mile Izaguirre MD Work Phone: [facility] 03-25-2024 09:07-0500 Body mass index (BMI) [Ratio] 24.87 kg/m2 Janel Suppan CREATIVE WRITING TEACHER.ALLIANCE CONSULTANT Work Phone: [facility] 03-25-2024 09:07-0500 Body weight 83.19 kg Janel Suppan CREATIVE WRITING TEACHER.ALLIANCE CONSULTANT Work Phone: [facility] 03-25-2024 09:07-0500 Diastolic blood pressure 78 mm[Hg] Janel Suppan CREATIVE WRITING TEACHER.ALLIANCE CONSULTANT Work Phone: [facility] 03-25-2024 09:07-0500 Heart rate 81 /min Janel Suppan CREATIVE WRITING TEACHER.ALLIANCE CONSULTANT Work Phone: [facility] 03-25-2024 09:07-0500 SaO2% (BldA) [Mass fraction] 97 % Janel Suppan CREATIVE WRITING TEACHER.ALLIANCE CONSULTANT Work Phone: [facility] 03-25-2024 09:07-0500 Systolic blood pressure 136 mm[Hg] Janel Suppan CREATIVE WRITING TEACHER.ALLIANCE CONSULTANT Work Phone: [facility] 03-20-2024 12:52-0500 Body mass index (BMI) [Ratio] 25.09 kg/m2 Dontrell Clutter PA-C Work Phone: [facility] 03-20-2024 12:52-0500 Body temperature 97.81 [degF] Dontrell Clutter PA-C Work Phone: [facility] 03-20-2024 12:52-0500 Body weight 83.9 kg Dontrell Clutter PA-C Work Phone: [facility] 03-20-2024 12:52-0500 Diastolic blood pressure 78 mm[Hg] Dontrell Clutter PA-C Work Phone: [facility] 03-20-2024 12:52-0500 Heart rate 78 /min Dontrell Clutter PA-C Work Phone: [facility] 03-20-2024 12:52-0500 Respiratory rate 18 /min Dontrell Clutter PA-C Work Phone: [facility] 03-20-2024 12:52-0500 SaO2% (BldA) [Mass fraction] 98 % Dontrell Coni FIERRO-C Work Phone: [facility] 03-20-2024 12:52-0500 Systolic blood pressure 121 mm[Hg] Dontrell Chicasche PA-C Work Phone: [facility] 01-16-2023 13:03-0400 Body temperature 98.29 [degF] Yuni Isaacs APRN.ALLIANCE CONSULTANT Work Phone: [facility] 01-16-2023 13:03-0400 Body weight 83.92 kg Yuni Isaacs APRN.ALLIANCE CONSULTANT Work Phone: [facility] 01-16-2023 13:03-0400 Diastolic blood pressure 70 mm[Hg] Yuni Isaacs APRN.ALLIANCE CONSULTANT Work Phone: [facility] 01-16-2023 13:03-0400 Heart rate 78 /min Yuni Isaacs APRN.ALLIANCE CONSULTANT Work Phone: [facility] 01-16-2023 13:03-0400 Respiratory rate 16 /min Yuni Isaacs APRN.ALLIANCE CONSULTANT Work Phone: [facility] 01-16-2023 13:03-0400 SaO2% (BldA) [Mass fraction] 97 % Yuni Isaacs APRN.ALLIANCE CONSULTANT Work Phone: [facility] 01-16-2023 13:03-0400 Systolic blood pressure 122 mm[Hg] Yuni Isaacs APRN.ALLIANCE CONSULTANT Work Phone: [facility] Encounters Encounter Date Encounter Type Care Provider Facility Start: 03-04-2025 ambulatory Deepak Cedeño Facility:[facility] Start: 03-02-2025 Encounter for other preprocedural examination [facility] Start: 02-26-2025 End: 02-26-2025 ambulatory JANEL A SUPPAN Facility:[facility] Start: 02-26-2025 End: 02-26-2025 ambulatory JANEL A SUPPAN Facility:[facility] Start: 02-26-2025 Encounter for other preprocedural examination JANEL A SUPPAN [facility] Start: 02-23-2025 End: 02-23-2025 ambulatory Deepak Cedeño Facility:[facility] Start: 02-18-2025 ambulatory Jordan Kenyalita [facility] Start: 02-18-2025 ambulatory Ellen Montez Facility:[facility] Start: 02-13-2025 End: 02-13-2025 Patient encounter procedure Ellen FIERRO -[facility] Work Phone: Start: 02-13-2025 End: 02-13-[address] Deepak Cedeño MD Work Phone: -[facility] Start: 02-10-2025 Registered Recurring Ellen FIERRO -Physical Therapy Work Phone: Start: 02-06-2025 End: 02-06-2025 ambulatory JANEL MCGOVERN Facility:[facility] Start: 02-03-2025 Patient encounter procedure Ellen FIERRO -[facility] Work Phone: Start: 02-03-2025 ambulatory Ellen Montez Facility:[facility] Start: 01-30-2025 End: 01-30-2025 Patient encounter procedure Ellen FIERRO -[facility] Work Phone: Start: 01-30-2025 End: 01-30-[address] Deepak Cedeño MD Work Phone: -[facility] Start: 01-26-2025 End: 01-26-2025 Emergency department patient visit Dr. Deepak Cdeeño MD Work Phone: -Emergency Department Work Phone: Start: 12-11-2024 End: 12-11-2024 Telephone encounter Renu [...] Start: 10-02-2024 End: 10-02-2024 ambulatory HIREN BAUMANN Facility:[facility] Start: 09-10-2024 End: 09-10-2024 Telephone encounter Hiren Baumann MD Work Phone: General Surgery Comment on above: Paper Spooler - O ther (Post surgery follow up) Start: 09-03-2024 End: 09-03-2024 ambulatory Kaya Haq Work Phone: [facility] Start: 08-13-2024 End: 08-13-2024 Admission to establishment Pacc [place] [facility] Work Phone: Pre Anesthesia Start: 08-13-2024 End: 08-13-2024 Anesthesia consultation Pac [place] [facility] Work Phone: Pre Anesthesia Comment on above: Pre-op examination ( Primary Dx); Nicotine dependence with current use; Coronary artery calcification; Centrilobular emphysema (HCC) Start: 08-13-2024 End: 08-13-2024 Preprocedural examination done Pac [place] [facility] Work Phone: [facility] Work Phone: Start: 08-13-2024 End: 08-13-2024 ambulatory HIREN BAUMANN Facility:[facility] Start: 08-13-2024 Encounter for other preprocedural examination DIANE LINARES [facility] Start: 07-04-2024 End: 09-03-2024 Follow-up encounter Janel Mcgovern APRN.ALLIANCE CONSULTANT Work Phone: Family Medicine [place] Start: 07-04-2024 ambulatory DEEPAK CEDEÑO Facility :[facility] Start: 07-04-2024 End: 07-04-2024 Subsequent hospital visit by physician [facility] Work Phone: Cardiology Lab Comment on above: Centrilobular emphys adilene (HCC) [J43.2] Start: 07-03-2024 End: 09-02-2024 Follow-up encounter Janel Mcgovern APRN.ALLIANCE CONSULTANT Work Phone: Family [facility] [place] Start: 07-03-2024 End: 07-03-2024 Telephone encounter Cydney Bryant RN Cardiology Lab Comment on above: Reminder Call Start: 07-02-2024 End: 07-02-2024 ambulatory Pulm Lab [facility] Work Phone: PULM LAB [facility] Comment on above: Spirometry Start: 07-02-2024 End: 07-02-2024 Patient encounter procedure Pulm Lab [facility] Work Phone: PULM LAB [facility] Start: 06-27-2024 End: 06-27-2024 ambulatory JANEL MCGOVERN Facility:[facility] Start: 06-27-2024 End: 06-27-2024 Office outpatient visit 15 minutes Janel Mcgovern APRN.ALLIANCE CONSULTANT Work Phone: Family Medicine [place] Comment on above: Centrilobular emphys adilene (HCC) (Primary Dx); Abnormal findings diagnostic imaging of heart and coronary circulation; Tinea pedis of both feet; Encounter for immunization Start: 06-16-2024 End: 06-16-2024 Telephone encounter Dileep Ervin APRN.ALLIANCE CONSULTANT Work Phone: Pulmonary Medicine Comment on above: Results Start: 06-16-2024 End: 06-16-2024 ambulatory DIANE LINARES Facility:[facility] Start: 06-16-2024 End: 06-16-2024 Patient encounter procedure Diane Linares PA-C Work Phone: Orthopaedics Comment on above: Numbness and tinglin g in left hand (Primary Dx); Wrist swelling, left; Osteoarthritis of left wrist, unspecified osteoarthritis type Start: 06-13-2024 End: 06-13-2024 ambulatory DILEEP ERVIN Facility:[facility] Start: 06-13-2024 End: 06-13-2024 Subsequent hospital visit by physician [facility] ([facility] Work Phone: Cat Scan Comment on above: Encounter for screen ing for lung cancer [Z12.2] Start: 06-02-2024 End: 06-02-2024 ambulatory DILEEP ERVIN Facility:[facility] Start: 06-02-2024 End: 06-02-2024 Patient encounter procedure Dileep Ervin LUISITO.ALLIANCE CONSULTANT Work Phone: Pulmonary Medicine Comment on above: Encounter for screen ing for lung cancer (Primary Dx); Tobacco use current Start: 05-06-2024 End: 05-06-2024 Admission to same day surgery center Nilson Escalera RN General Surgery Comment on above: Patient Education Start: 05-06-2024 End: 05-06-2024 ambulatory Nilson Escalera RN General Surgery Start: 05-06-2024 End: 05-06-2024 Patient encounter procedure Hiren Baumann MD Work Phone: General Surgery Comment on above: Bilateral recurrent inguinal hernia without obstruction or gangrene (Primary Dx) Start: 04-28-2024 End: 04-28-2024 ambulatory ELEAZAR SILVER Facility:[facility] Start: 04-28-2024 End: 04-28-2024 Subsequent hospital [...] Phone: Ambulatory Surgery Start: 04-07-2024 End: 04-07-2024 ambulatory MILE IZAGUIRRE Facility:[facility] Start: 04-07-2024 End: 04-07-2024 Patient encounter procedure Mile Izaguirre MD Work Phone: General Surgery Comment on above: Bilateral recurrent inguinal hernia without obstruction or gangrene Start: 03-31-2024 End: 04-01-2024 Telephone encounter Janel Mcgovern APRN.ALLIANCE CONSULTANT Work Phone: [facility] [place] Start: 03-25-2024 End: 03-25-2024 Subsequent hospital visit by physician Josephine [facility] [place] Work Phone: Radiology Comment on above: Wrist swelling, left [M25.432] Start: 03-25-2024 End: 03-25-2024 ambulatory JANEL Reyes MCGOVERN Facility:[facility] Start: 03-25-2024 End: 03-25-2024 Periodic preventive med est patient 40-64yrs Janel Reyes Manzanodhruv JORGE.ALLIANCE CONSULTANT Work Phone: [facility] Comment on above: Dyslipidemia (Primar y Dx); Screening for colon cancer; Bilateral inguinal hernia with obstruction and without gangrene, recurrence not specified; Screening for depression; Encounter for screening examination for other mental health and behavioral disorders; Encounter for screening for lung cancer; Screening for prostate cancer; Screening for diabetes mellitus (DM); Wrist swelling, left; Numbness in both hands Start: 03-20-2024 End: 03-20-2024 ambulatory DEEPAK CEDEÑO Facility:[facility] Start: 03-20-2024 End: 03-20-2024 Office outpatient new 30 minutes Dontrell Walker PA-C Work Phone: [place] [facility] Comment on above: Wound cellulitis (Pr imary Dx) Start: 12-25-2023 End: 12-25-2023 Patient encounter procedure Malika Peña APRN.ALLIANCE CONSULTANT Work Phone: [facility] Comment on above: Right lower quadrant abdominal pain (Primary Dx) Start: 01-24-2023 End: 01-24-2023 Patient encounter procedure Jomar Del Angel DO Work Phone: [facility] [place] Comment on above: Primary osteoarthrit is of right wrist (Primary Dx) Start: 01-16-2023 End: 01-16-2023 Subsequent hospital visit by physician Josephine [facility] [place] Work Phone: Radiology Comment on above: Right wrist pain [M2 5.531] Start: 01-16-2023 End: 01-16-2023 Patient encounter procedure Yuni Isaacs APRN.ALLIANCE CONSULTANT Work Phone: [facility] Comment on above: Right wrist pain (Pr imary Dx) Procedures Date Procedure Procedure Detail Performing Clinician Start: 02-03-2025 MRI of lumbar spine Dr. Deepak Cedeño MD Work Phone: Start: 01-30-2025 X-ray of lumbosacral spine Dr. Deepak Cedeño MD Work Phone: Start: 01-26-2025 CT of lumbar spine Dr. Deepak Cedeño MD Work Phone: Start: 07-04-2024 Cv strs tst xers&/or rx cont ecg trcg only Janel A Suppan CREATIVE WRITING TEACHER.ALLIANCE CONSULTANT Work Phone: Start: 07-02-2024 Brncdilat rspse spmt ry pre&post-brncdilat admn Janel A Suppan CREATIVE WRITING TEACHER.ALLIANCE CONSULTANT Work Phone: Start: 06-13-2024 CT LUNG SCREEN WO VYON Dileep Ervin CREATIVE WRITING TEACHER.ALLIANCE CONSULTANT Work Phone: Start: 04-28-2024 Colonoscopy flx dx w/collj spec when pfrmd Janel A Suppan CREATIVE WRITING TEACHER.ALLIANCE CONSULTANT Work Phone: Start: 04-28-2024 Colonoscopy Eleazar abbott MD Work Phone: Start: 03-25-2024 Adult depression screening assessment Janel Suppan CREATIVE WRITING TEACHER.ALLIANCE CONSULTANT Work Phone: Start: 03-25-2024 Lipid 1996 panel - S maye or Plasma Xr [place] Work Phone: Start: 01-16-2023 Radex wrist complete minimum 3 views Yuni Isaacs CREATIVE WRITING TEACHER.ALLIANCE CONSULTANT Work Phone: Start: 07-02-2017 Lipid 1996 panel - S maye or Plasma Jomar Araiza DO Work Phone: History of repair of inguinal hernia Status post bilateral inguinal hernia repair Hiren Baumann MD Work Phone: Plan of Treatment Date Care Activity Detail Author Start: 10-25-2038 RSV Vaccine (1 - 1-d ose 75+ series) RSV Vaccine (1 - 1-dose 75+ series) [facility] Start: 03-20-2034 Urine microalbumin profile DTaP,Tdap,Td Vaccine (3 - Td or Tdap) [facility] Start: 03-25-2029 Lipid panel Lipid Screening [facility] Start: 03-25-2029 Prostate specific antigen measurement Prostate Cancer Screening Discussion [facility] Start: 03-25-2027 Diabetes Screening Diabetes Screenin g [facility] Start: 05-24-2026 Urine microalbumin profile [facility] Start: 06-27-2025 Annual PCP Team Seaman Officer nayana Disease Visit Annual PCP Team Chronic Disease Visit [facility] Start: 06-13-2025 Screening for malign ant neoplasm of lung Lung Cancer Screening [facility] Start: 05-14-2025 End: 07-16-2025 CT Chest for screening WO contrast CT LUNG SCREEN WO IVCON Radiology Routine Encounter for screening for lung cancer Tobacco use current Expected: 05/14/2025 (Approximate), Expires: 07/16/2025 [facility] Work Phone: Comment on above: Expected: 05/14/2025 (Approximate), Expires: 07/16/2025 Start: 04-28-2025 Screening for malign ant neoplasm of colon [facility] Start: 03-25-2025 Anxiety Screening Anxiety Screening [facility] Start: 03-25-2025 Covid-19 Vaccine ( season) Covid-19 Vaccine () [facility] Comment on above: Postponed from 01/12 (Declined at this time) Start: 03-25-2025 Depression Screening Depression Scre ening [facility] Start: 03-25-2025 Hepatitis B surface antibody level LDL Cholesterol [facility] Start: 03-25-2025 Pneumococcal vaccination Pneumococcal Vaccine (1 of 2 - PCV) [facility] Comment on above: Postponed from 10/25 (Declined at this time) Start: 03-25-2025 Shingrix Vaccine (1 of 2) Shingrix Vaccine (1 of 2) [facility] Comment on above: Postponed from 10/25 (Declined at this time) Start: 02-03-2025 MRI of lumbar spine Spine Lumbar (Ro utine) [facility] Start: 02-03-2025 Patient encounter procedure Registered Clinical -MRI - [facility] Work Phone: Start: 01-26-2025 [facility] Start: 01-12-2025 Influenza vaccination Influenza Vacc ine (#1) [facility] Start: 01-02-2025 End: 01-02-2025 Patient encounter procedure 01/02/2025 2:40 PM EDT Office Visit Family Medicine [place] [address] [place], [place] [address] Deepak Cedeño MD [address] [place], [place] [id number] 6 month exam Family [facility] Comment on above: 6 month exam Start: 11-10-2024 Influenza vaccination Influenza Vacc ine (#1) [facility] Comment on above: Postponed from 01/12 (Declined at this time) Start: 10-02-2024 End: 10-02-2024 Patient encounter procedure General Surgery Comment on above: 09/03 robotic inguina l hernia Post op, s/p open LI H w/ mesh/robotic RIH repair w/ mesh 09/03 Start: 09-03-2024 End: 09-03-2024 Admission to same day surgery center [facility] Comment on above: ROBOTIC INGUINAL HER JEAN PAUL REPAIR Start: 09-03-2024 End: 09-03-2024 Laparoscopy surg rpr initial inguinal hernia [facility] Start: 09-03-2024 End: 09-03-2024 Rpr 1st ingun hrna age 3 yrs/> reducible [facility] Start: 09-03-2024 Subsequent hospital visit by physician [facility] Comment on above: Bilateral inguinal h ernia without obstruction or gangrene, recurrence not specified [K40.20] Start: 08-22-2024 Shingrix Vaccine (2 of 2) Shingrix Vaccine (2 of 2) [facility] Start: 07-04-2024 End: 06-27-2025 EXERCISE STRESS ECG (WITHOUT IMAGING) EXERCISE STRESS ECG (WITHOUT IMAGING) Cardiology Routine Centrilobular emphysema (HCC) Abnormal findings diagnostic imaging of heart and coronary circulation Expected: 07/04/2024, Expires: 06/27/2025 [facility] Comment on above: Expected: 07/04/2024 , Expires: 06/27/2025 Start: 07-04-2024 End: 07-04-2024 Patient encounter procedure 07/04/2024 10:00 AM EST Appointment Cardiology Lab [address] [place] [address] Centrilobular emphysema (HCC) [J43.2]; Abnormal findings diagnostic imaging of heart and coronary circulation [R93.1] Cardiology Lab Comment on above: Centrilobular emphys adilene (HCC) [J43.2]; Abnormal findings diagnostic imaging of heart and coronary circulation [R93.1] Start: 07-04-2024 Subsequent hospital visit by physician 07/04/2024 10:00 AM EST Hospital Encounter Cardiology Lab [address] [place] [address] Centrilobular emphysema (HCC) [J43.2] Cardiology Lab Comment on above: Centrilobular emphys adilene (HCC) [J43.2] Start: 07-02-2024 End: 07-02-2024 ambulatory 07/02/2024 12:30 PM EST Procedure PULM LAB [facility] [address] [place] [address] W[facility], Pulm Lab [facility] [address] [place] [address] Centrilobular emphysema (HCC) [J43.2]; Abnormal findings diagnostic imaging of heart and coronary circulation [R PULM LAB [facility] Comment on above: Centrilobular emphys adilene (HCC) [J43.2]; Abnormal findings diagnostic imaging of heart and coronary circulation [R Start: 06-27-2024 End: 06-27-2024 Patient encounter procedure 06/27/2024 2:20 PM EST Office Visit Family [facility] [place] [address] [place] [address] Janel Mcgovern APRN.ALLIANCE CONSULTANT [address] [place] [address] lung cancer screen Family [facility] Comment on above: review CT lung cance r screen Start: 06-16-2024 End: 06-16-2024 Patient encounter procedure 06/16/2024 9:30 AM EST Office Visit Orthopaedics [address] [place] [address] Diane Linares PA-C [address] [place] [address] Wrist swelling, left [M25.432] Orthopaedics Comment on above: Wrist swelling, left [M25.432] Start: 06-13-2024 End: 06-13-2024 Patient encounter procedure 06/13/2024 1:40 PM EST Appointment Cat Scan [address] [place] [address] Encounter for screening for lung cancer [Z12.2]; Tobacco use current [Z72.0] Cat Scan Comment on above: Encounter for screen ing for lung cancer [Z12.2]; Tobacco use current [Z72.0] Start: 06-02-2024 End: 06-02-2024 Patient encounter procedure 06/02/2024 9:30 AM EST Office Visit Pulmonary Medicine [address] [place] [address] Dileep Ervin APRN.ALLIANCE CONSULTANT [address] [place] [address] Encounter for screening for lung cancer [Z12.2] Pulmonary Medicine Comment on above: Encounter for screen ing for lung cancer [Z12.2] Start: 05-06-2024 End: 05-06-2024 Patient encounter procedure 05/06/2024 9:20 AM EST Office Visit General Surgery [address] [id number] [place] [address] [place], [place] [id number] new patient [facility] previously seen by Martinez [...] for colon cancer Expected: 04/01/2024, Expires: 03/25/2025 [facility] Work Phone: Comment on above: Expected: 04/01/2024 , Expires: 03/25/2025 Start: 03-25-2024 End: 06-24-2024 Cobalamin (Vitamin B12) [Mass/volume] in Serum or Plasma [facility] Comment on above: Expected: 03/25/2024 , Expires: 06/24/2024 Start: 03-25-2024 End: 06-24-2024 Comprehensive metabolic 2000 panel - Serum or Plasma [facility] Comment on above: Expected: 03/25/2024 , Expires: 06/24/2024 Start: 03-25-2024 End: 06-24-2024 Hemoglobin A1c in Blood [facility] Comment on above: Expected: 03/25/2024 , Expires: 06/24/2024 Start: 03-25-2024 End: 06-24-2024 LIPID PANEL, NONFASTING [facility] Comment on above: Expected: 03/25/2024 , Expires: 06/24/2024 Start: 03-25-2024 End: 06-24-2024 Magnesium [Mass/volume] in Serum or Plasma [facility] Comment on above: Expected: 03/25/2024 , Expires: 06/24/2024 Start: 03-25-2024 End: 06-24-2024 PSA/PROSTATE SPECIFIC ANTIGEN SCREENING [facility] Comment on above: Expected: 03/25/2024 , Expires: 06/24/2024 Start: 03-25-2024 End: 06-24-2024 Thyrotropin [Units/volume] in Serum or Plasma [facility] Comment on above: Expected: 03/25/2024 , Expires: 06/24/2024 Start: 03-25-2024 End: 03-25-2024 Patient encounter procedure 03/25/2024 9:00 AM EST Office Visit Family Medicine [place] [address] [facility] [place] [address] physical Family Medicine [place] Comment on above: physical Start: 01-13-2024 Covid-19 Vaccine ( season) Covid-19 Vaccine () [facility] Start: 01-13-2024 Covid-19 Vaccine ( season) Covid-19 Vaccine () [facility] Start: 01-13-2024 Influenza vaccination Influenza Vacc ine (#1) [facility] Start: 2023 RSV Vaccine (1 - 1-d ose 60+ series) RSV Vaccine (1 - 1-dose 60+ series) [facility] Start: 2023 RSV Vaccine (1 - Ris k 60-74 years 1-dose series) RSV Vaccine (1 - Risk 60-74 years 1-dose series) [facility] Start: 01-12-2023 Covid-19 Vaccine ( season) Covid-19 Vaccine ( season) [facility] Start: 01-12-2023 Influenza vaccination [facility] Start: 11-16-2022 DIABETES SCREEN DIABETES SCREEN [facility] Start: 11-16-2022 Diabetes Screening Diabetes Screenin g [facility] Start: 07-02-2022 Lipid 1996 panel - Serum or Plasma Lipid Screening [facility] Start: 07-02-2022 Lipid panel Lipid Screening [facility] Start: 07-02-2022 LIPID SCREEN LIPID SCREEN [facility] Start: 06-19-2022 PROSTATE CANCER SCREENING DISCUSSION PROSTATE CANCER SCREENING DISCUSSION [facility] Start: 06-19-2022 Prostate specific antigen measurement Prostate Cancer Screening Discussion [facility] Start: 05-14-2022 DEPRESSION ASSESSMENT DEPRESSION ASS ESSMENT [facility] Start: 11-18-2020 COLORECTAL CANCER SCREENING COLORECTAL CANCER SCREENING [facility] Start: 11-18-2020 FECAL OCCULT BLOOD FECAL OCCULT BLOO D [facility] Start: 11-18-2020 Screening for malign ant neoplasm of colon [facility] Start: 10-25-2013 Influenza vaccination Lung Cancer Sc reening [facility] Start: 10-25-2013 Screening for malign ant neoplasm of lung Lung Cancer Screening [facility] Start: 10-25-2013 SHINGRIX VACCINE (1 of 2) SHINGRIX VACCINE (1 of 2) [facility] Start: 10-25-2008 COLOGUARD (FIT-DNA) COLOGUARD (FIT-D NA) [facility] Start: 10-25-2008 Colonoscopy COLONOSCOPY [facility] Start: 10-25-[address] COLONOGRAPHY [facility] Start: 10-25-2008 Screening for malign ant neoplasm of colon [facility] Start: 10-25-2008 SIGMOIDOSCOPY SIGMOIDOSCOPY [facility] Start: 10-25-1993 Zoledronic acid therapy Alpha- 1 Antitrypsin Deficiency Screening [facility] Start: 10-25-1982 Pneumococcal Vaccine : 50+ (1 of 2 - PCV) Pneumococcal Vaccine: 50+ (1 of 2 - PCV) [facility] Start: 10-25-1981 Anxiety Screening Anxiety Screening [facility] Start: 10-25-1981 Depression Screening Depression Scre ening [facility] Start: 10-25-1981 HIV SCREENING HIV SCREENING [facility] Start: 10-25-1981 HIV screening HIV Screening [facility] Start: 10-25-1969 Pneumococcal vaccination [facility] Start: 04-26-1964 COVID-19 VACCINE (#1) COVID-19 VACCI NE (#1) [facility] End: 07-02-2025 CT Chest for screening WO contrast CT LUNG SCREEN WO IVCON Radiology Routine Encounter for screening for lung cancer Tobacco use current 1 Occurrences starting 06/02/2024 until 07/02/2025 [facility] Work Phone: Comment on above: 1 Occurrences starti ng 06/02/2024 until 07/02/2025 End: 06-16-2025 EMG(NEURO/NI) EMG(NEURO/NI) EMG Routine Numbness and tingling in left hand 1 Occurrences starting 06/16/2024 until 06/16/2025 [facility] Work Phone: Comment on above: 1 Occurrences starti ng 06/16/2024 until 06/16/2025 Patient Education Anatomy of a N ormal Spine ED Foot Drop [facility] Work Phone: End: 07-27-2025 SPIROMETRY - BASELINE AND POST DILATOR SPIROMETRY - BASELINE AND POST DILATOR PFT Routine Centrilobular emphysema (HCC) Abnormal findings diagnostic imaging of heart and coronary circulation 1 Occurrences starting 06/27/2024 until 07/27/2025 [facility] Work Phone: Comment on above: 1 Occurrences starti ng 06/27/2024 until 07/27/2025 SURGICAL PATHOLOGY [facility] Work Phone: Comment on above: Release Upon Orderin g for 1 Occurrences starting 04/28/2024, 1 completed End: 04-24-2025 XR Wrist - left PA and Lateral and Oblique XR WRIST GENERAL 3V PA/LAT/OBL LEFT Radiology Routine Wrist swelling, left 1 Occurrences starting 03/25/2024 until 04/24/2025 [facility] Comment on above: 1 Occurrences starti ng 03/25/2024 until 04/24/2025 XR Wrist - left PA a nd Lateral and Oblique XR WRIST GENERAL 3V PA/LAT/OBL LEFT Radiology Routine Wrist swelling, left 03/25/2024 10:37 AM EST [facility] Immunizations Immunization Date Immunization Notes Care Provider Mario santoyo 06-27-2024 pneumococcal Conjuga te, unspecified formulation Janel Suppan CREATIVE WRITING TEACHER.ALLIANCE CONSULTANT Work Phone: [facility] 06-27-2024 pneumococcal conjuga te (PCV20) vaccine, 20 valent (PREVNAR 20) Janel Suppan CREATIVE WRITING TEACHER.ALLIANCE CONSULTANT Work Phone: [facility] 06-27-2024 zoster vaccine recombinant Janel Suppan CREATIVE WRITING TEACHER.ALLIANCE CONSULTANT Work Phone: [facility] 03-20-2024 tetanus toxoid, redu tayla diphtheria toxoid, and acellular pertussis vaccine, adsorbed Dontrell Walker PA-C Work Phone: [facility] 06-19-2017 influenza virus vaccine, unspecified formulation Jomar Araiza DO Work Phone: [facility] 05-24-2016 tetanus toxoid, redu tayla diphtheria toxoid, and acellular pertussis vaccine, adsorbed Yuni Isaacs APRN.ALLIANCE CONSULTANT Work Phone: [facility] Payers Date Payer Category Payer Self-pay 2018 Private Health Insurance [employer] PPO [id number] 2018 Unknown MMO [employer] PPO [id number] 2018-Present [phone] [address] [place] [address] PPO [id number] 2013 Unknown [id number] Unknown [id number] Unknown [id number] Unknown [id number] Unknown [id number] Unknown [id number] Unknown [id number] 462 Unknown [id number] 462 Unknown [id number] 462 Unknown [id number] 462 Unknown [id number] 462 Social History Date Type Detail Facility Start: 01-16-2023 Tobacco smoking status NHIS Ex-smoker [facility] Work Phone: History of tobacco use Current smoker [facility] Work Phone: Start: 05-14-1987 End: 05-14-2016 History of tobacco use Cigarette Smoker [facility] Work Phone: Start: 01-16-2023 End: 01-24-2023 Cigarettes smoked current (pack per day) - Reported 1 [facility] Work Phone: Start: 01-16-2023 End: 08-13-2024 Tobacco use and exposure Smokeless tobacco non-user [facility] Work Phone: Start: 01-16-2023 End: 10-02-2024 Alcohol intake Current drinker of alcohol (finding) [facility] Start: 02-03-2020 End: 01-24-2023 Alcohol Use Disorder Identification Test - Consumption [AUDIT-C] [facility] Work Phone: How often to you hav e a drink containing alcohol? Monthly or less [facility] Work Phone: How many standard dr inks containing alcohol do you have on a typical day? 1 or 2 [facility] Work Phone: How often do you hav e 6 or more drinks on 1 occasion? Never [facility] Work Phone: National Score (1-10 0), lower number is lower risk Not on file [facility] Start: 01-16-2023 Tobacco Comment Quit 07/29/2015 [facility] Start: 11-01-2020 Alcohol Comment 1- 3 beers once a month [facility] Start: 1965 Sex Assigned At Male [facility] Start: 01-26-2020 Gender identity Identifies as male gender (finding) [facility] Start: 01-26-2020 Sexual orientation Heterosexual (finding) [facility] Start: 01-24-2023 End: 03-20-2024 Tobacco smoking status NHIS Occasional tobacco smoker [facility] Start: 05-14-1987 End: 08-13-2024 Tobacco smoking status NHIS Smokes tobacco daily [facility] Start: 03-25-2024 Alcohol Comment 3-7 beers once a week [facility] Has the [employer], [employer], or [employer] threatened to shut off services in your home in past 12Mo No [facility] Do you belong to any clubs or organizations such as spiritism groups, unions, fraternal or athletic groups, or school groups? Yes [facility] Are you now , , , , never or living with a partner? [facility] How often to you hav e a drink containing alcohol? 2-4 times a month [facility] Do you feel stress - tense, restless, nervous, or anxious, or unable to sleep at night because your mind is troubled all the time - these days [OSQ] Only a little [facility] (I/We) worried marion er (my/our) food would run out before (I/we) got money to buy more. Never true [facility] Start: 08-13-2024 Tobacco Comment 0.5 ppd [facility] Start: 01-26-2025 Tobacco smoking status NHIS Current Heavy tobacco smoker [facility] Start: 08-30-2020 Tobacco Use Tobacco Use [facility] Medical Equipment Procedure Code Equipment Code Equipment Origin al Text Equipment Identifier Dates Patch Ventralex St Sepra Sorbaflex 3.2in Large [place] Polypropylene - [id number] Start: 11-30-2015 Mesh 3dmax Large Polypropylene 6.2x4.1in Surgical Lightweight Large Pore - [id number] Start: 11-30-2015 Mesh Parietene Macroporous 15x7.5cm Surgical - [id number] Start: 09-03-2024 Mesh Prolene Fla t Square 6x6in Surgical Customizable Knit Nonabsorbable - [id number] Start: 09-03-2024 Functional Status Date Assessment Result Facility 06-27-2024 Total score [AUDIT-C] 2 06/27/19 25 12:09 PM EST User, Kel [facility] 06-27-2024 Within the last year , have you been humiliated or emotionally abused in other ways by your partner or ex-partner? No 06/27/2024 12:09 PM EST User, [email or web address] No [facility] 06-27-2024 Within the last year , have you been afraid of your partner or ex-partner? No 06/27/2024 12:09 PM EST User, Bonit No [facility] 06-27-2024 Within the last year , have you been raped or forced to have any kind of sexual activity by your partner or ex-partner? No 06/27/2024 12:09 PM EST User, [email or web address] No [facility] 06-27-2024 Within the last year , have you been kicked, hit, slapped, or otherwise physically hurt by your partner or ex-partner? No 06/27/2024 12:09 PM EST User, Bonit No [facility] 06-27-2024 How often to you hav e a drink containing alcohol? 2-4 times a month 06/27/2024 12:09 PM EST User, [email or web address] 2-4 times a month [facility] 06-27-[address] inks containing alcohol do you have on a typical day? 1 or 2 06/27/2024 12:09 PM EST User, Bonit 1 or 2 [facility] 06-27-2024 How often do you hav e 6 or more drinks on 1 occasion? Never 06/27/2024 12:09 PM EST User, [email or web address] Never [facility] 08-01-2013 Are you deaf, or do you have serious difficulty hearing No 08/01/2013 8:50 AM Ya Hein RN No [facility] 08-01-2013 Are you blind, or do you have serious difficulty seeing, even when wearing glasses No 08/01/2013 8:50 AM Ya Hein RN No [facility] 08-01-2013 Do you have serious difficulty walking or climbing stairs No 08/01/2013 8:50 AM Ya Hein RN No [facility] 08-01-2013 Do you have difficul ty dressing or bathing No 08/01/2013 8:50 AM Ya Hein RN No [facility] 08-01-2013 Because of a physica l, mental, or emotional condition, do you have difficulty doing errands alone such as visiting a physician's office or shopping No 08/01/2013 8:50 AM Ya Hein RN No [facility] Mental Status Date Assessment Result Facility 08-01-2013 Because of a physica l, mental, or emotional condition, do you have serious difficulty concentrating, remembering, or making decisions No 08/01/2013 8:50 AM Ya Hein RN No [facility] Clinical Notes 01-16-2023 to 02-26-2025 Note Date & Type Note Facility 02-26-2025 Note HNO ID: [id number] Author: JANEL MCGOVERN APRN.[employer]IANCE CONSULTANT Service: ? Author Type: Nurse Practitioner Type: Progress Notes Filed: 02/27/2025 07:55 Note Text: PRE-OPERATIVE ASSESSMENT Surgeon: Dr. Lopez Type of surgery: 360 lumbar fusion L 4-5 Patient scheduled for surgery on 03/04/25. Diagnosis:L5 Consultation requested by Dr. Lopez for an opinion regarding pre-op exam. My final recommendations will be communicated back to the requesting physician by way of shared Medical record or letter to requesting physician via US mail. Patient presents with: Pre-Op Exam: 360 Lumbar Fusion L4-5 on 03/04/25 HISTORY: Pt. Was camping about 2 months ago and awoke with right foot drop. Occasional back ache. Allergies: Adhesive Rash Comment:Blistering of skin from adhesive Current Outpatient Medications Medication Sig Protein Supplement liqd Take by mouth as needed. No current facility-administered medications for this visit. MEDICATIONS AND ALLERGIES REVIEWED. 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 RESP: Denies dyspnea, chronic cough, asthma, bronchitis, COPD, emphysema, and URI < 2 weeks ago. CARD: Patient denies any dyspnea, recent [place], angina, arrhythmias, or valvular disease,, Denies h/o DVT or PE., + HTN, and + hyperlipidemia GI: Patient denies any history of GERD, PUD, liver problems or ETOH abuse., Patient denies any history of IBD, IBS, colitis, colorectal cancer, or diarrheal states. : No history of disease. ED+ RENAL: Denies history of renal insufficiency. ENDO: no history of diabetes, no history of thyroid problems, finished short- term steroid for foot drop HEME: patient denies bleeding, bruising easily, no history of anemia and no history of prior transfusion PSYCHIATRIC: denies history of psychiatric illness and denies eating disorders, denies a history of abuse ANESTHESIA COMPLICATIONS: no reported complications Past Surgical History PAST SURGICAL HISTORY Procedure Laterality Date LAPS REPAIR HERNIA EXCEPT INCAL/INGUN REDUCIBLE 11/30/2015 LAPS SURG RPR RECURRENT INGUINAL HERNIA Left 11/30/2015 REPAIR INGUINAL HERNIA Bilateral 09/03/2024 open repair of left side with mesh AND robotic repair of right side with mesh RPR 1ST INGUN HRNA AGE 5 YRS/> REDUCIBLE 01/12/1990 [facility]? - ?right RPR 1ST INGUN HRNA AGE 5 YRS/> REDUCIBLE as child pediatric type uncertain VASECTOMY UNI/BI SPX W/POSTOP SEMEN EXAMS PHYSICAL EXAM: Wt 84.4 kg (186 lb) BMI 25.23 kg/m? Physical Exam GENERAL: Healthy, alert, no distress, cooperative, Smiling SKIN: Skin color, texture, turgor normal. No rashes or lesions. HEENT: PERRL, EOMI, and normal dentition JVD: No jugulovenous distention, No carotid bruits, Carotid pulse normal contour, Supple CARDIAC: Normal S1 and S2; no rubs, murmurs, or gallops LUNGS: Lungs clear to auscultation, Good diaphragmatic excursion ABDOMEN: Abdomen soft, non-tender, BS normal, No masses or organomegaly EXTREMITIES: Extremities normal, no deformities, edema, clubbing or skin discoloration. Good capillary refill., No ulcers NEURO: Cranial nerves II-XII intact, right foot drop PULSES: 2+ radial, 2+ carotid : not examined/not indicated. EKG: Date: 02/26/25 Results: NSR IMPRESSION: ASSESSMENT/PLAN: 1. Pre-op exam - ICD9: V72.84, ICD10: Z01.818 Optimized for surgery pending lab results - ECG COMPLETE - Complete labs panel checked Cecilia Martin is a 59 year old male. functional class of IV History: There is no known pertinent medical condition which may affect kenna-operative course Patient has no clinical predictors of increased perioperative cardiovascular risk. Patient is scheduled for a intermediate/high-risk procedure. RECOMMENDATIONS: Take the following medications the morning of surgery with a small sip of water: none To Stop NSAID's (e.g. Motrin,Aleve,Arthrotec etc) 7 days before surgery. To Stop Aspirin 7 days before surgery. This patient is optimally prepared for surgery 2. Sebaceous cyst - ICD9: 706.2, ICD10: L72.3 Chronic- non-inflamed - CEPHALEXIN 500 MG CAPSULE 2 x day for 5 days to eliminate any possible infection- will ask derm to see pt. For removal eventually - CONSULT TO DERMATOLOGY - COMPLETE BLOOD COUNT AND DIFFERENTIAL 3. Degeneration of intervertebral disc of lumbar region, unspecified whether pain present - ICD9: 722.52, ICD10: M51.369 Having lumbar fusion - COMPLETE BLOOD COUNT AND DIFFERENTIAL - ACTIVATED PARTIAL THROMBOPLASTIN TIME 4. ED (erectile dysfunction) of organic origin - ICD9: 607.84, ICD10: N52.9 (more content not included)... [facility] 02-06-2025 Note HNO ID: [id number] Author: JANEL MCGOVERN APRN.[employer]IANCE CONSULTANT Service: ? Author Type: Nurse Practitioner Type: Progress Notes Filed: 02/06/2025 09:15 Note Text: This is a 59 year old male who presents today with: No chief complaint on file. HISTORY OF PRESENT ILLNESS: Cecilia Martin is a 59 year old male. No chief complaint on file. Was seen in ER for lower ext.instability due to sudden onset of right foot drop. Completed 12 day course of prednisone. No improvement. The patient is a 59-year-old male with degenerative disc disease and spondylolisthesis, presenting for evaluation of acute right foot drop and gait instability. Right Foot Drop: - Cecilia Martin experienced onset approximately two weeks ago, with sudden inability to dorsiflex the right foot. - Cecilia reports numbness in the right foot, leading to frequent tripping and falls. - Cecilia is unable to dorsiflex or invert the right foot; can plantarflex and blaise. - Cecilia has a foot drop brace but has not picked it up yet. - Cecilia denies loss of bowel or bladder function. - No significant leg pain, but Cecilia reports aching in the lateral right thigh, attributed to altered gait. Back Pain: - Intermittent back pain for an unspecified duration, with increased severity two days ago. - Pain is not constant; currently Cecilia denies any back pain. - No specific injury reported; Cecilia believes it may be due to cumulative effects of physical activities over time. - Recent CT scan showed nerve impingement and degenerative changes of the sacroiliac joint. - MRI performed recently; Cecilia is awaiting follow-up with a surgeon on the . 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 - Cecilia has been off work since the onset of foot drop due to instability and safety concerns. - Cecilia expresses frustration with inability to drive and perform daily activities safely. PAST MEDICAL HISTORY: PAST MEDICAL HISTORY Diagnosis Date Inguinal hernia Right inguinal, , repaired Lyme disease, acute 11/2019 erythema migrans Renal calculi Umbilical hernia Unilateral inguinal hernia without obstruction or gangrene left PAST SURGICAL HISTORY Procedure Laterality Date LAPS REPAIR HERNIA EXCEPT INCAL/INGUN REDUCIBLE 11/30/2015 LAPS SURG RPR RECURRENT INGUINAL HERNIA Left 11/30/2015 REPAIR INGUINAL HERNIA Bilateral 09/03/2024 open repair of left side with mesh AND robotic repair of right side with mesh RPR 1ST INGUN HRNA AGE 5 YRS/> REDUCIBLE 01/12/1990 [place]? - ?right RPR 1ST INGUN HRNA AGE 5 YRS/> REDUCIBLE as child pediatric type uncertain VASECTOMY UNI/BI SPX W/POSTOP SEMEN EXAMS ALLERGIES Adhesive MEDICATIONS Current Outpatient Medications Medication Sig Protein Supplement liqd Take by mouth as needed. No current facility-administered medications for this visit. [...] Problems Son Anesthesia Problems No Family History SOCIAL HISTORY[1] REVIEW OF SYSTEMS Gastrointestinal: (-) bowel incontinence Genitourinary: (-) urinary incontinence Musculoskeletal: (+) right shoulder pain, (-) back pain, (-) leg pain Neurological: (+) right foot drop, (+) right foot numbness, (+) gait instability, (+) falls EXAM: BP 128/80 (BP Site: Left Arm, BP Position: Sitting) Pulse 81 Wt 84.8 kg (187 lb) SpO2 97% BMI 25.36 kg/m? PHYSICAL EXAM: GENERAL: NAD, alert and oriented. SKIN: Unremarkable, no rash or skin lesions. HEAD: Normocephalic. EYES: PERRLA, EOMI, conjunctiva clear. EXTREMITIES: Right foot drop noted. No deformities, no skin discoloration, no edema. No dorsoflexion or right lateral movement in right foot. Sensation intact except some numbness along right lateral leg. D.P 2+ eric. P.T. 1+ eric. Foot warm and pink. Negative Clonus eric. Sub-patellar 3/5 reflex, Achilles 2/5 eric. NEURO: Awake, alert and oriented x3, cranial nerves III-XII intact, normal gait- no finger to nose ataxia, no involuntary motions. Sensation intact bilaterally, though slightly diminished on the right lateral lower leg. LABS: ASSESSMENT/PLAN: 1. Right foot drop (M21.371) - Acute onset of right foot drop with minimal back pain and no significant leg pain; MRI shows retrolisthesis of L4, L5-S1, spondylolisthesis L4 on L5, facet arthrosis, and mild disc height loss at L5-S1. - Completed 12-day prednisone taper with no improvement in symptoms. - No loss of bowel or bladder function (more content not included)... [facility] 01-30-2025 Evaluation note Diagnosis Onset Date Resolution Lumbar radiculopathy, right acute January 122024 10:29am Foot drop, right inactive Candel[place] r 2024 10:29am [facility] Work Phone: 1(673) 993-760509-19-2025 Progress [facility] [address] [place] [address] OFFICE VISIT Date of Service: 01/30/25 MR#: [id number] Acct: [id number] Name: CECILIA MARTIN Rep #: [id number] : 1965 Provider: VADIM Ruiz Age/Sex: 59/M Location: [facility] Status: Signed Intake Vital Signs 01/26/25 00:52 01/30/25 10:36 Height 6 ft 6 ft Weight: 188 lb 4 oz BMI 25.5 Intake Visit Reasons: LUMBAR SPINE Chief Complaint: Lumbar spine pain Accompanied by: Is patient in pain?: Yes Pain scale (1-10): 1 Allergies No Known Allergies Allergy (Verified 01/30/25 10:39) Medications ?Medication ?Instructions ?Recorded ?Confirmed ?Type prednisone 10 mg tablet 10 mg PO UD #33 tabs 5 01/30/25 Rx Have you fallen in the past year?: No [facility] History Hernia Family History Mother No problems noted. Father No problems noted. Social History Smoking Status: Heavy Smoker (>10/day) HPI LUMBAR SPINE Details: This documentation accurately reflects the service provided and the decisions made by me, VADIM Ruiz 01/30/25 1036. Part of today?s visit was documentedby Krystle Fairbanks MA, acting as scribe. CECILIA MARTIN is a 59 year old M here today for lumbar spine. Patient states that his pain is a 1 today. He states that he is having pain in his right leg. Patient states that he isn't having any pain in his lower back. He states that there isn't really pain, it just feels odd. Patient states that this has been going on for a couple days. He states that thereis no injury. Patient states that he went to the ER Sunday night 01/25/2025. [place]. The er did a cat scan. The Cat scan showedsome degenerative changes. The er doctor sent a referral to us to get an MRI done. Patient states that he hasn't had any surgeries on his lower back. He states that he hasn't had any injuries. Patient states that he doesn't have any back pain. There is nothing that makes it worse. Patient states that he hasn't had any injections in he lower back. He hasn't tried any physical therapy. Patient states that he doesn't have any diabetes, or blood thinners. No heart orlung issues. Patient does smoke, but doesn't do any drugs.Patient states that he has noticed some balance problems. He states that he doesn't use a walker ora cane to help him balance. Says that he noticed some issues with trip and turning his right ankle due to the foot drop. No falls. Numbness on the side of the calf. Hx of inguinal hernia repair, leftsided groin incision. Reviewed ER documentation from 01/25/2025 which showed right sided foot drop which is an acute issuefor the patient. At first it appeared that the foot drop was partial however when he was seen in the ER it was a complete foot drop.Unfortunately the ER did not do a lumbar MRI. Ortho Exam General General: Yes no acute distress Neurologic: Yes alert and Yes oriented x3 Psychologic: Yes reasonable and appropriate Spine SPINE TESTING CERVICAL THORACIC LUMBAR Musculoskeletal Strength 0=absent - 5=normal Details: Neurological exam of the lower extremities shows grade 0 right dorsiflexion, allother muscle groupsshow 5 power. Normal sensations across all dermatomes. No hyperreflexia. No midline or paraspinal tenderness. Coding Level of Care Code Off vis,new,level 4 Diagnoses Foot drop, right M21.371 Lumbar radiculopathy, right M54.16 Assessment and Plan Assessment and Plan (1) Foot drop, right: Status: Acute (2) Lumbar radiculopathy, right: Status: Acute Orders: Orders L/S Spine Min 4 Views Today M54.9 - Dorsalgia, unspecified Spine Lumbar (Routine) Today M21.371 - Foot drop, right foot, M54.16 - Radiculopathy, lumbar region Referrals Physical Therapy Referral M21.371 - Foot drop, right foot, M54.16 - Radiculopathy, lumbar region Plan Obtained and reviewed lumbar x-rays today in the clinic. Independent interpretation of the x-rays was performed. Lumbar x-rays show a retrolisthesisof L5 on S1 and a spondylolisthesis of L4 on L5. There is facet arthrosis mildly in the lumbar spine, no acute fractures. There is also some mild disc height loss seen at L5-S1. Reviewed lumbar CT scan from the ER on 01/26/2025 which also showed these findings. Explained imaging findings in detail. At this time due to the patient's 5-day history of an acute foot drop on the right side, an MRI is needed at this time to further assess. The MRI is necessary due to the neurological deficit which was evidenced by the physical exam findings today which showed the grade 0 rightsided foot drop. This is consistent with a complete foot drop. The patient also has a right lateral calf numbness and tingling. He denies any other back pain or any other radicular symptoms. Also recommended physical therapy to increase extensor and core strength and stretching and to do some strengthening in the right foot for the foot drop. The patient has been taken the steroid g iven from the ER as prescribed over the last 5 days without any significant improvement as of yet. He will follow back up with me after the MRI to review the results. Patient is in agreement. Clinical Quality Measures Falls Risk Screening/Assistive Devices Have you fallen in the past year?: No 01/30/25 1253 PA> Date _ Ellen FIERRO Cosigner Signature: Date (if applicable) CC: Dr. Deepak Cedeño MD ~ [facility]09-19-2025 Radiology Diagnostic study note [facility] Imaging Services [address] [place] [address] L/S Spine Min 4 Views MR#: [id number] Acct: [id number] Name: CECILIA MARTIN Rep #: [id number] : 1965 M 59 From: Dick Livingston MD PCP: Dr. Deepak Cedeño MD Status: DEP A MB Study:L/S Spine Min 4 Views Date of Exam: 01/30/25 Exam# [id number] Ordering Dr: Dago Montez PROCEDURE: L/S SPINE MIN 4 VIEWS 01/30/2025 REASON FOR EXAM: BACK PAIN TECHNIQUE: Procedure Code: RADSPLS Modality: DX Procedure: L/S SPINE MIN 4 VIEWS COMPARISON: CT lumbar spine 01/26/2025. FINDINGS: Anterolisthesis L4 on L5 by 2 mm. No acute bony abnormalities. L4-L5 and L5-S1 facet joint arthropathy, sclerotic endplates and disc space narrowing. Atherosclerotic calcifications of the aorta. The sacroiliac joints and hip joints are unremarkable. RAD/L/S Spine Min 4 Views IMPRESSION: Anterolisthesis L4 on L5 by 2 mm. Degenerate changes at L4-L5 and L5-S1. Reading Location: [facility] CC: VADIM Ruiz; Dr. Deepak Cdeeño MD ~ Funding Specialist: Signed [facility]09-15-2025 Radiology Diagnostic study note [facility] Imaging Services [address] [address] Spine Lumbar without Contrast MR#: [id number] Acct: [id number] Name: CECILIA MARTIN Rep #: [id number] : 1965 M 59 From: Kanchan Bowen MD PCP: Dr. Deepak Cedeño MD Status: REG E R Study:Spine Lumbar without Contrast Date of E xam: 01/26/25 Exam# [id number] Ordering Dr: Yvonne Kilgore DO PROCEDURE: SPINE LUMBAR WITHOUT CONTRAST 01/26/2025 REASON FOR EXAM: LUMBAR RADICULOPATHY TECHNIQUE: Procedure Code: CTSPL Modality: CT Procedure: SPINE LUMBAR WITHOUT CONTRAST Coronal and Sagittal reconstruction series were provided. One or more dose reduction techniques were used (e.g., Automated exposure control, adjustment of the mA and/or kV according to patient size, use of iterative reconstruction technique COMPARISON: none RADIATION DOSE SUMMARY: CTDI Vol 14.69 mGy DLP :621.55 mGycm FINDINGS: Straightened lumbar lordosis denoting myospasm. 1st degree anterolisthesis of L4 over L5 with L4-L5 degenerative facet arthropathy Mild L5 over S1 retrolisthesis. Normal vertebral bodies height and alignment. Intact vertebral neural arches. No definite fractures could be detected. Multilevel small marginal lipping and sclerosis of the examined vertebral end plates. Multilevel reduced discs height with vacuum phenomenon. Multilevel degenerative facet arthropathy and hypertrophied ligamenta flava withcalcifications. Multilevel variable degrees of diffuse disc bulges indenting the theca and inducing encroachment upon the neural exit foramina. Degenerative changes of the sacroiliac joints. No paraspinal soft tissue masses. Aortoiliac atheromatous calcifications. CT/Spine Lumbar without Contrast IMPRESSION: Straightened lumbar lordosis denoting myospasm. 1st degree anterolisthesis of L4 Mild L5 over S1 retrolisthesis. No acute fractures. Lumbar spondylosis with multilevel facet arthropathy and diffuse posterior disc bulges inducing encroachment upon the neural exit foramina. Degenerative changes of the sacroiliac joints. Reading Location: [place] [address] CC: Dr. Deepak Cedeño MD; Jefry Kilgore DO ~ Funding Specialist: Signed [facility]07-31-2025 Miscellaneous Notes* Telephone Encounter - Renu Dillon, Research Coordinator - 12/11/2024 1:54 PM EDT IRB# [id number]: Vascular events in patients undergoing [...] up. The research period is complete. Renu iDllon Research fellow [facility] Anesthesia Research/ Emergency Medicine Research documented in this encounterMercy [facility]07-31-2025 Telephone encounter Note * Telephone Encounter - Renu Dillon Research Coordinator - 12/11/2024 1:54 PM EDT IRB# [id number]: Vascular events in patients undergoing [...] period is complete. Renu Dillon Research fellow [facility] Anesthesia Research/ Emergency Medicine Research [facility]07-22-2025 Telephone encounter Note* Telephone Encounter - Renu Dillon Research Coordinator - 12/02/2024 2:10 PM EDT IRB# [id number]: Vascular events in patients undergoing [...] a later time. Renu Dillon, Research Fellow [facility] Anesthesiology [place] [facility]07-22-2025 Miscellaneous Notes* Telephone Encounter - Renu Dillon Research Coordinator - 12/02/2024 2:10 PM EDT IRB# [id number]: Vascular events in patients undergoing [...] patient again at a later time. Renu Dillon Research Fellow [facility] Anesthesiology [place] documented in this encounterMercy Health Willard Hospital05-22-2025 History of Present illness Narrative* Hiren Baumann MD - 10/02/2024 3:20 PM EDT [facility] - Follow Up Visit Assessment/Plan: Cecilia Martin is a 58 year old male s/p open left inguinal hernia repair with 7.5 x 13 cm mid-weight polypropylene Parietene mesh and robotic right inguinal hernia repair with 15 x 11 cm heavy-weightPolypropylene Prolene mesh on 09/03/2024. He presents today, [...] Baumann MD 11/17/24, 1:46 PM General Surgery [facility] Medical Decision Making: Problems: Minimal: Self-limited or minor problem Risk: Minimal: Minimal risk from testing/treatment Medical Decision Making Level: 2 - Straightforward documented in this encounterMercy Health Willard Hospital05-22-2025 NoteHNO ID: [id number] Author: HIREN BAUMANN MD Service: ? Author Type: Physician Type: Progress Notes Filed: 11/17/2024 13:56 Note Text: [facility] - Follow [...] Baumann MD 11/17/24, 1:46 PM General Surgery [facility] Medical Decision Making: Problems: Minimal: Self-limited or minor problem Risk: Minimal: Minimal risk from testing/treatment Medical Decision Making Level: 2 - [facility] Telephone encounter Note* Telephone Encounter - Johnathon Mondragon RN - 09/10/2024 1:48 PM EDT GENERAL SURGERY CARE COORDINATION POST-OP TELEPHONE CALL [...] concerns/questions. Post op appt: 10/03 with KB [facility]04-30-2025 Miscellaneous Notes* Telephone Encounter - Johnathon Mondragon RN - 09/10/2024 1:48 PM EDT GENERAL SURGERY CARE COORDINATION POST-OP TELEPHONE CALL [...] appt: 10/03 with KB documented in this encounterMercy Health Willard Hospital04-23-2025 NoteHNO ID: [id number] Author: MERE ANDERSON APRN.CRNA Service: Anesthesiology Author Type: Nurse Planer Mill Grader Type: Anesthesia Procedure Notes Filed: 09/03/2024 15:39 Note Text: ANESTHESIOLOGY PROCEDURE NOTE Airway General Information Procedure Start Time/Medication Administration: 09/03/2024 3:18 PM Procedure End Time: 09/03/2024 3:18 PM Patient location during procedure: OR Patient identity confirmed: arm band, care security team lead and patient Staffing ORDER MANAGEMENT SPECIALIST: Mere Anderson APRN.ORDER MANAGEMENT SPECIALIST Performed by: LENA Indications and Patient Condition Indications for airway [...] September 03, 2024 TIME: 3:39 PM CSN: [id number] NoteHNO ID: [id number] Author: MILLER CHAND MD Service: Pain Management [...] September 03, 2024 TIME: 3:30 PM CSN: [id number] [id number] NoteHNO ID: [id number] Author: ?, ?, ? Service: ? Author [...] Brief Pain Inventory-Short Form (BPI). Kaya Haq [facility]hesiaHebrew Rehabilitation [id number] History of Present illness Narrative* Severino CalderonKaya garcia - 09/03/2024 1:03 PM EDT IRB# [id number]: Vascular events in patients undergoing same-day nonCardiac surgery - [facility] PI: Arlette Ocampo MD, JB DIALLO. Co-I: Julien Rivera MD This is a [...] to read and all of the patient's study- related questions and concerns were addressed. The patient expressed understanding of thestudy, and agreed to participate. The patient completed the study required questionnaires including: Baseline Functional Capacity, Cottrell Activity Status Index (DASI), Quality of life questionnaire (EQ-5D-5L) and the Adapted Brief Pain Inventory-Short Form (BPI). Kaya Haq [facility] Anesthesia documented in this encounterMercy Health Willard Hospital04-02-2025 Instructions* Patient Instructions* Tammi Delarosa PA-C - 08/13/2024 2:19 PM EDT Images from the original note were not included. [facility] Pre[facility]Anesthesia [facility]ation [facility] PATIENT PREOPERATIVE INSTRUCTIONS Hiren Baumann MD has scheduled you for your procedure at this surgery center: [facility]: [phone] --[address] [place] [address]. Please check in on the1st floor at registration desk 6. Please read [...] office. If you are currently using a lwrk-avs-gafk injectable or oral medication for diabetes or weight loss such as Dulaglutide (Trulicity), Exenatide (Byetta, Bydureon), Liraglutide (Victoza, Saxenda), Semaglutide (Ozempic, Wegovy, Rybelsus), or Tirzepatide (Mounjaro), the medicine should be stopped at least 7 days before surgery. These medicines can cause food to remain in your stomach for a very longtime and increase the risks from surgery and [...] Procedures: - YOU MUST HAVE A RESPONSIBLE WAD PRINTING MACHINE OPERATOR TAKE YOU HOME. A MORTGAGE SPECIALIST OR NEUROSURGERY SPINE PHYSICIAN CANNOT BE MADE A RESPONSIBLE WAD PRINTING MACHINE OPERATOR. - We recommend that a responsible person stays with you overnight to take care of you. - You cannot stay in a hotel alone after outpatient surgery. You will not be permitted to have yoursurgery, if you do not have someone to take care of you. If you already have an Advance Directive, please fax a copy to [phone] or email to for it to be added to your chart. If you do not have an Advance Directive, you can find the appropriate form and more information at [email or web address]. We recommend that youcomplete the Advance Directive form found on the website and bring it with you the day of your surgery. It can be witnessed and scanned into your chart that day. Tammi Delarosa PA-C documented in this encounterMercy Health Willard Hospital04-02-2025 History and physical note * Tammi Delarosa PA-C - 08/13/2024 2:18 PM EDT HISTORY AND PHYSICAL EXAMINATION SERVICE DATE: 08/13/2024 [...] be communicated back to the requesting physician byway of shared medical record or letter. Subjective [...] male presenting for pre-anesthesia consultation. Pt has historyof hernia. Above procedure recommended to manage symptoms. Procedure scheduled on 09/03/2024 at [facility]. REVIEW OF SYSTEMS: General: No weight loss, malaise or fevers. Neurological: Negative for: headaches, multiple sclerosis, Parkinson's disease, seizures and strokes. Respiratory: Positive for: tobacco use. Negative for: asthma, COPD, current cough, dyspnea, URI < 2 weeks and obstructive sleep apnea. Cardiovascular: Positive for: CAD Negative for: AICD/PPM, anticoagulation therapy, arrhythmia, chest pain, CHF, DVT/PE, hyperlipidemia, hypertension, recent [place], murmur/valvular heart disease, open heart surgery and [...] (Src) 98.1 (Temporal) Resp 14 Ht 6' 0" (1.83m) Wt 188 lb (85.3kg) SpO2 98% [...] or any previous visit (from the past 52957 hours). Assessment Patient has the following medical [...] adequate. Short neck: no. Thick neck: no Microretrognathia/Micronagthia/Recessed Chin: No DENTAL Dental findings: teeth intact. [...] DATE: 08/13/2024 TIME: 6:28 PM PAGER/CONTACT #: [facility]04-02-[facility] History and physical note* Tammi Delarosa PA- C - 08/13/2024 2:18 PM EDT HISTORY AND PHYSICAL EXAMINATION SERVICE DATE: 08/13/2024 [...] be communicated back to the requesting physician byway of shared medical record or letter. Subjective [...] male presenting for pre-anesthesia consultation. Pt has historyof hernia. Above procedure recommended to manage symptoms. Procedure scheduled on 09/03/2024 at [facility]. REVIEW OF SYSTEMS: General: No weight loss, malaise or fevers. Neurological: Negative for: headaches, multiple sclerosis, Parkinson's disease, seizures and strokes. Respiratory: Positive for: tobacco use. Negative for: asthma, COPD, current cough, dyspnea, URI < 2 weeks and obstructive sleep apnea. Cardiovascular: Positive for: CAD Negative for: AICD/PPM, anticoagulation therapy, arrhythmia, chest pain, CHF, DVT/PE, hyperlipidemia, hypertension, recent [place], murmur/valvular heart disease, open heart surgery and [...] (Src) 98.1 (Temporal) Resp 14 Ht 6' 0" (1.83m) Wt 188 lb (85.3kg) SpO2 98% [...] or any previous visit (from the past 06893 hours). Assessment Patient has the following medical [...] adequate. Short neck: no. Thick neck: no Microretrognathia/Micronagthia/Recessed Chin: No DENTAL Dental findings: teeth intact. [...] 6:28 PM PAGER/CONTACT #: documented in this encounterMercy Health Willard Hospital02-21-2025 Progress note* Result Encounter Note - Janel Mcgovern APRN.ALLIANCE CONSULTANT - 07/04/2024 5:15 PM EST Stress test was okay. No EKG changes. He did a really good job on the stress. Met his heart rate goals. Normal test. [facility]02-21-2025 Miscellaneous Notes* Result Encounter Note - Janel Mcgovern APRN.CNP - 07/04/2024 5:15 PM EST Stress test was okay. No EKG changes. He did a really good job on the stress. Met his heart rate goals. Normal test. documented in this encounterMercy Health Willard Hospital02-20-2025 Telephone encounter Note * Telephone Encounter - Cydney Bryant RN - 07/03/2024 10:59 AM EST Spoke with patient regarding reminder for stress test tomorrow and given instructions. [facility]02-20-2025 Miscellaneous Notes* Telephone Encounter - Cydney Bryant RN - 07/03/2024 10:59 AM EST Spoke with patient regarding reminder for stress test tomorrow and given instructions. documented in this encounterMercy Health Willard Hospital02-20-2025 Progress note* Result Encounter Note - Janel Mcgovern APRN.CNP - 07/03/2024 8:27 AM EST Please let patient know that pulmonary function test looked good. Spirometry is normal. [address]20-2025 Miscellaneous Notes* Result Encounter Note - Janel Mcgovern APRN.CNP - 07/03/2024 8:27 AM EST Please let patient know that pulmonary function test looked good. Spirometry is normal. documented in this encounterMercy Health Willard Hospital02-19-2025 NoteHNO ID: [id number] Author: CARMEN CARLSON RPFT Service: ? Author Type: Respiratory Therapist Type: Progress Notes Filed: 07/02/2024 13:03 Note Text: PULM FUNCTION: Provider: Janel Mcgovern APRN.CNP Assisting Tech: Grabiel Carlsona, RPRAHEEM Spirometry w/BD: [facility] History of Present illness Narrative* Carmen Carlson RPFT - 07/02/2024 12:37 PM EST PULM FUNCTION: Provider: Janel Mcgovern APRN.CNP Assisting Tech: Carmen Carlson, NATALY Spirometry w/BD: 1 documented in this encounterMercy Health Willard Hospital02-14-2025 Instructions* Patient Instructions* Janel Mcgovern APRN.CNP - 06/27/2024 2:54 PM EST 1) Terbinafine 250 mg daily for 90 days for toenail fungus 2) Pulmonary function test ordered (test for emphysema) 3) Exercise stress test ordered 4) Pneumococcal and Shingles vaccine 5) Follow up in 6 months for routine care and Shingles part 2 documented in this encounterMercy Health Willard Hospital02-14-2025 NoteHNO ID: [id number] Author: JANEL MCGOVERN APRN.CNP Service: ? Author [...] as needed for worsening/no improvement. Janel Mcgovern APRN.[facility]02-14-2025 History of Present illness Narrative* Janel Mcgovern APRN.ALLIANCE CONSULTANT - 06/27/2024 2:29 PM EST This is a 58 year old male [...] Wt 83.9 kg (185 lb) SpO2 95% BMI25.09 kg/m PHYSICAL EXAM: Physical Exam Vitals reviewed. [...] as needed for worsening/no improvement. Janel Mcgovern APRN.ALLIANCE CONSULTANT documented in this encounterMercy Health Willard Hospital02-03-2025 Telephone encounter Note * Telephone Encounter - Nancy Martinez LPN - 06/16/2024 1:23 PM EST Scheduled. [facility]02-03-2025 Miscellaneous Notes* Telephone Encounter - Nancy Martinez LPN - 06/16/2024 1:23 PM EST Scheduled. * Telephone Encounter - Dileep Ervin APRN.CNP - 06/16/2024 11:14 AM EST Spoke with patient and discussed findings. He is not following with a molding sander regularly. he had stress test in 2019, and it was okay. He denies any exertional chest pain or activity intolerance.Last PCP visit 03/2024. A message is sent to PCP team if pt needs to return sooner to discuss further testing for coronary artery calcifications they should reach out to him. Dileep Ervin APRN.CNP * Telephone Encounter - Dileep Ervin APRN.CNP - 06/16/2024 10:27 AM EST Left message for pt to call back regarding results. Plan to discuss LDCT Lung Screen Results LungRADS category: 2s Incidentals: moderate coronary artery calcifications Recommendations: Continue annual screening with LDCT in 12 months. follow up with PCP/cardiology Dileep Ervin APRN.CNP June 16, 2024 10:27 AM documented in this encounterMercy Health Willard Hospital02-03-2025 Telephone encounter Note * Telephone Encounter - Dileep Ervin APRN.CNP - 06/16/2024 11:14 AM EST Spoke with patient and discussed findings. He is not following with a molding sander regularly. he had stress test in 2019, and it was okay. He denies any exertional chest pain or activity intolerance.Last PCP visit 03/2024. A message is sent to PCP team if pt needs to return sooner to discuss further testing for coronary artery calcifications they should reach out to him. Dileep Ervin APRN.CNP [facility]02-03-2025 Telephone encounter Note* Telephone Encounter - Dileep Ervin APRN.CNP - 06/16/2024 10:27 AM EST Left message for pt to call back regarding results. Plan to discuss LDCT Lung Screen Results LungRADS category: 2s Incidentals: moderate coronary artery calcifications Recommendations: Continue annual screening with LDCT in 12 months. follow up with PCP/cardiology Dileep Ervin APRN.CNP June 16, 2024 10:27 AM [facility]02-03-2025 NoteHNO ID: [id number] Author: DIANE LINARES PA-C Service: ? Author Type: Physician Head Of Marketing Type: Progress Notes Filed: 06/16/2024 10:50 Note Text: Diane Linares PA-C Department of Orthopaedics Orthopaedics [address] [facility] [address] Dept: [phone] Dept June 16, 2024 CHIEF COMPLAINT: New [...] results. EMG order will be faxed to [facility]. Will continue to monitor patient for Wrist [...] hand. Imaging: IMPRESSION: Degenerative changes as described. Funding Specialist: PSCCate Transcribe Date/Time: Mar 30 2024 7:32A Dictated [...] facility-administered medications f (more content not included)... 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 The numbness and tingling in the left hand started about 1 year ago and is in the radial 3 digits, the numbness and tingling is pretty consistent. Not worse at bedtime. The patient was previously provided with a wrist brace for his arthritis butdoes not wear it as he cannot work [...] results. EMG order will be faxed to [facility]. Will continue to monitor patient for Wrist [...] radial 3 digits on the left. Positive Ti duyen's at the left wrist. Strength testing was not performed. Sensation is intact in the ulnar digits on the left hand. Imaging: IMPRESSION: Degenerative changes as described. Funding Specialist: OZ Transcribe Date/Time: Mar 30 2024 7:32A Dictated [...] anxiety) This note was partially generated using Verdeeco voice recognition system, and there may be some incorrect words, spellings, and punctuation that were not noted in checking the note before saving. 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 Patient states he is also having numbness and tinglingin his 1-3 fingers. 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 He is right hand dominant. 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 Taking no med's for the pain. X-ray done on 03/25/24 documented in this encounterMercy Health [facility]02-03-2025 NoteHNO ID: [id number] Author: MILE ALDRIDGE MA Service: ? Author Type: Visual Basic Programmer Type: Progress Notes Filed: 06/16/2024 10:50 Note [...] his 1-3 fingers. 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 He is right hand dominant. 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 Taking no med's for the pain. X-ray done on 03/25/24 [facility]01-31-2025 History of Present illness Narrative* Randi York RT(Rob) - 06/13/2024 1:40 PM EST Radiology Service Progress Note PATIENT NAME: Cecilia Martin DATE OF SERVICE: June 13, 2024 TIME: 3:29 PM PATIENT IDENTITY VERIFICATION COMPLETED USING TWO (2) IDENTIFIERS: Name and Date of confirmedby patient verbally. FALL SCREENING: Has the patient had 2 falls in the last year or 1 fall with injury or currently using an Ambulatory Assistive Device (Walker, Cane, Wheelchair, Crutches, etc.)? No PATIENT GENDER DATA: Assigned male at PATIENT RELEVANT IMPLANT DATA REVIEWED: Yes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 [facility]* Diagnosis Right lower quadrant abdominal pain- Primary Abdominal pain, right lower quadrant documented [facility] this encounter [facility] [place] [facility]* Diagnosis Right wrist pain Pain in joint, forearm documented [facility] this encounter [facility] [place] [facility]* Diagnosis Wound cellulitis- Primary Cellulitis and abscess of unspecified site documented in this encounter [facility] [place] [facility]* Diagnosis Dyslipidemia- Primary Other and unspecified [...] of skin sensation documented in this encounter [facility] [place] [facility]* Diagnosis Wrist swelling, left documented in this encounter [facility] [place] [facility]* Diagnosis Bilateral recurrent inguinal hernia without obstruction or gangrene Inguinal hernia without mention of obstruction or gangrene, recurrent bilateral documented in this encounter [facility] [place] [facility]* Diagnosis Encounter for screening for malignant neoplasm of colon- Primary Special screening for malignant neoplasms, colon Screening for colon cancer Special screening for malignant neoplasms, colon documented in this encounter [facility] [place] [facility]* Diagnosis Bilateral recurrent inguinal hernia without obstruction or gangrene- Primary Inguinal hernia without mention of obstruction or gangrene, recurrent bilateral Bilateral inguinal hernia without obstruction or gangrene, recurrence not specified documented in this encounter [facility] [place] [facility]* Diagnosis Encounter for screening for lung cancer- Primary Tobacco use current Bilateral inguinal hernia without obstruction or gangrene, recurrence not specified documented in this encounter [facility] [place] [facility]* Diagnosis Encounter for screening for lung cancer Tobacco use current Bilateral inguinal hernia without obstruction or gangrene, recurrence not specified documented in this encounter [facility] [place] [facility]* Diagnosis Numbness and tingling in left hand- Primary Disturbance of skin sensation Wrist swelling, left Osteoarthritis of left wrist, unspecified osteoarthritis type Bilateral inguinal hernia without obstruction or gangrene, recurrence not specified documented in this encounter [facility] [place] [facility]* Diagnosis Encounter for screening for lung cancer- Primary Tobacco use current Bilateral inguinal hernia without obstruction or gangrene, recurrence not specified [facility]* Diagnosis Centrilobular emphysema (HCC)- Primary Other emphysema Abnormal findings diagnostic imaging of heart and coronary circulation Other nonspecific abnormal cardiovascular system function study Tinea pedis of both feet Encounter for immunization Need for other specified prophylactic vaccination against single bacterial disease Bilateral inguinal hernia without obstruction or gangrene, recurrence not specified documented in this encounter [facility] note* Diagnosis Centrilobular emphysema (HCC) Other emphysema Abnormal findings diagnostic imaging of heart and coronary circulation Other nonspecific abnormal cardiovascular system function study Bilateral inguinal hernia without obstruction or gangrene, recurrence not specified documented in this encounter [facility] [place] [facility]* Diagnosis Centrilobular emphysema (HCC) Other emphysema Abnormal findings diagnostic imaging of heart and coronary circulation Other nonspecific abnormal cardiovascular system function study Bilateral inguinal hernia without obstruction or gangrene, recurrence not specified documented in this encounter [facility] note* Diagnosis Pre-op examination- Primary Preoperative examination, unspecified Nicotine dependence with current use Coronary artery calcification Coronary atherosclerosis of unspecified type of vessel, [place] or graft Centrilobular emphysema (HCC) Other emphysema [...] No smoking DOS. [facility] [place] [facility]* Diagnosis Pre-op examination- Primary Preoperative examination, unspecified Nicotine dependence with current use Coronary artery calcification Coronary atherosclerosis of unspecified type of vessel, [place] or graft Centrilobular emphysema (HCC) Other emphysema Status post bilateral inguinal hernia repair- Primary Other postprocedural status documented in [facility] [place] noteNo assessment information availableWKet[facility] Work Phone: Evaluation note* Diagnosis Onset Date Resolution Status Admit Date Lumbar radiculopathy, right acute January 30, 2025 10:29am Foot drop, right inactive Septembe r 2024 10:29am [facility] Work Phone: Hospital Discharge instructionsAdditional Instructions Please take the steroid as directed to reduce any inflammatory component which may be worsening your symptoms. Follow-up with Dr. Lopez/spine surgery to discuss need for MRI based on your symptoms and abnormal CT. return to the ER should you have any further concerns or worsening of symptomsWKettering Health Hamilton Work Phone: Hospital Discharge instructionsAmbulatory Orders* Physical Therapy Referral Location: None [facility] Work Phone: Progress note Author Ellen Montez [facility] Services Note Date/Time January 30, 2025 11:19am [facility] [address] [place] [id number] OFFICE VISIT Date of Service: 01/30/25 MR#: [id number] Acct: [id number] Name: CECILIA MARTIN Rep #: [id number] : 1965 Provider: VADIM Ruiz Age/Sex: 59/M Location: [facility] Status: Signed Intake Vital Signs 01/26/25 00:52 01/30/25 10:36 Height 6 ft 6 ft Weight: 188 lb 4 oz BMI 25.5 Intake Visit Reasons: LUMBAR SPINE Chief Complaint: Lumbar spine pain Accompanied by: Is patient in pain?: Yes Pain scale (1-10): 1 Allergies No Known Allergies Allergy (Verified 01/30/25 10:39) Medications ?Medication ?Instructions ?Recorded ?Confirmed ?Type prednisone 10 mg tablet 10 mg PO UD #33 tabs 5 01/30/25 Rx Have you fallen in the past year?: No PFSH Medical History Hernia Family History Mother No problems noted. Father No problems noted. Social History Smoking Status: Heavy Smoker (>10/day) HPI LUMBAR SPINE Details: This documentation accurately reflects the service provided and the decisions made by me, VADIM Ruiz 01/30/25 1036. Part of today?s visit was documentedby Krystle Fairbanks MA, acting as scribe. CECILIA MARTIN is a 59 year old M here today for lumbar spine. Patient states that his pain is a 1 today. He states that he is having pain in his right leg. Patient states that he isn't having any pain in his lower back. He states that there isn't really pain, it just feels odd. Patient states that this has been going on for a couple days. He states that there is no injury. Patient states that he went to the ER Sunday01/25/2025. [place]. The er did a cat scan. The Cat scan showedsome degenerative changes. The er doctor sent a referral to us to get an MRI done. Patient states that he hasn't had any surgeries on his lower back. He states that he hasn't had any injuries. Patient states that he doesn't have any back pain. There is nothing that makes it worse. Patient states that he hasn't had any injections in he lower back. He hasn't tried any physical therapy. Patient states that he doesn't have any diabetes, or blood thinners. No heart orlung issues. Patient does smoke, but doesn't do any drugs. Patient states that he has noticed some balance problems. He states that he doesn't use a walker or a cane to help him balance. Says that he noticed some issues with trip and turning his right ankle due to the foot drop. No falls. Numbness on the side of the calf. Hx of inguinal hernia repair, left sided groin incision. Reviewed ER documentation from 01/25/2025 which showed right sided foot drop which is an acute issue for the patient. At first it appeared that the foot drop was partial however when he was seen in the ER it was a complete foot drop.Unfortunately the ER did not do a lumbar MRI. Ortho Exam General General: Yes no acute distress Neurologic: Yes alert and Yes oriented x3 Psychologic: Yes reasonable and appropriate Spine SPINE TESTING CERVICAL THORACIC LUMBAR Musculoskeletal Strength 0=absent - 5=normal Details: Neurological exam of the lower extremities shows grade 0 right dorsiflexion, allother muscle groups show 5 power. Normal sensations across all dermatomes. No hyperreflexia. No midline or paraspinal tenderness. Coding Level of Care Code Off vis,new,level 4 Diagnoses Foot drop, right M21.371 Lumbar radiculopathy, right M54.16 Assessment and Plan Assessment and Plan (1) Foot drop, right: Status: Acute (2) Lumbar radiculopathy, right: Status: Acute Orders: Orders L/S Spine Min 4 Views Today M54.9 - Dorsalgia, unspecified Spine Lumbar (Routine) Today M21.371 - Foot drop, right foot, M54.16 - Radiculopathy, lumbar region Referrals Physical Therapy Referral M21.371 - Foot drop, right foot, M54.16 - Radiculopathy, lumbar region Plan Obtained and reviewed lumbar x-rays today in the clinic. Independent interpretation of the x-rays was performed. Lumbar x-rays show a retrolisthesisof L5 on S1 and a spondylolisthesis of L4 on L5. There is facet arthrosis mildly in the lumbar spine, no acute fractures. There is also some mild disc height loss seen at L5-S1. Reviewed lumbar CT scan from the ER on 01/26/2025 which also showed these findings. Explained imaging findings in detail. At this time due to the patient's 5-day history of an acute foot drop on the right side, an MRI is needed at this time to further assess. The MRI is necessary due to the neurological deficit which was evidenced by the physical exam findings today which showed the grade 0 rightsided foot drop. This is consistent with a complete foot drop. The patient also has a right lateral calf numbness and tingling. He denies any other back pain or any other radicular symptoms. Also recommended physical therapy to increase extensor and core strength and stretching and to do some strengthening in the right foot for the foot drop. The patient has been taken the steroid given from the ER as prescribed over the last 5 days without any significant improvement as of yet. He will follow back up with me after the MRI to review the results. Patient is in agreement. Clinical Quality Measures Falls Risk Screening/Assistive Devices Have you fallen in the past year?: No 01/30/25 1253 <Electronically signed by Ellen FIERRO> Date _ Ellen FIERRO Cosigner Signature: Date (if applicable) CC: Dr. Deepak Cedeño MD ~ [facility] Work Phone: Reason for referral (narrative)* Diagnostic Procedure Only (Urgent) - Closed Specialty Diagnoses / Procedures Referred By Contac t Referred To Contact XR IMAGING Diagnoses Right wrist pain Procedures XR WRIST INJURY 4V PA/LAT/OBL/SCAPH RIGHT RADEX WRIST COMPLETE MINIMUM 3 VIEWS Yuni Isaacs APRN.ALLIANCE CONSULTANT [address] [facility] [place] [address] [place] [address] Referral ID Status Reason Start Date Expiration Date V isits Requested Visits Authorized [id number] Closed Auto-Generate d Referral 01/16/2023 02/15/2024 1 1 [facility] for referral (narrative)* Outpatient Procedure (Routine) - New Request Specialty Diagnoses / Procedures Referred By Caitlyn riojas Referred To Contact [facility] Diagnoses Numbness and tingling in left hand Procedures EMG(NEURO/NI) NERVE CONDUCTION STUDIES 9-10 STUDIES Diane Linares PA-C [address] [place] [address] [facility] [address] [place] [id number] Referral ID Status Reason Start Date Expiration Date Visits Requested Visits Authorized [id number] New Request Auto-Generat ed Referral 06/16/2024 06/16/2025 1 1 [facility] for visit Narrative* Diagnostic Procedure Only (Urgent) - Closed Specialty Diagnoses / Procedures Referred By Caitlyn t Referred To Contact XR IMAGING Diagnoses Right wrist pain Procedures XR WRIST INJURY 4V PA/LAT/OBL/SCAPH RIGHT RADEX WRIST COMPLETE MINIMUM 3 VIEWS Yuni Isaacs APRN.ALLIANCE CONSULTANT [address] [place] [address] [place] [address] Referral ID Status Reason Start Date Expiration Date V isits Requested Visits Authorized [id number] Closed Auto-Generate d Referral 01/16/2023 02/15/2024 1 1 [facility] for visit Narrative* Diagnostic Procedure Only (Routine) - Closed Specialty Diagnoses / Procedures Referred By Caitlyn t Referred To Contact XR IMAGING Diagnoses Wrist swelling, left Procedures XR WRIST GENERAL 3V PA/LAT/OBL LEFT RADEX WRIST COMPLETE MINIMUM 3 VIEWS Janel Mcgovern APRN.ALLIANCE CONSULTANT [address] [place] [address] [place] [address] Referral ID Status Reason Start Date Expiration Date V isits Requested Visits Authorized [id number] Closed Auto-Generate d Referral 03/25/2024 04/24/2025 1 1 [facility] for visit Narrative* Outpatient Procedure (Routine) - Closed Specialty Diagnoses / Procedures Referred By Contac t Referred To Contact [facility] Diagnoses Screening for colon cancer Procedures COLONOSCOPY SCREENING COLONOSCOPY FLX DX W/COLLJ SPEC WHEN PFRMD Janel Mcgovern APRN.ALLIANCE CONSULTANT [address] [place] [address] [facility] [address] [place] [address] Referral ID Status Reason Start Date Expiration Date V isits Requested Visits Authorized [id number] Closed Auto-Generate d Referral 04/01/2024 03/25/2025 1 1 [facility] N[facility]* Outpatient Procedure (Routine) - Closed Specialty Diagnoses / Procedures Referred By Contac t Referred To Contact [facility] Diagnoses Centrilobular emphysema (HCC) Abnormal findings diagnostic imaging of heart and coronary circulation Procedures EXERCISE STRESS ECG (WITHOUT IMAGING) CV STRS TST XERS&/OR RX CONT ECG TRCG ONLY Janel Mcgovern APRN.ALLIANCE CONSULTANT [address] [place] [address] Phone: tel: fax: [facility] [address] [address] Referral ID Status Reason Start Date Expiration Date V isits Requested Visits Authorized [id number] Closed Auto-Generate d Referral 07/04/2024 06/27/2025 1 1 [facility] Reason for Referral Specialty Diagnoses / Procedures Referred By Contac t Referred To Contact Orthopedics Diagnoses Right wrist pain Procedures CONSULT TO ORTHOPAEDICS OFFICE/OUTPATIENT [facility] MDM 60-74 MINUTES Yuni Isaacs APRN.ALLIANCE CONSULTANT [address] [place] [address] Referral ID Status Reason Start Date Expiration Date Visits Requested Visits Authorized [id number] Authorized PCP Requested Referral 01/16/2023 01/16/2024 1 1 Specialty Diagnoses / Procedures Referred By Contac t Referred To Contact XR IMAGING Diagnoses Right wrist pain Procedures XR WRIST INJURY 4V PA/LAT/OBL/SCAPH RIGHT RADEX WRIST COMPLETE MINIMUM 3 VIEWS Yuni Isaacs APRN.ALLIANCE CONSULTANT [address] [place] [address] [place] [address] Referral ID Status Reason Start Date Expiration Date V isits Requested Visits Authorized [id number] Closed Auto-Generate d Referral 01/16/2023 02/15/2024 1 1 Specialty Diagnoses / Procedures Referred By Contac t Referred To Contact General Surgery Diagnoses Bilateral inguinal hernia with obstruction and without gangrene, recurrence not specified Procedures CONSULT TO GENERAL SURGERY CONSULT TO GENERAL SURGERY OFFICE/OUTPATIENT NEW HIGH MDM 60 MINUTES Janel Mcgovern CREATIVE WRITING TEACHER.[employer]IANCE CONSULTANT [address] [place] [phone] Referral ID Status Reason Start Date Expiration Date Visits Requested Visits Authorized [id number] Authorized PCP Requested Referral 03/25/2025 1 1 Specialty Diagnoses / Procedures Referred By Contac t Referred To Contact Orthopedics Diagnoses Wrist swelling, left Procedures CONSULT PANEL TO ORTHOPAEDICS OFFICE/OUTPATIENT NEW HIGH MDM 60 MINUTES Janel Mcgovern CREATIVE WRITING TEACHER.ALLIANCE CONSULTANT [address] [place] [phone] Referral ID Status Reason Start Date Expiration Date Visits Requested Visits Authorized [id number] Authorized PCP Requested Referral 03/25/2025 1 1 Specialty Diagnoses / Procedures Referred By Contac t Referred To Contact XR IMAGING Diagnoses Wrist swelling, left Procedures XR WRIST GENERAL 3V PA/LAT/OBL LEFT RADEX WRIST COMPLETE MINIMUM 3 VIEWS Janel Mcgovern CREATIVE WRITING TEACHER.ALLIANCE CONSULTANT [address] [place] [address] [place] [address] Referral ID Status Reason Start Date Expiration Date V isits Requested Visits Authorized [id number] Closed Auto-Generate d Referral 03/25/2024 04/24/2025 1 1 Specialty Diagnoses / Procedures Referred By Contac t Referred To Contact [facility] Diagnoses Screening for colon cancer Procedures COLONOSCOPY SCREENING COLONOSCOPY FLX DX W/COLLJ SPEC WHEN PFRMD Janel Mcgovern CREATIVE WRITING TEACHER.ALLIANCE CONSULTANT [address] [place] [address] [facility] [address] [place] [address] Referral ID Status Reason Start Date Expiration Date Visits Requested Visits Authorized [id number] Authorized Auto-Generat ed Referral 03/25/2025 1 1 Specialty Diagnoses / Procedures Referred By Contac t Referred To Contact Colon and Rectal Surgery Diagnoses Encounter for screening for malignant neoplasm of colon Procedures CONSULT TO COLO-RECTAL SURGERY OFFICE/OUTPATIENT NEW HIGH MDM 60 MINUTES Eleazar Silver MD [address] [place] [address] Danilo Deras MD [address] [place] [id number] Referral ID Status Reason Start Date Expiration Date Visits Requested Visits Authorized [id number] Authorized PCP Requested Referral 4 04/28/2025 1 1 Referral ID Status Reason Start Date Expiration Date V isits Requested Visits Authorized [id number] Closed Auto-Generate d Referral 04/01/2024 03/25/2025 1 1 Specialty Diagnoses / Procedures Referred By Contac t Referred To Contact CT IMAGING Diagnoses Encounter for screening for lung cancer Tobacco use current Procedures CT LUNG SCREEN WO IVCON COMPUTED TOMOGRAPHY THORAX LW DOSE LNG CA SCR Sergey- Dileep Ervin, CREATIVE WRITING TEACHER.ALLIANCE CONSULTANT [address] [place] [phone] [address] [facility] [place] [address] Referral ID Status Reason Start Date Expiration Date Visits Requested Visits Authorized [id number] Authorized Auto-Generat ed Referral 06/02/2024 07/02/2025 1 1 Referral ID Status Reason Start Date Expiration Date V isits Requested Visits Authorized [id number] Closed Auto-Generate d Referral 06/02/2024 07/02/2025 1 1 Referral ID Status Reason Start Date Expiration Date Visits Requested Visits Authorized [id number] New Request Auto-Generat ed Referral 05/14/2025 07/16/2025 1 1 Summary Purpose Family History No Family History Records FoundNo Family History Records FoundNo Family History Records FoundNo Family History Records Found Advance Directives No Advanced Directives Records Found Advance Directive Response Recorded Date/ Time Do you have a Healthcare Power of Supervisor [place] [place]? No January 26, 2025 12:56am Chief Complaint and Reason for Visit Chief Complaint Admit Date lower extremity numbness January 26, 2025 12:50am Chief Complaint Admit Date lower extremity numbness January 26, 2025 12:50am LUMBAR SPINE January 30, 2025 10:29am Room 3 January 30, 2025 10:49am RT FULL FOOT DROP February 03, 2025 9:33am Reason for Visit Admit Date Lumbar radiculopathy, right January 302024 10:29am Foot drop, right January 30, 2025 10:29am Chief Complaint Admit Date lower extremity numbness January 26, 2025 12:50am LUMBAR SPINE January 30, 2025 10:29am Room 3 January 30, 2025 10:49am RT FULL FOOT DROP February 03, 2025 9:33am FOOT DROP, BACK. RX HERE February 10, 2025 2:57pm LUMBAR SPINE February 13, 2025 11 :30am Additional Source Comments Source Comments (unrecognize d section and content) In the event this informatio n is protected by the Federal Confidentiality of Alcohol and Drug Abuse Patient Records regulations: The Federal rules restrict any use of the information to criminally investigate or prosecute any alcohol or drug abuse patient.[facility] Hospital[facility] the event this information is protected by the Federal Confidentiality of Alcohol and Drug Abuse Patient Records regulations: The Federal rules restrict any use of the information to criminally investigate or prosecute any alcohol or drug abuse patient.[facility] HospitalIn the event this information is protected by the Federal Confidentiality of Alcohol and Drug Abuse Patient Records regulations: The Federal rules restrict any use of the information to criminally investigate or prosecute any alcohol or drug abuse patient.[facility] HospitalIn the event this information is protected by the Federal Confidentiality of Alcohol and Drug Abuse Patient Records regulations: The Federal rules restrict any use of the information to criminally investigate or prosecute any alcohol or drug abuse patient.[facility] HospitalIn the event this information is protected by the Federal Confidentiality of Alcohol and Drug Abuse Patient Records regulations: The Federal rules restrict any use of the information to criminally investigate or prosecute any alcohol or drug abuse patient.[facility] HospitalIn the event this information is protected by the Federal Confidentiality of Alcohol and Drug Abuse Patient Records regulations: The Federal rules restrict any use of the information to criminally investigate or prosecute any alcohol or drug abuse patient.[facility] HospitalIn the event this information is protected by the Federal Confidentiality of Alcohol and Drug Abuse Patient Records regulations: The Federal rules restrict any use of the information to criminally investigate or prosecute any alcohol or drug abuse patient.[facility] HospitalIn the event this information is protected by the Federal Confidentiality of Alcohol and Drug Abuse Patient Records regulations: The Federal rules restrict any use of the information to criminally investigate or prosecute any alcohol or drug abuse patient.[facility] HospitalIn the event this information is protected by the Federal Confidentiality of Alcohol and Drug Abuse Patient Records regulations: The Federal rules restrict any use of the information to criminally investigate or prosecute any alcohol or drug abuse patient.[facility] HospitalIn the event this information is protected by the Federal Confidentiality of Alcohol and Drug Abuse Patient Records regulations: The Federal rules restrict any use of the information to criminally investigate or prosecute any alcohol or drug abuse patient.[facility] HospitalIn the event this information is protected by the Federal Confidentiality of Alcohol and Drug Abuse Patient Records regulations: The Federal rules restrict any use of the information to criminally investigate or prosecute any alcohol or drug abuse patient.[facility] HospitalIn the event this information is protected by the Federal Confidentiality of Alcohol and Drug Abuse Patient Records regulations: The Federal rules restrict any use of the information to criminally investigate or prosecute any alcohol or drug abuse patient.[facility] HospitalIn the event this information is protected by the Federal Confidentiality of Alcohol and Drug Abuse Patient Records regulations: The Federal rules restrict any use of the information to criminally investigate or prosecute any alcohol or drug abuse patient.[facility] HospitalIn the event this information is protected by the Federal Confidentiality of Alcohol and Drug Abuse Patient Records regulations: The Federal rules restrict any use of the information to criminally investigate or prosecute any alcohol or drug abuse patient.[facility] HospitalIn the event this information is protected by the Federal Confidentiality of Alcohol and Drug Abuse Patient Records regulations: The Federal rules restrict any use of the information to criminally investigate or prosecute any alcohol or drug abuse patient.[facility] HospitalIn the event this information is protected by the Federal Confidentiality of Alcohol and Drug Abuse Patient Records regulations: The Federal rules restrict any use of the information to criminally investigate or prosecute any alcohol or drug abuse patient.[facility] HospitalIn the event this information is protected by the Federal Confidentiality of Alcohol and Drug Abuse Patient Records regulations: The Federal rules restrict any use of the information to criminally investigate or prosecute any alcohol or drug abuse patient.[facility] HospitalIn the event this information is protected by the Federal Confidentiality of Alcohol and Drug Abuse Patient Records regulations: The Federal rules restrict any use of the information to criminally investigate or prosecute any alcohol or drug abuse patient.[facility] HospitalIn the event this information is protected by the Federal Confidentiality of Alcohol and Drug Abuse Patient Records regulations: The Federal rules restrict any use of the information to criminally investigate or prosecute any alcohol or drug abuse patient.[facility] HospitalIn the event this information is protected by the Federal Confidentiality of Alcohol and Drug Abuse Patient Records regulations: The Federal rules restrict any use of the information to criminally investigate or prosecute any alcohol or drug abuse patient.[facility] HospitalIn the event this information is protected by the Federal Confidentiality of Alcohol and Drug Abuse Patient Records regulations: The Federal rules restrict any use of the information to criminally investigate or prosecute any alcohol or drug abuse patient.[facility] HospitalIn the event this information is protected by the Federal Confidentiality of Alcohol and Drug Abuse Patient Records regulations: The Federal rules restrict any use of the information to criminally investigate or prosecute any alcohol or drug abuse patient.[facility] HospitalIn the event this information is protected by the Federal Confidentiality of Alcohol and Drug Abuse Patient Records regulations: The Federal rules restrict any use of the information to criminally investigate or prosecute any alcohol or drug abuse patient.[facility] HospitalIn the event this information is protected by the Federal Confidentiality of Alcohol and Drug Abuse Patient Records regulations: The Federal rules restrict any use of the information to criminally investigate or prosecute any alcohol or drug abuse patient.[facility] HospitalIn the event this information is protected by the Federal Confidentiality of Alcohol and Drug Abuse Patient Records regulations: The Federal rules restrict any use of the information to criminally investigate or prosecute any alcohol or drug abuse patient.[facility] HospitalIn the event this information is protected by the Federal Confidentiality of Alcohol and Drug Abuse Patient Records regulations: The Federal rules restrict any use of the information to criminally investigate or prosecute any alcohol or drug abuse patient.[facility] HospitalIn the event this information is protected by the Federal Confidentiality of Alcohol and Drug Abuse Patient Records regulations: The Federal rules restrict any use of the information to criminally investigate or prosecute any alcohol or drug abuse patient.[facility] HospitalIn the event this information is protected by the Federal Confidentiality of Alcohol and Drug Abuse Patient Records regulations: The Federal rules restrict any use of the information to criminally investigate or prosecute any alcohol or drug abuse patient.[facility] HospitalIn the event this information is protected by the Federal Confidentiality of Alcohol and Drug Abuse Patient Records regulations: The Federal rules restrict any use of the information to criminally investigate or prosecute any alcohol or drug abuse patient.[facility] HospitalIn the event this information is protected by the Federal Confidentiality of Alcohol and Drug Abuse Patient Records regulations: The Federal rules restrict any use of the information to criminally investigate or prosecute any alcohol or drug abuse patient.[facility] Reason for Visit (unrecogniz ed section [...] ernia Specialty Diagnoses / Procedures Referred By Contac t Referred To Contact General Surgery Diagnoses Bilateral inguinal hernia with obstruction and without gangrene, recurrence not specified Procedures CONSULT TO GENERAL SURGERY CONSULT TO GENERAL SURGERY OFFICE/OUTPATIENT NEW HIGH MDM 60 MINUTES Janel Mcgovern, CREATIVE WRITING TEACHER.ALLIANCE CONSULTANT [address] [place] [address] Referral ID Status Reason Start Date Expiration Date V isits Requested Visits Authorized [id number] Closed PCP Requested Referral 04/01/2024 03/25/2025 1 1 Reason Comments Patient Education Reason Comments New Patient Bilateral inguinal h ernia. Reason Comments New Patient LCS Reason Comments Radiology CT Specialty Diagnoses / Procedures Referred By Contsheldon t Referred To Contact CT IMAGING Diagnoses Encounter for screening for lung cancer Tobacco use current Procedures CT LUNG SCREEN WO IVCON COMPUTED TOMOGRAPHY THORAX LW DOSE LNG CA SCR Sergey- Dileep Ervin, CREATIVE WRITING TEACHER.ALLIANCE CONSULTANT [address] [place] [address] [place] [address] Referral ID Status Reason Start Date Expiration Date V isits Requested Visits Authorized [id number] Closed Auto-Generate d Referral 06/02/2024 07/02/2025 1 1 Reason Comments New Last seen 11/01/20 bi lateral wrist pain Specialty Diagnoses / Procedures Referred By Contac t Referred To Contact Orthopedics Diagnoses Wrist swelling, left Procedures CONSULT PANEL TO ORTHOPAEDICS OFFICE/OUTPATIENT [facility] MDM 60 MINUTES Janel Mcgovern CREATIVE WRITING TEACHER.ALLIANCE CONSULTANT [address] [place] [address] Referral ID Status Reason Start Date Expiration Date V isits Requested Visits Authorized [id number] Closed PCP Requested Referral 03/25/2024 03/25/2025 1 1 Reason Comments Results Reason Comments Follow Up Review results Reason Comments Spirometry Specialty Diagnoses / Procedures Referred By Caitlyn t Referred To Contact [facility] Diagnoses Centrilobular emphysema (HCC) Abnormal findings diagnostic imaging of heart and coronary circulation Procedures SPIROMETRY - BASELINE AND POST DILATOR BRNCDILAT RSPSE SPMTRY PRE&POST-BRNCDILAT ADMN Janel Mcgovern APRN.ALLIANCE CONSULTANT [address] [place] [address] Phone: tel: fax: [facility] [address] [place] [address] Referral ID Status Reason Start Date Expiration Date V isits Requested Visits Authorized [id number] Closed Auto-Generate d Referral 06/27/2024 07/27/2025 1 1 Reason Comments Reminder Call Reason Comments Consult Reason Comments Paper Spooler - Other Post surgery fo llow up [...] Care Teams (unrecognized sec tion and content) Repair Coil Winder Relationship Specialty Start Date End Date Deepak Cedeño MD [address] [place], [place] [id number] PCP - General Family Medicine 06/19/17 Repair Coil Winder Relationship Specialty Start Date End Date Deepak Cedeño MD [address] [place], [place] [id number] PCP - General Family Medicine 06/19/17 Repair Coil Winder Relationship Specialty Start Date End Date Deepak Cedeño MD [address] [place] [address] PCP - General Family Medicine 06/19/17 Repair Coil Winder Relationship Specialty Start Date End Date Deepak Cedeño MD [address] [place] [address] PCP - General Family Medicine 06/19/17 Repair Coil Winder Relationship Specialty Start Date End Date Deepak Cedeño MD [address] [place] [address] PCP - General Family Medicine 06/19/17 Repair Coil Winder Relationship Specialty Start Date End Date Deepak Cdeeño MD [address] [place] [address] PCP - General Family Medicine 06/19/17 Repair Coil Winder Relationship Specialty Start Date End Date Deepak Cedeño MD [address] [place] [address] PCP - General Family Medicine 06/19/17 Repair Coil Winder Relationship Specialty Start Date End Date Deepak Cedeño MD [address] [place] [address] PCP - General Family Medicine 06/19/17 Repair Coil Winder Relationship Specialty Start Date End Date Deepak Cedeño MD [address] [place], [place] [address] PCP - General Family Medicine 06/19/17 Repair Coil Winder Relationship Specialty Start Date End Date Deepak Cedeño MD [address] [place] [address] PCP - General Family Medicine 06/19/17 Liliane Coe, CREATIVE WRITING TEACHER.ALLIANCE CONSULTANT [address] [place] [address] [facility] 04/21/24 Janel Mcgovern CREATIVE WRITING TEACHER.ALLIANCE CONSULTANT [address] [place] [address] Wine [facility] Family [facility] 04/21/24 Repair Coil Winder Relationship Specialty Start Date End Date Deepak Cedeño MD [address] [place] [address] PCP - General Family Medicine 06/19/17 Liliane Coe, CREATIVE WRITING TEACHER.ALLIANCE CONSULTANT [address] [place] [address] [facility] 04/21/24 Janel Mcgovern CREATIVE WRITING TEACHER.ALLIANCE CONSULTANT [address] [place] [address] [facility] Repair Coil Winder Relationship Specialty Start Date End Date Deepak Cedeño MD [address] [place] [address] PCP - General Family Medicine 06/19/17 Liliane Coe, CREATIVE WRITING TEACHER.ALLIANCE CONSULTANT [address] [place] [address] [facility]ly [facility] Family Medicine 04/21/24 Janel Mcgovern CREATIVE WRITING TEACHER.ALLIANCE CONSULTANT [address] [place] [address] [facility] 04/21/24 Repair Coil Winder Relationship Specialty Start Date End Date Deepak Cedeño MD [address] [facility] [place] [address] PCP - General Family Medicine 06/19/17 Liliane Coe APRN.ALLIANCE CONSULTANT [address] [facility] [place] [address] [facility] 04/21/24 Janel Mcgovern CREATIVE WRITING TEACHER.ALLIANCE CONSULTANT [address] [facility] [place] [address] [facility] 04/21/24 Repair Coil Winder Relationship Specialty Start Date End Date Deepak Cedeño MD [address] [facility] [place] [address] PCP - General Family Medicine 06/19/17 Liliane Coe CREATIVE WRITING TEACHER.ALLIANCE CONSULTANT [address] [facility] [place] [address] [facility] 04/21/24 Janel Mcgovern CREATIVE WRITING TEACHER.ALLIANCE CONSULTANT [address] [facility] [place] [address] [facility] 04/21/24 Repair Coil Winder Relationship Specialty Start Date End Date Deepak Cedeño MD [address] [facility] [place] [address] PCP - General Family Medicine 06/19/17 Liliane Coe CREATIVE WRITING TEACHER.ALLIANCE CONSULTANT [address] [facility] [place] [address] [facility] 04/21/24 Janel Mcgovern CREATIVE WRITING TEACHER.ALLIANCE CONSULTANT [address] [place] [address] [facility] 04/21/24 Repair Coil Winder Relationship Specialty Start Date End Date Deepak Cedeño MD [address] [place] [address] PCP - General Family Medicine 06/19/17 Liliane Coe APRN.ALLIANCE CONSULTANT [address] [place] [address] [facility] 04/21/24 Janel Mcgovern APRN.ALLIANCE CONSULTANT [address] [place] [address] [facility] 04/21/24 Repair Coil Winder Relationship Specialty Start Date End Date Deepak Cedeño MD [address] [place] [address] PCP - General Family Medicine 06/19/17 Liliane Coe CREATIVE WRITING TEACHER.ALLIANCE CONSULTANT [address] [place] [address] [facility] 04/21/24 Janel Mcgovern CREATIVE WRITING TEACHER.ALLIANCE CONSULTANT [address] [place] [address] [facility] 04/21/24 Repair Coil Winder Relationship Specialty Start Date End Date Deepak Cedeño MD [address] [place] [address] PCP - General Family Medicine 06/19/17 Liliane Coe, CREATIVE WRITING TEACHER.ALLIANCE CONSULTANT [address] [place] [address] [facility] 04/21/24 Janel Mcgovern CREATIVE WRITING TEACHER.ALLIANCE CONSULTANT [address] [facility] [place] [address] [facility] 04/21/24 Repair Coil Winder Relationship Specialty Start Date End Date Deepak Cedeño MD [address] [facility] [place] [id number] PCP - General Family Medicine 06/19/17 Liliane Coe APRN.ALLIANCE CONSULTANT [address] [facility] [place] [address] [facility] 04/21/24 Janel Mcgovern CREATIVE WRITING TEACHER.ALLIANCE CONSULTANT [address] [facility] [place] [address] [facility] 04/21/24 Repair Coil Winder Relationship Specialty Start Date End Date Deepak Cedeño MD [address] [facility] [place] [address] PCP - General Family Medicine 06/19/17 Liliane Coe, CREATIVE WRITING TEACHER.ALLIANCE CONSULTANT [address] [facility] [place] [address] [facility] Medicine 04/21/24 Janel Mcgovern CREATIVE WRITING TEACHER.ALLIANCE CONSULTANT [address] [facility] [place] [address] [facility] Medicine 04/21/24 Repair Coil Winder Relationship Specialty Start Date End Date Deepak Cedeño MD [address] [facility] [place] [address] [phone] PCP - General Family Medicine 06/19/17 Liliane Coe, CREATIVE WRITING TEACHER.ALLIANCE CONSULTANT [address] [facility] [place] [address] [facility] 04/21/24 Janel Mcgovern CREATIVE WRITING TEACHER.ALLIANCE CONSULTANT [address] [facility] [place] [address] [facility] 04/21/24 Repair Coil Winder Relationship Specialty Start Date End Date Deepak Cedeño MD [address] [facility] [place] [address] PCP - General Family Medicine 06/19/17 Liliane Coe, CREATIVE WRITING TEACHER.ALLIANCE CONSULTANT [address] [facility] [place] [address] [facility] 04/21/24 Janel Mcgovern CREATIVE WRITING TEACHER.ALLIANCE CONSULTANT [address] [facility] [place] [address] [facility] 04/21/24 Repair Coil Winder Relationship Specialty Start Date End Date Deepak Cedeño MD [address] [facility] [place] [address] PCP - General Family Medicine 06/19/17 Liliane Coe, CREATIVE WRITING TEACHER.ALLIANCE CONSULTANT [address] [facility] [place] [address] [facility] Family Medicine 04/21/24 Janel Mcgovern CREATIVE WRITING TEACHER.ALLIANCE CONSULTANT [address] [facility] [place] [address] [facility] Medicine 04/21/24 Repair Coil Winder Relationship Specialty Start Date End Date Deepak Cedeño MD [address] [facility] [place] [address] PCP - General Family Medicine 06/19/17 Liliane Coe APRN.ALLIANCE CONSULTANT [address] [facility] [place] [address] [facility] 04/21/24 Janel Mcgovern CREATIVE WRITING TEACHER.ALLIANCE CONSULTANT [address] [facility] [place] [address] [facility] 04/21/24 Repair Coil Winder Relationship Specialty Start Date End Date Deepak Cedeño MD [address] [facility] [place] [address] PCP - General Family Medicine 06/19/17 Liliane Coe CREATIVE WRITING TEACHER.ALLIANCE CONSULTANT [address] [facility] [place] [address] [facility] 04/21/24 Janel Mcgovern CREATIVE WRITING TEACHER.ALLIANCE CONSULTANT [address] [facility] [place] [address] [facility] 04/21/24 Team Status: Active Member Role/Relationship Status Dates Dr. Deepak Cedeño MD Primary Care Provider Active Team Status: Inactive Member Role/Relationship Status Dates Dr. Deepak Cedeño MD Primary Care Provider Active Start: January 26, 2025 End: January 26, 2025 Dr. Jefry Kilgore DO Emergency Provider Active Start: January 26, 2025 End: January 26, 2025 Team Status: Active Member Role/Relationship Status Dates Dr. Deepak Cedeño MD Primary care physician Active Team Status: Inactive Member Role/Relationship Status Dates Dr. Deepak Cedeño MD Primary care physician Active Start: January 26, 2025 End: January 26, 2025 Dr. Jefry Kilgore DO Attending physician Active Start: January 26, 2025 End: January 26, 2025 Dr. Jefry Kilgore DO Emergency Departme nt Physician Active Start: January 26, 2025 End: January 26, 2025 Team Status: Inactive Member Role/Relationship Status Dates Dr. Deepak Cedeño MD Primary care physician Active Start: January 30, 2025 End: January 30, 2025 Dr. Deepak Cedeño MD Referring Provider Active Start: January 30, 2025 End: January 30, 2025 VADIM Ruiz Attending physician Active Sta rt: January 30, 2025 End: January 30, 2025 Team Status: Inactive Member Role/Relationship Status Dates Dr. Deepak Cedeño MD Primary care physician Active Start: January 30, 2025 End: January 30, 2025 Dr. Narciso Echavarria MD Attending physician Active Start: January 30, 2025 End: January 30, 2025 Team Status: Active Member Role/Relationship Status Dates Dr. Deepak Cedeño MD Primary care physician Active Start: February 03, 2025 VADIM Ruiz Attending physician Active Sta rt: February 03, 2025 VADIM Ruiz Referring Provider Active Star t: February 03, 2025 Team Status: Active Member Role/Relationship Status Dates Dr. Deepak Cedeño MD Primary care physician Active Start: February 10, 2025 VADIM Ruiz Attending physician Active Sta rt: February 10, 2025 VADIM Ruiz Referring Provider Active Star t: February 10, 2025 Team Status: Inactive Member Role/Relationship Status Dates Dr. Deepak Cedeño MD Primary care physician Active Start: February 13, 2025 End: February 13, 2025 Dr. Deepak Cedeño MD Referring Provider Active Start: February 13, 2025 End: February 13, 2025 VADIM Ruiz Attending physician Active Sta rt: February 13, 2025 End: February 13, 2025 (unrecognized sect ion and content) No Status Records FoundNo Status Records FoundNo Status Records FoundNo Status Records Found INFORMATION SOURCE (unrecogn ized section and content) DATE CREATED AUTHOR 07/05/2024 [facility] DATE CREATED AUTHOR AUTHOR'S ORGANIZ ATION 12/13/2024 [facility] DATE CREATED AUTHOR AUTHOR'S ORGANIZ ATION 02/27/2025 [facility] DATE CREATED AUTHOR AUTHOR'S ORGANIZ ATION 03/03/2025 [facility] Goals (unrecognized section and content) Goals may be documented in a n alternate sectionGoals may be documented in an alternate sectionGoals may be documented in an alternate sectionGoals may be documented in an alternate section FOR RECORDS PERTAINING TO PATIENTS WHO ARE [...] BE BASED ON THE PRIMARY CLINICAL RECORDS. [facility]. provides no warranty or guarantee of the accuracy or completeness of information in this document.
[2025-03-04] MEDS: Lactated Ringers 1,000 ML 15 ML IV (05:40)
[2025-03-04] MEDS: Magnesium 1 GM over 15 mins IV (05:45)
--- NOTE | 2025-03-04 06:30 | RAD_ITS ---
PROCEDURE: LUMBAR SPINE 2 OR 3 VIEWS 03/04/2025 REASON FOR EXAM: 360 LUMBAR FUSION L4-5 TECHNIQUE: Procedure Code: RADSPLL Modality: DX Procedure: LUMBAR SPINE 2 OR 3 VIEWS 13 intraoperative studies performed as the patient is undergoing L4-5 pedicle screw fusion 48.2 seconds of fluoroscopy, radiation dosage of 26.15 mGy COMPARISON: Previous MR from 02/03/2025 FINDINGS: No intraoperative complications noted during pedicle screw fusion surgery at L4 and L5. RAD/Lumbar Spine 2 or 3 Views IMPRESSION: No intraoperative complications noted during pedicle screw fusion surgery at L4 and L5 Reading Location: [id number]
--- NOTE | 2025-03-04 06:46 | PCM.PRE.AN2 ---
ASA Classification* ASA Classification ASA Classification: 2 Assessment & Plan Anesthesia* Anesthesia Assessment Anesthesia Assessment: Discussed sedation and/or anesthesia options, risks, benefits, and alternatives with patient/parents/legal guardian/POA. Questions invited. The patient/parents/legal guardian/POA seems to understand and agrees to proceed with anesthesia plan. Reviewed the physical assessment, medical history, allergy history and patient home medications list prior to surgery/procedure/anesthetic and documented any changes. Performed airway and anesthesia risk assessments. Anesthesia Type Anesthesia Type: General Anesthesia Focused Assessment* Temperature: 97.2 F Pulse Rate: 76 Blood Pressure: 114/81 Respiratory Rate: 18 Pulse Ox: 94 Airway Assessment Mouth opens: >3 cm Mallampati Score: II Labs Anesthesia Preop lab: CBC WBC, (4.4-11.0) 8.7 K/mm3 12/25/23, 11:04 RBC, (4.6-6.2) 4.86 M/mm3 12/25/23, 11:04 Hgb, (13.0-16.5) 14.3 g/dL 12/25/23, 11:04 Hct, (40-54) 43.1 % 12/25/23, 11:04 Plt Count, (150-450) 296 K/mm3 12/25/23, 11:04 CHEMISTRY Potassium, (3.5-5.1) 4.0 mmol/L 12/25/23, 11:04 Sodium, (136-145) 139 mmol/L 12/25/23, 11:04 Magnesium, (1.5-2.2) 2.2 mg/dL 02/27/25, 11:18 BUN, (7-18) 12 mg/dL 12/25/23, 11:04 Creatinine, (0.70-1.30) 0.75 mg/dL 12/25/23, 11:04 Glucose, (74-106) 104 mg/dL 12/25/23, 11:04 POC Glucose, (70-110) 94 mg/dL 03/10/16, 13:53 COAG Pre-Assessment Diagnosis/Proposed Procedure Planned Operative Procedure(s): 360 LUMBAR FUSION L4-5 Anesthesia History 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 When Was Last Pacemaker Check QUESTION #4 FULL TEXT: You/Your Family Experience fever (hyperthermia) with Anesthesia Last Oral Intake Last Oral intake: Last Oral Intake NPO since 04:00 03/04/25 05:53 Meds taken in AM with sips of No 03/04/25 05:53 water? Meds patient instructed to take am of surgery PONV PONV - caustic room operator: PONV - caustic room operator Female No 02/26/25 15:32 HX of Motion Sickness No 02/26/25 15:32 HX of N/V After Surgery No 02/26/25 15:32 Non-Smoker No 02/26/25 15:32 Duration of Surgery greater Yes 02/26/25 15:32 than 60 minutes Number of Risk Factors 1 02/26/25 15:32 PONV Score Low Risk 02/26/25 15:32 Height & Weight Height & Weight: Anesthesia: Height & Weight Height 6 ft 03/04/25 05:53 Weight: 85 kg 03/04/25 05:53 Body Mass Index (BMI) 25.4 03/04/25 05:53 Respiratory Assessment Respiratory Assessment - caustic room operator: Respiratory Tract Infection Hx - caustic room operator Hx Respiratory Tract Infection Yes: NASAL CONGESTION/ON 02/26/25 15:32 ANTIBIOTIC OF 02/26/25 STOP Sleep Apnea STOP Sleep Apnea - caustic room operator: STOP Sleep Apnea - caustic room operator Hx Hypertension No 02/26/25 15:32 Hx Sleep Apnea No 02/26/25 15:32 CPAP BIPAP Do you snore loudly (louder No 02/26/25 15:32 than talking or can be heard Do you often feel tired/ No 02/26/25 15:32 fatigued/ sleepy during daytime? Has anyone observed you stop No 02/26/25 15:32 breathing during sleep? STOP Results Negative 02/26/25 15:32 QUESTION #5 FULL TEXT : Do you snore loudly (louder than talking or can be heard through closed doors)? Tobacco Use History Tobacco Use History - caustic room operator: Tobacco Use History - caustic room operator Tobacco Use Smoking Status Current every day smoker 02/26/25 15:32 Hx Tobacco Use Yes 02/26/25 15:32 Years Smoking Packs Smoked per Day Smoking Cessation Date was within the last 15 years Hx Smoking Cessation Date Hx Smoking Cessation Counseling Hematologic Medial History Hematologic Hx - caustic room operator: Hematologic Medical Hx - dance master Hx of Blood Transfusion No 02/26/25 15:32 Hx of Transfusion in last 3 No 02/26/25 15:32 Months Date of Last Transfusion (if within last 3 months) Ever experience any problems No 02/26/25 15:32 with transfusion(s)? Specify any problems Hx of Preganancy in last 3 N/A 02/26/25 15:32 Months Nurse Filling Out Transfusion DSCHRIBER 02/26/25 15:32 & Questions: Date: 02/26/25 02/26/25 15:32 Time: 15:34 02/26/25 15:32 Patient unable to answer at this time (ie. confused, unrespo /Reproduction History /Reproductive History - caustic room operator: /Reproductive Hx- caustic room operator Hx Now No 02/26/25 15:32 Gestational Age (in weeks): EDC: Hx Hx Para Hx Section SAB No 02/26/25 15:32 Active Medications Active Medications: Current Medications Generic Name Dose Route Start Last Admin Trade Name Freq PRN Reason Stop Dose Admin Acetaminophen 1,000 mg 03/04/25 07:30 03/04/25 05:58 Acetaminophen 500 Mg Tablet PO 03/04/25 07:31 1,000 mg PREOP ONE Administration Cefazolin Sodium 2 gm/ Sodium 110 mls @ 150 mls/hr 03/04/25 07:30 Chloride IV 03/04/25 08:13 INTRAOP ONE Tranexamic Acid 1,000 mg/ 110 mls @ 440 mls/hr 03/04/25 07:30 Sodium Chloride IV 03/04/25 07:44 INTRAOP ONE Tranexamic Acid 1,000 mg/ 110 mls @ 440 mls/hr 03/04/25 07:30 Sodium Chloride IV 03/04/25 07:44 INTRAOP ONE Magnesium Sulfate 1 gm/ 102 mls @ 408 mls/hr 03/04/25 07:30 03/04/25 05:45 Dextrose IV 03/04/25 07:44 408 mls/hr PREOP ONE Administration Lactated Ringer's 1,000 mls @ 15 mls/hr 03/04/25 05:45 03/04/25 05:40 IV 15 mls/hr .Q48H MILADY Administration Insulin Human Lispro 1 - 6 unit 03/04/25 07:30 Insulin Lispro 100 Unit/Ml Insuln.Pen SC Q4H PRN PRN BG>/= 180, SEE PROTOCOL Protocol [facility] Medical History Wears glasses Wears dentures Alcohol use History of steroid therapy Arthritis Back pain Drop foot gait Smoker History of echocardiogram History of stress test Home Medications Medication Instructions Recorded Last Taken Type ibuprofen 200 mg tablet 200 mg PO Q6H PRN pain 02/13/25 Unknown History cephalexin 500 mg tablet 500 mg PO BID 02/26/25 Unknown History fluticasone propionate 50 2 spray intranasal DAILY PRN nasal 02/26/25 Unknown History mcg/actuation nasal congestion spray,suspension (Aller-Miguelito) tadalafil 5 mg tablet (Cialis) 5 mg PO DAILY PRN sexual activity 02/26/25 Unknown History Allergy/AdvReac Type Severity Reaction Status Date / Time No Known Allergies Allergy Verified 03/04/25 06:23 Family History Mother No problems noted. Father No problems noted. Surgical History Hx of colonoscopy Hx of umbilical hernia repair Hx of bilateral inguinal hernia repair Social History Smoking Status: Heavy Smoker (>10/day) Review of Systems (Anesthesia) ROS Narrative System reviewed and no additional complaints, except as documented.
--- NOTE | 2025-03-04 07:14 | HP.PCM_ITS ---
History and Physical Date of Admission: 03/04/25 MR#: [id number] Acct: [id number] Name: CECILIA MARTIN Rep #: [id number] : [id number] Provider: Dr. Yvan Lopez MD Age/Sex: 59/M Location: [facility] [place] Status: Signed Intake Vital Signs 01/30/2510:36 02/23/2514:32 Height 6 ft 6 ft Weight: 189 lb BMI 25.6 Intake Visit Reasons: lumbar spine Chief Complaint: Lumbar spine pre op Accompanied by: Is patient in pain?: Yes Pain scale (1-10): 1 Allergies No Known Allergies Allergy (Verified 02/23/25 14:33) Medications Medication Instructions Recorded Confirmed Type acetaminophen 500 mg tablet 500 mg PO Q6H PRN 02/13/25 02/23/25 Hist ory (Tylenol Extra Strength) ibuprofen 200 mg tablet 200 mg PO Q6H PRN 02/13/25 02/23/25 Hist ory soy protein ea PO 02/13/25 02/23/25 History Have you fallen in the past year?: No PFSH Medical History Hernia Family History Mother No problems noted. Father No problems noted. Social History Smoking Status: Heavy Smoker (>10/day) HPI lumbar spine Details: This documentation accurately reflects the service provided and the decisions made by me, Dr. Yvan Lopez MD 02/23/25 0544. Part of today’s visit was documented by Krystle Fairbanks MA, acting as scribe. CECILIA MARTIN is a 59 year old M here today for lumbar spine pre op. Patient states that his pain is a 1 today. He states that he hasn't had any injections in his lower back. Patient has done physical therapy at [facility]. He states that he has done 3 sessions of physical therapy. Patient thinks it's helping a little bit. He would like to know how long he should wait when he can drive again. The patient is a 59-year-old male presenting with right foot drop. The foot drop was first noticed after a late-night incident where the patient experienced a sensation of his legs being asleep, followed by an inability to move his right foot properly. He reports no prior significant back problems, only occasional back pain from lifting at work, and denies any history of sciatica or leg pain. The patient has not experienced any falls but reports frequent stumbling due to the foot drop, particularly on rugs or steps. He has been advised to use a foot drop brace, but has not yet been fitted for one. The patient denies any pain in the right leg but mentions occasional hip discomfort, which has since resolved. He reports tingling in the right leg but denies any diabetes or neuropathy. The patient has a history of tobacco use, smoking approximately a pack a day, and is attempting to quit using nicotine gum. - Neurological: Reports right foot drop and tingling in the right leg. Denies any falls, headaches, or dizziness. - Musculoskeletal: Reports occasional hip discomfort, now resolved. Denies any leg pain or sciatica. - Endocrine: Denies diabetes. Attestation: Documentation on this patient encounter was supported using ambient scribe technology/ voice AI technology. The patient consented to recording for the purpose of documenting the encounter. Provider reviewed content of the generated note prior to signature. 02/13/25: CECILIA MARTIN is a 59 year old M here today for MRI lumbar spine DOS: 02/03/25 results. Intermittent low back achiness. Denies right leg pain. Continues right drop foot unchanged. No new injuries. Right foot numbness and tingling continues unchanged. Tylenol and Advil taken as needed with positive effect. He also has right lateral lower leg numbness which has continued. HPI 01/30/25 lumbar spine. Patient states that his pain is a 1 today. He states that he is having pain in his right leg. Patient states that he isn't having any pain in his lower back. He states that there isn't really pain, it just feels odd. Patient states that this has been going on for a couple days. He states that there is no injury. Patient states that he went to the ER Sunday night 01/25/2025. He states that he went to [place] er for his drop foot. The er did a cat scan. The Cat scan showed some degenerative changes. The er doctor sent a referral to us to get an MRI done. Patient states that he hasn't had any surgeries on his lower back. He states that he hasn't had any injuries. Patient states that he doesn't have any back pain. There is nothing that makes it worse. Patient states that he hasn't had any injections in he lower back. He hasn't tried any physical therapy. Patient states that he doesn't have any diabetes, or blood thinners. No heart or lung issues. Patient does smoke, but doesn't do any drugs. Patient states that he has noticed some balance problems. He states that he doesn't use a walker or a cane to help him balance. Says that he noticed some issues with trip and turning his right ankle due to the foot drop. No falls. Numbness on the side of the calf. Hx of inguinal hernia repair, left sided groin incision. Ortho Exam General General: Yes no acute distress Neurologic: Yes alert and Yes oriented x3 Psychologic: Yes reasonable and appropriate Spine SPINE TESTING CERVICAL THORACIC LUMBAR Musculoskeletal Strength 0=absent - 5=normal Details: Neurological exam of the lower extremities shows grade 0 right dorsiflexion, all other muscle groups show 5 power. Normal sensations across all dermatomes. No hyperreflexia. No midline or paraspinal tenderness. Coding Level of Care Code Off vis,est,level 4 Diagnoses Right foot drop M21.371 Lumbar radiculopathy, right M54.16 Spondylolisthesis, lumbar region M43.16 Spinal stenosis of lumbar region with neurogenic claudication M48.062 Time Spent (min) 35 Assessment and Plan Assessment and Plan (1) Right foot drop: Status: Acute (2) Lumbar radiculopathy, right: Status: Acute (3) Spondylolisthesis, lumbar region: Status: Acute (4) Spinal stenosis of lumbar region with neurogenic claudication: Status: Acute Plan Again reviewed prior lumbar x-rays show a retrolisthesis of L5 on S1 and a spondylolisthesis of L4 on L5. Mild dynamic instability noticed on flexion- extension views. There is facet arthrosis mildly in the lumbar spine, no acute fractures. There is also some mild disc height loss seen at L5-S1. Reviewed lumbar MRI from 02/03/2025. MRI shows L3-5 mild disc bulge with mild central canal stenosis. L4-5 moderate disc bulge with facet arthropathy and ligamentum flavum hypertrophy resulting in moderate central canal stenosis. There is mild bilateral foraminal stenosis at this level. 1. Right foot drop - The patient is advised to use a foot drop brace to prevent falls and assist with mobility. - The brace fitting is pending. 2. Lumbar spinal stenosis - Surgical intervention is considered due to associated instability and nerve compression. - Minimally invasive fusion surgery is planned to relieve pressure and stabilize the spine. 3. Tobacco use disorder - The patient is encouraged to quit smoking to improve surgical outcomes and overall health. - Nicotine gum is being used as an aid. - Use a foot drop brace to prevent falls and assist with walking. - Follow up with the orthopedic team for brace fitting and surgical planning. - Continue using nicotine gum to aid in quitting smoking. - Maintain mobility to prevent complications such as blood clots. Discussed that patient has significant stenosis with instability at L4-5. He seems to have had an acute right-sided foot drop. EMG was ordered and this came back as acute right L5 radiculopathy. No other sources of foot drop noticed. Discussed need for foot drop splint because of the dense nature of the foot drop. Discussed surgery in the form of decompression and fusion due to the instability to get the opportunity for the right L5 nerve to improve with decompression. I recommend L4-5 decompression fusion in the form of anterior posterior fusion. Discussed this procedure in detail and explained the risks, benefits and alternatives. The risks of surgery include but are not limited to infection, bleeding, injury to nerves or vessels, need for further surgery, ileus, vascular injury, visceral injury, DVT, pulmonary embolism, pneumonia, atelectasis, cardiopulmonary event, pseudoarthrosis, hardware failure, gait abnormality, adjacent segment degeneration. Discussed post-surgery restrictions in detail such as no bending, lifting, or twisting. Answered all questions to the patient’s satisfaction. Patient understands and agrees to proceed with surgery. Consent was signed.Follow up two weeks post operatively or sooner if pain, swelling, numbness or associated symptoms, or concerns develop. All questions answered. Patient in agreement of plan.
[2025-03-04] MEDS: Cefazolin 1 GM/5 ML Vial 2 GM IV (07:30)
[2025-03-04] MEDS: Lidocaine 1% (5 ml sdv) 5 ML Vial 10 ML IV (07:35)
[2025-03-04] MEDS: fentaNYL 100 MCG/2 ML Ampul 200 MCG IV (10:08)
[2025-03-04] MEDS: TRANEXAMIC ACID 1,000 MG/10 ML ML 2000 MG IV (10:25)
[2025-03-04] MEDS: Ketorolac 30 MG/ML Syringe IV (10:31)
--- NOTE | 2025-03-04 10:59 | OP.PCM_ITS ---
Procedures Musculoskeletal 20xxx-29xxx: Other Procedure See Report Operative Report (Standard) Operative Information Date of Procedure: 03/04/25 Pre-Operative Diagnosis: L4-5 spondylolisthesis, stenosis with neurogenic claudication, right foot drop Post-Operative Diagnosis: Same Surgery/Procedure Performed: L4-5 oblique lumbar interbody fusion, anterior instrumentation geophysical computer: Yes Fire Sprinkler Fitter: Ellen Montez Tasks completed by medical receptionist assistant: Closing, Removing tissue, Hemostasis: Electrocautery and Retracting Type of Anesthesia: General RN Documented Start/Stop Times: Operation Date: 03/04/25 07:30 Case Time Into Pre-Op 03/04/25 05:34 Out of Pre-Op 03/04/25 07:27 Anesthesia Start 03/04/25 07:30 Into Room 03/04/25 07:30 Procedure Start 03/04/25 08:02 Procedure End 03/04/25 10:48 Anesthesia End 03/04/25 10:56 Out of Room 03/04/25 10:56 Procedure Start Time: 08:02 Procedure Stop Time: 10:48 Select all DRAINS/GRAFTS/IMPLANTS that apply: Graft Graft details: Allograft cancellous chips, autologous iliac crest bone marrow aspirate and Implanted device Implanted device details: DePuy cougar lateral lumbar interbody cage, 4web 2 hole plate Estimated Blood Loss: 50 cc Specimen collected: No Description of surgery: Preoperative diagnosis: L4-5 spondylolisthesis, stenosis with neurogenic claudication, right foot drop Postoperative diagnosis: Same Name of procedures L4-5 oblique lumbar interbody fusion (OLIF), anterior instrumentation, minimally invasive left sided approach, lateral decubitus: · L4-5 anterolateral spinal fusion · L4-5 insertion of cage . L4-5 anterior instrumentation · Bone graft aspirate left iliac crest separate incision · Allograft cancellous chips Attending Surgeon: Dr. Yvan Lopez Estimated blood loss: 50 mL Anesthesia: General Complications: None Indications: Patient is a 59-year-old pleasant gentleman who has had a long history of low back pain and right lower extremity radiation, difficulty walking distances, right foot drop. Xrays & MRI revealed L4-5 spondylolisthesis with stenosis. After undergoing a prolonged period of nonoperative treatment, the patient elected to undergo surgical decompression & fusion. All surgical options were discussed with the patient including anterior and posterior approaches. All risks and benefits associated with the procedure were explained to the patient. The risks include but are not limited to infection, bleeding, injury to nerves and vessels including major vessels like IVC and aorta, persistent paresthesia, persistent pain, dural tear, need for further procedures, adjacent segment degeneration, pseudoarthrosis, hardware failure, retrograde ejaculation, paralytic ileus, etc. Procedure: The patient was identified in the preoperative holding suite using Unique patient identifiers. Skin was marked, consent was reviewed, and all questions were answered. The patient was then brought back to the operative room. A surgical timeout was performed to make sure correct procedure was being done on the correct patient and all operative room staff were on the same page. General endotracheal anesthesia was then given to the patient. Wade catheter was inserted. The patient was then carefully positioned in right lateral decubitus position with the left side up on a regular OR table. Axillary roll was placed and all bony prominences were well- padded. Hip positioners were placed in the posterior buttocks and anterior sternal area. The surgical area was prepped and draped in usual fashion. Preoperative antibiotic was injected IV as preoperative antibiotic. A final timeout was then again done just before starting the procedure. A 2 inch incision oblique was taken in the left lower quadrant of the abdomen 2 fingerbreadths away from the iliac crest and the lower ribs. Sharp dissection with Bovie was carried out up to the fascia covering the external oblique. The external oblique, internal oblique and transversus abdominis muscles were split along the muscle fibers and retroperitoneal space was entered. Sponge sticks were utilized to move the bowel and peritoneum axf-wk-bou-way and psoas muscle was exposed staying within the retroperitoneal plane. [employer] retractor system was positioned and the retractor blade was applied onto the psoas. The interval between psoas and midline structures was developed and appropriate retractors were placed. Once adequate interval was cleared, a disc space was identified and a marker x-ray was taken. This identified the L4-5 disc level. Annulotomy was done with a long handled knife. Pituitary was used to remove disc material. Curettes were used to prepare the endplates. Disc space spreaders were utilized to distract and increase the disc height. Near complete discectomy was performed. Smaller disc distractors were also used to bluntly perform a contralateral annulotomy. Trials of serially increasing sizes were used. A Jamshidi needle was used to aspirate bone marrow from the left anterior iliac crest through a separate incision and this aspirate was mixed with the allograft bone chips. A Depuy Ho[place] cage of size of the 18 x 50 x 12 mm with 15 degrees lordosis was packed with corticocancellous allograft bone chips mixed with bone marrow aspirate. This was inserted into the L4-5 disc space. AP and lateral C-arm pictures were taken to confirm good position of the cage. Some bone chips were also packed around the cages. Because of the significant instability, decision was made to perform anterior instrumentation. A 4Web two-hole plate separate from the cage was used to cover the cage and 35 mm screws were placed into the L4 and L5 bodies. C-arm showed adequate appropriate positioning of the screws. Hemostasis was confirmed. The retractor blades were removed. Closure was done in layers with a continuous strand of # 1 Vicryl in all muscle layers. 2-0 Vicryl was used for subcutaneous tissue and 4-0 for Monocryl for the skin. Steri-Strips were applied and 4 x 4 gauze and Tegaderm were applied. [employer] Ellen Montez PA-C. My physician court assistant was a vital part of this case. They were important in appropriate retraction during the case, and protection of soft tissues during the procedure. Their intimate knowledge of the case and my steps aided in safe and expedient completion of the procedure as well as appropriate position of the patient during the surgery. They were also vital in assisting with closure under my direct supervision. Surgical Findings: See operative note Complications Complications: No
--- NOTE | 2025-03-04 11:08 | OP.PCM_ITS ---
Procedures Musculoskeletal 20xxx-29xxx: Other Procedure See Report Operative Report (Standard) Operative Information Date of Procedure: 03/04/25 Pre-Operative Diagnosis: L4-5 spondylolisthesis, stenosis with neurogenic claudication, right foot drop Post-Operative Diagnosis: Same Surgery/Procedure Performed: L4-5 posterior spinal instrumented fusion profile mill operator tape control: Yes Chemistry Technician: Ellen Montez Tasks completed by tv production assistant: Closing, Removing tissue, Implanting device, Hemostasis: Electrocautery and Retracting Type of Anesthesia: General RN Documented Start/Stop Times: Operation Date: 03/04/25 07:30 Case Time Into Pre-Op 03/04/25 05:34 Out of Pre-Op 03/04/25 07:27 Anesthesia Start 03/04/25 07:30 Into Room 03/04/25 07:30 Procedure Start 03/04/25 08:02 Procedure End 03/04/25 10:48 Anesthesia End 03/04/25 10:56 Out of Room 03/04/25 10:56 Procedure Start Time: 08:02 Procedure Stop Time: 10:48 Select all DRAINS/GRAFTS/IMPLANTS that apply: Graft Graft details: Allograft cancellous chips and Implanted device Implanted device details: DePuy Viper prime pedicle screw instrumentation Estimated Blood Loss: 50 cc Specimen collected: No Description of surgery: Preoperative diagnosis: L4-5 spondylolisthesis, stenosis with neurogenic claudication, right foot drop Postoperative diagnosis: Same Name of procedures: L4-5 posterior percutaneous pedicle screw instrumented fusion, prone: · L4-5 posterior spinal fusion 29693 · L4-5 posterior pedicle screw instrumentation 39301 · Allograft cancellous chips [id number] Attending Surgeon: Dr. Yvan Lopez Estimated blood loss: 50 mL (total for entire case) Anesthesia: General Complications: None Description of procedure: After the anterior procedure was complete, the patient was then turned supine. The patient was then transferred to [place] table in prone position. Back was prepped and draped in usual fashion. C-arm AP view was then taken. C-arm was positioned in a way that L4 was centralized and superior endplate of was parallel to the beam. Spinous process was centered between the pedicles. Midline was marked with skin marker and lateral borders of the pedicles were also marked. Skin marker was also utilized to helder transversely across the middle of the pedicles at L4. 2 vertical paramedian incisions of 1 inch were placed. The fascia was incised vertically. Finger dissection was utilized to palpate the transverse process and facet joint. Viper Prime screws with towers were inserted and docked onto the transverse processes. This was then slowly moved medially to reach the superior articular process of L4. This was then confirmed on C-arm and then a mallet was utilized to drive the trocar into the pedicle going up to the medial wall of the pedicle on AP view. This was performed both sides. C-arm lateral view confirmed that the tip of the trocar was in the vertebral body, and the screw was advanced into the pedicle and vertebral body. This was repeated similarly at L5 bilaterally. Screw sizes were 7 x 50 mm at L4 and L5 on both sides. 45 mm precontoured titanium 5.5 mm lordotic ro on both sides were then passed through the screw extensions and reduced down to the screws with the help of [employer] instrumentation system on both sides. AP and lateral view of the C-arm showed good positioning of the screws and cages. Final tightening with the torque screwdriver was then completed. Annelise was utilized to roughen the facet joint at L4-5 on the right side. Cancellous allograft bone chips mixed with bone marrow aspirate were then placed over this decorticated area. Hemostasis was achieved. Closure was done in layers with 0 Vicryls for the fascia, 2-0 Vicryls for the subcutaneous tissue, and Monocryl for the skin. Dermabond was applied. Dressings were applied covered with Tegaderm. The patient was then turned supine onto a hospital bed. The patient was extubated and taken to PACU in stable condition. The patient tolerated the procedure well and no complications occurred. Depuy [place] cage & Viper Prime minimally invasive pedicle screw instrumentation system was utilized in this case. No dural tear was identified intraoperatively. I was present for the entirety of the case and performed the surgery. [employer] Officer Ellen Montez PA-C. My physician senior office assistant was a vital part of this case. They were important in appropriate retraction during the case, and protection of soft tissues during the procedure. Their intimate knowledge of the case and my steps aided in safe and expedient completion of the procedure as well as appropriate position of the patient during the surgery. They were also vital in assisting with closure under my direct supervision. Surgical Findings: See operative note Complications Complications: No
--- NOTE | 2025-03-04 12:02 | PCM.POST.ANE ---
Anesthesia: Postop Eval I Current Vital Signs Temperature: 98.2 F Pulse Rate: 96 Blood Pressure: 129/76 Respiratory Rate: 18 Pulse Ox: 100 Oxygen Delivery Method: Simple Mask Oxygen Flow Rate (L/min): 6 Assessment Airway patent: Yes Spontaneous unlabored respirations: Yes Mental status: Awake and Calm nausea: No Vomiting: No Anesthesia Complication: No Fluid Hydration Crystalloid volume administer (ml): 1,600 Total IV fluid infused: 1,600 Progress Note Anesthesia document: Postop Eval 1 completed: Yes
--- NOTE | 2025-03-04 13:33 | POSTOPAN2_ITS ---
Anesthesia Postop Eval I Sum Postop Eval Completion status Anesthesia document: Postop Eval 1 completed: Yes Anesthesia Postop Eval I Summary Anesthesia Postop Eval I Summary: Anesthesia Postop Eval I: Assessment Summary Airway patent Yes 03/04/25 12:03 ENROLLMENT ADVISOR.SKOBY Spontaneous unlabored Yes 03/04/25 12:03 ENROLLMENT ADVISOR.JOEOBLaura respirations Mental status Awake,Calm 03/04/25 12:03 ENROLLMENT ADVISOR.SKOBY nausea No 03/04/25 12:03 ENROLLMENT ADVISOR.SKOBY Vomiting No 03/04/25 12:03 ENROLLMENT ADVISOR.SKOBY Anesthesia Postop Eval I: Fluid Summary Crystalloid volume administer 1,600 03/04/25 12:03 ENROLLMENT ADVISOR.SKOBY (ml) Colloids volume administered ( ml) Blood Product volume administered (ml) Total IV fluid infused 1,600 03/04/25 12:03 ENROLLMENT ADVISOR.JOEOBLaura Anesthesia Postop Eval I: Summary Notes Anesthesia Complication No 03/04/25 12:03 ENROLLMENT ADVISOR.JOEOBLaura Anesthesia Complication Comment: Post-operative progress note Anesthesia: Postop Eval II Evaluation Mental status: Awake Pain Level: 2 nausea: No Vomiting: No
--- NOTE | 2025-03-04 13:33 | PCM.POSTANE2 ---
Anesthesia Postop Eval I Sum Postop Eval Completion status Anesthesia document: Postop Eval 1 completed: Yes Anesthesia Postop Eval I Summary Anesthesia Postop Eval I Summary: Anesthesia Postop Eval I: Assessment Summary Airway patent Yes 03/04/25 12:03 OPERATIONS AND INTELLIGENCE ASSISTANT.SKOBY Spontaneous unlabored Yes 03/04/25 12:03 OPERATIONS AND INTELLIGENCE ASSISTANT.JOEOBLaura respirations Mental status Awake,Calm 03/04/25 12:03 OPERATIONS AND INTELLIGENCE ASSISTANT.SKOBY nausea No 03/04/25 12:03 OPERATIONS AND INTELLIGENCE ASSISTANT.SKOBY Vomiting No 03/04/25 12:03 OPERATIONS AND INTELLIGENCE ASSISTANT.SKOBY Anesthesia Postop Eval I: Fluid Summary Crystalloid volume administer 1,600 03/04/25 12:03 OPERATIONS AND INTELLIGENCE ASSISTANT.SKOBY (ml) Colloids volume administered ( ml) Blood Product volume administered (ml) Total IV fluid infused 1,600 03/04/25 12:03 OPERATIONS AND INTELLIGENCE ASSISTANT.JOEOBLaura Anesthesia Postop Eval I: Summary Notes Anesthesia Complication No 03/04/25 12:03 OPERATIONS AND INTELLIGENCE ASSISTANT.JOEOBLaura Anesthesia Complication Comment: Post-operative progress note Anesthesia: Postop Eval II Evaluation Mental status: Awake Pain Level: 2 nausea: No Vomiting: No
--- NOTE | 2025-03-04 13:43 | SUR.PHASEII ---
PATIENT STATES PAIN IS TOLERABLE AFTER THE MORPHINE. DENIES ANY OTHER NEEDS, STILL WAITING ON A ROOM UPSTAIRS.
--- NOTE | 2025-03-04 14:51 | CON.PCM.HO_ITS ---
Assessment & Plan Assessment/Plan (1) Tobacco use: PLAN: Plan #Tobacco use -Advise cessation -Nicotine replacement available if desired - Presently does not want a patch # Low SpO2 -Patient 88 to 89% on room air shortly postop, reports being very tired as he is still recovering from anesthesia and had a dose of morphine, suspect that this is due to hypoventilation as patient has no current cough or shortness of breath, clear to auscultation bilaterally -May have some undiagnosed COPD given smoking history but cannot say definitively -Order incentive spirometer -As needed albuterol #L4-5 spondylolisthesis, stenosis with neurogenic claudication, right foot drop -s/p L4-5 posterior spinal instrumented fusion with Dr. Yvan Lopez - Management/pain management per primary #DVT ppx: Timing and agent at discretion of primary Christine Mccullough MD Time spent in the patient's overall evaluation, decision-making process, review of diagnostic data, adjustment of management, discussion with other providers, nursing and ancillary staff involved in patient's care documentation, 15 Minutes HPI Consult Data Date of Consult: 03/04/25 HPI Narrative Reason for Consultation: Post op medical management HPI Narrative: CECILIA MARTIN, is a 59-year-old male history of tobacco use and spinal stenosis with right foot drop and lumbar radiculopathy who presented [facility] 03/04/2025 for L4-5 fusion. Hospitalist consulted for postoperative medical management. Patient evaluated at bedside, denies any chest pain or shortness of breath, has some left groin pain that is not new that he says been present since after hernia surgery, no nausea or abdominal pain. Patient reports being quite tired and had a sat of 88 to 89% and was placed on O2, does smoke is no known history of COPD and is not short of breath with no wheezing, no known history of sleep apnea. Does report smoking about half a pack a day and working on sougou. Does not want a nicotine patch. No other new or acute complaints [facility], [facility] Medical History Wears glasses Wears dentures Alcohol use History of steroid therapy Arthritis Back pain Drop foot gait Smoker History of echocardiogram History of stress test Home Medications Medication Instructions Recorded Last Taken Type cephalexin 500 mg tablet 500 mg PO BID 02/26/25 Unkno wn History fluticasone propionate 50 2 spray intranasal DAILY PRN nasal 02/26/25 Unknown History mcg/actuation nasal congestion spray,suspension (Aller-Miguelito) tadalafil 5 mg tablet (Cialis) 5 mg PO DAILY PRN sexua l activity 02/26/25 Unknow n History acetaminophen 500 mg tablet 1,000 mg (2 x 500 mg) PO Q 6H #30 03/04/25 Unknown Rx tabs meloxicam 15 mg tablet 15 mg PO DAILY #30 tabs 02/12 07/08 Unknown Rx methocarbamol 500 mg tablet 750 mg (1.5 x 500 mg) PO T ID PRN 03/04/25 Unknown Rx Pain/spasms #60 tabs oxycodone 5 mg tablet 2.5 - 5 mg (0.5 - 1 x 5 mg) PO Q6H 03/04/25 Unknown Rx PRN pain 7 days #28 tabs sennosides 8.6 mg-docusate sodium 2 tab PO BID PRN con stipation #14 03/04/25 Unknown Rx 50 mg tablet (Stimulant Laxative tabs Plus) Allergy/AdvReac Type Severity Reaction Status Date / Time No Known Allergies Allergy Verified 03/04/25 06:23 Family History Mother No problems noted. Father No problems noted. Surgical History Hx of colonoscopy Hx of umbilical hernia repair Hx of bilateral inguinal hernia repair Social History Smoking Status: Heavy Smoker (>10/day) ROS ROS Narrative ROS reviewed and pertinent positives and negatives as above Physical Exam Narrative General: Wakes up and answers questions, sometimes forgets what he saying, still very groggy HEENT: Atraumatic, normocephalic Eyes: Anicteric, normal conjunctiva, extraocular movements grossly intact Neck: Supple Respiratory: Clear to auscultation bilaterally, normal respiratory effort Cardiovascular: Regular rate and rhythm GI: Soft, nontender, nondistended Extremities: No edema Musculoskeletal: Moving all extremities Neuro: No overt focal neurological deficits Skin: No rashes appreciated Psych: Cooperative Charges/Coding Visit Charges Office Visits / Consults: 24951 OV L2 Est 10min
--- NOTE | 2025-03-04 15:01 | SUR.PHASEII ---
PATIENT DENIES NEED FOR A DINNER TRAY BECAUSE HE IS ON CLEAR LIQUIDS TILL PASSING GAS. I GAVE HIM A LEMON ICEE
[2025-03-04] MEDS: 0.9% Saline Lock 10 ML Syringe IV ×2 (16:07→19:05)
[2025-03-04] MEDS: 0.9% Normal Saline (250mL Bag) 250 ML 15 ML IV (16:09)
[2025-03-04] MEDS: Cefazolin 2 GM in 0.9% Normal Saline (100mL Bag) 100 ML IV (16:09)
[2025-03-04] MEDS: Senna/Docusate Sodium 1 Tablet 2 TABLET PO (20:58)
[2025-03-05] MEDS: 0.9% Saline Lock 10 ML Syringe IV ×2 (00:03→05:23)
[2025-03-05] MEDS: Cefazolin 2 GM in 0.9% Normal Saline (100mL Bag) 100 ML IV (00:03)
[2025-03-05 00:13] VITALS: BP 92/49; PULSE 75; RESP 16; TEMP 37.2; O2SAT 96
--- NOTE | 2025-03-05 04:25 | RAD_ITS ---
PROCEDURE: LUMBAR SPINE 2 OR 3 VIEWS 03/05/2025 REASON FOR EXAM: STATUS POST LUMBAR FUSION TECHNIQUE: Procedure Code: RADSPLL Modality: DX Procedure: LUMBAR SPINE 2 OR 3 VIEWS COMPARISON: MRI on 02/03/2025. FINDINGS: Mild degenerative levoscoliosis apex at L3. Grade 1 anterolisthesis of L4 on L5 measuring 4.2 mm. Decompression and fusion in the interim with unremarkable transpedicular screws and disc spacer at L4-L5. Moderate amount of fecal residue in the large bowels. There are diffuse spondylotic changes. Findings are demonstrated to by diffuse disc space narrowing, osteophyte formation and degenerative endplate sclerosis. There is diffuse facet joint arthropathy with secondary bilateral neural foramina narrowing. No fracture or dislocation is seen. No aggressive lytic or blastic bony lesion is noted. Calcified atheromatous plaques are noted. RAD/Lumbar Spine 2 or 3 Views IMPRESSION: Mild degenerative levoscoliosis apex at L3. Grade 1 anterolisthesis of L4 on L5 measuring 4.2 mm. Decompression and fusion in the interim with unremarkable transpedicular screws and disc spacer at L4-L5. Reading Location[facility]
[2025-03-05 05:29] VITALS: BP 121/79; PULSE 69; RESP 16; TEMP 36.7; O2SAT 96
[2025-03-05 06:25] LABS: Hematocrit 36.7 % (40-54); Hemoglobin 12.1 g/dL (13.0-16.5); Immature Granulocytes Count 0.080 X10^3/uL (0.0-0.0); Mean Corp Hgb Conc 33.0 g/dL (32-36); Mean Corpuscular Volume 88.6 fL (80-94); Mean Platelet Vol. 9.9 fl (6.2-12.0); NRBC Flagged by Analyzer 0 % (0-5); Platelet Count 258 K/mm3 (150-450); RBC Distribution Width CV 13.2 % (11.6-14.6); RBC Distribution Width SD 43.3 fl (35.1-43.9); Red Blood Count 4.14 M/mm3 (4.6-6.2); White Blood Count 12.0 K/mm3 (4.4-11.0)
[2025-03-05 06:55] LABS: Anion Gap 9 (5-15); BUN 8 mg/dL (4-19); BUN/Creat Ratio 11.7 RATIO (10-20); Calcium,Total 8.3 mg/dL (7.6-11.0); Carbon Dioxide 25.5 mmol/L (21.0-32.0); Chloride 104 mmol/L (98-108); Estimated Creatinine Clearance 127.08 ml/min (50-250); Glucose 127 mg/dL (70-99); Potassium 3.9 mmol/L (3.3-5.1)
--- NOTE | 2025-03-05 07:54 | PCM.PN.ORT ---
Subjective Subjective Duran is a pleasant 59-year-old gentleman postop day #1 status post L4-[address] Lopez. Patient is awake and alert, ambulatory in room with right side antalgic gait secondary to foot drop, gait is steady. Patient just completed ambulating in the halls with PT with use of walker. Pain is well-controlled with oral medications overnight. Reports some stiffness to the low back, feels he is progressing well and ready for discharge home today. Patient was advanced to regular diet last night and is passing gas. Objective Data Objective Data Vital Signs: Vital Signs Temp Pulse Resp BP Pulse Ox O2 Del Method O2 Flow Rate 98.1 F 69 16 121/79 H 96 Room Air 2 03/05/25 05:29 03/05/25 05:29 03/05/25 05:29 03/05/25 05:29 03/05/25 05:29 03/05/25 05:29 03/04/25 14:39 Oxygen Flow Rate (L/min) 2 Oxygen Delivery Method Room Air Weight: 187 lb 6.287 oz Body Mass Index (BMI) 25.4 Intake & Output: Intake and Output for Last 24 Hours 03/03/25 03/04/25 03/05/25 23:59 23:59 23:59 Intake Total 2228 / 2228 120.75 / 120.75 Output Total 300 / 300 Balance 1928 / 1928 120.75 / 120.75 Lab / Micro Data Attestation: I reviewed the patient's lab results. 03/05/25 06:01 03/05/25 06:01 Labs: Laboratory Results - last 24 hr 03/05/25 06:01: WBC 12.0 H, RBC 4.14 L, Hgb 12.1 L, Hct 36.7 L, MCV 88.6, MCH 29.2, MCHC 33.0, RDW Std Deviation 43.3, RDW Coeff of Darian 13.2, Plt Count 258, MPV 9.9, Immature Gran % (Auto) 0.700, Neut % (Auto) 75.0 H, Lymph % (Auto) 15.5 L, [place] % (Auto) 7.4, Eos % (Auto) 1.3, Baso % (Auto) 0.1, Absolute Neuts (auto) 9.0 H, Absolute Lymphs (auto) 1.86, Nucleated RBC % 0, Sodium 138, Potassium 3.9, Chloride 104, Carbon Dioxide 25.5, Anion Gap 9, BUN 8, Creatinine 0.67 L, Estim Creat Clear Calc 127.08, Est GFR (MDRD) Non-Af 106, BUN/Creatinine Ratio 11.7, Glucose 127 H, Calcium 8.3 Micro: Microbiology 02/27/25 11:18 Swab (Method) Nasal Screen MRSA/MSSA - Final Radiography Diagnostic Testing: Radiology Impression Lumbar Spine X-Ray 03/05/25 04:25 IMPRESSION: Mild degenerative levoscoliosis apex at L3. Grade 1 anterolisthesis of L4 on L5 measuring 4.2 mm. Decompression and fusion in the interim with unremarkable transpedicular screws and disc spacer at L4-L5. Reading Location: [place] [address] Physical Exam Narrative Patient ambulatory in room with right antalgic gait secondary to right foot drop. Reports no changes from prior to surgery. Dressings are clean, dry and intact Patient moves all extremities easily Mild weakness of right lower extremity, patient reports this as baseline Calves are soft, nontender, easily compressible with negative Homans Distal motor or sensory intact with brisk cap refill at 2 seconds to the left lower extremity; distal motor with brisk cap refill at 2 seconds to the right lower extremity with slightly impaired sensation to lateral lower leg, foot and toes compared to opposite. Reports this as baseline finding. Const alert, oriented x3 and no apparent distress General Appearance: cooperative Resp normal respiratory effort Extremity normal capillary refill, no calf tenderness and no pedal edema Skin Wound Narrative: Bilateral lumbar dressings are clean, dry and intact. There is no surrounding erythema, discoloration or swelling. No pain with palpation to NATO wound regions. Left abdominal/side dressing is clean dry and intact with no erythema, discoloration or swelling. Assessment & Plan Assessment/Plan (1) Spinal stenosis of lumbar region with neurogenic claudication: PLAN: Continue to ambulate with assistive devices as tolerated Regular diet as tolerated Discussed pain control with Rx acetaminophen, oxycodone, meloxicam and methocarbamol as prescribed Monitor incision site daily and call for any concerns with redness, drainage, streaking, fever or chills Keep gauze clean and dry. If Tegaderm is intact, okay to shower. After 5 days remove Tegaderm and gauze and cover with a Band-Aid. Replace Band-Aid daily thereafter. No bending lifting or twisting. Anticipate DC home today after morning PT Anticipate follow-up in Ortho office in 2 weeks, sooner for changes or concerns This document has been transcribed using [employer] dictation software. There may be incorrect words, spelling, and punctuation. (2) Status post lumbar spinal fusion: (3) Spondylolisthesis, lumbar region: (4) Right foot drop:
[2025-03-05 09:06] VITALS: BP 108/70; PULSE 68; RESP 16; TEMP 36.6; O2SAT 94
[2025-03-05] MEDS: Senna/Docusate Sodium 1 Tablet 2 TABLET PO (09:13)
[2025-03-05] MEDS: Ensure Surgery 237 ML LIQUID PO ×2 (09:13→12:39)
--- NOTE | 2025-03-05 09:58 | PCM.DC.BLA ---
Discharge Summary Date of Admission: 03/04/25 Date of Discharge: 03/05/25 Summary: Duran is a pleasant 59-year-old gentleman postop day #1 status post L4-[address] Lopez. Patient is awake and alert, ambulatory in room with right side antalgic gait secondary to foot drop, gait is steady. Patient just completed ambulating in the halls with PT with use of walker. Pain is well-controlled with oral medications overnight. Reports some stiffness to the low back, feels he is progressing well and ready for discharge home today. Patient was advanced to regular diet last night and is passing gas. Continue to ambulate with assistive devices as tolerated Regular diet as tolerated Discussed pain control with Rx acetaminophen, oxycodone, meloxicam and methocarbamol as prescribed Monitor incision site daily and call for any concerns with redness, drainage, streaking, fever or chills Keep gauze clean and dry. If Tegaderm is intact, okay to shower. After 5 days remove Tegaderm and gauze and cover with a Band-Aid. Replace Band-Aid daily thereafter. No bending lifting or twisting. Anticipate DC home today after morning PT Anticipate follow-up in Ortho office in 2 weeks, sooner for changes or concerns Physical Exam Narrative Patient ambulatory in room with right antalgic gait secondary to right foot drop. Reports no changes from prior to surgery. Dressings are clean, dry and intact Patient moves all extremities easily Mild weakness of right lower extremity, patient reports this as baseline Calves are soft, nontender, easily compressible with negative Homans Distal motor or sensory intact with brisk cap refill at 2 seconds to the left lower extremity; distal motor with brisk cap refill at 2 seconds to the right lower extremity with slightly impaired sensation to lateral lower leg, foot and toes compared to opposite. Reports this as baseline finding. Const alert, oriented x3 and no apparent distress General Appearance: cooperative Resp normal respiratory effort Extremity normal capillary refill, no calf tenderness and no pedal edema Skin Wound Narrative: Bilateral lumbar dressings are clean, dry and intact. There is no surrounding erythema, discoloration or swelling. No pain with palpation to NATO wound regions. Left abdominal/side dressing is clean dry and intact with no erythema, discoloration or swelling. Meaningful Use Info Meaningful Use Meaningful Use Diagnoses (Choose all that apply): None applicable Ischemic Stroke Statin Dosing Therapy Reference: STATIN DOSE THERAPY REFERENCE: * Patients > 75 years receive moderate or high dose statin therapy. * Patients 75 years or YOUNGER should receive HIGH intensity statin dose unless contraindicated. You will be required to document reason for non-treatment if statin daily dose does not meet guidelines. HIGH DOSE STATIN THERAPY DAILY Atorvastatin > than or = to 40 mg Rosuvastatin > than or = to 20 mg Amlodipine + Atorvastatin > than or = to 2.5/40 mg Ezetimibe + Simvastatin 10/80 mg Simvastatin 80mg Discharge Plan Admission Admit Date/Time: 03/04/25 10:56 Attending Provider: Yvan Lopez Primary Care Provider: Deepak Davidson Consulting Providers: Pelon Chavez; Forrest Bernard; Sarah Beth James; Thomas Brink; Thomas Dugan; Constantin Polanco; Bob Rosaod; Alfonso Licona; Hansa Bradley; Alejandro Box; Nona Escalera; Rafiq Armenta; Bienvenido Gamboa; Segundo Bruno; Christine Mccullough; Markell Gomez; Annel Websetr; Delonte Andrade Instructions Patient Instructions: Lumbar Fusion Dc Additional Instructions / Restrictions: Keep Tegaderm and gauze clean and dry. If Tegaderm is intact, okay to shower. After 5 days remove Tegaderm and gauze and cover with a Band-Aid. Replace Band-Aid daily thereafter. No bending lifting or twisting. Follow-up in clinic in 2 weeks. Discharge Orders/Prescriptions Prescriptions: New acetaminophen 500 mg Tablet 1,000 mg PO Q6H Qty: 30 0RF meloxicam 15 mg Tablet 15 mg PO DAILY Qty: 30 0RF Rx Instructions: Take once a day methocarbamol 500 mg Tablet 750 mg PO TID PRN (Reason: Pain/spasms) Qty: 60 0RF oxycodone 5 mg Tablet 2.5 - 5 mg PO Q6H PRN (Reason: pain) 7 Days Qty: 28 0RF sennosides-docusate sodium [Stimulant Laxative Plus] 8.6-50 mg Tablet 2 tab PO BID PRN (Reason: constipation) Qty: 14 0RF Continued cephalexin 500 mg tablet 500 mg PO BID fluticasone propionate [Aller-Miguelito] 50 mcg/actuation spray,suspension 2 spray intranasal DAILY PRN (Reason: nasal congestion) Rx Instructions: administer into each nostril tadalafil [Cialis] 5 mg tablet 5 mg PO DAILY PRN (Reason: sexual activity) Discontinued ibuprofen 200 mg tablet 200 mg PO Q6H PRN (Reason: pain) Referrals / Follow Up: Deepak Davidson MD [Primary Care Provider, Medical]
--- NOTE | 2025-03-05 11:25 | CASEMGMT ---
RIAN CM into pt room, pt sitting up in chair in no distress. Pt states he did well with therapy. Pt reports he lives home with his who is able to assist him as needed. Pt states he has a walker at home. Pt denies any homegoing needs at this time.
--- NOTE | 2025-03-05 12:09 | PHA.DC.COU.R ---
Pharmacy [facility] has performed discharge medication counseling for this patient. The patient was counseled on the following discharge medications and changes in medications for homegoing review. - Oxycodone 5 mg tablet, Acetaminophen 500 mg tablet, Meloxicam 15 mg tablet, Methocarbamol 500 mg tablet, Senna/docusate 8.6/50 mg tablet The Reason for Use, instructions for use, and potential side effects were reviewed for all new medications. The patient's questions regarding all of their medications were answered. The patient was able to verbally demonstrate an understanding of their discharge medications. Medications at Discharge Home Medications cephalexin 500 mg tablet 500 mg PO BID 02/26/25 fluticasone propionate 50 mcg/actuation nasal spray,suspension (Aller-Miguelito) 2 spray intranasal DAILY PRN nasal congestion 02/26/25 tadalafil 5 mg tablet (Cialis) 5 mg PO DAILY PRN sexual activity 02/26/25 acetaminophen 500 mg tablet 1,000 mg (2 x 500 mg) PO Q6H #30 tabs 03/04/25 meloxicam 15 mg tablet 15 mg PO DAILY #30 tabs 03/04/25 methocarbamol 500 mg tablet 750 mg (1.5 x 500 mg) PO TID PRN Pain/spasms #60 tabs 03/04/25 oxycodone 5 mg tablet 2.5 - 5 mg (0.5 - 1 x 5 mg) PO Q6H PRN pain 7 days #28 tabs 03/04/25 sennosides 8.6 mg-docusate sodium 50 mg tablet (Stimulant Laxative Plus) 2 tab PO BID PRN constipation #14 tabs 03/04/25
[2025-03-05 13:55] VITALS: BP 119/59; PULSE 73; RESP 18; TEMP 36.4; O2SAT 97
== END 2025-03-05 13:55 | disposition home or self-care (01) ==
LOC: SDC 15:29 → MS3 15:29
PROVIDERS: Anesthesiology; Student in an Organized Health Care Education/Training Program; Admitting Provider Orthopaedic Surgery Orthopaedic Surgery of the Spine; PCP Family Medicine; Referring Provider Orthopaedic Surgery Orthopaedic Surgery of the Spine; Visit Provider Orthopaedic Surgery Orthopaedic Surgery of the Spine
PROC: (CPT 22853; principal; 2025-03-04 07:00)
DX: M48.062 Spinal stenosis, lumbar region with neurogenic claudication (principal); M43.16 Spondylolisthesis, lumbar region; F17.210 Nicotine dependence, cigarettes, uncomplicated; M54.16 Radiculopathy, lumbar region; M48.061 Spinal stenosis, lumbar region without neurogenic claudication; M21.371 Foot drop, right foot; M19.90 Unspecified osteoarthritis, unspecified site
CPT/HCPCS: 22853; 22845; 20939; 20930; 22612; 22840; 00670; 22558; 36415; 72100; 76000; 80048; 83735; 85025; 86850; 86900; 86901; 87081; 94668; 96365; 96366; 96375; 96376; 97162; 97166; 97530; 99221; C1713; A4216; G0378; J2405; J3475